=== PATIENT | female | born 1995 | race Caucasian/White ===

== ENCOUNTER 2020-09-25 21:52 | Emergency (ER) | payer MEDICAID, SELFPAY ==
[2020-09-25 21:57] VITALS: BP 119/70; PULSE 92; RESP 16; TEMP 36.7; O2SAT 100; BMI 38.3
--- NOTE | 2020-09-25 22:40 | CT_ITS ---
EXAMINATION: HEAD CT WITHOUT CONTRAST CERVICAL SPINE CT WITHOUT CONTRAST CLINICAL INFORMATION: fall, head trauma COMPARISON: None. TECHNIQUE: Contiguous axial imaging of the head was performed without the administration of IV contrast. Axial multidetector volumetric images were also performed through the cervical spine without intravenous contrast. Multiplanar reconstructed images in coronal and sagittal orientations were submitted. This CT examination was performed using dose optimization techniques as appropriate, variously including the following: *Automated exposure control *Adjustment of mA and/or kV according to patient size (this includes techniques or standardized protocols for targeted exams where dose is matched to indication/reason for exam; i.e. extremities or head) *Use of iterative reconstruction technique DOSE: 1243 mGy-cm FINDINGS: HEAD: There is no evidence of acute intracranial hemorrhage or territorial infarction. No abnormal mass-effect or midline shift. No extra-axial fluid collections. Rebollar to white matter differentiation is well preserved. The ventricles are normal in size and configuration. There is no abnormal attenuation within the brain parenchyma. The soft tissues and osseous structures are normal. The sinuses and mastoid air cells are clear. CERVICAL SPINE: Vertebral body heights are normal. No fractures of the vertebral bodies or posterior elements. Vertebral alignment is normal. No subluxation. The craniocervical and atlantoaxial articulations are normal. Intervertebral disc heights are normal. No significant degenerative disc disease. Facet joints are normal. Central canal and neural foramina appear patent without appreciable stenoses. No significant paravertebral soft tissue swelling. Cervical soft tissues are unremarkable. Imaged portions of the lung apices are clear. CT/CT cervical spine wo con IMPRESSION: 1. No acute intracranial pathology. 2. No acute fracture or malalignment in the cervical spine.
--- NOTE | 2020-09-25 22:54 | ED_ITS ---
HPI - Fall General Chief Complaint: Fall Stated Complaint: fall hit head Time Seen by Provider: 09/25/20 22:23 Source: patient Mode of arrival: ambulatory Limitations: no limitations History of Present Illness HPI Narrative: 25-year-old female with no significant past medical history presents with headache and blurred vision after a slip and fall out of her shower. She was shaving, her foot slipped, she fell out of the shower and hit the back of her head on the bathroom floor. She did not lose consciousness, but is complaining of neck pain, headache, and blurry vision. She does have full range of motion to all extremities, ambulated into the emergency department, denies chest pain or pressure, palpitations, shortness of breath, abdominal pain, abdominal distention, dysuria, hematuria, fevers and chills. MD complaint: fall Onset (ago): hour(s) (Within the hour of arrival) Fall from: standing Fall witnessed: no Place fall occurred: home Loss of consciousness: none Prolonged down time: no Symptoms prior to fall: none Context: tripped/slipped Location of injury: head and neck Severity: moderate Severity scale (1-10): 9 Quality: aching and throbbing Associated symptoms (after fall): headache and neck pain Related Data Previous Rx's Medication Instructions Recorded ondansetron HCl [Zofran] 4 mg PO Q8H PRN #20 tab 09/26/20 Allergies Allergy/AdvReac Type Severity Reaction Status Date / Time copper [COPPER] Allergy Unknown RASH/HIVES Verified 09/25/20 22:49 nickel [NICKEL] Allergy Unknown RASH/HIVES Verified 09/25/20 22:49 acetaminophen [From Tylenol] AdvReac Gastrointestinal Verified 09/25/20 22:50 Upset Review of Systems Review of Systems: Constitutional: No Fever, No Chills ENT/Mouth: No Ear Pain, No Hoarseness, No sore throat Eyes: No Eye Pain, No Swelling, No Redness, No Foreign Body Cardiovascular: No Chest Pain, No SOB Respiratory: No Cough, No Dyspnea Gastrointestinal: No Nausea, No Vomiting, No Diarrhea, No abdominal Pain Genitourinary: No Dysuria, No Hematuria Musculoskeletal: positive neck pain, No Myalgias, No Joint Swelling Skin: No Skin lacerations, No rash Neuro: Positive headache, No Weakness, No Numbness, No Paresthesias, No Loss of Consciousness, No Dizziness Psych: No Anxiety/Panic, No Depression Heme/Lymph: no easy bruising, no Lymphadenopathy Endocrine: No Polyuria, No Polydipsia Yes all other systems are reviewed and are negative [facility] Past Medical History Attestation statement: The following information was validated with the patient. Medical History Asthma Surgical History Hx of tonsillectomy Social History Social History Advance Directives: No Advance Directives Information Provided: Yes Physical Exam Vital Signs: Vital Signs: Last Vital Signs Temp 98.1 F 09/26/20 00:00 Pulse 82 09/26/20 00:00 Resp 16 09/26/20 00:00 BP 109/58 L 09/26/20 00:00 Pulse Ox 100 09/26/20 00:00 Body Mass Index 38.3 Appearance: Alert. Oriented X3. Moderate distress. Eyes: Pupils equal, round and reactive to light. ENT: Pharynx normal. Neck: Normal inspection. Neck supple. CVS: Normal heart rate and rhythm. Pulses normal. Respiratory: No respiratory distress. Breath sounds normal. Abdomen: Soft and nontender. Skin: Skin warm and dry. Normal skin color. Normal skin turgor. Extremities: No lower extremity edema. Neuro: No motor deficit. No sensory deficit. Cranial nerves 2-12 intact, PERRLA, EOMI, no focal neural deficits. Moves all extremities against resistance, gait well balanced well coordinated. Course Course Course Narrative: 25-year-old female presents with a head injury after slipping and falling out of her bathtub and landing on her head. She does have full range of motion, but tenderness to the musculature around the cervical spine. Cranial nerves are intact, no focal neural deficit. She does have a throbbing headache to the occipital area of her head, plan of care is for CT scan of head and cervical spine. Patient was offered Tylenol for pain management, states that she does not take Tylenol because it causes a GI upset. CT scan is negative for acute findings requiring emergent intervention. Patient is highly suspicious for concussion and concussive syndrome. Detailed discussion with patient regarding concussion care and need for close follow-up with primary care physician. We will discharge with prescription for Zofran. Patient verbalized understanding of and agrees to plan of care to discharge home. MDM - Fall Differential Diagnosis Differential diagnosis: Likely fracture, compression fracture and concussion without loss of consciousness Medical Records Attestation: I reviewed the patient's medical records. Lab Data Attestation: I reviewed the patient's lab results. Labs: Lab Results 09/25/20 Range/Units 22:59 Urine Test NEGATIVE (NEGATIVE) Imaging Data CT scan of head and neck: Attestation: I personally reviewed and interpreted this imaging study as follows: Radiologist's impression: EXAMINATION: HEAD CT WITHOUT CONTRAST CERVICAL SPINE CT WITHOUT CONTRAST CLINICAL INFORMATION: fall, head trauma COMPARISON: None. TECHNIQUE: Contiguous axial imaging of the head was performed without the administration of IV contrast. Axial multidetector volumetric images were also performed through the cervical spine without intravenous contrast. Multiplanar reconstructed images in coronal and sagittal orientations were submitted. This CT examination was performed using dose optimization techniques as appropriate, variously including the following: *Automated exposure control *Adjustment of mA and/or kV according to patient size (this includes techniques or standardized protocols for targeted exams where dose is matched to indication/reason for exam; i.e. extremities or head) *Use of iterative reconstruction technique DOSE: 1243 mGy-cm FINDINGS: HEAD: There is no evidence of acute intracranial hemorrhage or territorial infarction. No abnormal mass-effect or midline shift. No extra-axial fluid collections. Rebollar to white matter differentiation is well preserved. The ventricles are normal in size and configuration. There is no abnormal attenuation within the brain parenchyma. The soft tissues and osseous structures are normal. The sinuses and mastoid air cells are clear. CERVICAL SPINE: Vertebral body heights are normal. No fractures of the vertebral bodies or posterior elements. Vertebral alignment is normal. No subluxation. The craniocervical and atlantoaxial articulations are normal. Intervertebral disc heights are normal. No significant degenerative disc disease. Facet joints are normal. Central canal and neural foramina appear patent without appreciable stenoses. No significant paravertebral soft tissue swelling. Cervical soft tissues are unremarkable. Imaged portions of the lung apices are clear. CT/CT head/brain wo con IMPRESSION: 1. No acute intracranial pathology. 2. No acute fracture or malalignment in the cervical spine. Discharge Plan Discharge Clinical Impression: Concussion without loss of consciousness Qualifiers: Encounter type: initial encounter Qualified Code(s): S06.0X0A - Concussion without loss of consciousness, initial encounter Cervical strain Qualifiers: Encounter type: initial encounter Qualified Code(s): S16.1XXA - Strain of muscle, fascia and tendon at neck level, initial encounter Patient Disposition: Home, Self-Care Instructions: Cervical Strain (ED), Concussion (ED), Post Concussion Syndrome (ED), Acute Neck Pain (ED) Additional Instructions: You were evaluated for head and neck pain after a fall with head trauma. CT scan of head neck are negative for acute findings requiring emergent intervention. Your injuries are highly suspicious for concussive syndrome. You must follow-up with your primary care physician within the next week for further follow-up. Please follow concussion protocol. Thank you for choosing this emergency department for evaluation. Please follow-up with primary care physician as needed. Return to the emergency department for any new, concerning, or worsening symptoms. Prescriptions: New ondansetron HCl [Zofran] 4 mg tablet 4 mg PO Q8H PRN (Reason: nausea and vomiting) Qty: 20 RF: 0 Stand Alone Forms: Work/School Release Interventions: ED Discharge Assessment Last Done: 09/26/20 00:49 Discharge Date/Time: 09/26/20 00:50
[2020-09-25 23:11] LABS: UPreg QC Valid YES; Urine Pregnancy NEGATIVE (NEGATIVE)
[2020-09-26] VITALS: BP 109/58; PULSE 82; RESP 16; TEMP 36.7; O2SAT 100
[2020-09-26] MEDS: Ibuprofen 600 MG TABLET PO (00:43)
== END 2020-09-26 00:50 | disposition home or self-care (01) ==
PROVIDERS: Nurse Practitioner Family; Emergency Provider Internal Medicine; PCP Nurse Practitioner Family
DX: S06.0X0A Concussion without loss of consciousness, initial encounter (principal); S16.1XXA Strain of muscle, fascia and tendon at neck level, initial encounter; G44.309 Post-traumatic headache, unspecified, not intractable; M54.2 Cervicalgia; W18.2XXA Fall in (into) shower or empty bathtub, initial encounter; Y93.E1 Activity, personal bathing and showering; Y92.002 Bathroom of unspecified non-institutional (private) residence as the place of occurrence of the external cause; Y99.9 Unspecified external cause status; Z79.899 Other long term (current) drug therapy
CPT/HCPCS: 70450; 72125; 81025; 99284

== ENCOUNTER 2023-08-11 17:00 | Emergency (ER) | payer OTHER, SELFPAY ==
[2023-08-11 17:07] VITALS: BP 129/82; PULSE 81; RESP 18; TEMP 36.7; O2SAT 100; BMI 43.8
--- NOTE | 2023-08-11 17:10 | ECG_ITS ---
Test Reason : DIZZINESS Blood Pressure : / mmHG Vent. Rate : 069 BPM Atrial Rate : 069 BPM P-R Int : 126 ms QRS Dur : 078 ms QT Int : 388 ms P-R-T Axes : 041 030 038 degrees QTc Int : 415 ms Normal sinus rhythm with sinus arrhythmia Normal ECG No previous ECGs available Referred By: Demetrice Amin Electronically Signed By:BALA SCHAEFER MD
--- NOTE | 2023-08-11 17:10 | ED.GENADULT ---
HPI - General Adult General Chief complaint: General Medical Stated complaint: Flu like symptoms, dizziness Time Seen by Provider: 08/11/23 19:32 Source: patient Mode of arrival: ambulatory Limitations: no limitations History of Present Illness HPI narrative: Patient is a 28-year-old female who presents to the emergency department for evaluation of GI symptoms. She reports nausea vomiting and diffuse abdominal pain that only began after multiple episodes of vomiting with onset this morning. She states that she did go out to eat last night had chicken and pizza from a bowling alley, her boyfriend is also experiencing nausea and vomiting today. She also endorses urinary frequency and a odorous urine for the past few days. She denies fevers, chills, dizziness, lightheadedness, chest pain, shortness of breath, recent known sick contacts aside from her significant other today. Related Data Previous Rx's Medication Instructions Recorded ondansetron HCl 4 mg tablet 4 mg PO Q8H PRN nausea and 09/26/20 (Zofran) vomiting #20 tabs cefuroxime axetil 500 mg tablet 500 mg PO BID #13 tabs 08/11/23 fluconazole 150 mg tablet 150 mg PO Q3D 2 doses #2 tabs 08/11/23 ondansetron 4 mg disintegrating 4 mg PO Q8H PRN nausea and 08/11/23 tablet vomiting #10 tabs Allergies Allergy/AdvReac Type Severity Reaction Status Date / Time copper [COPPER] Allergy Unknown RASH/HIVES Verified 09/25/20 22:49 nickel [NICKEL] Allergy Unknown RASH/HIVES Verified 09/25/20 22:49 acetaminophen [From Tylenol] AdvReac Gastrointestinal Verified 09/25/20 22:50 Upset Review of Systems Review of Systems: Yes all other systems are reviewed and are negative PMFSH Past Medical History Attestation statement: The following information was validated with the patient. Source: old records reviewed Medical History Asthma Surgical History Hx of tonsillectomy Social History Social History Smoked in Last 30 Days: Yes Use of substances other than those prescribed or required for medical reasons: Yes Substance Use Type: Marijuana Advance Directives: No Advance Directives Information Provided: No Patient : No Physical Exam ED Vital Signs: Vital Signs - 24 hr 08/11/23 17:07 08/11/23 19:58 Temperature 98.1 F 98.3 F Pulse Rate 81 70 Respiratory Rate 18 14 Blood Pressure 129/82 115/74 Pulse Oximetry 100 100 Oxygen Delivery Method Room Air Room Air BMI result Body Mass Index 43.8 Appearance: Alert.?Oriented to person, place and time. No acute distress.?Normal affect. Eyes: Pupils equal, round and reactive to light.? ENT: Pharynx normal.?? Neck: Normal inspection.? Neck supple.?? CVS: Heart sounds normal. Normal heart rate and rhythm.? Pulses normal.?? Respiratory: No respiratory distress.? Lung sounds clear to auscultation bilaterally?? Abdomen: Soft and non-tender. Normoactive bowel sounds.? Skin: Skin warm and dry.? Normal skin color.? Extremities: No lower extremity edema.? Neuro: Moves all extremities spontaneously. Sensation intact bilaterally. Ambulates with normal steady gait. Course Course Course Narrative: This is an RME: Additional HPI, ROS, PE not included below will be deferred to primary provider. 28 year old female presnts w/ n/v, abd pain, dizziness X 1 day. Smokes marijuanna almost daily but states last smoked two days ago. Plan- labs, ekg Medications Administered Discontinued Medications Generic Name Dose Route Start Last Admin Trade Name Freq PRN Reason Stop Dose Admin Cefuroxime Axetil 500 mg 08/11/23 21:38 08/11/23 21:44 Cefuroxime Axetil 500 Mg Tablet PO 08/11/23 21:39 500 mg ONCE ONE Administration Ibuprofen 600 mg 08/11/23 21:38 08/11/23 21:44 Ibuprofen 600 Mg Tablet PO 08/11/23 21:39 600 mg ONCE ONE Administration Ondansetron HCl 4 mg 08/11/23 17:12 08/11/23 19:57 Ondansetron Odt 4 Mg Tab.Rapdis TRANSLINGU 08/11/23 17:13 4 mg ONCE ONE Administration Medical Decision Making Medical Decision Making MDM Narrative: Patient is a 28-year-old female who presents emergency department for evaluation of nausea vomiting abdominal pain and urinary frequency. She is overall well-appearing, nontoxic, afebrile. Abdominal examination is benign, no rigidity or guarding not consistent with acute abdomen. Based on history physical examination lower suspicion for colitis, obstruction, diverticulitis, appendicitis. Most likely consistent with possible gastritis less likely due to, however did discuss that nausea and vomiting may also be attributed to urinary tract infection. Urinalysis concerning for possible urogenital contamination given she is symptomatic will treat as is symptomatic at this time all cultures are pending. No CVA tenderness, clinically low suspicion for pyelonephritis. HCG is negative. She is tolerating oral intake while in the emergency department. COVID-19 influenza testing was also negative. I advised outpatient follow-up with primary care provider within 1-3 days. Discussed worrisome signs and symptoms that would warrant re-evaluation emergency department. All questions were answered. Stable for discharge. Differential Diagnosis Differential Diagnoses: The differential diagnosis associated with the presentation includes (As noted above) Lab Data MDM Lab Attestation statement: I reviewed the patient's lab results. (As noted above) 08/11/23 17:20 08/11/23 17:21 Labs: Lab Results 08/11/23 08/11/23 08/11/23 Range/Units 17:20 17:21 17:22 WBC 10.8 (4.8-10.8) X10*3/uL RBC 5.58 H (4.20-5.50) X10*6/uL Hgb 12.6 (12.0-16.0) g/dl Hct 38.7 (37.0-47.0) % MCV 69.4 L (80.0-98.0) fL MCH 22.6 L (27.0-33.0) pg MCHC 32.6 (31.0-35.0) g/dl RDW 17.2 H (11.0-16.0) % Plt Count 403 H (160-400) X10*3/uL MPV 10.4 (9.4-12.3) fL Immature Gran % (Auto) 0.8 H (0.0-0.4) % Neut % (Auto) 56.9 (45-73) % Lymph % (Auto) 34.5 (20-40) % Amelia % (Auto) 5.2 (2-11) % Eos % (Auto) 2.0 (0-4) % Baso % (Auto) 0.6 (0-2) % Lymph # (Auto) 3.7 (1.2-4.9) X10*3/uL Amelia # (Auto) 0.6 (0.1-1.2) X10*3/uL Eos # (Auto) 0.2 (0.0-0.4) X10*3/uL Baso # (Auto) 0.1 (0.0-0.2) X10*3/uL Abs Immat Gran (auto) 0.09 H (0.00-0.03) X10*3/uL Absolute Neuts (auto) 6.1 (2.0-8.3) x10*3/uL Absolute Nucleated RBC 0.000 (0.0-0.012) X10*3/uL Nucleated RBC % (auto) 0.0 (0.0-0.2) /100WBC Sodium 141 (135-145) mmol/L Potassium 3.8 (3.3-5.1) mmol/L Chloride 109 H (96-108) mmol/L Carbon Dioxide 23 (22-29) mmol/L Anion Gap 13 (12-20) BUN 9 (9-16) mg/dL Creatinine 0.81 (0.5-1.4) mg/dL Estim Creat Clear Calc 107.4 Estimated GFR > 60 Random Glucose 85 (60-115) mg/dL Calcium 9.1 (8.4-10.2) mg/dL Magnesium 2.1 (1.6-2.6) mg/dL Total Bilirubin 0.3 (0.0-1.0) mg/dL AST 15 (5-31) U/L ALT 13 (0-31) U/L Alkaline Phosphatase 88 (39-117) U/L Total Protein 7.6 (6.5-8.0) g/dL Albumin 4.3 (3.5-5.0) g/dL Lipase 16 (8-78) U/L Urine Color Yellow Urine Appearance Clear Urine pH 6.5 (5.0-9.0) Ur Specific [place] >= 1.030 H (1.005-1.025) Urine Protein Trace (Neg-Trace) mg/dL Urine Glucose (UA) Negative (Negative) mg/dL Urine Ketones Negative (Negative) mg/dL Urine Blood Negative (Negative) Urine Nitrite Negative (Negative) Ur Leukocyte Esterase Trace H (Negative) Urine RBC 0-2 (0-2) /HPF Urine WBC 6-10 H (0-5) /HPF Ur Squamous Epith Cells 11-20 (0-2) /HPF Urine Bacteria 3+ (None Seen) Hyaline Casts 0-2 (0-2) /LPF Urine Test NEGATIVE (NEGATIVE) Urine Opiates Screen Not Detected (Not Detect) Urine Fentanyl Screen Not Detected (Not Detect) Ur Barbiturates Screen Not Detected (Not Detect) Ur Phencyclidine Scrn Not Detected (Not Detect) Ur Amphetamines Screen Not Detected (Not Detect) U Benzodiazepines Scrn Not Detected (Not Detect) Urine Cocaine Screen Not Detected (Not Detect) U Marijuana (THC) Screen POSITIVE H (Not Detect) COVID-19 (OSCAR) Negative (Negative) COVID-19 Clin Com See Note Influenza Type A (FARHANA) Negative (Negative) Influenza Type B (FARHANA) Negative (Negative) Influenza A & B Note See Note Independent Historian Clinical information obtained from an independent historian. History obtained from or confirmed by: Friend (Present confirms history) Prescription Management I considered prescription management with: Antibiotic Discharge Plan Discharge Clinical Impression: Urinary tract infection Patient Disposition: Home, Self-Care Instructions: Urinary Tract Infection in Women (ED) Prescriptions: New cefuroxime axetil 500 mg tablet 500 mg PO BID Qty: 13 0RF ondansetron 4 mg tablet,disintegrating 4 mg PO Q8H PRN (Reason: nausea and vomiting) Qty: 10 0RF fluconazole 150 mg tablet 150 mg PO Q3D Qty: 2 0RF No Action ondansetron HCl [Zofran] 4 mg tablet 4 mg PO Q8H PRN (Reason: nausea and vomiting) Qty: 20 0RF Rx Instructions: ODT sublingual Stand Alone Forms: Work/School Release Interventions: ED Discharge Assessment Last Done: 08/11/23 21:51 Discharge Date/Time: 08/11/23 21:52
[2023-08-11 17:30] LABS: MANUAL DIFF FLAG NO
[2023-08-11 17:43] LABS: Appearance Urine Clear; Color Urine Yellow; Glucose Urine UA Negative (Negative); Leukocyte Esterase Urine Trace (Negative); Nitrite Urine Negative (Negative); PH 6.5 (5.0-9.0); Specific Gravity - Urine >= 1.030 (1.005-1.025); UMIC TRIGGER UACC YES; Urine Blood Negative (Negative); Urine Ketones Negative (Negative); Urine Protein Trace mg/dL (Neg-Trace)
[2023-08-11 17:45] LABS: UPreg QC Valid YES; Urine Pregnancy NEGATIVE (NEGATIVE)
[2023-08-11 17:48] LABS: Bacteria Urine 3+ (None Seen); Basophils Absolute Auto 0.1 X10*3/uL (0.0-0.2); Basophils Percent Auto 0.6 % (0-2); Eosinophils Absolute Auto 0.2 X10*3/uL (0.0-0.4); Hematocrit 38.7 % (37.0-47.0); Hemoglobin 12.6 g/dl (12.0-16.0); Hyaline Casts Urine 0-2 /LPF (0-2); Imm Gran Abs Auto 0.09 X10*3/uL (0.00-0.03); Imm Gran Pct Auto 0.8 % (0.0-0.4); Lymphocytes Absolute Auto 3.7 X10*3/uL (1.2-4.9); Lymphocytes Percent Auto 34.5 % (20-40); Mean Corpuscular HGB Conc 32.6 g/dl (31.0-35.0); Mean Corpuscular Hemoglobin 22.6 pg (27.0-33.0); Mean Corpuscular Volume 69.4 fL (80.0-98.0); Mean Platelet Volume 10.4 fL (9.4-12.3); Monocytes Absolute Auto 0.6 X10*3/uL (0.1-1.2); Monocytes Percent Auto 5.2 % (2-11); Neutrophils Absolute Auto 6.1 x10*3/uL (2.0-8.3); Neutrophils Percent Auto 56.9 % (45-73); Platelet Count 403 X10*3/uL (160-400); RBC Urine 0-2 /HPF (0-2); Red Blood Count 5.58 X10*6/uL (4.20-5.50); Red Cell Distribution Width 17.2 % (11.0-16.0); UACC Culture Trigger YES; White Blood Count 10.8 X10*3/uL (4.8-10.8)
[2023-08-11 17:49] LABS: Alanine Aminotransferase 13 U/L (0-31); Albumin Level 4.3 g/dL (3.5-5.0); Alkaline Phosphatase 88 U/L (39-117); Anion Gap 13 (12-20); Aspartate Amino Transferase 15 U/L (5-31); Bilirubin Total 0.3 mg/dL (0.0-1.0); Blood Urea Nitrogen 9 mg/dL (9-16); Calcium 9.1 mg/dL (8.4-10.2); Carbon Dioxide 23 mmol/L (22-29); Chloride 109 mmol/L (96-108); Creatinine Clr Calc Pharmacy 107.4; Estimated Glomerular Filt Rate > 60; Glucose Random 85 mg/dL (60-115); Lipase 16 U/L (8-78); Magnesium 2.1 mg/dL (1.6-2.6); Potassium 3.8 mmol/L (3.3-5.1); Sodium 141 mmol/L (135-145); Total Protein 7.6 g/dL (6.5-8.0)
[2023-08-11 17:50] LABS: Amphetamine Screen Urine Not Detected (Not Detect); Barbiturates, Urine Not Detected (Not Detect); Benzodiazepines Screen Urine Not Detected (Not Detect); Cannabinoid Screen Urine POSITIVE (Not Detect); Cocaine Screen Urine Not Detected (Not Detect); Fentanyl, urine Not Detected (Not Detect); Opiate Screen Urine Not Detected (Not Detect); Phencyclidine Screen Urine Not Detected (Not Detect)
[2023-08-11 18:00] LABS: IDNOW Serial# BCCEAD1C; Influenza A Negative (Negative); Influenza B2 Negative (Negative)
[2023-08-11 18:00] LABS: COVID-19 Test Negative (Negative); IDNOW Serial# 08D9AD1C
[2023-08-11] MEDS: Ondansetron ODT 4 MG TAB.RAPDIS TRANSLINGU (19:57)
[2023-08-11 19:58] VITALS: BP 115/74; PULSE 70; RESP 14; TEMP 36.8; O2SAT 100
--- NOTE | 2023-08-11 20:16 | PC.NURSE ---
Pt aox4 resting at the bedside reporting I have a migraine headache , 05/23. Pt reports hx of migraines but has been out of medical care for a while. Also reports feeling nauseas. Reports having an appt with primary care in Sep. Pt medicated as ordered and tolerated well.
[2023-08-11] MEDS: cefuroxime axetiL 500 MG TABLET PO (21:44)
[2023-08-11] MEDS: Ibuprofen 600 MG TABLET PO (21:44)
== END 2023-08-11 21:52 | disposition home or self-care (01) ==
PROVIDERS: Physician Assistant; Emergency Provider Emergency Medicine
DX: N39.0 Urinary tract infection, site not specified (principal); R11.2 Nausea with vomiting, unspecified; R10.2 Pelvic and perineal pain; R42 Dizziness and giddiness; Z11.52 Encounter for screening for COVID-19; Z20.822 Contact with and (suspected) exposure to COVID-19; Z79.899 Other long term (current) drug therapy
CPT/HCPCS: 36415; 80053; 80307; 81001; 81025; 83690; 83735; 85025; 87086; 87502; 87635; 93005; 99284

== ENCOUNTER 2023-09-13 15:41 | Outpatient (REF) | payer OTHER, SELFPAY | END 2023-09-13 15:42 | disposition home or self-care (01) | LOC: HO.CHCLNP 15:41 | PROVIDERS: Visit Provider Family Medicine | DX: R30.0 Dysuria (principal) | CPT/HCPCS: 36415; 81513; 87086 ==

== ENCOUNTER 2023-09-16 08:43 | Outpatient (REF) | payer SELFPAY ==
[2023-09-16 14:41] LABS: MANUAL DIFF FLAG NO
[2023-09-16 14:52] LABS: Basophils Absolute Auto 0.1 X10*3/uL (0.0-0.2); Basophils Percent Auto 0.7 % (0-2); Eosinophils Absolute Auto 0.2 X10*3/uL (0.0-0.4); Eosinophils Percent Auto 2.5 % (0-4); Hematocrit 39.4 % (37.0-47.0); Hemoglobin 12.1 g/dl (12.0-16.0); Imm Gran Abs Auto 0.04 X10*3/uL (0.00-0.03); Imm Gran Pct Auto 0.5 % (0.0-0.4); Lymphocytes Absolute Auto 2.8 X10*3/uL (1.2-4.9); Lymphocytes Percent Auto 33.4 % (20-40); Mean Corpuscular HGB Conc 30.7 g/dl (31.0-35.0); Mean Corpuscular Hemoglobin 22.3 pg (27.0-33.0); Mean Corpuscular Volume 72.7 fL (80.0-98.0); Mean Platelet Volume 10.7 fL (9.4-12.3); Monocytes Absolute Auto 0.4 X10*3/uL (0.1-1.2); Neutrophils Absolute Auto 4.8 x10*3/uL (2.0-8.3); Neutrophils Percent Auto 57.9 % (45-73); Platelet Count 365 X10*3/uL (160-400); Red Blood Count 5.42 X10*6/uL (4.20-5.50); Red Cell Distribution Width 17.1 % (11.0-16.0); White Blood Count 8.3 X10*3/uL (4.8-10.8)
[2023-09-16 15:13] LABS: Alanine Aminotransferase 13 U/L (0-31); Alkaline Phosphatase 87 U/L (39-117); Anion Gap 13 (12-20); Aspartate Amino Transferase 15 U/L (5-31); Bilirubin Total 0.3 mg/dL (0.0-1.0); Blood Urea Nitrogen 11 mg/dL (9-16); Calcium 9.1 mg/dL (8.4-10.2); Carbon Dioxide 22 mmol/L (22-29); Chloride 110 mmol/L (96-108); Cholesterol 171 mg/dL (<200); Estimated Glomerular Filt Rate > 60; Glucose Random 62 mg/dL (60-115); HDL Cholesterol 32 mg/dL (>40); LDL Cholesterol Calculated 118 mg/dL (<100); Potassium 3.8 mmol/L (3.3-5.1); Sodium 141 mmol/L (135-145); Total Protein 7.1 g/dL (6.5-8.0); Triglycerides 108 mg/dL (<150)
[2023-09-16 15:17] LABS: TSH reflex Free T4 1.97 uIU/mL (0.32-4.0)
[2023-09-17 07:33] LABS: Estimated Average Glucose 103 mg/dL; Hemoglobin A1c % 5.2 % (<6.0)
[2023-09-17 08:34] LABS: HIV AB/AG Nonreactive (Nonreactive); HIV Num 1 0.04 S/CO (0.00-0.99); ~HepC Num1 0.19 S/CO (0.00-0.79); ~Hepatitis C Antibody Nonreactive (Nonreactive)
== END 2023-09-16 08:44 | disposition home or self-care (01) ==
LOC: HO.CHCLDS 08:43
PROVIDERS: Visit Provider Family Medicine
DX: Z11.4 Encounter for screening for human immunodeficiency virus [HIV] (principal); E66.01 Morbid (severe) obesity due to excess calories; Z68.41 Body mass index [BMI] 40.0-44.9, adult
CPT/HCPCS: 36415; 80053; 80061; 83036; 84443; 85025; 86803; 87389

== ENCOUNTER 2023-10-02 21:22 | Emergency (ER) | payer OTHER, SELFPAY ==
--- NOTE | ~2023-10-02 | XR_ITS ---
EXAMINATION: XR CHEST CLINICAL INFORMATION: Dyspnea COMPARISON: Previous chest x-ray March 2014 TECHNIQUE: Frontal view of the chest was obtained. FINDINGS: No significant abnormality is noted involving the heart, lungs, mediastinum, bony thorax or soft tissues. XR/XR chest 1V IMPRESSION: Unremarkable examination.
[2023-10-02 21:39] VITALS: BP 122/74; PULSE 87; RESP 18; TEMP 36.8; O2SAT 100; BMI 43.5
--- NOTE | 2023-10-02 21:44 | ECG_ITS ---
Test Reason : CHEST PAIN Blood Pressure : / mmHG Vent. Rate : 093 BPM Atrial Rate : 093 BPM P-R Int : 138 ms QRS Dur : 074 ms QT Int : 336 ms P-R-T Axes : 054 031 045 degrees QTc Int : 417 ms Normal sinus rhythm Cannot rule out Anterior infarct , age undetermined Abnormal ECG When compared with ECG of 11-AUG-2023 17:17, No significant change was found Referred By: Generic ED Physician Electronically Signed By:MAYURI TEJEDA MD
[2023-10-02 21:59] LABS: MANUAL DIFF FLAG NO
[2023-10-02 22:01] LABS: Basophils Absolute Auto 0.1 X10*3/uL (0.0-0.2); Basophils Percent Auto 0.6 % (0-2); Eosinophils Absolute Auto 0.2 X10*3/uL (0.0-0.4); Eosinophils Percent Auto 1.8 % (0-4); Hematocrit 38.1 % (37.0-47.0); Hemoglobin 12.1 g/dl (12.0-16.0); Imm Gran Abs Auto 0.03 X10*3/uL (0.00-0.03); Imm Gran Pct Auto 0.2 % (0.0-0.4); Lymphocytes Absolute Auto 4.3 X10*3/uL (1.2-4.9); Lymphocytes Percent Auto 31.3 % (20-40); Mean Corpuscular HGB Conc 31.8 g/dl (31.0-35.0); Mean Corpuscular Hemoglobin 22.7 pg (27.0-33.0); Mean Corpuscular Volume 71.6 fL (80.0-98.0); Mean Platelet Volume 10.1 fL (9.4-12.3); Monocytes Absolute Auto 0.6 X10*3/uL (0.1-1.2); Monocytes Percent Auto 4.5 % (2-11); Neutrophils Absolute Auto 8.4 x10*3/uL (2.0-8.3); Neutrophils Percent Auto 61.6 % (45-73); Platelet Count 362 X10*3/uL (160-400); Red Blood Count 5.32 X10*6/uL (4.20-5.50); Red Cell Distribution Width 16.8 % (11.0-16.0); White Blood Count 13.6 X10*3/uL (4.8-10.8)
--- NOTE | 2023-10-02 22:07 | ED_ITS ---
HPI - General Adult General Chief complaint: Dyspnea Stated complaint: covid 2 wks ago, sob Time Seen by Provider: 10/02/23 22:05 Source: patient, RN notes reviewed and old records reviewed Mode of arrival: ambulatory Limitations: no limitations History of Present Illness HPI narrative: 28-year-old female presents for evaluation of shortness of breath Patient reports that she tested positive for COVID-19 10 days ago She reports the time she had body aches, congestion, facial pressure, mild cough and shortness of breath. She states that she started to get better She states that her flu-like symptoms improved but then she developed worsening shortness of breath even while speaking She states that she has a history of asthma and anxiety. She has an inhaler that is but she has not yet seen her PCP for a refill Denies any fevers, chills or other sick contacts Denies any recent travel or history of DVT/PE Related Data Previous Rx's Medication Instructions Recorded ondansetron HCl 4 mg tablet 4 mg PO Q8H PRN nausea and 09/26/20 (Zofran) vomiting #20 tabs cefuroxime axetil 500 mg tablet 500 mg PO BID #13 tabs 08/11/23 fluconazole 150 mg tablet 150 mg PO Q3D 2 doses #2 tabs 08/11/23 ondansetron 4 mg disintegrating 4 mg PO Q8H PRN nausea and 08/11/23 tablet vomiting #10 tabs albuterol sulfate 90 mcg/actuation 2 puff inhalation Q4-6H PRN 10/02/23 aerosol inhaler shortness of breath or wheezing #8.5 grams azithromycin 250 mg tablet See Rx Instructions PO .COMPLEX #6 10/02/23 tabs prednisone 20 mg tablet 40 mg (2 x 20 mg) PO DAILY #10 tabs 10/02/23 Allergies Allergy/AdvReac Type Severity Reaction Status Date / Time copper [COPPER] Allergy Unknown RASH/HIVES Verified 09/25/20 22:49 nickel [NICKEL] Allergy Unknown RASH/HIVES Verified 09/25/20 22:49 acetaminophen [From Tylenol] AdvReac Gastrointestinal Verified 09/25/20 22:50 Upset Review of Systems 2 Constitutional: Constitutional: Denies body ache(s), Denies chills, Denies fever(s) and Denies headache(s) ENT: Denies headache(s) and Denies sore throat Cardiovascular: Cardiovascular: Denies chest pain and Reports dyspnea Respiratory: Respiratory: Reports cough and Reports dyspnea Gastrointestinal: Gastrointestinal: Denies abdominal pain, Denies nausea and Denies vomiting Musculoskeletal: Musculoskeletal: Denies back pain Integumentary/Breasts: Skin/Breast: Denies rash Neurologic: Denies headache(s) [facility] Past Medical History Medical History Asthma Surgical History Hx of tonsillectomy Social History Social History Substance Use Type: Marijuana Advance Directives: No Advance Directives Information Provided: No Physical Exam ED Vital Signs: Vital Signs - 24 hr 10/02/23 21:39 10/02/23 22:14 Temperature 98.3 F 98.2 F Pulse Rate 87 87 Respiratory Rate 18 20 Blood Pressure 122/74 123/53 L Pulse Oximetry 100 99 Oxygen Delivery Method Room Air Room Air BMI result Body Mass Index 43.5 Const General: healthy appearing, comfortable, no acute distress, alert and awake Nutritional Appearance: well nourished Orientation/consciousness: patient oriented x3 HENMT Head: Yes normocephalic and Yes atraumatic Eyes Eyelids: Yes eyelids normal Conjunctivae: conjunctivae normal Sclerae: sclerae normal Corneas: corneas normal Pupils: Equal, round and reactive pupils present EOM: EOMs intact bilaterally Neck Neck: Yes full ROM Resp Effort & Inspection: normal respiratory effort, able to speak in complete sentences, no audible wheezes and not labored Auscultation: clear to auscultation bilaterally GI Inspection: No distended Palpation (GI): Soft to palpation, not firm, nontender, no guarding and not rigid Skin General skin exam: no rashes or lesions noted and elasticity normal Neuro General: patient oriented x3 Cranial nerves: Yes Equal, round and reactive pupils present and Yes Bilaterally intact EOM present Cognition (Neuro): normal cognition Extrem Other: Moving all extremities well without any obvious deformities Course Reevaluation(s) Reevaluation #1: Patient's viral swab is negative, we will treat her for upper respiratory infection with azithromycin and prednisone. Time: 23:24 Medical Decision Making Medical Decision Making [facility] Narrative: 28-year-old healthy female presents for evaluation of shortness of breath, cough. She states this feels different to the symptoms shows experiencing when she was 1st diagnosed with COVID 10 days ago. Will repeat viral testing to see if she tested positive for any additional viruses. Will get chest x-ray to rule out focal infiltrate post viral pneumonia. Patient is noted mild leukocytosis to 13.6 K. no significant anemia. Chemistries reviewed without any significant abnormality Differential Diagnosis Differential Diagnoses: The differential diagnosis associated with the presentation includes Upper respiratory infection Viral syndrome Postviral pneumonia RSV Influenza Lab Data [facility] Lab Attestation statement: I reviewed the patient's lab results. As above 10/02/23 21:52 10/02/23 21:52 Labs: Lab Results 10/02/23 10/02/23 Range/Units 21:52 22:18 WBC 13.6 H (4.8-10.8) X10*3/uL RBC 5.32 (4.20-5.50) X10*6/uL Hgb 12.1 (12.0-16.0) g/dl Hct 38.1 (37.0-47.0) % MCV 71.6 L (80.0-98.0) fL MCH 22.7 L (27.0-33.0) pg MCHC 31.8 (31.0-35.0) g/dl RDW 16.8 H (11.0-16.0) % Plt Count 362 (160-400) X10*3/uL MPV 10.1 (9.4-12.3) fL Immature Gran % (Auto) 0.2 (0.0-0.4) % Neut % (Auto) 61.6 (45-73) % Lymph % (Auto) 31.3 (20-40) % Piatt % (Auto) 4.5 (2-11) % Eos % (Auto) 1.8 (0-4) % Baso % (Auto) 0.6 (0-2) % Lymph # (Auto) 4.3 (1.2-4.9) X10*3/uL Piatt # (Auto) 0.6 (0.1-1.2) X10*3/uL Eos # (Auto) 0.2 (0.0-0.4) X10*3/uL Baso # (Auto) 0.1 (0.0-0.2) X10*3/uL Abs Immat Gran (auto) 0.03 (0.00-0.03) X10*3/uL Absolute Neuts (auto) 8.4 H (2.0-8.3) x10*3/uL Absolute Nucleated RBC 0.000 (0.0-0.012) X10*3/uL Nucleated RBC % (auto) 0.0 (0.0-0.2) /100WBC Sodium 141 (135-145) mmol/L Potassium 3.9 (3.3-5.1) mmol/L Chloride 110 H (96-108) mmol/L Carbon Dioxide 24 (22-29) mmol/L Anion Gap 11 L (12-20) BUN 10 (9-16) mg/dL Creatinine 0.80 (0.5-1.4) mg/dL Estim Creat Clear Calc 108.3 Estimated GFR > 60 Random Glucose 118 H (60-115) mg/dL Calcium 9.2 (8.4-10.2) mg/dL Troponin I High Sens < 2.7 (<3.5-17.0) ng/L Influenza Type A (PCR) NEGATIVE (Negative) Influenza Type B (PCR) NEGATIVE (Negative) RSV RNA Qual (PCR) NEGATIVE (Negative) SARS-CoV-2 RNA (RT-PCR) NEGATIVE (Negative) Independent Interpretation I performed an independent interpretation of an: Plain X-Ray (No focal infiltrate) Discharge Plan Discharge Clinical Impression: Acute upper respiratory infection Patient Disposition: Home, Self-Care Instructions: Upper Respiratory Infection (ED) Additional Instructions: Your workup in the emergency room today was reassuring. Her vital signs are within normal limits. Her chest x-ray was clear. Take azithromycin and prednisone as directed for upper respiratory infection Follow-up with your primary doctor or return to the ER for worsening symptoms Prescriptions: New albuterol sulfate 90 mcg/actuation HFA aerosol inhaler 2 puff inhalation Q4-6H PRN (Reason: shortness of breath or wheezing) Qty: 8.5 0RF azithromycin 250 mg tablet See Rx Instructions .ROUTE .COMPLEX Qty: 6 0RF Rx Instructions: For 250 mg dose pack: take 500 mg today (day 1), then 250 mg for 4 days (days 2-5) prednisone 20 mg tablet 40 mg PO DAILY Qty: 10 0RF No Action ondansetron HCl [Zofran] 4 mg tablet 4 mg PO Q8H PRN (Reason: nausea and vomiting) Qty: 20 0RF Rx Instructions: ODT sublingual cefuroxime axetil 500 mg tablet 500 mg PO BID Qty: 13 0RF ondansetron 4 mg tablet,disintegrating 4 mg PO Q8H PRN (Reason: nausea and vomiting) Qty: 10 0RF fluconazole 150 mg tablet 150 mg PO Q3D Qty: 2 0RF
[2023-10-02 22:14] VITALS: BP 123/53; PULSE 87; RESP 20; TEMP 36.8; O2SAT 99
[2023-10-02 22:22] LABS: Anion Gap 11 (12-20); Blood Urea Nitrogen 10 mg/dL (9-16); Calcium 9.2 mg/dL (8.4-10.2); Carbon Dioxide 24 mmol/L (22-29); Chloride 110 mmol/L (96-108); Creatinine Clr Calc Pharmacy 108.3; Estimated Glomerular Filt Rate > 60; Glucose Random 118 mg/dL (60-115); Potassium 3.9 mmol/L (3.3-5.1); Sodium 141 mmol/L (135-145)
[2023-10-02 22:30] LABS: Troponin-I High Sensitivity < 2.7 ng/L (<3.5-17.0)
[2023-10-02 23:17] LABS: Influenza A PCR NEGATIVE (Negative); Influenza B PCR NEGATIVE (Negative); Resp Syncy Virus RNA Qual PCR NEGATIVE (Negative); SARS COV2 PCR INHOUSE NEGATIVE (Negative)
== END 2023-10-03 00:01 | disposition home or self-care (01) ==
PROVIDERS: Physician Assistant; Absent Provider Family Medicine; Emergency Provider Student in an Organized Health Care Education/Training Program
DX: J06.9 Acute upper respiratory infection, unspecified (principal); R06.02 Shortness of breath; R07.89 Other chest pain; Z79.899 Other long term (current) drug therapy; Z20.822 Contact with and (suspected) exposure to COVID-19; Z20.828 Contact with and (suspected) exposure to other viral communicable diseases
CPT/HCPCS: 0241U; 36415; 71045; 80048; 84484; 85025; 93005; 99283; 99284

== ENCOUNTER → 2023-10-02 21:44 | Outpatient (BNV) | payer MEDICAID, SELFPAY | PROVIDERS: Absent Provider Family Medicine; Emergency Provider Student in an Organized Health Care Education/Training Program; Visit Provider Internal Medicine Cardiovascular Disease | DX: R94.31 Abnormal electrocardiogram [ECG] [EKG] (principal) | CPT/HCPCS: 93010 ==

== ENCOUNTER 2023-11-03 08:34 | Emergency (ER) | payer SELFPAY ==
[2023-11-03 08:51] VITALS: BP 137/80; PULSE 119; RESP 16; TEMP 36.8; O2SAT 98; BMI 42.4
--- NOTE | 2023-11-03 09:03 | ED.URI ---
HPI - URI/Sore Throat General Chief Complaint: Upper Respiratory Symptoms Stated Complaint: Laryngitis - sore throat, sweating Time Seen by Provider: 11/03/23 09:01 Source: patient Mode of arrival: ambulatory Limitations: no limitations History of Present Illness HPI Narrative: 28 year old female with pmhx significant for asthma and recurrent streptococcal pharyngitis s/p tonsillectomy presents to the ED today for evaluation of hoarse voice, sore throat, body aches, non productive cough, congestion x4 days. She was seen at [facility] 3 days ago and diagnosed with laryngitis. Discharged home with Giulia Warren. States that since this time her symptoms have been worsening. Now she has a nonproductive cough and overall feels ?unwell?. Denies fever, chills, ear pain, chest pain, shortness of breath, wheezing nausea vomiting, abdominal pain. States her daughter was ill with the flu 2 weeks ago. Denies other known sick contacts. Related Data Previous Rx's Medication Instructions Recorded ondansetron HCl 4 mg tablet 4 mg PO Q8H PRN nausea and 09/26/20 (Zofran) vomiting #20 tabs cefuroxime axetil 500 mg tablet 500 mg PO BID #13 tabs 08/11/23 fluconazole 150 mg tablet 150 mg PO Q3D 2 doses #2 tabs 08/11/23 ondansetron 4 mg disintegrating 4 mg PO Q8H PRN nausea and 08/11/23 tablet vomiting #10 tabs albuterol sulfate 90 mcg/actuation 2 puff inhalation Q4-6H PRN 10/02/23 aerosol inhaler shortness of breath or wheezing #8.5 grams azithromycin 250 mg tablet See Rx Instructions PO .COMPLEX #6 10/02/23 tabs prednisone 20 mg tablet 40 mg (2 x 20 mg) PO DAILY #10 tabs 10/02/23 benzocaine 15 mg-menthol 2.6 mg 1 christiano mucous membrane Q2-4H PRN 11/03/23 lozenges (Cepacol Sore Throat sore throat #16 ea (benzocaine-menthol)) Allergies Allergy/AdvReac Type Severity Reaction Status Date / Time copper [COPPER] Allergy Unknown RASH/HIVES Verified 09/25/20 22:49 nickel [NICKEL] Allergy Unknown RASH/HIVES Verified 09/25/20 22:49 acetaminophen [From Tylenol] AdvReac Gastrointestinal Verified 09/25/20 22:50 Upset Review of Systems Review of Systems: Constitutional: No fever, chills, fatigue, night sweats, weight changes ENT/Mouth: No ear pain, hearing loss, +nasal congestion, No sinus pain, rhinorrhea, +sore throat, No odynophagia, No dysphagia Eyes: No eye pain, swelling, redness, vision changes, discharge Cardio: No chest pain, palpitations, CRANE, orthopnea, peripheral edema Pulm: No SOB, +cough, No sputum, wheezing, dyspnea, hemoptysis GI: No nausea, vomiting, hematemesis, abdominal pain, diarrhea, constipation, hematochezia, melena : No irregular bleeding, dysuria, frequency, urgency, hesitancy, hematuria, flank pain MSK: No back pain, neck pain, joint pain, myalgias Skin: No lesions, rashes Neuro: No weakness, numbness, paresthesias, LOC, dizziness, headache All other systems reviewed and are negative. [facility] Past Medical History Attestation statement: The following information was validated with the patient. Source: old records reviewed and nursing notes reviewed Onset Date is defined in the Problem List Problems that require an onset date and time if occurred within 24 hrs of arrival to the ED Aortic Dissection and Rupture; Neurologic impairment; Cardiopulmonary Arrest; Endotracheal Intubation; Insertion or Replacement of Mechanical Circulatory Assist Device Medical History Asthma Surgical History Hx of tonsillectomy Social History Social History Substance Use Type: Marijuana Advance Directives: No Advance Directives Information Provided: Yes Physical Exam Vital Signs: Vital Signs: Last Vital Signs Temp 98.3 F 11/03/23 08:51 Pulse 119 H 11/03/23 08:51 Resp 16 11/03/23 08:51 BP 137/80 11/03/23 08:51 Pulse Ox 98 11/03/23 08:51 O2 Del Method Room Air 11/03/23 08:51 BMI result Body Mass Index 42.4 Patient tachycardic to 119 likely d/t albuterol use [employer]. Const: General: cooperative, healthy appearing, comfortable, no acute distress, alert and awake Orientation/consciousness: patient oriented x3 Limitations: no limitations HEENT: Other: Posterior oropharynx without erythema or edema, tonsils removed, uvula midline, controlling secretions and speaking in complete sentences. Horse voice. Acitvely coughing. Head: Yes normal to inspection, Yes normocephalic and Yes atraumatic Ears: hearing grossly normal bilaterally, external ears normal, TM's normal bilaterally, EAC's normal, mastoids normal and no periauricular adenopathy General nose exam: Normal external nose present and No nasal discharge present Face and sinus: Yes normal facial exam and Yes sinuses nontender Eyes: General: appearance normal, both eyes and all related structures Conjunctivae: conjunctivae normal Sclerae: sclerae normal Pupils: Equal, round and reactive pupils present Neck: Neck: Yes normal visual inspection, Yes full ROM and Yes no lymphadenopathy Resp: Effort & Inspection: normal respiratory effort, able to speak in complete sentences and Actively coughing Auscultation: clear to auscultation bilaterally and no wheezes Cardio: Rate: regular rate Rhythm: regular rhythm GI: Inspection: Yes normal to inspection Palpation (GI): Soft to palpation and nontender Skin: General skin exam: no rashes or lesions noted Neuro: General: patient oriented x3, gait normal and moves all extremities Cranial nerves: Yes Equal, round and reactive pupils present Extrem: General: Yes normal to inspection Course Course Course Narrative: 0950-- patient tested positive for influenza A. Discussed workup findings with patient. As this is day 4 of symptoms, she is just outside of the window for Tamiflu. Discussed symptomatic treatment. Will send Cepacol throat lozenges to pharmacy. Patient has remained stable throughout ED visit today. Discussed strict return precautions. All questions answered at this time. Patient is agreeable with disposition and stable for discharge. Medical Decision Making Medical Decision Making [facility] Narrative: 28 year old female with pmhx significant for asthma and recurrent streptococcal pharyngitis s/p tonsillectomy presents to the ED today for evaluation of hoarse voice, sore throat, body aches, non productive cough, congestion x4 days. Patient is tachycardic to 119 likely secondary to albuterol use prior to arrival. Vital signs otherwise WNL. Afebrile. Patient is nontoxic appearing in no acute distress. Voice is hoarse. Actively coughing on exam. Lungs are CTA bilaterally. Posterior oropharynx without erythema or edema, no tonsillar exudates, uvula midline, controlling secretions and speaking in complete sentences. B/l EACs and TMs wnl. Clinical concern for viral syndrome, laryngitis, strep pharyngitis. Lower suspicion for mono, [employer], retropharyngeal abscess, epiglottitis, pneumonia, respiratory distress. Plan for serology and re-evaluation. Differential Diagnosis Differential Diagnoses: The differential diagnosis associated with the presentation includes as above. Admission/Observation Not indicated Lab Data [facility] Lab Attestation statement: I reviewed the patient's lab results. as above Labs: Lab Results 11/03/23 Range/Units 08:59 COVID-19 (OSCAR) Negative (Negative) COVID-19 Clin Com See Note Influenza Type A (FARHANA) Negative (Negative) Influenza Type B (FARHANA) Positive A (Negative) Influenza A & B Note See Note S. pyogenes GrpA FARHANA Negative (Negative) External Record Review External record reviewed: Inpatient record Prescription Management I considered prescription management with: Pain Medication and Antibiotic Chronic Conditions Patient?s care impacted by: Other (asthma) Social Determinants Patient?s care significantly limited by Social Determinants of Health including: Other Social Determinant of Health Critical Care Time Critical Care Time Critical Care Time: No Discharge Plan Discharge Clinical Impression: Influenza A Patient Disposition: Home, Self-Care Instructions: Influenza (ED), Flu Shot (Vaccine) for Adults (ED) Additional Instructions: You tested positive for influenza A. Your outside the window for Tamiflu administration. Treatment for this is symptomatic. Cepacol is a medicated throat lozenge that has been sent to your pharmacy. Take these as needed for sore throat. Alter ibuprofen and Tylenol for fevers and body aches. You may continue using Tessalon Perles for cough. Limit contact with others as the flu is contagious. Follow-up with your PCP. If symptoms persist or worsen please return to the emergency department. The case of an emergency call 911. Prescriptions: New Cepacol Sore Throat (carmela-men) 15-2.6 mg lozenge 1 christiano mucous membrane Q2-4H PRN (Reason: sore throat) Qty: 16 0RF No Action ondansetron HCl [Zofran] 4 mg tablet 4 mg PO Q8H PRN (Reason: nausea and vomiting) Qty: 20 0RF Rx Instructions: ODT sublingual cefuroxime axetil 500 mg tablet 500 mg PO BID Qty: 13 0RF ondansetron 4 mg tablet,disintegrating 4 mg PO Q8H PRN (Reason: nausea and vomiting) Qty: 10 0RF fluconazole 150 mg tablet 150 mg PO Q3D Qty: 2 0RF albuterol sulfate 90 mcg/actuation HFA aerosol inhaler 2 puff inhalation Q4-6H PRN (Reason: shortness of breath or wheezing) Qty: 8.5 0RF azithromycin 250 mg tablet See Rx Instructions .ROUTE .COMPLEX Qty: 6 0RF Rx Instructions: For 250 mg dose pack: take 500 mg today (day 1), then 250 mg for 4 days (days 2-5) prednisone 20 mg tablet 40 mg PO DAILY Qty: 10 0RF Referrals: Janet Pierson MD [Primary Care Provider] - Stand Alone Forms: Work/School Release
[2023-11-03 09:27] LABS: IDNOW Serial# 6674DD1D; Strep A Nucleic Acid Negative (Negative)
[2023-11-03 09:31] LABS: COVID-19 Test Negative (Negative); IDNOW Serial# 16C4AD1C
[2023-11-03 09:35] LABS: IDNOW Serial# 55D5AD1C; Influenza A Negative (Negative); Influenza B2 Positive (Negative)
== END 2023-11-03 10:00 | disposition home or self-care (01) ==
PROVIDERS: Emergency Provider Emergency Medicine; PCP Family Medicine
DX: J10.1 Influenza due to other identified influenza virus with other respiratory manifestations (principal); J04.0 Acute laryngitis; M70.10 Bursitis, unspecified hand; Z79.899 Other long term (current) drug therapy; Z11.52 Encounter for screening for COVID-19
CPT/HCPCS: 87502; 87635; 87651; 99283; 99284

== ENCOUNTER 2023-12-03 11:18 | Outpatient (REF) | payer OTHER, SELFPAY ==
--- NOTE | ~2023-12-03 | US_ITS ---
EXAMINATION: US DIAGNOSTIC ULTRASOUND BREAST, LEFT CLINICAL INFORMATION: Tender left breast lump at the 11:00 location.. COMPARISON: None available. TECHNIQUE: Ultrasound of the breast is performed with real-time warner scale imaging and color Doppler. FINDINGS: Sonography of the upper inner quadrant of the left breast reveals no focal suspicious finding. There is no solid mass, architectural abnormality, duct ectasia, or edema in the soft tissue planes. Results are discussed with the patient at time of visit. US/US breast LT limited mamm only IMPRESSION: Normal study of the upper inner quadrant of the left breast with no sonographic correlate to the palpable mass. Clinical follow-up advised. ASSESSMENT: BI-RADS 1 - Negative RECOMMENDATION: 1. Patient should be managed based on the clinical impression. 2. Otherwise, routine annual screening mammography. This patient's information was entered into a reminder system with a target due date for their next mammogram.
== END 2023-12-03 11:19 | disposition home or self-care (01) ==
LOC: HO.MAMMO 11:18
PROVIDERS: PCP Family Medicine; Visit Provider Family Medicine
DX: N63.22 Unspecified lump in the left breast, upper inner quadrant (principal)
CPT/HCPCS: 76642

== ENCOUNTER → 2023-12-03 11:30 | Outpatient (BNV) | payer OTHER, SELFPAY | PROVIDERS: PCP Family Medicine; Visit Provider Radiology Diagnostic Radiology | DX: N63.22 Unspecified lump in the left breast, upper inner quadrant (principal) | CPT/HCPCS: 76642 ==

== ENCOUNTER 2023-12-26 11:19 | Outpatient (AMB) | payer OTHER, SELFPAY ==
[2023-12-26 11:23] VITALS: BP 120/82; PULSE 98; TEMP 36.3; O2SAT 99; BMI 43.2
--- NOTE | 2023-12-26 11:23 | AM.OFFWIN_ITS ---
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 Reports that the rash is very itchy, painful and burning. Denies any changes to cosmetic products, detergent, soap or diet. Denies fevers, chills, nausea or vomiting. PFSH Medical History Asthma Surgical History Hx of tonsillectomy Social History Patient Tobacco Use Status: Never used Tobacco Substance Use Type: Marijuana Review of Systems Const All systems reviewed & are unremarkable except as noted in HPI and below Physical Exam Vital Signs: Last Vital Signs Temp 97.4 F 12/26/23 11:23 Pulse 98 12/26/23 11:23 BP 120/82 12/26/23 11:23 Pulse Ox 99 12/26/23 11:23 Oxygen Delivery Method Room Air 12/26/23 11:23 BMI result Body Mass Index 43.2 Const General: comfortable and no acute distress Nutritional Appearance: obese Orientation/consciousness: patient oriented x3 Chest Chest palpation & inspection: rash (right upper chest/breast, red and tender) Chest/axillae images: 2 1. Macule red rash, flat dry and tender to touch Skin General skin exam: dry skin and erythema Rashes: rashes noted (left upper chest/breast ) Neuro General: patient oriented x3 and gait normal Psych Speech and movement: Clear speech present Attitude: cooperative Assessment & Plan Assessment & Plan (1) Rash: Code(s): R21 - Rash and other nonspecific skin eruption Plan: - Take medicine as directed - Keep the area clean and dry - RTC if rash not better. Medications: New 2 prednisone 20 mg PO DAILY 5 days 5 tabs 0RF R21 - Rash and other nonspecific skin eruption clotrimazole-betamethasone 1-0.05 % 1 appl topical BID 1 week 45 grams 0RF R21 - Rash and other nonspecific skin eruption Coding Level of Care Code New Pt Level 3 (89495) Diagnoses Rash R21 Time Spent (min) 15
== END 2023-12-26 11:57 | disposition home or self-care (01) ==
PROVIDERS: PCP Family Medicine; Visit Provider Nurse Practitioner Family
DX: R21 Rash and other nonspecific skin eruption (principal)
CPT/HCPCS: 99203

== ENCOUNTER 2024-03-16 08:22 | Outpatient (AMB) | payer OTHER, SELFPAY ==
[2024-03-16 09:22] VITALS: BP 106/74; PULSE 97; TEMP 37; O2SAT 99; BMI 44.2
--- NOTE | 2024-03-16 09:22 | MHC.OFFWIV ---
Intake Vital Signs 03/16/24 09:22 Height 4 ft 11 in Weight 219 lb BMI 44.2 BP 106/74 Blood Pressure Location Rt brachial Position Sitting Pulse 97 Pulse Source Pulse Oximeter Temp 98.6 F Temp Source Oral Pulse Oximetry (%) 99 Intake Visit Reasons: EP ? Intake Note: pt here today c/o possible Patient Tobacco Use Status: Former Tobacco user Accompanied by: Self / Same As Patient Is last menstrual period known: No Post menopausal: No Allergies copper [COPPER] Allergy (Unknown, Verified 03/16/24 09:34) RASH/HIVES nickel [NICKEL] Allergy (Unknown, Verified 03/16/24 09:34) RASH/HIVES acetaminophen [From Tylenol] Adverse Reaction (Verified 03/16/24 09:34) Gastrointestinal Upset Do you need a note to return to daycare/school/sports/work: No HPI HPI Comments History of Present Illness Details Patient presents to the walk-in [facility] for sick visit Requesting test She is Depo Provera for last couple of years. Reports she does not menstruate Reports she has been feeling an uneasy sensation in her abdomen for the last week concern for Denies abdominal pain, vomiting, nausea, diarrhea, constipation, hematuria, dysuria, vaginal discharge Denies concern for STI PFSH Medical History Asthma Surgical History Hx of tonsillectomy Social History Patient Tobacco Use Status: Former Tobacco user Substance Use Type: Marijuana Review of Systems Const All systems reviewed & are unremarkable except as noted in HPI and below Physical Exam Vital Signs: Last Vital Signs Temp 98.6 F 03/16/24 09:22 Pulse 97 03/16/24 09:22 BP 106/74 03/16/24 09:22 Pulse Ox 99 03/16/24 09:22 BMI result Body Mass Index 44.2 General: awake, alert, oriented. Answers questions appropriately. Fully engaged in examination. Skin: warm, dry, intact HEENT: Normocephalic. Hearing intact. Cardiac: External chest normal in appearance. Respiratory: No cough, audible wheezing or stridor. Abdomen: without gross distension. Soft, nontender. No guarding MS: No obvious swelling or deformities. Neurological: Oriented to person, place, time and situation. Thought process intact. No gait abnormalities appreciated. Psychiatric: Appropriate mood and affect. Good judgment and insight. Results AMB Urinalysis, Automated UA Leukoctes 0 [place]/uL Last Edit by Fadi Crum CMA on 03/16/24 09:51 UA Nitrite Negative Last Edit by Fadi Crum CMA on 03/16/24 09:51 UA Urobilinogen 0.2 mg/dL Last Edit by Fadi Crum CMA on 03/16/24 09:51 UA Protein 0 mg/dL Last Edit by Fadi Crum CMA on 03/16/24 09:51 UA pH 6.0 Last Edit by Fadi Crum CMA on 03/16/24 09:51 UA Blood 0 Darryl/uL Last Edit by Fadi Crum CMA on 03/16/24 09:51 UA Specific [place] 1.030 Last Edit by Fadi Crum CMA on 03/16/24 09:51 UA Ketone Negative Last Edit by Fadi Crum CMA on 03/16/24 09:51 UA Bilirubin 0 mg/dL Last Edit by Fadi Crum CMA on 03/16/24 09:51 UA Glucose 0 mg/dL Last Edit by Fadi Crum CMA on 03/16/24 09:51 AMB Test Urine AMB Test Urine Negative Last Edit by Fadi Crum CMA on 03/16/24 09:52 Assessment & Plan Assessment & Plan (1) Concern about unplanned without diagnosis: Code(s): Z71.1 - Person with feared health complaint in whom no diagnosis is made Plan UA negative, hCG negative Requesting blood test, hCG quantitative ordered for reassurance. Will call patient results Patient advised highly unlikely that she is given lack of menstruation and greater than 2 years consistent use of Depo-Provera. She declines testing for STI's All questions and concerns were answered, patient agrees with the plan Follow up with PCP or return to the walk-in for any new or worsening symptoms Orders: Orders AMB Urinalysis Automated Today Z13.9 - Encounter for screening, unspecified AMB HCG Urine Test Today Z13.9 - Encounter for screening, unspecified HCG Quantitative Today R10.9 - Unspecified abdominal pain Coding Level of Care Code Est Pt Level 3 (97213) Diagnoses Concern about unplanned without diagnosis Z71.1
== END 2024-03-16 09:53 | disposition home or self-care (01) ==
PROVIDERS: PCP Family Medicine; Visit Provider Registered Nurse Emergency
DX: R10.9 Unspecified abdominal pain (principal); Z32.02 Encounter for pregnancy test, result negative
CPT/HCPCS: 81003; 81025; 99213

== ENCOUNTER 2024-03-16 09:51 | Outpatient (REF) | payer OTHER, SELFPAY ==
[2024-03-16 14:10] LABS: HCG Quantitative < 2 mIU/mL
== END 2024-03-16 09:52 | disposition home or self-care (01) ==
LOC: HO.HMGCLDS 09:51
PROVIDERS: PCP Family Medicine; Visit Provider Registered Nurse Emergency
DX: R10.9 Unspecified abdominal pain (principal)
CPT/HCPCS: 36415; 84702

== ENCOUNTER 2024-04-12 14:47 | Emergency (ER) | payer OTHER, SELFPAY ==
--- NOTE | ~2024-04-12 | US_ITS ---
EXAMINATION: US PELVIS COMPLETE CLINICAL INFORMATION: onset heavy abnormal bleeding COMPARISON: CT abdomen/pelvis 02/14/2018 TECHNIQUE: Transabdominal and transvaginal images of the pelvis were obtained. Color and spectral Doppler evaluation of the ovaries was performed. FINDINGS: UTERUS: Anteverted. Normal size and contour, measuring 10.7 x 3.5 x 3.6 cm (cervix to fundus x AP x transverse). Uniform, homogeneous endometrium measures 0.7 cm in width. The endometrium is mildly thickened with subtle cystic areas. RIGHT OVARY: Normal size and echogenicity measuring 2.9 x 2.4 x 1.9 cm, volume 6.9 mL. LEFT OVARY: Normal size and echogenicity measuring 2 x 1.5 x 1.7 cm, volume 2.7 mL. Arterial and venous waveforms are identified in both ovaries on spectral Doppler assessment. FREE FLUID: No pelvic free fluid. US/US pelvic and transvaginal IMPRESSION: 1. The endometrium is mildly thickened with subtle cystic areas. This is nonspecific and could be seen in the setting of endometrial hyperplasia, endometrial polyp, or endometrial carcinoma. Recommend gynecologic consultation. 2. Normal appearance of the ovaries.
[2024-04-12 15:18] VITALS: BP 135/96; PULSE 115; RESP 18; TEMP 36.7; O2SAT 100; BMI 42.3
--- NOTE | 2024-04-12 15:18 | ED_ITS ---
HPI - Female Genitourinary General Chief complaint: Vaginal Bleeding Stated complaint: Vaginal bleeding/pain Time Seen by Provider: 04/12/24 16:27 Source: patient Mode of arrival: ambulatory History of Present Illness ED Provider: Gertrudis Garcia PA-C HPI Narrative: 29-year-old morbidly obese female presents with vaginal bleeding. Patient states she had an episode of heavy abnormal vaginal bleeding about an hour ago. She has not had any residual symptoms. Associated lower abdominal cramping, and dysuria. Patient also notes that she feels ?irritated down there?. Patient denies vaginal discharge, risk for STD; patient has not been sexually active for months. Patient states she uses Depo-Provera, she just had an injection last week. Patient denies medication changes, or increase in her weight. Related Data Home Medications ?Medication ?Instructions ?Recorded ?Confirmed trazodone 100 mg tablet 100 mg PO BEDTIME 12/26/23 Previous Rx's ?Medication ?Instructions ?Recorded albuterol sulfate 90 mcg/actuation 2 puff inhalation Q4-6H PRN 10/02/23 aerosol inhaler shortness of breath or wheezing #8.5 grams Allergies Allergy/AdvReac Type Severity Reaction Status Date / Time copper [COPPER] Allergy Unknown RASH/HIVES Verified 04/12/24 15:20 nickel [NICKEL] Allergy Unknown RASH/HIVES Verified 04/12/24 15:20 acetaminophen [From Tylenol] AdvReac Gastrointestinal Verified 04/12/24 15:20 Upset Review of Systems 2 Review of Systems: Yes all other systems are reviewed and are negative Constitutional: Constitutional: Denies fatigue and Denies fever(s) Cardiovascular: Cardiovascular: Denies chest pain and Denies dyspnea Respiratory: Respiratory: Denies dyspnea Gastrointestinal: Gastrointestinal: Reports abdominal pain Genitourinary: Genitourinary: Reports abnormal vaginal bleeding, Reports dysuria, Reports urinary urgency and Denies vaginal discharge Endocrine: Endocrine: Denies fatigue PMFSH Past Medical History Attestation statement: The following information was validated with the patient. Medical History Asthma Surgical History Hx of tonsillectomy Social History Social History Patient Tobacco Use Status: Former Tobacco user Substance Use Type: Marijuana Advance Directives: No Advance Directives Information Provided: Yes Do you have a plan to hurt others: No Plan Physical Exam 2 Vital Signs: Vital Signs: Last Vital Signs Temp 98.3 F 04/12/24 20:26 Pulse 91 04/12/24 20:26 Resp 17 04/12/24 20:26 BP 118/67 04/12/24 20:26 Pulse Ox 99 04/12/24 20:26 O2 Del Method Room Air 04/12/24 20:26 BMI result Body Mass Index 42.3 Const: Other: Alert well in appearance Orientation/consciousness: oriented to person, oriented to place and oriented to time Resp: Other: Nonlabored respirations Cardio: Other: Normal peripheral perfusion GI: Other: Abdomen soft, nondistended, obese, nontender no guarding : Other: Normal external genitalia, there is no copious foul smelling discharge within the vaginal canal, I do see dark brown red discharge within the os, no CMT, no adnexal tenderness, the cervix is not friable Skin: Other: No rash Neuro: General: oriented to person, oriented to place and oriented to time Extrem: Other: Ambulates with normal steady gait Psych: Other: Calm cooperative Course Course Course Narrative: This is a rapid medical exam. deferred additional HPI, ROS, PE to primary provider. 29 yo female here with complaints of vaginal bleeding, lower abdominal pain x 1 hr. Hasn't had a menses x 2 yrs, on depo. Low suspicion for either or STI Will obtain labs, UA, ur preg VSS -ACharlie Oseguera APRN Medical Decision Making Medical Decision Making [facility] Narrative: 29-year-old morbidly obese female presents with vaginal bleeding. Patient states she had an episode of heavy abnormal vaginal bleeding about an hour ago. She has not had any residual symptoms. Associated lower abdominal cramping, and dysuria. Patient also notes that she feels ?irritated down there?. Patient denies vaginal discharge, risk for STD; patient has not been sexually active for months. Patient states she uses Depo-Provera, she just had an injection last week. Patient denies medication changes, or increase in her weight. Problem: Obesity History: Per patient I have considered the following differential diagnoses: Vaginitis, UTI, fibroids, dysfunctional uterine bleeding, STD exposure Plan: Screening labs including urinalysis and hCG obtained from triage, overall unremarkable, her H and H are stable, she has not . GC chlamydia urine sample and process. Although the patient denies risk for STD. I do not believe she has an STD based on her exam, it sounds as if she is having breakthrough bleeding despite being on the Depo Provera. Given associated discomfort, we will obtain a transvaginal ultrasound, perhaps she has fibroids. With my vaginal exam, I obtained a wet prep with trich. Some of the vaginal swab will return this evening, some will be pending including the urine GC chlamydia. Patient is aware of this. I have independently reviewed the following tests: Labs: No leukocytosis, stable H and H, no electrolyte abnormality, hCG negative, urine not infected, no Trichomonas and no yeast noted on wet prep, the remainder of her swabs are pending I have relayed this to the patient Transvaginal ultrasound:c: Debra Garcia; Janet Pierson MD~ EXAMINATION: US PELVIS COMPLETE CLINICAL INFORMATION: onset heavy abnormal bleeding COMPARISON: CT abdomen/pelvis 02/14/2018 TECHNIQUE: Transabdominal and transvaginal images of the pelvis were obtained. Color and spectral Doppler evaluation of the ovaries was performed. FINDINGS: UTERUS: Anteverted. Normal size and contour, measuring 10.7 x 3.5 x 3.6 cm (cervix to fundus x AP x transverse). Uniform, homogeneous endometrium measures 0.7 cm in width. The endometrium is mildly thickened with subtle cystic areas. RIGHT OVARY: Normal size and echogenicity measuring 2.9 x 2.4 x 1.9 cm, volume 6.9 mL. LEFT OVARY: Normal size and echogenicity measuring 2 x 1.5 x 1.7 cm, volume 2.7 mL. Arterial and venous waveforms are identified in both ovaries on spectral Doppler assessment. FREE FLUID: No pelvic free fluid. US/US pelvic and transvaginal IMPRESSION: 1. The endometrium is mildly thickened with subtle cystic areas. This is nonspecific and could be seen in the setting of endometrial hyperplasia, endometrial polyp, or endometrial carcinoma. Recommend gynecologic consultation. 2. Normal appearance of the ovaries. Discussed findings with the patient, she has been seen by Gynecology in the past they had voiced concerns about potential endometriosis. She has an appointment pending April 22 with her parts assembler which is ideal. Differential Diagnosis Differential Diagnoses: The differential diagnosis associated with the presentation includes Vaginitis, UTI, fibroids, dysfunctional uterine bleeding, STD exposure Lab Data 04/12/24 15:40 04/12/24 15:40 Labs: Lab Results 04/12/24 04/12/24 Range/Units 15:40 15:41 WBC 6.7 (4.8-10.8) X10*3/uL RBC 5.76 H (4.20-5.50) X10*6/uL Hgb 13.6 (12.0-16.0) g/dl Hct 41.9 (37.0-47.0) % MCV 72.7 L (80.0-98.0) fL MCH 23.6 L (27.0-33.0) pg MCHC 32.5 (31.0-35.0) g/dl RDW 15.4 (11.0-16.0) % Plt Count 347 (160-400) X10*3/uL MPV 10.2 (9.4-12.3) fL Immature Gran % (Auto) 0.3 (0.0-0.4) % Neut % (Auto) 54.4 (45-73) % Lymph % (Auto) 38.4 (20-40) % [place] % (Auto) 5.4 (2-11) % Eos % (Auto) 0.9 (0-4) % Baso % (Auto) 0.6 (0-2) % Lymph # (Auto) 2.6 (1.2-4.9) X10*3/uL [place] # (Auto) 0.4 (0.1-1.2) X10*3/uL Eos # (Auto) 0.1 (0.0-0.4) X10*3/uL Baso # (Auto) 0.0 (0.0-0.2) X10*3/uL Abs Immat Gran (auto) 0.02 (0.00-0.03) X10*3/uL Absolute Neuts (auto) 3.7 (2.0-8.3) x10*3/uL Absolute Nucleated RBC 0.000 (0.0-0.012) X10*3/uL Nucleated RBC % (auto) 0.0 (0.0-0.2) /100WBC Sodium 140 (135-145) mmol/L Potassium 4.0 (3.3-5.1) mmol/L Chloride 113 H (96-108) mmol/L Carbon Dioxide 18 L (22-29) mmol/L Anion Gap 13 (12-20) BUN 13 (9-16) mg/dL Creatinine 0.85 (0.5-1.4) mg/dL Estim Creat Clear Calc 99.5 Estimated GFR > 60 Random Glucose 79 (60-115) mg/dL Calcium 9.2 (8.4-10.2) mg/dL Total Bilirubin 0.3 (0.0-1.0) mg/dL Direct Bilirubin 0.1 (0.0-0.5) mg/dL AST 17 (5-31) U/L ALT 19 (0-31) U/L Alkaline Phosphatase 86 (39-117) U/L Total Protein 7.7 (6.5-8.0) g/dL Albumin 4.5 (3.5-5.0) g/dL Urine Color Yellow Urine Appearance Clear Urine pH 5.5 (5.0-9.0) Ur Specific [place] >= 1.030 H (1.005-1.025) Urine Protein Trace (Neg-Trace) mg/dL Urine Glucose (UA) Negative (Negative) mg/dL Urine Ketones 40 (Negative) mg/dL Urine Blood Large (3+) H (Negative) Urine Nitrite Negative (Negative) Ur Leukocyte Esterase Negative (Negative) Urine RBC 11-20 H (0-2) /HPF Urine WBC 0-5 (0-5) /HPF Ur Squamous Epith Cells 3-5 (0-2) /HPF Urine Bacteria 2+ (None Seen) Hyaline Casts 0-2 (0-2) /LPF Urine Test NEGATIVE (NEGATIVE) Discharge Plan Discharge Clinical Impression: Dysfunctional uterine bleeding Patient Disposition: Home, Self-Care Instructions: Dysfunctional Uterine Bleeding (ED) Additional Instructions: All of your labs including a urinalysis were normal, you do not have UTI. Two of the vaginal swabs resulted, you do not have a yeast infection in you do not have Trichomonas. The other vaginal swabs are pending you will be contacted by the facility future screen positive for any of these organisms, they can help expedite treatment at that time. The ultrasound revealed that you have an abnormally thickened uterine lining. This can be due to many different conditions. UA essentially need to follow up with your parts assembler, the next step would be for uterine biopsy. Keep your follow-up appointment scheduled for April 22. Prescriptions: No Action albuterol sulfate 90 mcg/actuation HFA aerosol inhaler 2 puff inhalation Q4-6H PRN (Reason: shortness of breath or wheezing) Qty: 8.5 0RF trazodone 100 mg tablet 100 mg PO BEDTIME Stand Alone Forms: Work/School Release Print Language: Brazilian
[2024-04-12 15:59] LABS: MANUAL DIFF FLAG NO
[2024-04-12 16:00] LABS: Basophils Percent Auto 0.6 % (0-2); Eosinophils Absolute Auto 0.1 X10*3/uL (0.0-0.4); Eosinophils Percent Auto 0.9 % (0-4); Hematocrit 41.9 % (37.0-47.0); Hemoglobin 13.6 g/dl (12.0-16.0); Imm Gran Abs Auto 0.02 X10*3/uL (0.00-0.03); Imm Gran Pct Auto 0.3 % (0.0-0.4); Lymphocytes Absolute Auto 2.6 X10*3/uL (1.2-4.9); Lymphocytes Percent Auto 38.4 % (20-40); Mean Corpuscular HGB Conc 32.5 g/dl (31.0-35.0); Mean Corpuscular Hemoglobin 23.6 pg (27.0-33.0); Mean Corpuscular Volume 72.7 fL (80.0-98.0); Mean Platelet Volume 10.2 fL (9.4-12.3); Monocytes Absolute Auto 0.4 X10*3/uL (0.1-1.2); Monocytes Percent Auto 5.4 % (2-11); Neutrophils Absolute Auto 3.7 x10*3/uL (2.0-8.3); Neutrophils Percent Auto 54.4 % (45-73); Platelet Count 347 X10*3/uL (160-400); Red Blood Count 5.76 X10*6/uL (4.20-5.50); Red Cell Distribution Width 15.4 % (11.0-16.0); White Blood Count 6.7 X10*3/uL (4.8-10.8)
[2024-04-12 16:15] LABS: Alanine Aminotransferase 19 U/L (0-31); Albumin Level 4.5 g/dL (3.5-5.0); Alkaline Phosphatase 86 U/L (39-117); Anion Gap 13 (12-20); Aspartate Amino Transferase 17 U/L (5-31); Bilirubin Direct 0.1 mg/dL (0.0-0.5); Bilirubin Total 0.3 mg/dL (0.0-1.0); Blood Urea Nitrogen 13 mg/dL (9-16); Calcium 9.2 mg/dL (8.4-10.2); Carbon Dioxide 18 mmol/L (22-29); Chloride 113 mmol/L (96-108); Creatinine Clr Calc Pharmacy 99.5; Estimated Glomerular Filt Rate > 60; Glucose Random 79 mg/dL (60-115); Sodium 140 mmol/L (135-145); Total Protein 7.7 g/dL (6.5-8.0)
[2024-04-12 16:21] LABS: UPreg QC Valid YES; Urine Pregnancy NEGATIVE (NEGATIVE)
[2024-04-12 16:37] LABS: Appearance Urine Clear; Color Urine Yellow; Glucose Urine UA Negative (Negative); Leukocyte Esterase Urine Negative (Negative); Nitrite Urine Negative (Negative); PH 5.5 (5.0-9.0); Specific Gravity - Urine >= 1.030 (1.005-1.025); UMIC TRIGGER UACC YES; Urine Blood Large (3+) (Negative); Urine Ketones 40 mg/dL (Negative); Urine Protein Trace mg/dL (Neg-Trace)
[2024-04-12 16:39] LABS: Bacteria Urine 2+ (None Seen); Hyaline Casts Urine 0-2 /LPF (0-2); WBC Urine 0-5 /HPF (0-5)
[2024-04-12 20:26] VITALS: BP 118/67; PULSE 91; RESP 17; TEMP 36.8; O2SAT 99
[2024-04-12 23:01] VITALS: BP 124/69; PULSE 91; RESP 18; TEMP 36.7; O2SAT 99
[2024-04-13 04:56] LABS: CT PCR NOT DETECTED (Not Detect.); NG PCR NOT DETECTED (Not Detect.)
[2024-04-13 12:58] LABS: Bacterial Vaginosis PCR NEGATIVE (Negative); Candida Group PCR NOT DETECTED (Not Detect); Candida glab krusei PCR NOT DETECTED (Not Detect); Trichomonas vaginalis PCR NOT DETECTED (Not Detect)
== END 2024-04-12 23:02 | disposition home or self-care (01) ==
PROVIDERS: Nurse Practitioner Family; Emergency Provider Emergency Medicine; PCP Family Medicine
DX: N93.9 Abnormal uterine and vaginal bleeding, unspecified (principal); R10.2 Pelvic and perineal pain; Z79.899 Other long term (current) drug therapy
CPT/HCPCS: 0352U; 36415; 76830; 76856; 80048; 80076; 81001; 81025; 85025; 87491; 87591; 99284

== ENCOUNTER 2024-04-22 10:10 | Outpatient (REF) | payer OTHER, SELFPAY | END 2024-04-22 10:11 | disposition home or self-care (01) | LOC: HO.LNP 10:10 | PROVIDERS: PCP Family Medicine; Visit Provider Obstetrics & Gynecology | DX: N93.9 Abnormal uterine and vaginal bleeding, unspecified (principal); R93.5 Abnormal findings on diagnostic imaging of other abdominal regions, including retroperitoneum | CPT/HCPCS: 99202 ==

== ENCOUNTER 2024-04-22 10:10 | Outpatient (AMB) | payer OTHER, SELFPAY ==
[2024-04-22 10:43] VITALS: BP 110/70; BMI 42.3
--- NOTE | 2024-04-22 10:43 | MHC.OFFVIS ---
Vital Signs 04/22/24 10:43 Height 4 ft 11 in Weight 209 lb 7.026 oz BMI 42.3 BP 110/70 Intake Visit Reasons: New patient Tubal ligation Intake Note: Patient here for tubal consult. Have one child use depo shot for control Client Renewal Specialist Required: No Information Interpreted: non-clinical & clinical Urinalysis Technician: Urinalysis Technician Present Accompanied by: Mother Allergies copper [COPPER] Allergy (Unknown, Verified 04/22/24 10:46) RASH/HIVES nickel [NICKEL] Allergy (Unknown, Verified 04/22/24 10:46) RASH/HIVES acetaminophen [From Tylenol] Adverse Reaction (Verified 04/22/24 10:46) Gastrointestinal Upset Is last menstrual period known: No (depo) Post menopausal: No Patient : No Do you need a note to return to daycare/school/sports/work: Yes (for surgery on saturday) HPI Comments Details: Presenting for follow-up from emergency room on 04/12/2024. The patient went to the ER because of an episode of heavy vaginal bleeding. The patient has been on Depo-Provera over the last 2 years , has been amenorrheic since then except when she started having heavy vaginal bleeding starting on 04/12/2024 associated with blood clots and pelvic cramping. The following workup was done emergency room: Urine test was negative H&H was within normal Pelvic ultrasound showed the following: IMPRESSION: 1. The endometrium is mildly thickened with subtle cystic areas. This is nonspecific and could be seen in the setting of endometrial hyperplasia, endometrial polyp, or endometrial carcinoma. Recommend gynecologic consultation. 2. Normal appearance of the ovaries. Last co testing? 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 Sexual orientation: Straight/Heterosexual Gender identity: Female Female Reproductive History Menstrual Date of last menstrual period: 08/11/20 control method: progesterone injection Total pregnancies: 2 Full term: 1 Number of Living Children: 1 Ab spontaneous: 1 Review of Systems Const All systems reviewed & are unremarkable except as noted in HPI and below Card Reports as per HPI and Reports no additional complaints Resp Reports as per HPI and Reports no additional complaints GI Reports as per HPI and Reports no additional complaints Reports as per HPI Physical Exam Vital Signs: Last Vital Signs BP 110/70 04/22/24 10:43 BMI result Body Mass Index 42.3 Const General: cooperative, healthy appearing and comfortable Resp Effort & Inspection: normal respiratory effort Auscultation: clear to auscultation bilaterally Percussion: percussion normal Cardio Palpation: normal PMI Rate: regular rate Rhythm: regular rhythm Heart sounds: no murmurs and no rubs Peripheral pulses: Peripheral pulses 2+ throughout GI Inspection: Yes normal to inspection Palpation (GI): Soft to palpation, nontender, no guarding, not rigid and No hepatosplenomegaly present Percussion: Yes normal to percussion Auscultation: normal bowel sounds Rectal Exam - Female: deferred General: Yes no CVA tenderness External Female Exam: normal external appearance and normal appearance of the urethra Speculum Exam - Vagina: normal appearance of the vagina, normal palpation, no lesions and no masses Speculum Exam - Cervix: normal appearance of the cervix, normal palpation, no lesions, no masses and nontender Bimanual exam- vagina & uterus: normal bimanual exam, normal palpation, uterine size normal, normal palpation, uterine shape normal, No Cervical tenderness present and non-tender Bimanual Exam- Adnexa, other: normal adnexae Back/Spine/Pelvis Back: no CVA tenderness Assessment & Plan Assessment & Plan (1) Abnormal uterine bleeding: Code(s): N93.9 - Abnormal uterine and vaginal bleeding, unspecified Category: Medical Plan: Co testing done, GC and chlamydia taken CBC, TSH, prolactin, HCG, ordered. Discussed with the patient the different causes of abnormal bleeding including thyroid disorders, uterine and ovarian pathology, endometrial hyperplasia, carcinoma and other potential causes. Discussed with the patient the work up including CBC (to r/o anemia), TSH, prolactin, pelvic Ultrasound, endometrial sampling to r/o endometrial pathology. All questions answered and the patient verbalized understanding. (2) Abnormal ultrasound of endometrium: Code(s): R93.5 - Abnormal findings on diagnostic imaging of other abdominal regions, including retroperitoneum Category: Medical Plan: Discussed with the patient the finding on ultrasound showing abnormal thickened endometrium with cystic areas, differential diagnosis include blood clots in the endometrial cavity, endometrial hyperplasia, polyps or malignancy. Recommended to the patient that the next step is an endometrial sampling via hysteroscopy D&C possible polypectomy versus endometrial biopsy to r/o endometrial pathology including hyperplasia or cancer. All the pros and cons risks and benefits of each approach were discussed with the patient, endometrial biopsy being less invasive, office procedure with less sensitivity and inability diagnose a polyp and removal versus hysteroscopy done under anesthesia more invasive more sensitive to endometrial cancer and possibility of diagnosing and endometrial polyp with the possibility of polypectomy. All questions were answered pt verbalized understanding and decided to proceed with hysteroscopy D&C possible polypectomy/myomectomy. Discussed with the patient the procedure , all benefits and risks including but not limited to inability to complete the procedure , insufficient endometrial tissue for a complete evaluation of the endometrial cavity , bleeding, infection, possible need for blood transfusion with all its risk ( HIV,syphilis, Hepatitis, anaphylaxis shock, others..), injury to bladder, rectum, possible need for laparoscopy/laparotomy or hysterectomy. The patient verbalized understanding and signed the consent. Instructions given the patient to stay NPO after midnight the day prior to the procedure and to take only the specific medication (s) discussed the morning of the surgical procedure and to schedule a 2 week postoperative appointment (3) Family planning: Code(s): Z30.09 - Encounter for other general counseling and advice on contraception Category: Social Hx Plan: Discussed with the patient the different options of control including control pills/Nuvaring, DMPA, IUD (Mirena, Paraguard), sterilization. All the pros, cons, risks and benefits of each were discussed with the patient. The patient decided to stay with DMPA so a more detailed discussion re: Depo-Provera including mechanism of action, benefits (amenorrhea after initial dub, ...), risks ( mood lability, weight gain, initial dub, bone loss reversible, ? increase Breast Cancer risk, others). Orders: Orders HCG Quantitative Today N93.9 - Abnormal uterine and vaginal bleeding, unspecified Complete Blood Count no Diff Today N93.9 - Abnormal uterine and vaginal bleeding, unspecified CT NG by PCR Today N93.9 - Abnormal uterine and vaginal bleeding, unspecified Prolactin Today N93.9 - Abnormal uterine and vaginal bleeding, unspecified TSH reflex Free T4 Today N93.9 - Abnormal uterine and vaginal bleeding, unspecified PAP Smear Today N93.9 - Abnormal uterine and vaginal bleeding, unspecified Coding Level of Care Code New Pt Level 3 (41805) Diagnoses Abnormal uterine bleeding N93.9 Abnormal ultrasound of endometrium R93.5 Family planning Z30.09
== END 2024-04-22 11:38 | disposition home or self-care (01) ==
PROVIDERS: PCP Family Medicine; Visit Provider Obstetrics & Gynecology
DX: N93.9 Abnormal uterine and vaginal bleeding, unspecified (principal); R93.5 Abnormal findings on diagnostic imaging of other abdominal regions, including retroperitoneum; Z30.09 Encounter for other general counseling and advice on contraception
CPT/HCPCS: 99203

== ENCOUNTER 2024-04-22 15:41 | Outpatient (REF) | payer OTHER, SELFPAY ==
[2024-04-22 17:38] LABS: Hematocrit 40.7 % (37.0-47.0); Hemoglobin 13.2 g/dl (12.0-16.0); Mean Corpuscular HGB Conc 32.4 g/dl (31.0-35.0); Mean Corpuscular Volume 73.9 fL (80.0-98.0); Mean Platelet Volume 11.4 fL (9.4-12.3); Platelet Count 360 X10*3/uL (160-400); Red Blood Count 5.51 X10*6/uL (4.20-5.50); Red Cell Distribution Width 16.1 % (11.0-16.0); White Blood Count 9.4 X10*3/uL (4.8-10.8)
[2024-04-22 18:10] LABS: HCG Quantitative < 2 mIU/mL; TSH reflex Free T4 1.07 uIU/mL (0.32-4.0)
[2024-04-23 04:23] LABS: CT PCR NOT DETECTED (Not Detect.); NG PCR NOT DETECTED (Not Detect.)
[2024-04-23 19:18] LABS: Prolactin 18.2 ng/mL
== END 2024-04-22 15:42 | disposition home or self-care (01) ==
LOC: HO.LAB 15:41
PROVIDERS: Visit Provider Obstetrics & Gynecology
DX: N93.9 Abnormal uterine and vaginal bleeding, unspecified (principal)
CPT/HCPCS: 36415; 84146; 84443; 84702; 85027; 87491; 87591; 88175

== ENCOUNTER 2024-04-30 12:31 | Day surgery (SDC) | payer OTHER, SELFPAY ==
--- NOTE | 2024-04-29 09:51 | P.CONAN_ITS ---
Documented by User: Emmy Good NP 04/29/24 09:52 HPI - Anesthesia Eval Consult details Narrative: 29yo F for ?D&C Hysteroscopy,possible myomectomy,possible polypectomy, PMFSH Active Problems Active Problems: All Active Problems Family planning (Acute) Abnormal ultrasound of endometrium (Acute) Abnormal uterine bleeding (Acute) Concern about unplanned without diagnosis (Acute) Abdominal pain (Acute) Past Medical History Medical History Asthma Surgical History Surgical History (Updated 04/30/24 @ 13:22 by Virginia Carranza RN) Hx of colonoscopy History of esophagogastroduodenoscopy (EGD) Hx of tonsillectomy Social History Social History Household Members: Significant Other Housing: Apartment Alcohol intake: current Alcohol intake frequency: holidays/special occasions only Alcohol type: beer, wine and hard liquor Patient Tobacco Use Status: Never used Tobacco Use of substances other than those prescribed or required for medical reasons: Yes Substance Use Type: Marijuana Substance Use Type Other:: 2X/WEEKLY Are you DNR?: No Advance Directives: No Advance Directives Information Provided: Yes Current occupational status: employed 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 Sexual orientation: Straight/Heterosexual Gender identity: Female Meds Allergies Allergy/AdvReac Type Severity Reaction Status Date / Time copper [COPPER] Allergy Unknown RASH/HIVES Verified 04/30/24 13:28 nickel [NICKEL] Allergy Unknown RASH/HIVES Verified 04/30/24 13:28 acetaminophen [From Tylenol] AdvReac Gastrointestinal Verified 04/30/24 13:28 Upset Home Medications ?Medication ?Instructions ?Recorded ?Confirmed ?Last Taken ?Type trazodone 100 mg tablet 100 mg PO BEDTIME 12/26/23 04/30/24 Unknown History medroxyprogesterone 150 mg/mL 150 mg IM [id number] 04/22/24 04/30/24 Unknown History intramuscular suspension (Depo-Provera) phentermine 8 mg tablet (Lomaira) 8 mg PO DAILY 04/22/24 04/30/24 Unknown History topiramate 50 mg tablet 50 mg PO DAILY 04/22/24 04/30/24 Unknown History Exam Pertinent Lab Results Pertinent Lab Results: Laboratory Tests 04/12/24 04/22/24 15:40 15:59 WBC 9.4 Hgb 13.2 Hct 40.7 Plt Count 360 Sodium 140 Potassium 4.0 Chloride 113 H Carbon Dioxide 18 L BUN 13 Creatinine 0.85 Narrative Narrative: EKG 2022 Vent. Rate : 093 BPM Atrial Rate : 093 BPM P-R Int : 138 ms QRS Dur : 074 ms QT Int : 336 ms P-R-T Axes : 054 031 045 degrees QTc Int : 417 ms Normal sinus rhythm Cannot rule out Anterior infarct , age undetermined Abnormal ECG When compared with ECG of 11-AUG-2023 17:17, No significant change was found Assessment and Plan Assessment Anesthesia Assessment: Chart Reviewed Documented by User: Noelle Moore MD 04/30/24 14:48 PMFSH Past Medical History Medical History Asthma Family History Family history of problems with anesthesia: No Surgical History Surgical History (Updated 04/30/24 @ 13:22 by Virginia Carranza RN) Hx of colonoscopy History of esophagogastroduodenoscopy (EGD) Hx of tonsillectomy History of Problems with Anesthesia: No Social History Social History Household Members: Significant Other Housing: Apartment Alcohol intake: current Alcohol intake frequency: holidays/special occasions only Alcohol type: beer, wine and hard liquor Patient Tobacco Use Status: Never used Tobacco Use of substances other than those prescribed or required for medical reasons: Yes Substance Use Type: Marijuana Substance Use Type Other:: 2X/WEEKLY Are you DNR?: No Advance Directives: No Advance Directives Information Provided: Yes Current occupational status: employed 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 Sexual orientation: Straight/Heterosexual Gender identity: Female Meds Allergies Allergy/AdvReac Type Severity Reaction Status Date / Time copper [COPPER] Allergy Unknown RASH/HIVES Verified 04/30/24 13:28 nickel [NICKEL] Allergy Unknown RASH/HIVES Verified 04/30/24 13:28 acetaminophen [From Tylenol] AdvReac Gastrointestinal Verified 04/30/24 13:28 Upset Home Medications ?Medication ?Instructions ?Recorded ?Confirmed ?Last Taken ?Type trazodone 100 mg tablet 100 mg PO BEDTIME 12/26/23 04/30/24 Unknown History medroxyprogesterone 150 mg/mL 150 mg IM [id number] 04/22/24 04/30/24 Unknown History intramuscular suspension (Depo-Provera) phentermine 8 mg tablet (Lomaira) 8 mg PO DAILY 04/22/24 04/30/24 Unknown History topiramate 50 mg tablet 50 mg PO DAILY 04/22/24 04/30/24 Unknown History Exam Airway Mallampati Class: II TM Dist: >3cm Neck ROM: Full Heart: rrr Lungs: cta Assessment and Plan Assessment Anesthesia Assessment: Anesthesia Plan Discussed Final Anesthetic Review Family History of Problems with Anesthesia: No History of Problems with Anesthesia: No NPO: Yes ASA Class: II Final Preanesthetic Review: No Changes in Pt Med Stat, Meds/Allgs Chart Reviewed, Consent Obtained/Reviewed and Anes Risks/Benef Reviewed Patient Risk: Intermediate Procedure Risk: Low Anesthetic Plan Anesthetic Plan: GA Disposition: Standard PACU
[2024-04-30] VITALS (8 sets, daily range): BP systolic 110–133; BP diastolic 63–74; PULSE 58–84; RESP 12–18; TEMP 36.1–36.7; O2SAT 94–99; BMI 40.8
[2024-04-30 13:13] LABS: UPreg QC Valid YES; Urine Pregnancy NEGATIVE (NEGATIVE)
[2024-04-30] MEDS: Lactated Ringers 1,000 ML 100 ML IVCONT (13:48)
--- NOTE | 2024-04-30 14:28 | MHC.SHP ---
Pre-Procedural Eval Section A - 24 Hr Update-Section A only Date of Service: 04/30/24 The patient is an INPATIENT: No Changes since office visit: No Cold of Flu in the past 2 weeks, No New Medical Problems, No Changes in Medication and No Patient answered all questions The patient has been examined within 24 hours of the surgical procedure. The History & Physical has been completed within 30 days and I have reviewed it.: Yes Section B - Complete if H&P > 30 days Chief Complaint: Abnormal uterine and vaginal bleeding, unspecified Allergies: Allergies Allergy/AdvReac Type Severity Reaction Status Date / Time copper [COPPER] Allergy Unknown RASH/HIVES Verified 04/30/24 13:28 nickel [NICKEL] Allergy Unknown RASH/HIVES Verified 04/30/24 13:28 acetaminophen [From Tylenol] AdvReac Gastrointestinal Verified 04/30/24 13:28 Upset Plan Diagnosis/Plan: Unchanged I have reviewed the history and physical and performed a pertinent physical examination on my patient. No changes have occurred unless specified. Time Spent With Patient Time: Total time managing care of this patient today ____ minutes.
--- NOTE | 2024-04-30 16:25 | P.BOP_ITS ---
Brief Operative Note Date of Service: 04/30/24 Pre-op diagnosis: AUB with abnormal endometrium by ultrasound Post-op diagnosis: same (Small endometrial polyp) Procedure: Hysteroscopy D&C, Polypectomy Surgeon: Bhavesh Dillard MD Anesthesia: GLMA Was an Director [employer] used for this Procedure?: No Estimated blood loss (mL): 0 Pathology: other (Endometrial Scrapping. Polyp) Condition: stable Disposition: PACU
--- NOTE | 2024-04-30 16:26 | W.PM.OPN ---
Operative Note Operative Note Date of Service: 04/30/24 Narrative: Preop Diagnosis: AUB with abnormal endometrium by US Operation: Diagnostic Hysteroscopy, Dilataion & Curettage and polypectomy Post Op Diagnosis: Small Endometrial Polyp QBL: Minimal Anesthesia: GLMA Surgeon: Bhavesh Dillard MD Franchise Sales Director: None Complication: None Pathology: Endometrial Scrapings, Endometrial polyp Procedure: The patient was put in the dorsal lithotomy position, scrubbed, and draped in the usual manner. A sterile speculum was inserted in the patient's vagina. The anterior lip of the cervix was grasped with a single tooth tenaculum. The cervix was dilated up to 5 mm, then the scope was inserted in the patient's uterus. Inspection revealed a small endometrial polyp. The Myosure Reach device was used; it was introduced through the operative channel and polypectomy done with no complications. The scope was then taken out from the uterine cavity, sharp curettings was carried on with minimal to moderate amount of tissues retrieved. At the end of the procedure, all instruments were taken out of the patient uterine and vaginal cavity. The single tooth tenaculum was removed and homeostasis was assured using pressure,. The patient tolerated the procedure well and was transferred to the PACU in a stable condition.
[2024-04-30] MEDS: fentaNYL citrate/PF 100 MCG/2 ML VIAL 25 MCG IVPUSH (16:50)
[2024-04-30] MEDS: Ketorolac Tromethamine 15 MG/ML VIAL IVPUSH (17:32)
== END 2024-04-30 17:50 | disposition home or self-care (01) ==
PROVIDERS: Nurse Practitioner; PCP Family Medicine; Visit Provider Obstetrics & Gynecology
PROC: 0UDB8ZZ Extraction of Endometrium, Via Natural or Artificial Opening Endoscopic (ICD-10-PCS; CPT 58558; principal; 2024-04-30 14:00)
DX: N93.9 Abnormal uterine and vaginal bleeding, unspecified (principal); N84.0 Polyp of corpus uteri; J45.909 Unspecified asthma, uncomplicated; Z98.51 Tubal ligation status; Z88.8 Allergy status to other drugs, medicaments and biological substances; Z79.899 Other long term (current) drug therapy
CPT/HCPCS: 58558; 81025; 88305; J1100; J1885; J2250; J2405; J2704; J3010

== ENCOUNTER → 2024-04-30 12:31 | Outpatient (BNV) | payer OTHER, SELFPAY | PROVIDERS: PCP Family Medicine; Visit Provider Obstetrics & Gynecology | DX: N84.0 Polyp of corpus uteri (principal); N93.9 Abnormal uterine and vaginal bleeding, unspecified | CPT/HCPCS: 58558 ==

== ENCOUNTER → 2024-05-14 14:04 | Outpatient (BNVA) | payer OTHER, SELFPAY | PROVIDERS: PCP Family Medicine; Visit Provider Obstetrics & Gynecology | DX: N93.9 Abnormal uterine and vaginal bleeding, unspecified (principal) | CPT/HCPCS: 99212 ==

== ENCOUNTER 2024-05-14 14:15 | Outpatient (AMB) | payer OTHER, SELFPAY ==
[2024-05-14 14:09] VITALS: BMI 42.2
--- NOTE | 2024-05-14 14:09 | A.OFFVIS_ITS ---
Vital Signs 05/14/24 14:09 Height 4 ft 11 in Weight 209 lb BMI 42.2 Intake Visit Reasons: post op Park Services Specialist Required: No Information Interpreted: non-clinical & clinical Accompanied by: Self / Same As Patient Allergies copper [COPPER] Allergy (Unknown, Verified 05/14/24 14:09) RASH/HIVES nickel [NICKEL] Allergy (Unknown, Verified 05/14/24 14:09) RASH/HIVES acetaminophen [From Tylenol] Adverse Reaction (Verified 05/14/24 14:09) Gastrointestinal Upset HPI Comments Details: The patient is presenting post hysteroscopy D&C no complaints minimal vaginal bleeding no feverishness chills or abdominal pain. The pathology showed the following: A. Cervix, polypectomy: Endocervical polyp; no atypia identified. B. Endometrium, curettage: - Inactive endometrium; negative for atypia or hyperplasia. - Few fragments of endocervical and squamous epithelium within normal limits. The following workup was done.: H&H= 13.2/40.7 TSH, prolactin, hCG, GC and chlamydia were negative. Pap smear was done at [facility] in 12/07 was negative. Pelvic ultrasound showed the following: UTERUS: Anteverted. Normal size and contour, measuring 10.7 x 3.5 x 3.6 cm (cervix to fundus x AP x transverse). Uniform, homogeneous endometrium measures 0.7 cm in width. The endometrium is mildly thickened with subtle cystic areas. RIGHT OVARY: Normal size and echogenicity measuring 2.9 x 2.4 x 1.9 cm, volume 6.9 mL. LEFT OVARY: Normal size and echogenicity measuring 2 x 1.5 x 1.7 cm, volume 2.7 mL. Arterial and venous waveforms are identified in both ovaries on spectral Doppler assessment. FREE FLUID: No pelvic free fluid. 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 Sexual orientation: Straight/Heterosexual Gender identity: Female Review of Systems Const All systems reviewed & are unremarkable except as noted in HPI and below Reports as per HPI and Reports no additional complaints GI Reports no additional complaints Reports no additional complaints Physical Exam Vital Signs: BMI result Body Mass Index 42.2 Assessment & Plan Assessment & Plan (1) Abnormal uterine bleeding: Comment: on depo provera Code(s): N93.9 - Abnormal uterine and vaginal bleeding, unspecified Category: Medical Plan: Discussed with the patient the results of the work up done and options of treatment including staying on Depo-Provera, switching to BCP's or Mirena IUD. All pros, cons, risks and benefits if each option was discussed with the patient and the patient decided to stay on Depo-Provera for now will call back in case symptoms recur. All questions answered the patient verbalized understanding. Coding Level of Care Code Est Pt Level 3 (10127) Diagnoses Abnormal uterine bleeding N93.9
== END 2024-05-14 14:53 | disposition home or self-care (01) ==
PROVIDERS: PCP Family Medicine; Visit Provider Obstetrics & Gynecology
DX: N93.9 Abnormal uterine and vaginal bleeding, unspecified (principal)
CPT/HCPCS: 99213

== ENCOUNTER 2024-06-05 12:58 | Outpatient (REF) | payer OTHER, SELFPAY ==
--- NOTE | ~2024-06-05 | US_ITS ---
EXAMINATION: US PELVIC COMPLETE WITH TV CLINICAL INFORMATION: Abnormal vagina bleeding COMPARISON: Ultrasound of pelvis on 04/12/2024 TECHNIQUE: Real-time transabdominal and transvaginal ultrasound scanning. FINDINGS: Transabdominal and transvaginal ultrasound examination of the pelvis were performed. Uterus: Anteverted; measuring 7.8 cm in length, 3.6 cm in AP diameter and 3.9 cm in width. Uterine cervix measures 3.5 cm in length. Echotexture: normal sonographic appearance Endometrial Thickness: 1.2 cm. Right ovary: 3.2 x 2.1 x 1.8 cm (SAG x AP x TRV), calculated volume of 6.3 mL, with normal echotexture. Previously 2.9 x 2.4 x 1.9 cm (SAG x AP x TRV), calculated volume of 6.9 mL Left ovary: 2.3 x 2.4 x 1.8 cm (SAG x AP x TRV), calculated volume of 5.2 mL, with normal echotexture. Previously 2.0 x 1.5 x 1.7 cm (SAG x AP x TRV), calculated volume of 2.7 mL No free fluid is present. Limited view of the urinary bladder shows no abnormality. US/US pelvic and transvaginal IMPRESSION: 1. Endometrial stripe is at upper limit of normal for the patient's age. 2. Normal sonographic appearance of uterus. 3. Unchanged Normal sonographic appearance of bilateral ovaries. 4. No abnormal pelvic fluid collection is seen. Electronically signed by: Brad Lucero MD 06/05/2024 04:12 PM EDT
== END 2024-06-05 12:59 | disposition home or self-care (01) ==
LOC: HO.US 12:58
PROVIDERS: PCP Family Medicine; Visit Provider Advanced Practice Midwife
DX: N93.9 Abnormal uterine and vaginal bleeding, unspecified (principal)
CPT/HCPCS: 76830; 76856

== ENCOUNTER 2024-06-11 15:30 | Outpatient (AMB) | payer OTHER, SELFPAY ==
[2024-06-11 15:37] VITALS: BP 116/70; BMI 38.8
--- NOTE | 2024-06-11 15:37 | A.OFFVIS_ITS ---
Vital Signs 06/11/24 15:37 Height 4 ft 11 in Weight 192 lb BMI 38.8 BP 116/70 Intake Visit Reasons: Vaginal bleeding Information Interpreted: clinical only Correspondence Transcriber: Correspondence Transcriber Present Allergies copper [COPPER] Allergy (Unknown, Verified 06/11/24 15:38) RASH/HIVES nickel [NICKEL] Allergy (Unknown, Verified 06/11/24 15:38) RASH/HIVES acetaminophen [From Tylenol] Adverse Reaction (Verified 06/11/24 15:38) Gastrointestinal Upset Is last menstrual period known: Yes (04/30/24) HPI Comments Details: Presenting complaining of persistent vaginal bleeding over the last few weeks that resolved last few days. 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 Sexual orientation: Straight/Heterosexual Gender identity: Female Female Reproductive History Menstrual Duration of menses: other control method: progesterone injection Total pregnancies: 2 Full term: 1 Review of Systems Const All systems reviewed & are unremarkable except as noted in HPI and below Reports as per HPI and Reports no additional complaints GI Reports no additional complaints Reports no additional complaints Physical Exam Vital Signs: Last Vital Signs BP 116/70 06/11/24 15:37 BMI result Body Mass Index 38.8 Results AMB Test Urine AMB Test Urine Negative Last Edit by Camilo Sarmiento CMA on 06/11/24 15:43 Results Reviewed Results Reviewed: Laboratory Last Values [facility]st Clinic Negative 06/11/24 15:42 Assessment & Plan Assessment & Plan (1) Abnormal uterine bleeding: Comment: on depo provera Code(s): N93.9 - Abnormal uterine and vaginal bleeding, unspecified Category: Medical Plan: Urine test was negative. Discussed with the patient the hepatitis metabolism of Depo-Provera, topiramate and phentermine and there interaction together with the potential increase in the risk of failure Depo-Provera and causing AUB, recommended backup method for control if sexually active and to consider different options of control including Mirena IUD versus ParaGard. All pros and cons, risks and benefits of each were discussed with the patient, the patient would like to think about it and get back to us. All questions answered, the patient verbalized understanding Orders: Orders AMB HCG Urine Test Today Z32.02 - Encounter for test, result negative Coding Level of Care Code Est Pt Level 3 (72695) Diagnoses Abnormal uterine bleeding N93.9
== END 2024-06-11 16:29 | disposition home or self-care (01) ==
PROVIDERS: PCP Family Medicine; Visit Provider Obstetrics & Gynecology
DX: Z32.02 Encounter for pregnancy test, result negative (principal); N93.9 Abnormal uterine and vaginal bleeding, unspecified
CPT/HCPCS: 99213

== ENCOUNTER → 2024-06-11 15:30 | Outpatient (BNVA) | payer OTHER, SELFPAY | PROVIDERS: PCP Family Medicine; Visit Provider Obstetrics & Gynecology | DX: N93.9 Abnormal uterine and vaginal bleeding, unspecified (principal) | CPT/HCPCS: 81025; 99212 ==

== ENCOUNTER 2024-07-20 08:24 | Outpatient (AMB) | payer OTHER, SELFPAY ==
--- NOTE | 2024-07-20 09:06 | AM.OFFWIN_ITS ---
Intake Vital Signs 07/20/24 09:08 Height 4 ft 11 in Weight 190 lb BMI 38.4 BP 130/76 Blood Pressure Location Lt brachial Position Sitting Pulse 73 Pulse Source Pulse Oximeter Pulse Oximetry (%) 98 Oxygen Delivery Method Room Air Intake Visit Reasons: EP-lt ear pain, sore throat, std screening Intake Note: Patient here for left ear pain that has been present for a couple of days. Patient Tobacco Use Status: Never used Tobacco Allergies copper [COPPER] Allergy (Unknown, Verified 07/20/24 09:06) RASH/HIVES nickel [NICKEL] Allergy (Unknown, Verified 07/20/24 09:06) RASH/HIVES acetaminophen [From Tylenol] Adverse Reaction (Verified 07/20/24 09:06) Gastrointestinal Upset Do you need a note to return to daycare/school/sports/work: No HPI HPI Comments History of Present Illness Details Patient is a 29-year-old female complaining of 3 days of left sided jaw and ear pain as well as a slight sore throat. She tells me she has TMJ and when she gets really stressed out, she grinds her teeth which leads to the pain but she is not sure if his her ear or her TMJ. She denies any fevers, cough, or change of hearing. She does endorse some pain that radiates to her neck on the left side. She tells me she can not wear a mouth guard because she has not visualize that she needs to wear at night. She also tells me that work has been very stressful and she took this week off because she has been working 13 hour days and trying to care for her baby and she is stressed out. She also tells me she wants screening for an STI because she is started seeing somebody new and she just wants a clean bill of health. She denies any abnormal vaginal discharge, any vaginal odor, pain with urination or any bumps in the labial ar ea. 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 Sexual orientation: Straight/Heterosexual Gender identity: Female Review of Systems Const All systems reviewed & are unremarkable except as noted in HPI and below Physical Exam Vital Signs: Last Vital Signs Pulse 73 07/20/24 09:08 BP 130/76 07/20/24 09:08 Pulse Ox 98 07/20/24 09:08 Oxygen Delivery Method Room Air 07/20/24 09:08 BMI result Body Mass Index 38.4 Const General: cooperative, healthy appearing, comfortable and no acute distress Orientation/consciousness: patient oriented x3 Limitations: no limitations HEENT Head: Yes normal to inspection Ears: hearing grossly normal bilaterally, external ears normal, TM's normal bila terally, mastoids normal and no periauricular adenopathy General nose exam: Normal external nose present, Normal nares present and No nasal discharge present Face and sinus: Yes normal facial exam and Yes sinuses nontender Mouth: Normal oral and palatal mucosa present, moist mucous membranes and abnormal TMJ (TTP on left side) Throat: Yes tonsils normal, Yes uvula midline and Yes posterior oropharynx abnormal (Erythema) Eyes General: appearance normal, both eyes and all related structures Neck Neck: Yes normal visual inspection Resp Effort & Inspection: normal respiratory effort, able to speak in complete sentences, no respiratory distress, not tachypneic, no tripod positioning and no use of accessory muscles Skin General skin exam: no rashes or lesions noted Neuro General: patient oriented x3 Extrem General: Yes normal to inspection and Yes no clubbing, cyanosis or edema Assessment & Plan Assessment & Plan (1) Screening examination for STI: Code(s): Z11.3 - Encounter for screening for infections with a predominantly sexual mode of transmission Plan: Rapid strep in office was negative. Sent gonorrhea and chlamydia testing, recommended she abstain from any sexual relations until we have the results. Also educated patient on if she is positive, she will need antibiotics and then need a test if clearance before she resumes sexual relations. She will also need to notify her partners. (2) TMJ arthralgia: Code(s): M26.629 - Arthralgia of temporomandibular joint, unspecified side Qualifiers: Laterality: left Qualified Code(s): M26.622 - Arthralgia of left temporomandibular joint Plan: Recommended she try to use the mouth guard during the day and once in awhile at night instead of the Invisalign. She can also take ibuprofen for the pain. Plan See above Orders: Orders CT NG by PCR Today Z11.3 - Encounter for screening for infections with a predominantly sexual mode of transmission Coding Level of Care Code New Pt Level 4 (90374) Diagnoses Screening examination for STI Z11.3 Arthralgia of left temporomandibular joint M26.622 Laterality: left
[2024-07-20 09:08] VITALS: BP 130/76; PULSE 73; O2SAT 98; BMI 38.4
== END 2024-07-20 10:14 | disposition home or self-care (01) ==
PROVIDERS: PCP Family Medicine; Visit Provider Physician Assistant
DX: Z11.3 Encounter for screening for infections with a predominantly sexual mode of transmission (principal); M26.622 Arthralgia of left temporomandibular joint; Z13.9 Encounter for screening, unspecified

== ENCOUNTER 2024-07-20 08:24 | Outpatient (REF) | payer OTHER, SELFPAY ==
[2024-07-20 12:22] LABS: CT PCR NOT DETECTED (Not Detect.); NG PCR NOT DETECTED (Not Detect.)
== END 2024-07-20 08:25 | disposition home or self-care (01) ==
LOC: HO.LAB 08:24
PROVIDERS: PCP Family Medicine; Visit Provider Physician Assistant
DX: M26.622 Arthralgia of left temporomandibular joint (principal); Z11.3 Encounter for screening for infections with a predominantly sexual mode of transmission
CPT/HCPCS: 87491; 87591; 87880; 99202

== ENCOUNTER 2024-08-03 16:00 | Outpatient (REF) | payer OTHER, SELFPAY ==
[2024-08-04 04:28] LABS: HIV AB/AG Nonreactive (Nonreactive); HIV Num 1 0.05 S/CO (0.00-0.99)
== END 2024-08-03 16:01 | disposition home or self-care (01) ==
LOC: HO.CHCLDS 16:00
PROVIDERS: Visit Provider Family Medicine
DX: Z11.4 Encounter for screening for human immunodeficiency virus [HIV] (principal)
CPT/HCPCS: 36415; 87389

== ENCOUNTER 2024-08-03 17:32 | Outpatient (REF) | payer OTHER, SELFPAY ==
[2024-08-08 00:53] LABS: C. Trachomatis RNA TMA, Throat NOT DETECTED; N. gonorrhoeae RNA TMA, Throat NOT DETECTED
== END 2024-08-03 17:33 | disposition home or self-care (01) ==
LOC: HO.CHCLNP 17:32
PROVIDERS: Visit Provider Family Medicine
DX: Z11.3 Encounter for screening for infections with a predominantly sexual mode of transmission (principal)
CPT/HCPCS: 87491; 87591

== ENCOUNTER → 2024-08-16 19:39 | Outpatient (BNV) | payer OTHER, SELFPAY | PROVIDERS: PCP Family Medicine; Visit Provider Radiology Diagnostic Radiology | DX: G43.909 Migraine, unspecified, not intractable, without status migrainosus (principal) | CPT/HCPCS: 70551 ==

== ENCOUNTER 2024-08-16 19:40 | Outpatient (REF) | payer OTHER, SELFPAY ==
--- NOTE | ~2024-08-16 | MR_ITS ---
EXAMINATION: MR BRAIN WITHOUT CONTRAST CLINICAL INFORMATION: Migraines. COMPARISON: None available. Correlated to CT dated September 25, 2020. TECHNIQUE: MRI of the brain was obtained using routine sequences without contrast. FINDINGS: No restricted diffusion. No acute intracranial hemorrhage, mass effect, midline shift, hydrocephalus or herniation. Rebollar-white matter differentiation is normal. Posterior cranial fossa contents demonstrated no signal abnormality or gross masses. Sellar/suprasellar region is normal. Craniocervical junction is intact and normal. Flow-void signal within the main cerebral vessels is normal. Midline structures are normal. Bilateral prominent cervical lymph nodes and prominent palatine tonsils. MR/MR head/brain wo con IMPRESSION: No acute or structural brain abnormality. Prominent cervical lymph nodes and palatine tonsils, bilaterally. Electronically signed by: Luis Enrique Law MD 08/17/2024 11:32 AM CON
== END 2024-08-16 19:41 | disposition home or self-care (01) ==
LOC: HO.MRI 19:40
PROVIDERS: PCP Family Medicine; Visit Provider Family Medicine
DX: G43.909 Migraine, unspecified, not intractable, without status migrainosus (principal)
CPT/HCPCS: 70551

== ENCOUNTER 2024-09-04 22:41 | Emergency (ER) | payer OTHER, SELFPAY ==
[2024-09-04 22:43] VITALS: BP 128/82; PULSE 93; RESP 20; TEMP 36.4; O2SAT 100; BMI 37.6
--- NOTE | 2024-09-04 23:43 | ED_ITS ---
HPI - Headache General Chief Complaint: Headache Stated Complaint: Migraine Time Seen by Provider: 09/04/24 23:14 Source: patient and old records reviewed Mode of arrival: ambulatory Limitations: no limitations History of Present Illness ED Provider: SHELLY CARDONA Narrative: 29 yo female with longstanding headaches currently on topiramate, triptan that she cannot tolerate, now amitryptiline, MRI this month negative for stroke or mass. She notes frequent migraines that do not respond to medications failed gabapentin she is not on thinners. Woke up with another migraine - L temporal throbbing, no fevers, trauma. Has worsened throughout the day and started at rest. She had n/v prior to arrival. MD elicited complaint: migraine Pertinent past history: migraines Onset (ago): hour(s) (several) Onset description: gradually and while at rest Location: left and temporal Severity: severe Quality & Timing: throbbing and progressively worsening Exacerbating factors: movement of head/neck, light and noise Relieving factors: nothing Context: occurred at rest Associated symptoms: nausea and vomiting Treatments prior to arrival: acetaminophen, ibuprofen and migraine medication Related Data Home Medications ?Medication ?Instructions ?Recorded ?Confirmed trazodone 100 mg tablet 100 mg PO BEDTIME 12/26/23 04/30/24 medroxyprogesterone 150 mg/mL 150 mg IM [id number] 04/22/24 04/30/24 intramuscular suspension (Depo-Provera) phentermine 8 mg tablet (Lomaira) 8 mg PO DAILY 04/22/24 04/30/24 topiramate 50 mg tablet 50 mg PO DAILY 04/22/24 04/30/24 Previous Rx's ?Medication ?Instructions ?Recorded albuterol sulfate 90 mcg/actuation 2 puff inhalation Q4-6H PRN 10/02/23 aerosol inhaler shortness of breath or wheezing #8.5 grams amoxicillin 875 mg-potassium 1 tab PO BID #14 tabs 09/05/24 clavulanate 125 mg tablet ondansetron 4 mg disintegrating 4 mg PO Q8H PRN nausea and 09/05/24 tablet vomiting #20 tabs Allergies Allergy/AdvReac Type Severity Reaction Status Date / Time copper [COPPER] Allergy Unknown RASH/HIVES Verified 09/04/24 22:45 nickel [NICKEL] Allergy Unknown RASH/HIVES Verified 09/04/24 22:45 acetaminophen [From Tylenol] AdvReac Gastrointestinal Verified 09/04/24 22:45 Upset Review of Systems Review of Systems: Constitutional : No Fever, No Chills, No Fatigue ENT/Mouth : No sore throat, No Rhinorrhea Eyes: No Eye Pain, No Swelling, No Redness Cardiovascular : No Chest Pain, No SOB, No Dyspnea on Exertion Respiratory : No Cough, No Sputum Gastrointestinal : pos Nausea, pos Vomiting, No Diarrhea, No abdominal Pain Genitourinary : No Dysuria, No Urinary Frequency, No Hematuria, Musculoskeletal : No joint pain, No Myalgias, No Joint Swelling Skin : No Skin Lesions, No rash Neuro : No Weakness, No Numbness, No Dizziness, positive Headache Psych : No Anxiety/Panic, No Depression All other systems reviewed and are negative [facility] Past Medical History Attestation statement: The following information was validated with the patient. 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 Oriented X3. No acute distress. Eyes: Pupils equal, round and reactive to light. photophobia ENT: Pharynx normal. Neck: Normal inspection. Neck supple. no meningeal signs CVS: Normal heart rate and rhythm. Pulses normal. Respiratory: No respiratory distress. Breath sounds normal. Abdomen: Soft and nontender. Skin: Skin warm and dry. Normal skin color. Extremities: No lower extremity edema. Neuro: Oriented X 3. No motor deficit. No sensory deficit. Medications Administered Discontinued Medications Generic Name Dose Route Start Last Admin Trade Name Jennifer PRN Reason Stop Dose Admin Diphenhydramine HCl 25 mg 09/04/24 23:15 09/04/24 23:47 Diphenhydramine Hcl 50 Mg/Ml Vial IVPUSH 09/04/24 23:16 25 mg ONCE ONE Administration Ketorolac Tromethamine 15 mg 09/04/24 23:15 09/04/24 23:48 Ketorolac Tromethamine 15 Mg/Ml Vial IVPUSH 09/04/24 23:16 15 mg ONCE ONE Administration Metoclopramide HCl 10 mg 09/04/24 23:15 09/04/24 23:47 Metoclopramide Hcl 10 Mg/2 Ml Vial IVPUSH 09/04/24 23:16 10 mg ONCE ONE Administration Medical Decision Making Medical Decision Making MDM Narrative: 29 yo female with PMH of migraines not on thinners here with migraine all day n/v photophobia gradual onset worsening throughout the day - no fevers, neuro deficits, no meningeal signs. Just had MRI no mass or stroke. Typical migraine doubt [employer] Infeciton or SAH. At this time will start with migraine cocktail. Differential Diagnosis Differential Diagnoses: The differential diagnosis associated with the presentation includes migraine, tension headache Admission/Observation Consideration of admission/observation: Escalation of care including admission/observation considered feels better stable for DC on exam has mild sinusitis and L ear TM is red no effusion External Record Review External record reviewed: Prior outpatient radiology Prescription Management I considered prescription management with: Other Discharge Plan Discharge Clinical Impression: Migraine Qualifiers: Migraine type: unspecified Status migrainosus presence: without status migrainosus Intractability: not intractable Qualified Code(s): G43.909 - Migraine, unspecified, not intractable, without status migrainosus Sinusitis Qualifiers: Sinusitis location: maxillary Chronicity: acute Recurrence: non-recurrent Qualified Code(s): J01.00 - Acute maxillary sinusitis, unspecified Patient Disposition: Home, Self-Care Instructions: Sinusitis (ED), Migraine Headache (ED) Additional Instructions: please follow up with your doctor return for any worsening symptoms or concerns such as worsening pain, unable to eat or drink, fevers the other medication for migraine if you cannot tolerate triptans is ubrelvy please ask your doctor On amoxicillin-clavulanate, softer bowel movements are to be expected. Call your provider if you move your bowels more than 4 times a day, your bowel movements are almost all liquid, or you get a rash.? Prescriptions: New ondansetron 4 mg tablet,disintegrating 4 mg PO Q8H PRN (Reason: nausea and vomiting) Qty: 20 0RF amoxicillin-pot clavulanate 875-125 mg tablet 1 tab PO BID Qty: 14 0RF No Action albuterol sulfate 90 mcg/actuation HFA aerosol inhaler 2 puff inhalation Q4-6H PRN (Reason: shortness of breath or wheezing) Qty: 8.5 0RF trazodone 100 mg tablet 100 mg PO BEDTIME medroxyprogesterone [Depo-Provera] 150 mg/mL suspension 150 mg IM [id number] topiramate 50 mg tablet 50 mg PO DAILY Lomaira 8 mg tablet 8 mg PO DAILY Stand Alone Forms: Work/School Release Print Language: Faroese
[2024-09-04] MEDS: Metoclopramide HCl 10 MG/2 ML VIAL IVPUSH (23:47)
[2024-09-04] MEDS: diphenhydrAMINE HCL 50 MG/ML VIAL 25 MG IVPUSH (23:47)
[2024-09-04] MEDS: Ketorolac Tromethamine 15 MG/ML VIAL IVPUSH (23:48)
[2024-09-05] VITALS: BP 108/70; PULSE 91; RESP 16; TEMP 36.7; O2SAT 99
[2024-09-05 01:26] VITALS: BP 108/63; PULSE 90; RESP 16; TEMP 36.5; O2SAT 98
[2024-09-05 01:30] VITALS: BP 108/63; PULSE 90; RESP 16; TEMP 36.5; O2SAT 98
== END 2024-09-05 01:34 | disposition home or self-care (01) ==
PROVIDERS: Emergency Provider Emergency Medicine; PCP Family Medicine
DX: G43.909 Migraine, unspecified, not intractable, without status migrainosus (principal); J01.00 Acute maxillary sinusitis, unspecified; R11.2 Nausea with vomiting, unspecified
CPT/HCPCS: 96374; 96375; 99284; J1200; J1885; J2765

== ENCOUNTER 2024-09-21 15:48 | Outpatient (REF) | payer OTHER, SELFPAY | END 2024-09-21 15:49 | disposition home or self-care (01) | LOC: HO.CHCLDS 15:48 | PROVIDERS: Visit Provider Family Medicine | DX: R23.1 Pallor (principal) | CPT/HCPCS: 83516; 86146; 86147 ==

== ENCOUNTER 2024-10-06 08:41 | Outpatient (AMB) | payer OTHER, SELFPAY ==
[2024-10-06 09:24] VITALS: BP 122/78; PULSE 95; O2SAT 98
--- NOTE | 2024-10-06 09:24 | MHC.OFFWIV ---
Intake Vital Signs 10/06/24 09:24 Weight 190 lb BP 122/78 Blood Pressure Location Lt brachial Position Sitting Pulse 95 Pulse Source Pulse Oximeter Pulse Oximetry (%) 98 Oxygen Delivery Method Room Air Intake Visit Reasons: EP-lt eye irritated Intake Note: Patient here for left eye irritation that has been bothersome since saturday. Patient Tobacco Use Status: Never used Tobacco Allergies copper [COPPER] Allergy (Unknown, Verified 10/06/24 09:27) RASH/HIVES nickel [NICKEL] Allergy (Unknown, Verified 10/06/24 09:27) RASH/HIVES acetaminophen [From Tylenol] Adverse Reaction (Verified 10/06/24 09:27) Gastrointestinal Upset Do you need a note to return to daycare/school/sports/work: No HPI EP-lt eye irritated HPI Details 29 yr old female presents to the office for a sick visit. Irritation in the left eye. Does note use contacts. 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 Cornea: Clear. Anterior chamber: Clear. no digital tenderness. Right eye: Conjunctiva clear. Assessment & Plan Assessment & Plan (1) Allergic conjunctivitis: Code(s): H10.10 - Acute atopic conjunctivitis, unspecified eye Plan: Patanol drops prescribed. If symptoms do not improve to follow-up here. Coding Level of Care Code Est Pt Level 3 (35372) Diagnoses Allergic conjunctivitis H10.10
== END 2024-10-06 10:08 | disposition home or self-care (01) ==
PROVIDERS: PCP Family Medicine; Visit Provider Internal Medicine
DX: H10.10 Acute atopic conjunctivitis, unspecified eye (principal)

== ENCOUNTER → 2024-10-06 08:41 | Outpatient (BNVA) | payer OTHER, SELFPAY | PROVIDERS: PCP Family Medicine; Visit Provider Internal Medicine | DX: H10.12 Acute atopic conjunctivitis, left eye (principal) | CPT/HCPCS: 99212 ==

== ENCOUNTER 2024-11-20 08:00 | Outpatient (REF) | payer OTHER, SELFPAY ==
--- OUTSIDE RECORDS SUMMARY | 2024-11-20 08:47 | XMS_ITS | Clinical Summary ---
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 FU PAP results. Consider [...] recommended reduction of 20-30% of maintenance calories; braider operator referral offered. Recommended to decrease soda and [...] recommended reduction of 20-30% of maintenance calories; braider operator referral offered. Recommended to decrease soda and sugary beverage consumption. Recommended at least 20 g per meal of protein to assist with satiety. Recommended at least 150 min/week of moderate intensity exercise. Assessment & Plan (09/13/2023 2:05 PM EST): Discussed calorie deficit, recommended reduction of 20-30% of maintenance calories; braider operator referral offered. Recommended to decrease soda and [...] treatment engagement. PLAN: 1. Follow up with [facility]: Recommended for follow-up: as needed 2. Patient goal is to engage in MH services 3. Behavioral Recommendations a. Ind. Therapy referral will be submitted b. Use of coping skills provided c. Take medication as prescribed. d. [facility] contact number for support Assessment & Plan [...] her gynecology consultation. A referral to a art manager is made for further evaluation and discussion of permanent options. Assessment & Plan (07/31/2023 10:53 AM EDT): Pt in need of family planning. One week late depo. Still within therapeutic window. Urine HCG negative. -depo shot today -placed on list for new PCP Encounters Date Type Department Care Team Description 10/19/[address] [facility] [address] [place] [address] Jodie Abernathy RN Appointment Request 09/21/2024 3:00 PM EST Office Visit [facility] [address] [place] [address] Janet Pierson MD Family planning (Primary Dx); Idiopathic or primary livedo reticularis 09/21/[address] [facility] [address] [place] [address] Janet Pierson MD 09/21/2024 Travel 09/17/2024 Travel [...] Upcoming Encounters Date Type Department Care Team ([facility] st Contact Info) Description 01/12/2025 9:15 AM EDT Office Visit [facility] [address] [place] [address] Rosa Joy MD [address] [place] [phone] Health Maintenance Due Date Last Done Comments [...] PM EST 09/21/2024 5:38 PM EST Narrative [facility] - 09/28/2024 9:40 AM EST [id number] us Janet Pierson MD LAB BLOOD ORDERABLES Final Re sult [facility] [address] [place] [address] [phone] * HIV-1/2 Antigen and Antibodies, Fourth Generation, with Reflexes (08/03/2024 4:02 PM EDT) HIV AB/AG Nonreactive Nonreactive [facility] Comment:HIV-1 p24 Ag and/or HIV-1/HIV-2 Ab not detected.A test result that is nonreactive does not exclude thepossibility of exposure to or infection with HIV-1 and/orHIV-2. Nonreactive results in this assay for individualswith prior exposure to HIV-1 and/or HIV-2 may be due toantigen and antibody levels that are below the limit ofdetection of this assay.The [employer] HIV Ag/Ab Combo assay result andsupplemental assay results should be interpreted inconjunction with the patient's clinical presentation,history and other laboratory results. If the results areinconsistent with clinical evidence, additional testing issuggested to confirm the result. Blood Venous blood specimen / Unknown 08/03/2024 4:02 PM EDT 08/03/2024 5:21 PM EDT us Janet Pierson MD LAB BLOOD ORDERABLES Final Re sult [facility] [address] [place] [address] [phone] * Image-Guided Pap with Age-Based Screening??with CT/NG,??Trichomonas (11/14/2023 10:42 AM EST) Pathologist Nick Trichomonas (NAAT) NOT DETECTED NOT DETECTED [facility] Comment:The analytical perfo rmance characteristics of thisassay have been determined by [employer]. Themodifications have not been cleared or approved bythe FDA. This assay has been validated pursuant to theCLIA regulations and is used for clinical purposes.For additional information, please refer [email or web address](This link is being provided for information/educational purposes only.)THIS TEST WAS PERFORMED AT:[employer] [place] [phone] CRAMER MD CTNG Ref Lab NOT DETECTED NOT DETECTED [facility] NG Ref Lab NOT DETECTED NOT DETECTED [facility] Cervix 11/14/2023 10:4 2 AM EST 11/15/2023 9:40 AM EST us Janet Pierson MD LAB CYTOLOGY ORDERABLES Final Result Performing Organization Address [facility] Co de Phone Number [facility] [address] [place] [phone] * Hepatitis C Ab (09/16/2023 8:46 AM EST) Hepatitis C Antibody Nonreactive Nonreactive [facility] Comment:Antibodies to HCV no t detected; does not exclude early acuteHCV infection. Blood Venous blood specimen / Unknown 09/16/2023 8:46 AM EST 09/16/2023 2:37 PM EST us Janet Pierson MD LAB BLOOD ORDERABLES Final Re sult Performing Organization Address [facility] Co de Phone Number [facility] [address] [place] [phone] * (ABNORMAL) Lipid Panel, Standard (09/16/2023 8:46 AM EST) Triglycerides 108 <150 mg/dL [facility] Comment:Desirable Triglyceri de: less than 150 mg/dLBorderline High Triglyceride 150-199 mg/dLHigh Triglyceride: 200-499 mg/dLVery High Triglyceride: greater than or equal to 5OO mg/dL Cholesterol 171 <200 mg/dL [facility] Comment:Desirable Cholestero l: less than 200 mg/dLBorderline High Cholesterol: 200-239 mg/dLHigh Cholesterol: greater than 239 mg/dL LDL Cholesterol Calculated 118(H) <100 mg/dL [facility] Comment:Desirable LDL: less than 100 mg/dLNear Optimal/Above Optimal LDL: 110- 129 mg/dLBorderline High LDL: 130-159 mg/dLHigh LDL: 160-189 mg/dLVery High LDL: greater than or equal to 190 mg/dL HDL Cholesterol 32(L) >40 mg/dL [facility] Comment:Desirable HDL: great er than 40 mg/dL Note: This HDL assay may give artificially low results in patients with liver disease. Blood Venous blood specimen / Unknown 09/16/2023 8:46 AM EST 09/16/2023 2:37 PM EST us Janet Pierson MD LAB BLOOD ORDERABLES Final Re sult [facility] [address] [place] [address] [phone] from Last 3 Months or Most Recently Relevant to Health Maintenance Insurance * Guarantor: Milka Guthrie Account Type Relation to Patient Date of Phone Billing Address Personal/Family Self 1995 [address] [place] [address] [facility] [address] Care Teams Scalp Treatment Specialist Relationship Specialty Start Date End Date Janet Pierson MD [address] [place] [phone] PCP - General Family Medicine 09/13/23
--- OUTSIDE RECORDS SUMMARY | 2024-11-20 08:47 | XMS_ITS | Encounter Summary ---
Author Organization [employer] Address [address] [place] [address] Care Team Providers Care Armoured Corps Officer Name Role Phone Janet Pierson MD Primary Care Provider [phone] Reason for Visit * Reason Onset Date Comments Med Refill 06/30/2024 Encounter Details Date Type Department Care Team ([facility] st Contact Info) Description 06/30/2024 Telephone [facility] [address] [place] [address] Janet Pierson MD [address] [place], [place] [phone] Med Refill Social History Tobacco Use Types [...] and advised will send this request to [facility] nursing team. Pt agrees with this [...] Description 01/12/2025 9:15 AM EDT Office Visit [facility] [address] [place] [address] Rosa Joy MD [address] [place] [address] documented as of this encounter Visit Diagnoses Not on filedocumented in this encounter Additional Health Concerns Assessment Noted Time PHQ-9 Depression Total Score: 7 05/08/20 24 9:13 AM EDT documented as of this encounter Care Teams Armoured Corps Officer Relationship Specialty Start Date End Date Janet Pierson MD [address] [place] [phone] PCP - General Family Medicine 09/13/23 documented as of this encounter
--- OUTSIDE RECORDS SUMMARY | 2024-11-20 08:47 | XMS_ITS | Clinical Summary ---
Author Organization [facility] Address [address] [place] [phone] Phone Care Team Providers Care Roof Tiler Name Role Phone Unavailable Primary Care Provider [...] complete this topic Procedures * Due to [facility] law, this organization might not be sharing sensitive test results. Procedure Name Priority Date/Time Associated Diagnosis Comments CHLAMYDIA DNA PROBE, DIRECT Routine 05/13/2015 12:00 AM EDT from Last 3 Months or Most Recently Relevant to Health Maintenance Results * Due to [place] [employer] law, this organization might not be sharing sensitive test results. * Chlamydia DNA probe, direct (05/13/2015 12:00 AM EDT) Chlamydia trachomatis amplified RNA(Conversion) Negative [facility]VERT[facility] LAB[facility] Comment: Edilma Sepulveda 05/13/2015 05:10:08 PM > Negative Reason: Received -[facility] Lab Order Manager Reporting CHLAMYDIA SOURCE URINE CON VERTED LABS Comment: Edilma Sepulveda 05/13/2015 05:10:08 PM > Negative Reason: Received -[facility] Lab Order Manager Reporting CHLAMYDIA TRACHOMATIS AMPLIFIED RNA Negative CONVERTED LABS Comment: Edilam Sepulveda 05/13/2015 05:10:08 PM > Negative Reason: Received -[facility] Lab Order Manager Reporting 05/13/2015 Narrative [facility] - 05/13/2015 12:00 AM EDT Chlamydia DNA Probe us Edilma Sepulveda GENETICIST LAB MICROBIOLOGY - GENERAL ORD ERABLES Final Result [facility] from Last 3 Months or Most Recently Relevant to Health Maintenance
--- OUTSIDE RECORDS SUMMARY | 2024-11-20 08:47 | XMS_ITS | Clinical Summary ---
Author Organization [facility] Address [address] [place] [address] Care Team Providers Care Measurement Supervisor Name Role Phone Unavailable Primary Care Provider [...]
--- OUTSIDE RECORDS SUMMARY | 2024-11-20 08:47 | XMS_ITS | Encounter Summary ---
Author Organization [facility] Address [address] [place] [address] Phone Care Team Providers Care Supervisor Packing Name Role Phone Montse Olivier NP Primary Care Provider [phone] Encounter Details Date Type Department Care Team (Late st Contact Info) Description 05/22/2017 Conversion Encounter [facility] - [address], [address] [place] [address] Montse Olivier NP [address] [place] [address] Social History Tobacco Use Types Packs/Day Years [...] on filedocumented in this encounter Care Teams Supervisor Packing Relationship Specialty Start Date End Date Montse Olivier NP [address] [place] [phone] PCP - General 12/04/16 01/21/24 documented as of this encounter
[2024-11-20 12:20] LABS: Influenza A PCR NEGATIVE (Negative); Influenza B PCR NEGATIVE (Negative); Resp Syncy Virus RNA Qual PCR NEGATIVE (Negative); SARS COV2 PCR INHOUSE NEGATIVE (Negative)
== END 2024-11-20 08:01 | disposition home or self-care (01) ==
LOC: HO.LAB 08:00
PROVIDERS: PCP Family Medicine; Visit Provider Physician Assistant
DX: J06.9 Acute upper respiratory infection, unspecified (principal)
CPT/HCPCS: 0241U; 99212

== ENCOUNTER → 2024-11-20 08:00 | Outpatient (AMB) ==
--- OUTSIDE RECORDS SUMMARY | 2024-11-20 08:05 | XMS_ITS | Encounter Summary ---
Author Organization [employer] Address [address] [place] [address] Care Team Providers Care Machine Setup Operator Name Role Phone Janet Pierson MD Primary Care Provider [phone] Reason for Visit * Reason Onset Date Comments Med Refill 06/30/2024 Encounter Details Date Type Department Care Team ([facility] st Contact Info) Description 06/30/2024 Telephone [facility] [address] [place] [address] Janet Pierson MD [address] [place], [place] [id number] Med Refill Social History Tobacco Use Types Packs/Day Years Used Date Smoking Tobacco: Never Smokeless Tobacco: Never Depression Answer Date Recorded Patient Health Questionnaire-9 Score 7 05/08/2024 Patient Health Questionnaire-9 Score 7 05/08/2024 Last PHQ-9: Questionnaire Data Not on file 0 05/08/2024 Housing Stability Answer Date Recorded What is your housing situation today? I have mario alberto mccollum 09/03/[address] you li ve. Do you have problems with any of the following? None of the above 09/03/2023 Food Insecurity Answer Date Recorded Within the past 12 months, y ou worried that your food would run out before you got money to buy more: Never True 09/03/2023 Within the past 12 months,th e food you bought just didn't last and you didn't have enough money to get more: Never True Transportation Answer Date Recorded In the past 12 months, has l ack of transportation kept you from medical appts, meetings, work or from getting things needed for daily living? No 09/03/2023 Utilities Answer Date Recorded In the past 12 months, has t he electric, gas, oil or water company threatened to shut off services in your home? No 09/03/2023 Depression Answer Date Recorded Patient Health Questionnaire-2 Score 2 05/08/2024 Internet Access Answer Date Recorded Internet Access Q1 No 06/12/2024 Internet Access Q2 Not on file 06/12/2024 Comments Unknown Sex and Gender Information Value Date Recorded Sex Assigned at Female 07/31/2023 9:03 AM EDT Legal Sex Female 9:00 AM EDT Gender Identity Female 07/31/2023 9:03 AM EDT Sexual Orientation Straight 07/31/2023 9: 03 AM EDT documented as of this encounter Miscellaneous Notes * Telephone Encounter - Quin David RN - 07/14/2024 10:52 AM EDT Triage call regarding Pt portal message below. Pt requests apt with PCP to discuss sleeping problemand constipation. No available apts this week with request for being Pt only day off. Pt is advised to call beginning of next week to see if any availability and advised will send this request to [facility] nursing team. Pt agrees with this plan. Home care advised for constipation. Pt reports last BM this am, small, hard stool. Pt reports drinking adequate liquids. Pt is advised to increase fiber in diet, fresh fruits/vegetable, whole grain foods. Pt is advised to try prune juice in Am and ifneeded MOM 30cc at bed time . Home care advised for sleep. Pt is prescribed Trazadone for sleep andis taking as prescribed. Pt is trying to increase exercise going to gym after work. Pt reports is able to fall asleep but, not able to stay asleep. Pt is advised to try herbal tea before bed, shut down visual for phone, computer hour or so before bed, hot shower. Pt agrees with home care advised. Pt agrees with disposition and will try to call beginning of next week for any cancellations or openings for apt with PCP. Depo injection is scheduled for 09/21/24. Protocol Used: Constipation (Adult) Protocol-Based Disposition: Home Care Positive Triage Question: * Mild constipation * All higher-acuity triage questions were negative Care Advice Discussed: * Reassurance and Education - Constipation * General Constipation Instructions * High Fiber Diet * Drink Adequate Liquids * Reasons To Call Back - Constipation lasts more than 1 week after using Care Advice - Abdomen swelling, vomiting or fever occur - Constant or increasing abdomen pain - You think you need to be seen - You become worse * Step 2 - Use an Osmotic Laxative if Needed * Telephone Encounter - Kita Hess - 06/30/2024 12:57 PM EDT Tc from pt requesting a refill for medroxyPROGESTERone (Depo-Provera) 150 MG/ML injection , pt is scheduled for today at 2:30pm documented in this encounter Plan of Treatment Upcoming Encounters Date Type Department Care Team (Late st Contact Info) Description 01/12/2025 9:15 AM EDT Office Visit [facility] [address] [place] [address] Rosa Joy MD [address] [place] [address] documented as of this encounter Visit Diagnoses Not on filedocumented in this encounter Additional Health Concerns Assessment Noted Time PHQ-9 Depression Total Score: 7 05/08/20 24 9:13 AM EDT documented as of this encounter Care Teams Machine Setup Operator Relationship Specialty Start Date End Date Janet Pierson MD [address] [place] [id number] PCP - General Family Medicine 09/13/23 documented as of this encounter
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
--- OUTSIDE RECORDS SUMMARY | 2024-11-20 08:05 | XMS_ITS | Clinical Summary ---
Author Organization [facility] Address [address] [place] [phone] Phone Care Team Providers Care Hardboard Coating Machine Operator Name Role Phone Unavailable Primary Care Provider Unavailabl e Immunizations Immunization Administration Dates Next Due DTaP 03/13/2001, 8,1996, 996,1996 HPV, Quadrivalent 07/06/2008,02/16/2008,12/10/19 08 Hep B, ped/adol 01/15/1997,1996,1996 Hib (PRP-T) 12/01/1997, 6,1996, 996 IPV 03/13/2001 MMR 03/13/2001,12/01/1997 Meningococcal Conj (Menactra) MCV4P 04/05/2014,0 12/10/2007 OPV 1996,1996,1996 Tdap 12/10/2007 Varicella 06/23/2015,05/23/2015,02/01/1999 Social History Tobacco Use Types Packs/Day Years Used Date Smoking Tobacco: Never Assessed Comments Unknown Sex and Gender Information Value Date Recorded Sex Assigned at Not on file Legal Sex Female 11:14 PM EST Gender Identity Not on file Sexual Orientation Not on file Last Filed Vital Signs Vital Sign Reading Time Taken Comments Blood Pressure 116/65 05/11/2015 12:00 AM EDT Pulse 76 05/11/2015 12:00 AM EDT Temperature 36.7 ??C (98.1 ??F) 09/20/2015 12:[address] Respiratory Rate - - Oxygen Saturation - - Inhaled Oxygen Concentration - - Weight 82.6 kg (182 lb 3.2 oz) 07/13/2015 12:00 AM EDT Height 151.1 cm (4' 11.5 ) 06/24/2015 12:00 AM E DT Body Mass Index 36.18 06/24/2015 12:00 AM EDT Plan of Treatment Health Maintenance Due Date Last Done Comments DTaP,Tdap,and Td Vaccines (7 - Td or Tdap) 12/10/2017 12/10/2007, 03/13/2001, 12/01/1997, Additional history exists Influenza Vaccines (#1) 2024 COVID-19 Vaccine ( season) 2024 Hepatitis B Vaccines Completed 01/15/1997, 1996, 1996 HIB Vaccines Completed 12/01/1997, 09/15, 1996, Additional history exists IPV Vaccines Completed 03/13/2001, 09/15, 1996, Additional history exists MMR Vaccines Completed 03/13/2001, 12/01/1997 HPV Vaccines Completed 07/06/2008, 02/2008, 12/10/2007 Meningococcal Vaccine Completed 04/05/2014, 008 Varicella Vaccines Completed 06/23/2015, 0 05/23/2015, 02/01/1999 Hepatitis A Vaccines Aged Out No long er eligible based on patient's age to complete this topic Men B Vaccine Aged Out No longer elig ible based on patient's age to complete this topic Pneumococcal Vaccine Aged Out No long er eligible based on patient's age to complete this topic Procedures * Due to [facility] law, this organization might not be sharing sensitive test results. Procedure Name Priority Date/Time Associated Diagnosis Comments CHLAMYDIA DNA PROBE, DIRECT Routine 05/13/2015 12:00 AM EDT from Last 3 Months or Most Recently Relevant to Health Maintenance Results * Due to [place] [employer] law, this organization might not be sharing sensitive test results. * Chlamydia DNA probe, direct (05/13/2015 12:00 AM EDT) Chlamydia trachomatis amplified RNA(Conversion) Negative [facility] Comment: Edilma Sepulveda 05/13/2015 05:10:08 PM > Negative Reason: Received -[facility] Lab Order Technician Preventative Medicine CHLAMYDIA SOURCE URINE CON VERTED LABS Comment: Edilma Sepulveda 05/13/2015 05:10:08 PM > Negative Reason: Received -[facility] Lab Order Technician Preventative Medicine CHLAMYDIA TRACHOMATIS AMPLIFIED RNA Negative [facility]VERT[facility] LABS Comment: Edilma Sepulveda 05/13/2015 05:10:08 PM > Negative Reason: Received -[facility] Lab Order Technician Preventative Medicine 05/13/2015 Narrative [facility] - 05/13/2015 12:00 AM EDT Chlamydia DNA Probe us Edilma Sepulveda MOBILE BATTERY TECHNICIAN LAB MICROBIOLOGY - GENERAL ORD ERABLES Final Result [facility] from Last 3 Months or Most Recently Relevant to Health Maintenance
--- OUTSIDE RECORDS SUMMARY | 2024-11-20 08:05 | XMS_ITS | Clinical Summary ---
Author Organization [facility] Address [address] [place] [address] Care Team Providers Care Fur Blower Operator Name Role Phone Unavailable Primary Care Provider Unavailabl e Social History Tobacco Use Types Packs/Day Years Used Date Smoking Tobacco: Never Assessed Sex and Gender Information Value Date Recorded Sex Assigned at Not on file Gender Identity Not on file Sexual Orientation Not on file Plan of Treatment Health Maintenance Due Date Last Done Comments DTaP,Tdap,and Td Vaccines (1 - Tdap) 2015 Hepatitis B Vaccines (1 of 3 - 19+ 3-dose series) 2015 Cervical Cancer Screening: P ap Smear 2017 COVID-19 Vaccine (2023-2 5 season) 2024 Influenza Vaccine (#1) 2024 HIB Vaccines Aged Out No longer eligi ble based on patient's age to complete this topic HPV Vaccines Aged Out No longer eligi ble based on patient's age to complete this topic Hepatitis A Vaccines Aged Out No long er eligible based on patient's age to complete this topic IPV Vaccines Aged Out No longer eligi ble based on patient's age to complete this topic MMR Vaccines Aged Out No longer eligi ble based on patient's age to complete this topic Meningococcal ACWY Vaccine Aged Out N o longer eligible based on patient's age to complete this topic Pneumococcal Vaccine: Pediat rics (0 to 5 Years) and At-Risk Patients (6 to 64 Years) Aged Out No longer eligible b ased on patient's age to complete this topic RSV Immunization Patients Un agustin 20 months Aged Out No longer eligible b ased on patient's age to complete this topic Varicella Vaccines Aged Out No longer eligible based on patient's age to complete this topic
--- OUTSIDE RECORDS SUMMARY | 2024-11-20 08:05 | XMS_ITS | Encounter Summary ---
Author Organization [facility] Address [address] [place] [address] Phone Care Team Providers Care Fire Sprinkler Fitter Name Role Phone Montse Olivier NP Primary Care Provider [phone] Encounter Details Date Type Department Care Team (Late st Contact Info) Description 05/22/2017 Conversion Encounter [facility] - [address], [address] [place] [address] Montse Olivier NP [address] [place] [address] Social History Tobacco Use Types Packs/Day Years Used Date Smoking Tobacco: Never Assessed Comments Unknown Sex and Gender Information Value Date Recorded Sex Assigned at Not on file Legal Sex Female 11:14 PM EST Gender Identity Not on file Sexual Orientation Not on file documented as of this encounter Plan of Treatment Not on file documented as of this encounter Visit Diagnoses Not on filedocumented in this encounter Care Teams Fire Sprinkler Fitter Relationship Specialty Start Date End Date Montse Olivier NP [address] [place] [phone] PCP - General 12/04/16 01/21/24 documented as of this encounter
--- NOTE | 2024-11-20 08:14 | AM.OFFWIN_ITS ---
Intake Vital Signs 11/20/24 08:14 Height 4 ft 11 in Weight 189 lb BMI 38.2 BP 120/72 Blood Pressure Location Rt brachial Position Sitting Respiration 16 Pulse 109 H Pulse Source Pulse Oximeter Temp 99.0 F Temp Source Oral Pulse Oximetry (%) 100 Oxygen Delivery Method Room Air Intake Visit Reasons: EP pain in lt ear, dry/scratchy feeling in chest Intake Note: Pt is here today c/o Lt ear pain and chest congestion started this morning Patient Tobacco Use Status: Never used Tobacco Allergies copper [COPPER] Allergy (Unknown, Verified 10/06/24 09:27) RASH/HIVES nickel [NICKEL] Allergy (Unknown, Verified 10/06/24 09:27) RASH/HIVES acetaminophen [From Tylenol] Adverse Reaction (Verified 10/06/24:) Gastrointestinal Upset HPI HPI Comments History of Present Illness Details History - The patient is a 29-year-old female pr esenting with acute left ear pain and respiratory symptoms related to recent illness at home. - Ear pain noted this morning, with conc urrent respiratory dryness and hoarseness. - Asthma requires heightened albuterol u se recently due to adverse cold weather exposure. - COVID-19 and influenza A and B negativ e, though household symptoms persist surrounding a viral-like syndrome. - Reports of feverish sensation and chil ls, recording 99 ?F during the visit. - Favoring Tylenol for headache manageme nt to avoid ibuprofen-related stomach discomfort and adjusts verapamil use for migraine, aggravated during this recent period. Physical Exam General: Cooperative, healthy appearing, comfortable and no acute distress Orientation/consciousness: Patient oriented x3 Limitations: No limitations Head: Normal to inspection Ears: External ears normal, left TM with some fluid, no infection noted, Right TM normal Nose: Normal external nose present, Normal nares present and No nasal discharge present Face and sinus: Tender facial exam and Yes sinuses tender Mouth: Normal oral and palatal mucosa present and moist mucous membranes Throat: Yes tonsils normal, Yes uvula midline. Posterior oropharynx erythema Eyes: Appearance normal, both eyes and all related structures Neck: Normal visual inspection Respiratory: Clear to auscultation bilaterally. Normal respiratory effort, able to speak in complete sentences, no respiratory distress, not tachypneic, no tripod positioning and no use of accessory muscles Cardiovascular: tachycardic rate and regular rhythm. 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 Sexual orientation: Straight/Heterosexual Gender identity: Female Review of Systems Const All systems reviewed & are unremarkable except as noted in HPI and below Physical Exam Vital Signs: Last Vital Signs Temp 99.0 F 11/20/24 08:14 Pulse 109 H 11/20/24 08:14 Resp 16 11/20/24 08:14 BP 120/72 11/20/24 08:14 Pulse Ox 100 11/20/24 08:14 Oxygen Delivery Method Room Air 11/20/24 08:14 BMI result Body Mass Index 38.2 Assessment & Plan Assessment & Plan (1) Viral URI: Code(s): J06.9 - Acute upper respiratory infection, unspecified Plan: Elevated heart rate attributed to possible dehydration and mild fever; advised to increase fluid intake.The patient will start using Fluticasone nasal spray, focusing on effective administration techniques to ameliorate sinus pressure and otalgia. The prescription of albuterol inhaler will be renewed due to increased usage prompted by recent asthmatic symptoms. To support pulmonary and sinus clearance, a steroid taper is advised, to be consumed in the morning to coincide with natural corticosteroid levels and minimize potential side effects related to sleep. Given prior testing, an RSV test is conducted to dismiss other potential viral infections. The patient is encouraged to maintain adequate hydration, monitoring heart rate using accessible technology, effectively managing febrile symptoms. Comprehensive management includes uqjf-nqf-ybufuiy s olutions with the provided refills and medications accommodating current symptomatology. Patient was informed and verbally consented to the use of an ambient scribe for clinic note documentation during this visit Orders: Orders SARS-CoV2/FLU/RSV Today J06.9 - Acute upper respiratory infection, unspecified Medications: New methylprednisolone PO PER PKG DIR for 6 days 21 ea 0RF albuterol sulfate 90 mcg/actuation 2 puffs inhalation Q6H PRN 8.5 grams 0RF shortness of breath or wheezing or cough Coding Level of Care Code Est Pt Level 3 (63586) Diagnoses Viral URI J06.9
== END | disposition home or self-care (01) ==

== ENCOUNTER 2024-12-02 10:54 | Emergency (ER) | payer OTHER, SELFPAY ==
--- NOTE | ~2024-12-02 | CT_ITS ---
CLINICAL HISTORY: tachy, pleuritic cp, r o PE CT angiography chest with contrast. With MIP MPR Postprocessing. Comparison: Chest x-ray from 10/02/2023 Findings: No central pulmonary embolism. No aortic dissection, accounting for artifacts. Heart size is at the upper limits of normal. Mild mediastinal fluid in the mediastinal lipomatosis. No enlarged mediastinal lymphadenopathy. Mild bibasilar atelectasis. No pneumothorax or pleural effusion. No acute osseous abnormality. The imaged upper abdomen is unremarkable. IMPRESSION: 1. No pulmonary emboli. 2. Mild bibasilar atelectasis. This document has been electronically signed by: Jimmie Lopez MD on 12/02/2024 21:04:07
[2024-12-02 11:48] VITALS: BP 144/85; PULSE 122; RESP 16; TEMP 36.7; O2SAT 100; BMI 38.2
--- NOTE | 2024-12-02 11:48 | ED.GENADULT ---
HPI - General Adult General Chief complaint: Arrhythmia/Palpitations Stated complaint: High Heart Rate Time Seen by Provider: 12/02/24 16:12 Source: patient Mode of arrival: ambulatory Limitations: no limitations History of Present Illness ED Provider: SERAFIN LEHMAN PA-C HPI narrative: 29 year old female with pmhx significant for anxiety, depression, and migraines presents to the ED today for evaluation of chest tightness and palpitations x2 weeks. Reports symptoms have been constant. Admits to feeling dizzy. She has been on Depo Provera for approximately 3 years now. 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 No recent travel/ long car rides. Endorses hx of asthma. Reports feeling like she cannot take a full breath, causing her to use her inhaler more often (approx 1-2 times daily). She typically only uses her inhaler 1-2 times a week. Admits to history of anxiety. Denies any new life stressors/ triggers. She is not currently on any anxiety medication. Becomes tearful when speaking about her current situation. Reports recent health issues, primarily migraines. Admits it is difficult finding time to care for herself between work and caring for her daughter. She has a strong support system at home however occasionally becomes overwhelmed. Denies SI/HI. Also endorses migraine at present which began while in ED waiting room. Reports feeling like her typical migraine. She left her abortive medications at home. She follows with Dr. Sams who recently started her on meloxicam and valproate on 11/26/24 (4 days ago). Normal brain MRI on 08/16/24. Denies any vision changes, N/V. Related Data Home Medications ?Medication ?Instructions ?Recorded ?Confirmed trazodone 100 mg tablet 100 mg PO BEDTIME 12/26/23 04/30/24 medroxyprogesterone 150 mg/mL 150 mg IM [id number] 04/22/24 04/30/24 intramuscular suspension (Depo-Provera) doxepin 10 mg capsule mg PO 11/20/24 phentermine 37.5 mg tablet mg PO 11/20/24 verapamil 40 mg tablet mg PO 11/20/24 Previous Rx's ?Medication ?Instructions ?Recorded albuterol sulfate 90 mcg/actuation 2 puff inhalation Q4-6H PRN 10/02/23 aerosol inhaler shortness of breath or wheezing #8.5 grams ondansetron 4 mg disintegrating 4 mg PO Q8H PRN nausea and 09/05/24 tablet vomiting #20 tabs albuterol sulfate 90 mcg/actuation 2 puff inhalation Q6H PRN 11/20/24 aerosol inhaler shortness of breath or wheezing or cough #8.5 grams methylprednisolone 4 mg tablets in See Rx Instructions PO PER PKG DIR 11/20/24 a dose pack #21 ea Allergies Allergy/AdvReac Type Severity Reaction Status Date / Time copper [COPPER] Allergy Unknown RASH/HIVES Verified 12/02/24 11:51 nickel [NICKEL] Allergy Unknown RASH/HIVES Verified 12/02/24 11:51 acetaminophen [From Tylenol] AdvReac Gastrointestinal Verified 12/02/24 11:51 Upset sumatriptan AdvReac Nausea and Verified 12/02/24 11:51 Vomiting Review of Systems Review of Systems: Constitutional: No fever, chills, fatigue, night sweats, weight changes ENT/Mouth: No ear pain, hearing loss, nasal congestion, sinus pain, rhinorrhea, sore throat Eyes: No eye pain, swelling, redness, vision changes, discharge Cardio: No cDOE, orthopnea, peripheral edema, +chest tightness, +palpitations Pulm: No SOB, cough, sputum, wheezing, dyspnea, hemoptysis GI: No nausea, vomiting, hematemesis, abdominal pain, diarrhea, constipation, hematochezia, melena : No irregular bleeding, dysuria, frequency, urgency, hesitancy, hematuria, flank pain, urinary flow changes, urinary incontinence or retention MSK: No back pain, neck pain, joint pain, myalgias Skin: No lesions, rashes Neuro: No weakness, numbness, paresthesias, LOC, dizziness, headache Psych: No anxiety/panic, depression, SI/HI, AH/VH All other systems reviewed and are negative. [facility] Past Medical History Attestation statement: The following information was validated with the patient. 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 Sexual orientation: Straight/Heterosexual Gender identity: Female Physical Exam ED Vital Signs: Vital Signs - 24 hr 12/02/24 11:48 12/02/24 16:17 12/02/24 18:20 Temperature 98.1 F 98.8 F 98.3 F Pulse Rate 122 H 102 H 88 Respiratory Rate 16 25 H 27 H Blood Pressure 144/85 H 128/78 115/72 Pulse Oximetry 100 100 100 Oxygen Delivery Method Room Air Room Air Room Air 12/02/24 20:37 12/02/24 22:14 Temperature 98.1 F 98.1 F Pulse Rate 90 90 Respiratory Rate 20 20 Blood Pressure 118/64 118/64 Pulse Oximetry 100 100 Oxygen Delivery Method Room Air Room Air BMI result Body Mass Index 38.2 tachycardic, tachypneic, hypertensive, not hypoxic or febrile General: anxious appearing, in NAD Skin: Warm, dry, intact. No rashes or lesions. Head: Normocephalic, atraumatic. EENT: Hearing is intact b/l. Conjunctiva clear. PERRLA. EOM intact. Moist mucous membranes.? Neck: Supple without LAD? Cardiac: Chest wall symmetric. RRR. Lungs: Normal respiratory effort without accessory muscle use. CTA bilaterally. No rales, rhonchi, or wheezes.? Back: No midline spinous or paraspinal tenderness. No step off deformity. Ext: Upper and lower extremities atraumatic, without tenderness, deformity, swelling or erythema. Full ROM throughout. no calf tenderness b/l. Neuro: NIH 0. AOx3. Normal speech. Ambulating with steady gait. Psych: intermittently tearful Course Course Course Narrative: RME, this is a rapid medical exam performed by Terrence Rouse please refer to primary provider for complete H&P- 29-year-old female presents for evaluation of chest tightness with a fast heart rate. Patient reports that she has had constant symptoms for the last 2 weeks. She is on a Depo-Provera shot. Plan for labs, EKG Reevaluation(s) Reevaluation #1: [id number] -- CBC without leukocytosis or left shift. no anemia, h&h stable. chemistry without acute electrolyte abnormality requiring intervention. no fior. liver function wnl. troponin below detectable limits. given timing of symptoms to ED presentation - delta not warranted as ACS is unlikely. TSH wnl. UA without infection or blood. negative for . Initial EKG showing NSR w/ rate of 98 bpm, no acute ischemic changes or st elevations repeat EKG ordered by triage provider showing NSR w/ rate of 78 bpm, no acute ischemic changes or st elevations. > migraine cocktail ordered > CTA chest pending 1899 -- Sign out given to Terrence BLACKWOOD pending CTA chest results and disposition. Medications Administered Discontinued Medications Generic Name Dose Route Start Last Admin Trade Name Freq PRN Reason Stop Dose Admin Diphenhydramine HCl 25 mg 12/02/24 16:36 12/02/24 18:05 Diphenhydramine Hcl 50 Mg/Ml Vial IVPUSH 12/02/24 16:37 25 mg ONCE ONE Administration Iohexol 75 ml 12/02/24 20:14 12/02/24 20:14 Iohexol 350 Mg/Ml 100 Ml Infus..Btl IV 12/02/24 20:15 75 ml ONCE ONE Administration Ketorolac Tromethamine 15 mg 12/02/24 16:36 12/02/24 18:06 Ketorolac Tromethamine 15 Mg/Ml Vial IVPUSH 12/02/24 16:37 15 mg ONCE ONE Administration Metoclopramide HCl 10 mg 12/02/24 16:36 12/02/24 17:46 Metoclopramide Hcl 10 Mg/2 Ml Vial IVPUSH 12/02/24 16:37 10 mg ONCE ONE Administration Medical Decision Making Medical Decision Making MDM Narrative: 29 year old female with pmhx significant for anxiety, depression, and migraines presents to the ED today for evaluation of chest tightness and palpitations x2 weeks. vital signs notable for tachycardia and tachypnea. not hypoxic. afebrile. History without high risk features (not substernal, no exertional component, not relieved with rest).? Minimal CAD risk factors (including age). Exam without evidence of volume overload. EKG without signs of active ischemia. HEART score: 0. Differential diagnosis includes anemia, electrolyte abnormality, anxiety, hyperthyroidism, tension [place] v migraine Given the timing of pain to ED presentation, plan to send single troponin to evaluate for NSTEMI. PERC 2 - will obtain CTA chest to r/o PE. Presentation not consistent with pneumothorax, thoracic aortic dissection, cardiac effusion or tamponade Plan: labs, troponin, EKG, CTA chest, reassessment Differential Diagnosis Differential Diagnoses: The differential diagnosis associated with the presentation includes as above Admission/Observation Consideration of admission/observation: Escalation of care including admission/observation considered Lab Data MDM Lab Attestation statement: I reviewed the patient's lab results. as above. 12/02/24 12:26 12/02/24 12:26 Labs: Lab Results 12/02/24 12/02/24 Range/Units 12:26 12:28 WBC 8.3 (4.8-10.8) X10*3/uL RBC 5.17 (4.20-5.50) X10*6/uL Hgb 13.2 (12.0-16.0) g/dl Hct 40.5 (37.0-47.0) % MCV 78.3 L (80.0-98.0) fL MCH 25.5 L (27.0-33.0) pg MCHC 32.6 (31.0-35.0) g/dl RDW 14.3 (11.0-16.0) % Plt Count 327 (160-400) X10*3/uL MPV 9.5 (9.4-12.3) fL Immature Gran % (Auto) 0.5 H (0.0-0.4) % Neut % (Auto) 56.9 (45-73) % Lymph % (Auto) 35.4 (20-40) % Hyde % (Auto) 5.3 (2-11) % Eos % (Auto) 1.3 (0-4) % Baso % (Auto) 0.6 (0-2) % Lymph # (Auto) 2.9 (1.2-4.9) X10*3/uL [place] # (Auto) 0.4 (0.1-1.2) X10*3/uL Eos # (Auto) 0.1 (0.0-0.4) X10*3/uL Baso # (Auto) 0.1 (0.0-0.2) X10*3/uL Abs Immat Gran (auto) 0.04 H (0.00-0.03) X10*3/uL Absolute Neuts (auto) 4.7 (2.0-8.3) x10*3/uL Absolute Nucleated RBC 0.000 (0.0-0.012) X10*3/uL Nucleated RBC % (auto) 0.0 (0.0-0.2) /100WBC PT 10.5 L (10.9-12.4) SEC INR 0.9 (0.9-1.1) Sodium 139 (135-145) mmol/L Potassium 3.9 (3.3-5.1) mmol/L Chloride 112 H (96-108) mmol/L Carbon Dioxide 21 L (22-29) mmol/L Anion Gap 10 L (12-20) BUN 11 (9-16) mg/dL Creatinine 0.65 (0.5-1.4) mg/dL Estim Creat Clear Calc 122.5 Estimated GFR > 60 Random Glucose 95 (60-115) mg/dL Calcium 8.7 (8.4-10.2) mg/dL Magnesium 2.2 (1.6-2.6) mg/dL Total Bilirubin 0.2 (0.0-1.0) mg/dL AST 15 (5-31) U/L ALT 20 (0-31) U/L Alkaline Phosphatase 70 (39-117) U/L Troponin I High Sens < 2.7 (<3.5-17.0) ng/L Total Protein 7.0 (6.5-8.0) g/dL Albumin 3.9 (3.5-5.0) g/dL Lipase 38 (8-78) U/L TSH 1.54 (0.32-4.0) uIU/mL Beta HCG, Quant < 2 mIU/mL Urine Color Yellow Urine Appearance Cloudy Urine pH 7.0 (5.0-9.0) Ur Specific [place] >= 1.030 H (1.005-1.025) Urine Protein Negative (Neg-Trace) mg/dL Urine Glucose (UA) Negative (Negative) mg/dL Urine Ketones Negative (Negative) mg/dL Urine Blood Negative (Negative) Urine Nitrite Negative (Negative) Ur Leukocyte Esterase Negative (Negative) Urine Test NEGATIVE (NEGATIVE) Independent Interpretation I performed an independent interpretation of an: EKG and CT Scan Interpretation: Initial EKG showing NSR w/ rate of 98 bpm, no acute ischemic changes or st elevations repeat EKG showing NSR w/ rate o 78 bpm, no acute ischemic changes or st elevations CTA chest Radiology Impression Discussion of test interpretation with radiology: I have reviewed the radiologist's reading. Radiologist Impression: Findings: No central pulmonary embolism. No aortic dissection, accounting for artifacts. Heart size is at the upper limits of normal. Mild mediastinal fluid in the mediastinal lipomatosis. No enlarged mediastinal lymphadenopathy. Mild bibasilar atelectasis. No pneumothorax or pleural effusion. No acute osseous abnormality. The imaged upper abdomen is unremarkable. IMPRESSION: 1. No pulmonary emboli. 2. Mild bibasilar atelectasis. This document has been electronically signed by: Jimmie Lopez MD on 12/02/2024 21:04:07 External Record Review External record reviewed: Inpatient record Chronic Conditions Patient?s care impacted by: Other (anxiety) Social Determinants Patient?s care significantly limited by Social Determinants of Health including: Other Social Determinant of Health Critical Care Time Critical Care Time Critical Care Time: No Discharge Plan Discharge Clinical Impression: Sinus tachycardia, Chest pain Patient Disposition: Home, Self-Care Instructions: Chest Pain (ED), Tachycardia (ED) Additional Instructions: Your workup in the ER today was reassuring. This includes your lab work, EKGs and CT scan. You may follow up with Cardiology for the fast heart rate Return for new or worsening symptoms Prescriptions: No Action albuterol sulfate 90 mcg/actuation HFA aerosol inhaler 2 puff inhalation Q4-6H PRN (Reason: shortness of breath or wheezing) Qty: 8.5 0RF ondansetron 4 mg tablet,disintegrating 4 mg PO Q8H PRN (Reason: nausea and vomiting) Qty: 20 0RF trazodone 100 mg tablet 100 mg PO BEDTIME medroxyprogesterone [Depo-Provera] 150 mg/mL suspension 150 mg IM [id number] doxepin 10 mg capsule PO phentermine 37.5 mg tablet PO verapamil 40 mg tablet PO methylprednisolone 4 mg tablets,dose pack See Rx Instructions PO PER PKG DIR Qty: 21 0RF Rx Instructions: PO PER PKG DIR for 6 days albuterol sulfate 90 mcg/actuation HFA aerosol inhaler 2 puff inhalation Q6H PRN (Reason: shortness of breath or wheezing or cough) Qty: 8.5 0RF Referrals: Efren Torres MD [Physician] - (Sinus tachycardia) Stand Alone Forms: Work/School Release Interventions: ED Discharge Assessment Last Done: 12/02/24 22:14 Discharge Date/Time: 12/02/24 22:14 Print Language: Slovak
--- NOTE | 2024-12-02 11:50 | ECG_ITS ---
Test Reason : chest pain Blood Pressure : */* mmHG Vent. Rate : 98 BPM Atrial Rate : 98 BPM P-R Int : 132 ms QRS Dur : 70 ms QT Int : 322 ms P-R-T Axes : 55 36 41 degrees QTcB Int : 411 ms Normal sinus rhythm Normal ECG When compared with ECG of 02-Oct-2023 21:49, No significant change was found Referred By: Brenden Rouse Electronically Signed By: ANGELITA BLANCO
[2024-12-02 12:27] LABS: MANUAL DIFF FLAG NO
[2024-12-02 12:29] LABS: Basophils Absolute Auto 0.1 X10*3/uL (0.0-0.2); Basophils Percent Auto 0.6 % (0-2); Eosinophils Absolute Auto 0.1 X10*3/uL (0.0-0.4); Eosinophils Percent Auto 1.3 % (0-4); Hematocrit 40.5 % (37.0-47.0); Hemoglobin 13.2 g/dl (12.0-16.0); Imm Gran Abs Auto 0.04 X10*3/uL (0.00-0.03); Imm Gran Pct Auto 0.5 % (0.0-0.4); Lymphocytes Absolute Auto 2.9 X10*3/uL (1.2-4.9); Lymphocytes Percent Auto 35.4 % (20-40); Mean Corpuscular HGB Conc 32.6 g/dl (31.0-35.0); Mean Corpuscular Hemoglobin 25.5 pg (27.0-33.0); Mean Corpuscular Volume 78.3 fL (80.0-98.0); Mean Platelet Volume 9.5 fL (9.4-12.3); Monocytes Absolute Auto 0.4 X10*3/uL (0.1-1.2); Monocytes Percent Auto 5.3 % (2-11); Neutrophils Absolute Auto 4.7 x10*3/uL (2.0-8.3); Neutrophils Percent Auto 56.9 % (45-73); Platelet Count 327 X10*3/uL (160-400); Red Blood Count 5.17 X10*6/uL (4.20-5.50); Red Cell Distribution Width 14.3 % (11.0-16.0); White Blood Count 8.3 X10*3/uL (4.8-10.8)
--- OUTSIDE RECORDS SUMMARY | 2024-12-02 12:34 | XMS_ITS | Clinical Summary ---
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 Procedure Name Priority Date/Time Associated Diagnosis Comments CHLAMYDIA DNA PROBE, DIRECT Routine 05/13/2015 12:00 AM EDT from Last 3 Months or Most Recently Relevant to Health Maintenance Results * Due to [place] [employer] law, this organization might not be sharing sensitive test results. * Chlamydia DNA probe, direct (05/13/2015 12:00 AM EDT) Chlamydia trachomatis amplified RNA(Conversion) Negative CONVERTED LABS Comment: Edilma Sepulveda 05/13/2015 05:10:08 PM > Negative Reason: Received -[facility] Lab Order [employer] CHLAMYDIA SOURCE URINE CON VERTED LABS Comment: Edilma Sepulveda 05/13/2015 05:10:08 PM > Negative Reason: Received -[facility] Lab Order [employer] CHLAMYDIA TRACHOMATIS AMPLIFIED RNA Negative CONVERTED LABS Comment: Edilma Sepulveda 05/13/2015 05:10:08 PM > Negative Reason: Received -[facility] Lab Order [employer] 05/13/2015 Narrative CONVERTED LABS - 05/13/2015 12:00 AM EDT Chlamydia DNA Probe us Edilma Sepulveda FACILITY WORKER LAB MICROBIOLOGY - GENERAL ORD ERABLES Final Result CONVERTED LABS from Last 3 Months or Most Recently Relevant to Health Maintenance
--- OUTSIDE RECORDS SUMMARY | 2024-12-02 12:34 | XMS_ITS | Clinical Summary ---
Author Organization [employer] Address [address] [place] [address] Care Team Providers Care Residential Caregiver Name Role Phone Janet Pierson MD Primary Care Provider [phone] Allergies Active Allergy Reactions Criticality Noted Date [...] (11/14/2023 10:43 AM EST): Adult female for [employer] WORK[employer] physical: Normal Exam. FU PAP results. Consider [...] recommended reduction of 20-30% of maintenance calories; building code inspector referral offered. Recommended to decrease soda and [...] recommended reduction of 20-30% of maintenance calories; building code inspector referral offered. Recommended to decrease soda and sugary beverage consumption. Recommended at least 20 g per meal of protein to assist with satiety. Recommended at least 150 min/week of moderate intensity exercise. Assessment & Plan (09/13/2023 2:05 PM EST): Discussed calorie deficit, recommended reduction of 20-30% of maintenance calories; building code inspector referral offered. Recommended to decrease soda and [...] treatment engagement. PLAN: 1. Follow up with [facility]: Recommended for follow-up: as needed 2. Patient goal is to engage in MH services 3. Behavioral Recommendations a. Ind. Therapy referral will be submitted b. Use of coping skills provided c. Take medication as prescribed. d. [facility] contact number for support Assessment & [...] her gynecology consultation. A referral to a gym instructor is made for further evaluation and discussion of permanent options. Assessment & Plan (07/31/2023 10:53 AM EDT): Pt in need of family planning. One week late depo. Still within therapeutic window. Urine HCG negative. -depo shot today -placed on list for new PCP Encounters Date Type Department Care Team Description 12/02/2024 Orders Only GENERIC EXTERNAL DATA DEPARTMENT Provider, Generic External Data 12/02/[address] [facility] [address] [place] [address] Janet Pierson MD Nurse Triage 11/20/2024 Orders Only GENERIC EXTERNAL DATA DEPARTMENT Provider, Generic External Data 10/19/[address] [facility] [address] [place], [place] [phone] Jodie Abernathy, MARA Appointment Request 09/21/2024 3:00 PM EST Office Visit [facility] [address] [place] [address] Janet Pierson MD Family planning (Primary Dx); Idiopathic or primary livedo reticularis 09/21/2024 Orders Only [facility] [address] [place] [address] Janet Pierson MD 09/21/2024 Travel 09/17/2024 Travel [...] Upcoming Encounters Date Type Department Care Team ([facility] st Contact Info) Description 01/12/2025 9:15 AM EDT Office Visit [facility] PEDS [address] [facility] [place] [address] Rosa Joy MD [address] [place] [address] Health Maintenance Due Date Last Done Comments [...] Procedure Name Priority Date/Time Associated Diagnosis Comments CBC WITH AUTO DIFFERENTIAL Routine 12/02/2024 12:26 PM EST SARS COV2/INFLUENZA A/B AND RSV RNA QL NAAT Routine 11/20/2024 8:00 AM EST OTHER REF TEST - MISC Routine 09/21/2024 [...] Recently Relevant to Health Maintenance Results * (ABNORMAL) CBC auto differential (12/02/2024 12:26 PM EST) White Blood Count 8.3 4.8 - 10.8 X10*3/uL [facility] Red Blood Count 5.17 4.20 - 5.50 X10*6/uL [facility] Hemoglobin 13.2 12.0 - 16.0 g/dl [facility] Hematocrit 40.5 37.0 - 47.0 % [facility] Mean Corpuscular Volume 78.3(L) 80.0 - 98.0 fL [facility] Mean Corpuscular Hemoglobin 25.5(L) 27.0 - 33.0 pg [facility] Mean Corpuscular HGB Conc 32.6 31.0 - 35.0 g/dl [facility] Red Cell Distribution Width 14.3 11.0 - 16.0 % [facility] Platelet Count 327 160 - 400 X10*3/uL [facility] Mean Platelet Volume 9.5 9.4 - 12.3 fL [facility] Neutrophils Percent Auto 56.9 45 - 73 % [facility] Imm Gran Pct Auto 0.5(H) 0.0 - 0.4 % [facility] Lymphocytes Percent Auto 35.4 20 - 40 % [facility] Monocytes Percent Auto 5.3 2 - 11 % [facility] Eosinophils Percent Auto 1.3 0 - 4 % [facility] Basophils Percent Auto 0.6 0 - 2 % [facility] NRBC Pct Auto 0.0 0.0 - 0.2 /100WBC [facility] Neutrophils Absolute Auto 4.7 2.0 - 8.3 x10*3/uL [facility] Imm Gran Abs Auto 0.04(H) 0.00 - 0.03 X10*3/uL [facility] Lymphocytes Absolute Auto 2.9 1.2 - 4.9 X10*3/uL [facility] Monocytes Absolute Auto 0.4 0.1 - 1.2 X10*3/uL [facility] Eosinophils Absolute Auto 0.1 0.0 - 0.4 X10*3/uL [facility] Basophils Absolute Auto 0.1 0.0 - 0.2 X10*3/uL [facility] NRBC Abs Auto 0.000 0.0 - 0.012 X10*3/uL [facility] 12/02/2024 12:2 6 PM EST 12/02/2024 12:26 PM EST Generic External Data Provider LAB BLOOD ORDERAB LES Final Result Performing Organization Address [facility] Co de Phone Number [facility] [address] [place] [phone] * SARS-CoV-2 RNA, Influenza A/B, and RSV RNA, Ql NAAT (11/20/2024 8:00 AM EST) Influenza A PCR NEGATIVE Negative [facility] Influenza B PCR NEGATIVE Negative [facility] Resp Syncy Virus RNA Qual PCR NEGATIVE Negative [facility] SARS COV2 PCR NEGATIVE Negative [facility] Comment:All test results mus t be correlated with clinical findings.Negative results do not preclude SARS-CoV2, influenza Avirus, influenza B virus and/or RSV infectionand should not be used as the sole basis for treatment orother patient management decisions. Negative results must becombined with clinical observations, patient history, andepidemiological information.This test has not been evaluated for monitoring treatment ofinfection.This test has been authorized by the FDA under an EmergencyUse Authorization (EUA) for use by authorized laboratories.Testing performed on the [employer] GeneXpert utilizingreal-time RT-PCR.All SARS CoV2 and positive influenza A/B results arereported to [facility]. 11/20/2024 8:00 AM EST 11/20/2024 11:14 AM EST us Generic External Data Provider LAB MICROBIOLOGY - GENERAL ORDERABLES Final Result Performing Organization Address [facility] Co de Phone Number [facility] [address] [place] [phone] * Other Reference Test - Misc (09/21/2024 3:59 PM EST) 09/21/2024 3:59 PM EST 09/21/2024 5:38 PM EST Narrative [facility] - 09/28/2024 9:40 AM EST [id number] Janet Pierson MD LAB BLOOD ORDERABLES Final Re sult Performing Organization Address [facility] Co de Phone Number [facility] [address] [place] [address] [phone] * HIV-1/2 Antigen and Antibodies, Fourth Generation, with Reflexes (08/03/2024 4:02 PM EDT) HIV AB/AG Nonreactive Nonreactive [facility] Comment:HIV-1 p24 Ag and/or HIV-1/HIV-2 Ab not detected.A test result that is nonreactive does not exclude thepossibility of exposure to or infection with HIV-1 and/orHIV-2. Nonreactive results in this assay for individualswith prior exposure to HIV-1 and/or HIV-2 may be due toantigen and antibody levels that are below the limit ofdetection of this assay.The [employer] HIV Ag/Ab Combo assay result andsupplemental assay results should be interpreted inconjunction with the patient's clinical presentation,history and other laboratory results. If the results areinconsistent with clinical evidence, additional testing issuggested to confirm the result. Blood Venous blood specimen / Unknown 08/03/2024 4:02 PM EDT 08/03/2024 5:21 PM EDT Janet Pierson MD LAB BLOOD ORDERABLES Final Re sult Performing Organization Address [facility] Co de Phone Number [facility] [address] [place] [address] [phone] * Image-Guided Pap with Age-Based Screening??with CT/NG,??Trichomonas (11/14/2023 10:42 AM EST) Trichomonas (NAAT) NOT DETECTED NOT DETECTED [facility] Comment:The analytical perfo rmance characteristics of thisassay have been determined by [employer]. Themodifications have not been cleared or approved bythe FDA. This assay has been validated pursuant to theIA regulations and is used for clinical purposes.For additional information, please refer tohttp://education.SeeFuture/faq/Trichomonastma(This link is being provided for information/educational purposes only.)THIS TEST WAS PERFORMED AT:[employer] [place] [phone] CRAMER MD CTNG Ref Lab NOT DETECTED NOT DETECTED [facility] NG Ref Lab NOT DETECTED NOT DETECTED [facility] Cervix 11/14/2023 10:4 2 AM EST 11/15/2023 9:40 AM EST Janet Pierson MD LAB CYTOLOGY ORDERABLES Final Result Performing Organization Address [facility] Co or Phone Number [facility] [address] [place] [phone] * Hepatitis C Ab (09/16/2023 8:46 AM EST) Hepatitis C Antibody Nonreactive Nonreactive [facility] Comment:Antibodies to HCV no t detected; does not exclude early acuteHCV infection. Blood Venous blood specimen / Unknown 09/16/2023 8:46 AM EST 09/16/2023 2:37 PM EST Janet Pierson MD LAB BLOOD ORDERABLES Final Re sult Performing Organization Address [facility] Co de Phone Number [facility] [address] [place] [phone] * (ABNORMAL) Lipid Panel, Standard (09/16/2023 8:46 AM EST) Triglycerides 108 <150 mg/dL [facility] Comment:Desirable Triglyceri de: less than 150 mg/dLBorderline High Triglyceride 150-199 mg/dLHigh Triglyceride: 200-499 mg/dLVery High Triglyceride: greater than or equal to 5OO mg/dL Cholesterol 171 <200 mg/dL [facility] Comment:Desirable Cholestero l: less than 200 mg/dLBorderline High Cholesterol: 200-239 mg/dLHigh Cholesterol: greater than 239 mg/dL LDL Cholesterol Calculated 118(H) <100 mg/dL [facility] Comment:Desirable LDL: less than 100 mg/dLNear Optimal/Above Optimal LDL: 110- 129 mg/dLBorderline High LDL: 130-159 mg/dLHigh LDL: 160-189 mg/dLVery High LDL: greater than or equal to 190 mg/dL HDL Cholesterol 32(L) >40 mg/dL [facility] Comment:Desirable HDL: great er than 40 mg/dL Note: This HDL assay may give artificially low results in patients with liver disease. Blood Venous blood specimen / Unknown 09/16/2023 8:46 AM EST 09/16/2023 2:37 PM EST us Janet Pierson MD LAB BLOOD ORDERABLES Final Re sult [facility] [address] [place] [phone] from Last 3 Months or Most Recently Relevant to Health Maintenance Insurance * Guarantor: Milka Guthrie Account Type Relation to Patient Date of Phone Billing Address Personal/Family Self [address] [place] [address] [facility] Care Teams Residential Caregiver Relationship Specialty Start Date End Date Janet Pierson MD [address] [place] [address] PCP - General Family Medicine 09/13/23
--- OUTSIDE RECORDS SUMMARY | 2024-12-02 12:34 | XMS_ITS | Encounter Summary ---
Author Organization [facility] Address [address] [place] [address] Phone Care Team Providers Care Flooring Machine Feeder Name Role Phone Montse Olivier NP Primary Care Provider [phone] Encounter Details Date Type Department Care Team (Late st Contact Info) Description 05/22/2017 Conversion Encounter [facility] - [address], [address] [place] [address] Montse Olivier NP [address] [place] [address] Social History Tobacco Use Types Packs/Day Years [...] on filedocumented in this encounter Care Teams Flooring Machine Feeder Relationship Specialty Start Date End Date Montse Olivier NP [address] [place] [phone] PCP - General 12/04/16 01/21/24 documented as of this encounter
--- OUTSIDE RECORDS SUMMARY | 2024-12-02 12:34 | XMS_ITS | Encounter Summary ---
Author Organization [employer] Address [address] [place] [address] Care Team Providers Care Digital Communications Manager Name Role Phone Janet Pierson MD Primary Care Provider [phone] Encounter Details Date Type Department Care Team (Late st Contact Info) Description 11/20/2024 Orders Only GENERIC EXTERNAL DATA DEPARTMENT Provider, Generic External Data Social History Tobacco Use Types Packs/Day Years [...] AM EDT documented as of this encounter Plan of Treatment Upcoming Encounters Date Type Department Care Team (Late st Contact Info) Description 01/12/2025 9:15 AM EDT Office Visit [facility] PED[facility] [address] [place] [address] Rosa Joy MD [address] [place], [place] [phone] documented as of this encounter Procedures Procedure Name Priority Date/Time Associated Diagnosis Comments SARS COV2/INFLUENZA A/B AND RSV RNA QL NAAT Routine 11/20/2024 8:00 AM EST documented in this encounter Results * SARS-CoV-2 RNA, Influenza A/B, and RSV RNA, Ql NAAT (11/20/2024 8:00 AM EST) Influenza A PCR NEGATIVE Negative [facility] Influenza B PCR NEGATIVE Negative [facility] Resp Syncy Virus RNA Qual PCR NEGATIVE Negative [facility] SARS COV2 PCR NEGATIVE Negative [facility] Comment:All test results mus t [...] use by authorized laboratories.Testing performed on the [employer] GeneXpert utilizingreal-time RT-PCR.All SARS CoV2 and positive influenza A/B results arereported to [facility]. 11/20/2024 8:00 AM EST 11/20/2024 11:14 AM EST us Generic External Data Provider LAB MICROBIOLOGY - GENERAL ORDERABLES Final Result [facility] [address] [place] [address] [phone] documented in this encounter Visit Diagnoses Not on filedocumented in this encounter Additional Health Concerns Assessment Noted Time PHQ-9 Depression Total Score: 7 05/08/20 24 9:13 AM EDT documented as of this encounter Care Teams Digital Communications Manager Relationship Specialty Start Date End Date Janet Pierson MD [address] [place] [address] PCP - General Family Medicine 09/13/23 documented as of this encounter
--- OUTSIDE RECORDS SUMMARY | 2024-12-02 12:34 | XMS_ITS | Encounter Summary ---
Author Organization [employer] Address [address] [place] [address] Care Team Providers Care Plastic Bubble Packer Name Role Phone Janet Pierson MD Primary Care Provider [phone] Reason for Visit * Reason Onset Date Comments Nurse Triage 12/02/2024 Encounter Details Date Type Department Care Team ([facility] st Contact Info) Description 12/02/2024 Telephone [facility] MED & P[facility]S [address] [place], [place] [phone] Janet Pierson MD [address] [place], [place] [phone] Nurse Triage Social History Tobacco Use Types Packs/Day Years [...] encounter Miscellaneous Notes * Telephone Encounter - Bernadette Sheth RN - 12/02/2024 10:33 AM EST called pt to triage, spoke to pt pt states seen in an UC twice recently for palpitations. pt statesher HR is consistently >120 and getting worse. pt reports episodes are more frequent and strong and requesting appt. pt denies severe chest pain, significant sob, numbness, dizziness or other associated symptoms. advised to seek ER care as the episodes are described as almost constant and getting worse. advised to call back for any follow up needed. pt understands and will not drive herself tothe ER. insurance verified. Protocol Used: Heart Rate and Heartbeat Questions (Adult) Protocol-Based Disposition: Go to ED Now Positive Triage Question: * Heart beating very rapidly (e.g., > 140 / minute) and present now (Exception: During exercise.) * All higher-acuity triage questions were negative Care Advice Discussed: * Reassurance and Education - Palpitations and Extra Heartbeats * Healthy Living Tips for People With Palpitations * Avoid Caffeine * Limit Alcohol * Reasons To Call Back - Chest pain, lightheadedness or difficulty breathing occurs - Heart beating over 140 beats / minute - More than 3 extra or skipped beats / minute - You become worse * Telephone Encounter - Monique Donald - 12/02/2024 9:51 AM EST Symptom: Heartbeat Symptoms (Fast, Slow, or Irregular) Outcome: Schedule a same-day appointment or talk to a nurse or provider today Reason: Caller denied all higher acuity questions The caller accepted this outcome. documented in this encounter Plan of Treatment Upcoming Encounters Date Type Department Care Team (Late st Contact Info) Description 01/12/2025 9:15 AM EDT Office Visit [facility] [address] [place] [address] Rosa Joy MD [address] [place] [address] documented as of this encounter Visit Diagnoses Not on filedocumented in this encounter Additional Health Concerns Assessment Noted Time PHQ-9 Depression Total Score: 7 05/08/20 24 9:13 AM EDT documented as of this encounter Care Teams Plastic Bubble Packer Relationship Specialty Start Date End Date Janet Pierson MD [address] [place] [phone] PCP - General Family Medicine 09/13/23 documented as of this encounter
--- OUTSIDE RECORDS SUMMARY | 2024-12-02 12:34 | XMS_ITS | Clinical Summary ---
Author Organization [facility] Address [address] [place] [address] Care Team Providers Care Reverser Name Role Phone Unavailable Primary Care Provider Unavailabl e Social History Tobacco Use Types Packs/Day Years Used Date Smoking Tobacco: Never Assessed Comments Unknown Sex and Gender Information Value Date Recorded Sex Assigned at Not on file Legal Sex Female 12:18 AM EST Gender Identity Not on file Sexual Orientation Not on file Plan of Treatment Health Maintenance Due Date Last Done Comments DTaP,Tdap,and Td Vaccines (1 - Tdap) 2015 Hepatitis B Vaccines (1 of 3 - 19+ 3-dose series) 2015 Cervical Cancer Screening: P ap Smear 2017 COVID-19 Vaccine ( - 2023-2 5 season) 2024 Influenza Vaccine (#1) 2024 [...] patient's age to complete this topic Meningococcal B Vacine Aged Out No lo nger eligible based on patient's age to complete [...]
[2024-12-02 12:37] LABS: INTERNATIONAL NORM RATIO 0.9 (0.9-1.1); Prothrombin Time 10.5 SEC (10.9-12.4)
[2024-12-02 12:42] LABS: Appearance Urine Cloudy; Color Urine Yellow; Glucose Urine UA Negative (Negative); Specific Gravity - Urine >= 1.030 (1.005-1.025); Urine Blood Negative (Negative); Urine Protein Negative (Neg-Trace)
[2024-12-02 12:43] LABS: Leukocyte Esterase Urine Negative (Negative); Nitrite Urine Negative (Negative); UPreg QC Valid YES; Urine Ketones Negative (Negative); Urine Pregnancy NEGATIVE (NEGATIVE)
[2024-12-02 12:47] LABS: Alanine Aminotransferase 20 U/L (0-31); Albumin Level 3.9 g/dL (3.5-5.0); Alkaline Phosphatase 70 U/L (39-117); Anion Gap 10 (12-20); Aspartate Amino Transferase 15 U/L (5-31); Bilirubin Total 0.2 mg/dL (0.0-1.0); Blood Urea Nitrogen 11 mg/dL (9-16); Calcium 8.7 mg/dL (8.4-10.2); Carbon Dioxide 21 mmol/L (22-29); Chloride 112 mmol/L (96-108); Creatinine Clr Calc Pharmacy 122.5; Estimated Glomerular Filt Rate > 60; Glucose Random 95 mg/dL (60-115); Lipase 38 U/L (8-78); Magnesium 2.2 mg/dL (1.6-2.6); Potassium 3.9 mmol/L (3.3-5.1); Sodium 139 mmol/L (135-145)
[2024-12-02 12:53] LABS: HCG Quantitative < 2 mIU/mL
[2024-12-02 12:55] LABS: Troponin-I High Sensitivity < 2.7 ng/L (<3.5-17.0)
[2024-12-02 13:07] LABS: TSH reflex Free T4 1.54 uIU/mL (0.32-4.0)
--- NOTE | 2024-12-02 15:41 | ECG_ITS ---
Test Reason : repeat Blood Pressure : */* mmHG Vent. Rate : 78 BPM Atrial Rate : 78 BPM P-R Int : 134 ms QRS Dur : 74 ms QT Int : 358 ms P-R-T Axes : 47 41 32 degrees QTcB Int : 408 ms Normal sinus rhythm Normal ECG When compared with ECG of 02-Dec-2024 12:13, No significant change was found Referred By: Brenden Rouse Electronically Signed By: ANGELITA BLANCO
[2024-12-02 16:17] VITALS: BP 128/78; PULSE 102; RESP 25; TEMP 37.1; O2SAT 100
[2024-12-02] MEDS: Metoclopramide HCl 10 MG/2 ML VIAL IVPUSH (17:46)
[2024-12-02] MEDS: diphenhydrAMINE HCL 50 MG/ML VIAL 25 MG IVPUSH (18:05)
[2024-12-02] MEDS: Ketorolac Tromethamine 15 MG/ML VIAL IVPUSH (18:06)
[2024-12-02 18:20] VITALS: BP 115/72; PULSE 88; RESP 27; TEMP 36.8; O2SAT 100
[2024-12-02] MEDS: iohexoL 350 MG/ML 100 ML INFUS..BTL 75 ML IV (20:14)
[2024-12-02 20:37] VITALS: BP 118/64; PULSE 90; RESP 20; TEMP 36.7; O2SAT 100
[2024-12-02 22:14] VITALS: BP 118/64; PULSE 90; RESP 20; TEMP 36.7; O2SAT 100
== END 2024-12-02 22:14 | disposition home or self-care (01) ==
PROVIDERS: Physician Assistant; Emergency Provider Emergency Medicine; PCP Family Medicine
DX: R00.0 Tachycardia, unspecified (principal); R07.9 Chest pain, unspecified; F41.9 Anxiety disorder, unspecified; R42 Dizziness and giddiness; J45.909 Unspecified asthma, uncomplicated; Z79.899 Other long term (current) drug therapy
CPT/HCPCS: 36415; 71275; 80053; 81003; 81025; 83690; 83735; 84443; 84484; 84702; 85025; 85610; 93005; 96374; 96375; 99284; J1200; J1885; J2765; Q9967

== ENCOUNTER → 2024-12-02 11:50 | Outpatient (BNV) | payer OTHER, SELFPAY | PROVIDERS: Emergency Provider Emergency Medicine; PCP Family Medicine; Visit Provider Internal Medicine | DX: R07.9 Chest pain, unspecified (principal) | CPT/HCPCS: 93010 ==

== ENCOUNTER → 2024-12-02 16:33 | Outpatient (BNV) | payer OTHER, SELFPAY | PROVIDERS: Emergency Provider Emergency Medicine; PCP Family Medicine; Visit Provider Radiology Neuroradiology | DX: Z87.09 Personal history of other diseases of the respiratory system (principal); J98.11 Atelectasis | CPT/HCPCS: 71275 ==

== ENCOUNTER 2024-12-03 21:44 | Emergency (ER) | payer OTHER, SELFPAY ==
[2024-12-03 21:49] VITALS: BP 126/81; PULSE 102; O2SAT 100
[2024-12-03 21:59] VITALS: BP 131/79; PULSE 90; RESP 20; TEMP 36.3; O2SAT 100; BMI 38.4
--- NOTE | 2024-12-03 22:02 | ECG_ITS ---
Test Reason : SYNCOPE Blood Pressure : */* mmHG Vent. Rate : 87 BPM Atrial Rate : 87 BPM P-R Int : 128 ms QRS Dur : 70 ms QT Int : 340 ms P-R-T Axes : 45 39 36 degrees QTcB Int : 409 ms Normal sinus rhythm Cannot rule out Anterior infarct , age undetermined Abnormal ECG When compared with ECG of 02-Dec-2024 16:32, No significant change was found Referred By: Generic ED Physician Electronically Signed By: ANGELITA BLANCO
--- OUTSIDE RECORDS SUMMARY | 2024-12-04 05:17 | XMS_ITS | Clinical Summary ---
Author Organization [facility] Address [address] [place] [phone] Phone Care Team Providers Care Nutrition Coordinator Name Role Phone Unavailable Primary Care Provider [...] complete this topic Procedures * Due to [employer] law, this organization might not be sharing sensitive test results. Procedure Name Priority Date/Time Associated Diagnosis Comments CHLAMYDIA DNA PROBE, DIRECT Routine 05/13/2015 12:00 AM EDT from Last 3 Months or Most Recently Relevant to Health Maintenance Results * Due to [place] [employer] law, this organization might not be sharing sensitive test results. * Chlamydia DNA probe, direct (05/13/2015 12:00 AM EDT) Chlamydia trachomatis amplified RNA(Conversion) Negative [facility] Comment: Edilma Sepulveda 05/13/2015 05:10:08 PM > Negative Reason: Received -[facility] Lab Order Admissions Dean CHLAMYDIA SOURCE URINE CON VERTED LABS Comment: Edilma Sepulveda 05/13/2015 05:10:08 PM > Negative Reason: Received -[facility] Lab Order Admissions Dean CHLAMYDIA TRACHOMATIS AMPLIFIED RNA Negative [facility] Comment: Edilma Sepulveda 05/13/2015 05:10:08 PM > Negative Reason: Received -[facility] Lab Order Admissions Dean 05/13/2015 Narrative [facility] - 05/13/2015 12:00 AM EDT Chlamydia DNA Probe us Edilma Sepulveda PATTERN CLEANER LAB MICROBIOLOGY - GENERAL ORD ERABLES Final Result [facility] from Last 3 Months or Most Recently Relevant to Health Maintenance
--- OUTSIDE RECORDS SUMMARY | 2024-12-04 05:18 | XMS_ITS | Clinical Summary ---
Author Organization [facility] Address [address] [place] [address] Care Team Providers Care Medical Record Clerk Name Role Phone Unavailable Primary Care Provider [...]
--- OUTSIDE RECORDS SUMMARY | 2024-12-04 05:18 | XMS_ITS | Encounter Summary ---
Author Organization [employer] Address [address] [facility] [address] [place] [address] Care Team Providers Care Jalousies Installer Name Role Phone Janet Pierson MD Primary Care Provider [phone] Reason for Referral * Consultation (Urgent) - Authorized Specialty Diagnoses / Procedures Referred By Contlefty t Referred To Contact Cardiology Diagnoses Tachycardia Sophia Norris MD [address] [place] [address] Phone: tel: fax: [address] Phone: tel: fax: Referral ID Status Reason Start Date Expiration Date Visits Requested Visits Authorized [id number] Authorized Specialty Services Required 12/03/2024 12/03/2025 1 1 Encounter Details Date Type Department Care Team (Late st Contact Info) Description 12/03/2024 2:00 PM EST Office Visit [facility] [address] [place], [place] [phone] Sophia Norris MD [address] [place], [place] [phone] Tachycardia (Primary Dx) Social History Tobacco Use Types Packs/Day Years [...] AM EDT documented as of this encounter Last Filed Vital Signs Vital Sign Reading Time Taken Comments Blood Pressure 130/82 12/03/2024 3:19 PM EST Pulse 108 12/03/2024 3:19 PM EST Temperature 37.2 ??C (98.9 ??F) 12/03/2024 2:14 PM ES T Respiratory Rate 20 12/03/2024 2:14 PM EST Oxygen Saturation 98% 12/03/2024 2:14 PM EST Inhaled Oxygen Concentration - - Weight 86.6 kg (191 lb) 12/03/2024 2:14 PM EST Height 152 cm (4' 11.84 ) 12/03/2024 2:14 PM EST Body Mass Index 37.5 12/03/2024 2:14 PM EST documented in this encounter Patient Instructions * Patient Instructions* Sophia Norris MD - 12/03/2024 2:00 PM EST Stop taking phentermine immediately. Drink plenty of water, at least 64 oz/day (8 glasses of 8 oz of water). Keep a diary of your pulse every hour. If your pulse stays over 130 beats per minute for more than 2 minutes while you are at rest, call 911. documented in this encounter Progress Notes * Sophia Norris MD - 12/03/2024 2:00 PM EST Subjective Patient ID: Milka Ambrose is a 29 y.o. female who presents for palpitations. BRENDAN Jarquin is a 29 yo woman with mild intermittent asthma and migraine headaches who is here because of persistent palpitations and a rapid pulse. For months, she has noticed her heart jumping or skippinga beat occasionally but for the past 2 weeks, she has felt her heart beating fast, like it is at the edge of the skin with multiple episodes of her heart skipping a beat. Has had not chest pain but she has had shortness of breath particularly with exertion. Says it is hard to take a full breath. Has not been wheezing and has only been using her albuterol inhaler 2 puffs twice a day for the pastweek. Previously was using it less than once a day. She was seen in urgent care twice in the past 2weeks, first for a viral URI and later for a skin rash diagnosed as folliculitis, and at both visits her pulse was over 100 bpm. Yesterday when her pulse was in the 120s at rest and got to 178 once according to her Apple watch, she went to ED. In the [facility] ED, she was tachycardic to 122 bpm on arrival and later without treatment, pulse was 90. Had normal CBC, TSH, BMP. Had EKGs without ischemic changes (one noted to have pulse 78 bpm) and negative troponin. Had CTA chest that showed mild bibasilar atelectasis and mediastinal lipomatosis, but there was no PE and no pneumonia or edema. She was discharged with recommendations for Cardiology follow-up. Review of Systems Constitutional: Positive for fatigue. Negative for chills, fever and unexpected weight change. Respiratory: Positive for shortness of breath. Negative for cough, choking, chest tightness and wheezing. Cardiovascular: Positive for palpitations. Negative for chest pain and leg swelling. Gastrointestinal: Negative for diarrhea. Neurological: Positive for light-headedness (on standing) and headaches. Social History: Tobacco: None Alcohol: Max 1 kate/week Drugs: No illegal drugs. One joint of marijuana nightly max. Caffeine: One small cup of coffee daily. No energy drinks, dilip. Objective BP (!) 140/82 (BP Location: Right arm, Patient Position: Sitting, BP Cuff Size: Large adult) Pulse (!) 112 Temp 98.9 ??F (37.2 ??C) (Oral) Resp 20 Ht 4' 11.84 (1.52 m) Wt 191 lb (86.6 kg) SpO2 98% BMI 37.50 kg/m?? Orthostatics: Lyin/80, 120 bpm Sittin/82, 108 bpm Physical Exam Constitutional: Appearance: She is not toxic-appearing. HENT: Head: Normocephalic and atraumatic. Mouth/Throat: Mouth: Mucous membranes are moist. Cardiovascular: Rate and Rhythm: Regular rhythm. Tachycardia present. Pulses: Normal pulses. Heart sounds: Normal heart sounds. No murmur heard. No friction rub. No gallop. Pulmonary: Effort: Pulmonary effort is normal. No respiratory distress. Breath sounds: Normal breath sounds. No wheezing, rhonchi or rales. Abdominal: General: Abdomen is flat. Bowel sounds are normal. Tenderness: There is no abdominal tenderness. Musculoskeletal: Right lower leg: No edema. Left lower leg: No edema. Skin: Capillary Refill: Capillary refill takes less than 2 seconds. Neurological: General: No focal deficit present. Mental Status: She is alert. Psychiatric: Mood and Affect: Mood normal. Behavior: Behavior normal. Assessment/Plan Diagnoses and all orders for this visit: Tachycardia: Had a very thorough and negative work-up in ED. Reviewed her medications today: had been taking phentermine & topiramate since this past spring and her neurologist stopped topiramateand started divalproex for migraine prophylaxis. Since the indication for phentermine + topiramate was treatment of obesity and since phentermine alone is only indicated for a short term for weight loss, I recommended she stop phentermine and she agreed. She is also taking doxepin at night for insomnia, and it can cause tachycardia. That would be my next target for discontinuation if stopping phentermine does not work. Recommended she also keep a diary of her pulse at rest, to call 911 if her pulse is over 130 bpm for more than 2 minutes, and keep herself well hydrated. Refer her to Cardiology in case stopping phentermine and possibly doxepin do not help. - Referral to Cardiology; Future documented in this encounter Plan of Treatment Upcoming Encounters Date Type Department Care Team (Late st Contact Info) Description 01/12/2025 9:15 AM EDT Office Visit [facility] [address] [place] [address] Rosa Joy MD [address] [place] [address] Scheduled Referrals Name Type Priority Associated Diagnoses Order Schedule Referral to Cardiology Outpatient Referral Urgent Tachycardia Expected: 12/03/2024 (Approximate), Expires: 12/03/2025 documented as of this encounter Visit Diagnoses Diagnosis Tachycardia- Primary Unspecified tachycardia documented in this encounter Additional Health Concerns Assessment Noted Time PHQ-9 Depression Total Score: 7 05/08/20 24 9:13 AM EDT documented as of this encounter Care Teams Jalousies Installer Relationship Specialty Start Date End Date Janet Pierson MD [address] [place] [address] PCP - General Family Medicine 09/13/23 documented as of this encounter
--- OUTSIDE RECORDS SUMMARY | 2024-12-04 05:18 | XMS_ITS | Encounter Summary ---
Author Organization [employer] Address [address] [place] [address] Care Team Providers Care Tool And Die Machinist Name Role Phone Janet Pierson MD Primary Care Provider [phone] Encounter Details Date Type Department Care Team [...] Description 01/12/2025 9:15 AM EDT Office Visit [facility] [address] [place] [address] Rosa Joy MD [address] [place], [place] [phone] documented as of this encounter Procedures Procedure Name Priority Date/Time Associated Diagnosis Comments SARS COV2/INFLUENZA A/B AND RSV RNA QL NAAT Routine 11/20/2024 8:00 AM EST documented in this encounter Results * SARS-CoV-2 RNA, Influenza A/B, and RSV RNA, Ql NAAT (11/20/2024 8:00 AM EST) Influenza A PCR NEGATIVE Negative [facility] Influenza B PCR NEGATIVE Negative [facility] Resp Syncy Virus RNA Qual PCR NEGATIVE Negative [facility] SARS COV2 PCR NEGATIVE Negative [facility] Comment:All test results mus t [...] use by authorized laboratories.Testing performed on the [employer] GeneXpert utilizingreal-time RT-PCR.All SARS CoV2 and positive influenza A/B results arereported to [facility]. 11/20/2024 8:00 AM EST 11/20/2024 11:14 AM EST us Generic External Data Provider LAB MICROBIOLOGY - GENERAL ORDERABLES Final Result [facility] [address] [place] [address] [phone] documented in this encounter Visit Diagnoses Not on filedocumented in this encounter Additional Health Concerns Assessment Noted Time PHQ-9 Depression Total Score: 7 05/08/20 24 9:13 AM EDT documented as of this encounter Care Teams Tool And Die Machinist Relationship Specialty Start Date End Date Janet Pierson MD [address] [place] [address] PCP - General Family Medicine 09/13/23 documented as of this encounter
--- OUTSIDE RECORDS SUMMARY | 2024-12-04 05:18 | XMS_ITS | Encounter Summary ---
Author Organization [employer] Address [address] [place] [address] Care Team Providers Care Safety Belt Installer Name Role Phone Janet Pierson MD Primary Care Provider [phone] Encounter Details Date Type Department Care Team (Latest Contact Info) Description 12/03/2024 Travel Social History Tobacco Use Types Packs/Day Years [...] Description 01/12/2025 9:15 AM EDT Office Visit [facility] PEDS [address] [place] [address] Rosa Joy MD [address] [place] [address] documented as of this encounter Visit Diagnoses Not on filedocumented in this encounter Additional Health Concerns Assessment Noted Time PHQ-9 Depression Total Score: 7 05/08/20 24 9:13 AM EDT documented as of this encounter Care Teams Safety Belt Installer Relationship Specialty Start Date End Date Janet Pierson MD [address] [place] [address] PCP - General Family Medicine 09/13/23 documented as of this encounter
--- OUTSIDE RECORDS SUMMARY | 2024-12-04 05:18 | XMS_ITS | Encounter Summary ---
Author Organization [facility] Address [address] [place] [address] Phone Care Team Providers Care Souvenir And Novelty Maker Name Role Phone Montse Olivier NP Primary Care Provider [phone] Encounter Details Date Type Department Care Team (Late st Contact Info) Description 05/22/2017 Conversion Encounter [facility] - [address], [address] [place] [address] Montse Olivier NP [address] [place] [address] Social History Tobacco Use Types Packs/Day Years [...] on filedocumented in this encounter Care Teams Souvenir And Novelty Maker Relationship Specialty Start Date End Date Montse Olivier NP [address] [place] [id number] PCP - General 12/04/16 01/21/24 documented as of this encounter
--- OUTSIDE RECORDS SUMMARY | 2024-12-04 05:18 | XMS_ITS | Encounter Summary ---
Author Organization [employer] Address [address] [place] [address] Care Team Providers Care Medicare Biller Name Role Phone Janet Pierson MD Primary Care Provider [phone] Reason for Visit * Reason Onset Date Comments Nurse Triage 12/02/2024 Encounter Details Date Type Department Care Team ([facility] st Contact Info) Description 12/02/[address] [facility] MED & PEDS [address] [place], [place] [phone] Janet Pierson MD [address] [place], [place] [phone] Nurse Triage Social History Tobacco Use Types [...] Description 01/12/2025 9:15 AM EDT Office Visit [facility] PEDS [address] [place] [address] Rosa Joy MD [address] [place] [address] documented as of this encounter Visit Diagnoses Not on filedocumented in this encounter Additional Health Concerns Assessment Noted Time PHQ-9 Depression Total Score: 7 05/08/20 24 9:13 AM EDT documented as of this encounter Care Teams Medicare Biller Relationship Specialty Start Date End Date Janet Pierson MD [address] [place] [id number] PCP - General Family Medicine 09/13/23 documented as of this encounter
--- OUTSIDE RECORDS SUMMARY | 2024-12-04 05:18 | XMS_ITS | Encounter Summary ---
Author Organization [email or web address] Address [address] [place] [address] Care Team Providers Care On Site Services Specialist Name Role Phone Janet Pierson MD Primary Care Provider [phone] Reason for Visit * Reason Onset Date Comments Nurse Triage 12/03/2024 Encounter Details Date Type Department Care Team ([facility] st Contact Info) Description 12/03/2024 Telephone [facility] MED [facility] PEDS [address] [place], [place] [phone] Janet Pierosn MD [address] [place], [place] [phone] Nurse Triage Social History Tobacco Use Types [...] encounter Miscellaneous Notes * Telephone Encounter - Maryjane Gomes RN - 12/03/2024 1:28 PM EST ED notes scanned into chart as requested. * Telephone Encounter - Columba Meyers RN - 12/03/2024 11:16 AM EST Please assist with obtaining discharge summary for [facility] ED visit on 12/02/2024 for provider review prior to upcoming appointment. Future Appointments Date Time Provider Department Center 12/03/2024 2:00 PM [facility] 01/12/2025 9:15 AM Rosa Joy MD [facility] * Telephone Encounter - Columba Meyers RN - 12/03/2024 11:10 AM EST Call returned to Milka Ambrose to triage below. No [facility] ED notes available in chart. Per pt was instructed to follow up with [facility] Cardiology, Dr Francisco. Pt did call today and was directedto have PCP follow up with PCP first. Pt also tx for migraine headache. Pt denies any CP or palpitations today. Pt needing PCP referral for Cardiology follow up. Pt has [facility] notes given at discharge. Denies any Rx at discharge. Pt agrees to sick on site today with [facility] provider. Protocol Used: Recent Medical Visit for Illness Follow-up Call (Adult) Protocol-Based Disposition: See in Office or Video Visit Today or Tomorrow Future Appointments Date Time Provider Department Center 12/03/2024 2:00 PM [facility] 01/12/2025 9:15 AM Rosa Joy MD [facility] Insurance verified as active per Real Time Eligibility in Epic. Video visit offer not recorded Positive Triage Question: * Patient wants to be seen * All higher-acuity triage questions were negative Care Advice Discussed: * Reasons To Call Back - You become worse * Telephone Encounter - Monique Donald - 12/03/2024 10:58 AM EST Patient calling to report ED visit on : Date: 12/02/24 Hospital: [facility] Seen for: chest pain and fast heart rate Symptomatic Yes *if yes message should go to Triage Patient advised will forward to team nurse for follow up documented in this encounter Plan of Treatment Upcoming Encounters Date Type Department Care Team (Late st Contact Info) Description 01/12/2025 9:15 AM EDT Office Visit [facility] MED [facility] PEDS [address] [place] [address] Rosa Joy MD [address] [place] [address] documented as of this encounter Visit Diagnoses Not on filedocumented in this encounter Additional Health Concerns Assessment Noted Time PHQ-9 Depression Total Score: 7 05/08/20 24 9:13 AM EDT documented as of this encounter Care Teams On Site Services Specialist Relationship Specialty Start Date End Date Janet Pierson MD [address] [place] [address] PCP - General Family Medicine 09/13/23 documented as of this encounter
--- OUTSIDE RECORDS SUMMARY | 2024-12-04 05:18 | XMS_ITS | Encounter Summary ---
Author Organization [employer] Address [address] [facility] [address] [place] [address] Care Team Providers Care Vice President Consulting Services Name Role Phone Janet Pierson MD Primary Care Provider [phone] Encounter Details Date Type Department Care Team (Late st Contact Info) Description 12/02/2024 Orders Only GENERIC EXTERNAL DATA [...] Description 01/12/2025 9:15 AM EDT Office Visit [facility] [address] [place] [address] Rosa Joy MD [address] [place], [place] [phone] documented as of this encounter Procedures Procedure Name Priority Date/Time Associated Diagnosis Comments CTA CHEST PE PROTOCAL Routine 12/02/2024 9:04 PM EST HCG, QL, URINE Routine 12/02/2024 12:28 PM EST URINALYSIS WITH REFLEX MICROSCOPIC Routine 12/02/2024 12:28 PM EST HIGH SENSITIVITY TROPONIN I Routine 12/02/2024 12:26 PM EST TSH W/REFLEX TO FT4 Routine 12/02/2024 1 2:26 PM EST CBC WITH AUTO DIFFERENTIAL Routine 12/02/2024 12:26 PM EST PROTHROMBIN TIME-INR Routine 12/02/2024 12:26 PM EST HCG, TOTAL, QN Routine 12/02/2024 12:26 PM EST MAGNESIUM Routine 12/02/2024 12:26 PM EST LIPASE Routine 12/02/2024 12:26 PM EST COMPREHENSIVE METABOLIC PANEL Routine 12/02/2024 12:26 PM EST documented in this encounter Results * CTA Chest PE Protocal (12/02/2024 9:04 PM EST) Anatomical Region Laterality Modality Body, Chest Computed Tomogra phy 12/02/2024 9:04 PM EST Narrative 12/02/2024 9:05 PM EST ? [facility] ?[address] ?[place] [address] ? CT Scan Report ? Signed ? Patient: Milka Guthrie ?MR#: M ?? [id number] ? : 1995 ?Acct:[id number] ? Age/Sex: 29 / F ?ADM Date: 12/02/24 ? Loc: HO.ED ? Attending Dr: ? Ordering Physician: Diann Edgar ?? Date of Service: 12/02/24 ?? Procedure(s): CT angio chest PE protocol ?? Accession Number(s): [id number] ? cc: Diann Edgar; Janet Pierson MD ? Report Number: ?? [id number]: Total DLP = ??391.00 mGy-cm ? CLINICAL HISTORY: tachy, pleuritic cp, r o PE ? CT angiography chest with contrast. With MIP MPR Postprocessing. ? Comparison: Chest x-ray from 10/02/2023 ? Findings: ?? No central pulmonary embolism. No aortic dissection, accounting for ?? artifacts. Heart size is at the upper limits of normal. Mild mediastinal ?? fluid in the mediastinal lipomatosis. No enlarged mediastinal ?? lymphadenopathy. ?? Mild bibasilar atelectasis. No pneumothorax or pleural effusion. ?? No acute osseous abnormality. ?? The imaged upper abdomen is unremarkable. ? IMPRESSION: ?? 1. No pulmonary emboli. ? 2. Mild bibasilar atelectasis. ? This document has been electronically signed by: Jimmie Lopez MD on ?? 12/02/2024 21:04:07 ? Dictated By: ?Jimmie Lopez MD ? Signed By: ?<Electronically signed by Jimmie Lopez MD in OV> ? 12/02/242103 ? DD/ ? TD/TT: 12/02/242103 ? Kicking Machine Operator: ? Procedure Note Donotuseinterpreter, Image - 12/02/[address] [address] [address] Scan Report Signed Patient: Nadeem Guthrie#: M [id number] : 1995Acct:[id number] Age/Sex: 29 / FADM Date: 12/02/24 Loc: HO.ED Attending Dr: Ordering Physician: Diann Edgar Date of Service: 12/02/24 Procedure(s): CT angio chest PE protocol Accession Number(s): [id number] cc: Diann Edgar; Janet Pierson MD Report Number: [id number]: Total DLP = 391.00 mGy-cm CLINICAL HISTORY: tachy, pleuritic cp, r o PE CT angiography chest with contrast. With MIP MPR Postprocessing. Comparison: Chest x-ray from 10/02/2023 Findings: No central pulmonary embolism. No aortic dissection, accounting for artifacts. Heart size is at the upper limits of normal. Mild mediastinal fluid in the mediastinal lipomatosis. No enlarged mediastinal lymphadenopathy. Mild bibasilar atelectasis. No pneumothorax or pleural effusion. No acute osseous abnormality. The imaged upper abdomen is unremarkable. IMPRESSION: 1. No pulmonary emboli. 2. Mild bibasilar atelectasis. This document has been electronically signed by: Jimmie Lopez MD on 12/02/2024 21:04:07 Dictated By: Jimmie Lopez MD Signed By: <Electronically signed by Jimmie Lopez MD in OV> 12/02/242103 DD/ 03 TD/TT: 12/02/242103 Kicking Machine Operator: [facility] External Provider IMG CT PROCEDURES Final Result * HCG, Qualitative, Urine (12/02/2024 12:28 PM EST) Urine NEGATIVE NEGATIVE [facility] Comment:This test was develo ped to detect early . Falsenegative results may occur after the 5th - 7th week ofpregnancy when using this test method. If clinicallyindicated, consider a serum hCG. 12/02/2024 12:2 8 PM EST 12/02/2024 12:35 PM EST Generic External Data Provider LAB URINE ORDERAB LES Final Result Performing Organization Address [facility] de Phone Number [facility] [address] [place] [phone] * (ABNORMAL) Urinalysis w/reflex microscopic (12/02/2024 12:28 PM EST) Color Urine Yellow [facility] Appearance Urine Cloudy [facility] PH 7.0 5.0 - 9.0 [facility] Glucose Urine UA Negative Negative mg/dL [facility] Urine Blood Negative Negative [facility] Specific [place] - Urine >=1.030(H) 1.005 - 1.025 [facility] Urine Protein Negative Neg-Trace mg/dL [facility] Urine Ketones Negative Negative mg/dL [facility] Nitrite Urine Negative Negative [facility] Leukocyte Esterase Urine Negative Negative [facility] 12/02/2024 12:2 8 PM EST 12/02/2024 12:35 PM EST Narrative [facility] - 12/02/2024 12:43 PM EST [id number], Clean Catch Generic External Data Provider LAB URINE ORDERAB LES Final Result Performing Organization Address [facility] Co de Phone Number [facility] [address] [place] [phone] * TSH with Reflex to Free T4 (12/02/2024 12:26 PM EST) TSH reflex Free T4 1.54 0.32 - 4.0 uIU/mL [facility] 12/02/2024 12:2 6 PM EST 12/02/2024 12:26 PM EST Generic External Data Provider LAB BLOOD ORDERAB LES Final Result Performing Organization Address [facility] Co de Phone Number [facility] [address] [place] [phone] * High Sensitivity Troponin I (12/02/2024 12:26 PM EST) TROPONIN I HIGH SENSITIVITY <2.7 <3.5 - 17.0 ng/L [facility] Comment:The Grimaldo high sens itivity Troponin-I results should beused in conjunction with other diagnostic information suchas ECG, clinical observations and information, and patientsymptoms to aid in the diagnosis of IA. 12/02/2024 12:2 6 PM EST 12/02/2024 12:26 PM EST Generic External Data Provider LAB BLOOD ORDERAB LES Final Result Performing Organization Address [facility] de Phone Number [facility] [address] [place] [phone] * hCG, Total, Quantitative (12/02/2024 12:26 PM EST) HCG Quantitative <2 mIU/mL [facility] Comment:Weeks post LMP Appro ximate hCG(Last Menstrual Period) Range (mIU/ml)3 - 4 weeks 9 - 1304 - 5 weeks 75 - 2,6005 - 6 weeks 850 - 20,8006 - 7 weeks 4000 - 100,2007 - 12 weeks 11,500 - 289,92632 - 16 weeks 18,300 - 137,71773 - 29 weeks (2nd trimester) 1,400 - 53,43966 - 41 weeks (3rd trimester) 940 - 60,000The Grimaldo B- hCG assay is used for the early detection ofpregnancy; it cannot be used to diagnose any conditionunrelated to . If a B-hCG level is not supportedby the clinical evidence, results should be confirmed by analternative method (qualitative urine hCG, for example). 12/02/2024 12:2 6 PM EST 12/02/2024 12:26 PM EST us Generic External Data Provider LAB BLOOD ORDERAB LES Final Result Performing Organization Address [facility]/ZIP Co de Phone Number [facility] [address] [place] [phone] * Lipase (12/02/2024 12:26 PM EST) Pathologist [facility] Lipase 38 8 - 78 U/L [facility] 12/02/2024 12:2 6 PM EST 12/02/2024 12:26 PM EST us Generic External Data Provider LAB BLOOD ORDERAB LES Final Result Performing Organization Address [facility] Co de Phone Number [facility] [address] [place] [phone] * Magnesium (12/02/2024 12:26 PM EST) Pathologist [facility] Magnesium 2.2 1.6 - 2.6 mg/dL [facility] 12/02/2024 12:2 6 PM EST 12/02/2024 12:26 PM EST us Generic External Data Provider LAB BLOOD ORDERAB LES Final Result Performing Organization Address City/[facility] Co de Phone Number [facility] [address] [place] [phone] * (ABNORMAL) Comprehensive Metabolic Panel (12/02/2024 12:26 PM EST) Pathologist [facility] Sodium 139 135 - 145 mmol/L [facility] Potassium 3.9 3.3 - 5.1 mmol/L [facility] Chloride 112(H) 96 - 108 mmol/L [facility] Carbon Dioxide 21(L) 22 - 29 mmol/L [facility] Anion Gap 10(L) 12 - 20 [facility] Urea Nitrogen (BUN) 11 9 - 16 mg/dL [facility] Creatinine, Serum 0.65 0.5 - 1.4 mg/dL [facility] Creatinine Clr Calc Pharmacy 122.5 [facility] Comment:Provided height and weight: 149.86 cm,85.8 kg.eGFR (calculated from the MDRD study equation) and eCrCl(calculated from the Cockcroft-Gault equation) are based ondifferent parameters and may not yield comparable results.If eCrCl result is absurd, please check patient'sheight/weight. Estimated Glomerular Filt Rate >60 [facility] Comment:Chronic Kidney Disea se: Estimated GFR < 60 mL/min/1.33y9Qedlve Kidney Disease: Estimated GFR < 15 mL/min/1.73m2 Glucose 95 60 - 115 mg/dL [facility] Calcium 8.7 8.4 - 10.2 mg/dL [facility] Bilirubin, Total 0.2 0.0 - 1.0 mg/dL [facility] Aspartate Amino Transferase 15 5 - 31 U/L [facility] Alanine Aminotransferase 20 0 - 31 U/L [facility] Total Protein 7.0 6.5 - 8.0 g/dL [facility] Albumin Level 3.9 3.5 - 5.0 g/dL [facility] Alkaline Phosphatase 70 39 - 117 U/L [facility] 12/02/2024 12:2 6 PM EST 12/02/2024 12:26 PM EST us Generic External Data Provider LAB BLOOD ORDERAB LES Final Result [facility] [address] [place] [phone] * (ABNORMAL) Prothrombin Time-INR (12/02/2024 12:26 PM EST) Prothrombin Time 10.5(L) 10.9 - 12.4 SEC [facility] INTERNATIONAL NORM RATIO 0.9 0.9 - 1.1 [facility] Comment:INTERNATIONAL NORMAL IZED RATIO (INR) REFERENCE RANGES Reference RangeFor patients not on anticoagulant therapy: 0.9 - 1.1INR ranges for oral anticoagulanttherapy:For prevention and treatment of venous thrombosis and pulmonary embolism: 2.0 - 3.0For acute myocardial infarction with aspirin therapy: 2.0 - 3.0For acute myocardial infarction without aspirin therapy: 3.0 - 4.0For patients with mechanical prosthetic heart valves: 2.5 - 3.5 12/02/2024 12:2 6 PM EST 12/02/2024 12:26 PM EST us Generic External Data Provider LAB BLOOD ORDERAB LES Final Result [facility] [address] [place] [phone] * (ABNORMAL) CBC auto differential (12/02/2024 12:26 PM EST) White Blood Count 8.3 4.8 - 10.8 X10*3/uL [facility] Red Blood Count 5.17 4.20 - 5.50 X10*6/uL [facility] Hemoglobin 13.2 12.0 - 16.0 g/dl [facility] Hematocrit 40.5 37.0 - 47.0 % [facility] Mean Corpuscular Volume 78.3(L) 80.0 - 98.0 fL [facility] Mean Corpuscular Hemoglobin 25.5(L) 27.0 - 33.0 pg [facility] Mean Corpuscular HGB Conc 32.6 31.0 - 35.0 g/dl [facility] Red Cell Distribution Width 14.3 11.0 - 16.0 % [facility] Platelet Count 327 160 - 400 X10*3/uL [facility] Mean Platelet Volume 9.5 9.4 - 12.3 fL [facility] Neutrophils Percent Auto 56.9 45 - 73 % [facility] Imm Gran Pct Auto 0.5(H) 0.0 - 0.4 % [facility] Lymphocytes Percent Auto 35.4 20 - 40 % [facility] Monocytes Percent Auto 5.3 2 - 11 % [facility] Eosinophils Percent Auto 1.3 0 - 4 % [facility] Basophils Percent Auto 0.6 0 - 2 % [facility] NRBC Pct Auto 0.0 0.0 - 0.2 /100WBC [facility] Neutrophils Absolute Auto 4.7 2.0 - 8.3 x10*3/uL [facility] Imm Gran Abs Auto 0.04(H) 0.00 - 0.03 X10*3/uL [facility] Lymphocytes Absolute Auto 2.9 1.2 - 4.9 X10*3/uL [facility] Monocytes Absolute Auto 0.4 0.1 - 1.2 X10*3/uL [facility] Eosinophils Absolute Auto 0.1 0.0 - 0.4 X10*3/uL [facility] Basophils Absolute Auto 0.1 0.0 - 0.2 X10*3/uL [facility] NRBC Abs Auto 0.000 0.0 - 0.012 X10*3/uL [facility] 12/02/2024 12:2 6 PM EST 12/02/2024 12:26 PM EST us Generic External Data Provider LAB BLOOD ORDERAB LES Final Result Performing Organization Address City/State/[facility] Co de Phone Number [facility] [address] [place] [phone] documented in this encounter Visit Diagnoses Not on filedocumented in this encounter Additional Health Concerns Assessment Noted Time PHQ-9 Depression Total Score: 7 05/08/20 24 9:13 AM EDT documented as of this encounter Care Teams Vice President Consulting Services Relationship Specialty Start Date End Date Janet Pierson MD [address] [place] [address] PCP - General Family Medicine 09/13/23 documented as of this encounter
== END 2024-12-04 05:17 | disposition left against medical advice (07) ==
PROVIDERS: Emergency Provider Emergency Medicine Emergency Medical Services
DX: R55 Syncope and collapse (principal); R94.31 Abnormal electrocardiogram [ECG] [EKG]
CPT/HCPCS: 93005; 99281; 99283

== ENCOUNTER → 2024-12-03 22:02 | Outpatient (BNV) | payer OTHER, SELFPAY | PROVIDERS: Emergency Provider Emergency Medicine Emergency Medical Services; Visit Provider Internal Medicine | DX: R94.31 Abnormal electrocardiogram [ECG] [EKG] (principal); R55 Syncope and collapse | CPT/HCPCS: 93010 ==

== ENCOUNTER 2024-12-22 12:21 | Outpatient (AMB) | payer OTHER, SELFPAY ==
[2024-12-22 12:44] VITALS: BP 122/68; PULSE 71; BMI 38.4
--- NOTE | 2024-12-22 12:44 | MHC.OFFVIS ---
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 Allergies copper [COPPER] Allergy (Unknown, Verified 12/03/24 22:01) RASH/HIVES nickel [NICKEL] Allergy (Unknown, Verified 12/03/24 22:01) RASH/HIVES acetaminophen [From Tylenol] Adverse Reaction (Verified 12/03/24 22:01) Gastrointestinal Upset sumatriptan Adverse Reaction (Verified 12/03/24 22:01) Nausea and Vomiting Medication List - Last Reconciled 12/22/24 by Efren Torres MD albuterol sulfate 90 mcg/actuation 2 puffs inhalation Q6H PRN divalproex ER mg PO DAILY doxepin mg PO hydroxyzine pamoate 25 mg PO ONCE PRN medroxyprogesterone (Depo-Provera) 150 mg IM O2AWPRIF meloxicam 7.5 mg PO DAILY PRN ondansetron 4 mg PO Q8H PRN trazodone 100 mg PO BEDTIME HPI Comments Details: Milka is here for consultation regarding palpitations and shortness of breath. There is no prior history of any cardiac issues including coronary disease or myocardial infarction or cardiomyopathy or arrhythmias or in fact anything cardiac related. She states that she used to get sporadic palpitations in the past but not bothersome. Over the last 3 months or so, she has had recurrent episodes of heart racing and in that context, she also feels short of breath. Has been to the ER for evaluation but no arrhythmias identified. She states that she still feels the same symptoms off and on. No specific provoking or relieving factors. Otherwise, unlimited physical activities and normal lifestyle. No documented obstructive sleep apnea and she states she actually has insomnia and takes medications for the same. [facility] Medical History Asthma Surgical History Hx of colonoscopy History of esophagogastroduodenoscopy (EGD) Hx of tonsillectomy Family History (Updated 12/22/24 @ 12:50 by Opal Abbott) Mother No problems noted. 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 Sexual orientation: Straight/Heterosexual Gender identity: Female Review of Systems Const Denies weakness ENT Denies dizziness Card Denies chest pain, Denies chest pain with activity, Denies syncope, Denies rapid heart rate, Denies pedal edema, Denies edema, Denies leg edema, Denies lightheadedness, Reports palpitations, Denies dyspnea, Denies dyspnea on exertion and Denies orthopnea Resp Denies cough, Denies dyspnea and Denies dyspnea on exertion GI Denies hematochezia and Denies change in stool character Musc Denies abnormal gait, Denies muscle cramps, Denies muscle weakness, Denies numbness, Denies radiating pain into limb and Denies tingling Neuro Denies abnormal gait, Denies dizziness, Denies syncope, Denies numbness, Denies tingling and Denies weakness Endo Reports palpitations Physical Exam Vital Signs: Last Vital Signs Pulse 71 12/22/24 12:44 BP 122/68 12/22/24 12:44 BMI result Body Mass Index 38.4 Const General: comfortable and no acute distress Orientation/consciousness: patient oriented x3 HEENT Other: Unremarkable Head: Yes normal to inspection Neck Neck: Yes normal visual inspection Chest Chest palpation & inspection: normal inspection of the chest Resp Auscultation: clear to auscultation bilaterally Cardio Palpation: normal PMI Heart sounds: S1 normal heart sound present, S2 normal heart sound present, no gallops, no murmurs and no rubs GI Palpation (GI): Soft to palpation Back/Spine/Pelvis Other: unremarkable Skin General skin exam: no rashes or lesions noted Neuro General: patient oriented x3 Extrem General: Yes normal to inspection Psych Mental Status: mental status grossly normal Office Procedures EKG Details: EKG with underlying sinus rhythm at 71/Min; rightward axis; no significant ST-T changes and otherwise unremarkable. [place]. [id number], Complete Assessment & Plan Assessment & Plan (1) Heart palpitations: Code(s): R00.2 - Palpitations Category: Medical (2) SOB (shortness of breath): Code(s): R06.02 - Shortness of breath Category: Medical Plan Regarding palpitations are associated with some shortness of breath of unknown etiology. Differential diagnosis includes sinus tachycardia, supraventricular/ventricular ectopy, SVT, atrial flutter/fibrillation. We will obtain an echocardiogram and Holter monitor for further evaluation. Based on the findings, we will plan further care. Orders: Orders ECG 7 day holter monitor Today R00.2 - Palpitations CA echo transthoracic complete Today R00.2 - Palpitations, R06.02 - Shortness of breath Coding Level of Care Code New Pt Level 4 (98092) Diagnoses Heart palpitations R00.2 SOB (shortness of breath) R06.02 CPT Codes EKG - CPT: 71233-Edelcloubwzekqovh, Complete ([id number])
--- OUTSIDE RECORDS SUMMARY | 2024-12-22 14:59 | XMS_ITS | Encounter Summary ---
Author Organization [facility] Address [address] [place] [address] Phone Care Team Providers Care Machine Buffer Name Role Phone Montse Olivier NP Primary Care Provider [phone] Encounter Details Date Type Department Care Team (Late st Contact Info) Description 05/22/2017 Conversion Encounter [facility] - [address], [address] [place] [address] Montse Olivier NP [address] [place] [address] Social History Tobacco Use Types Packs/Day Years [...] on filedocumented in this encounter Care Teams Machine Buffer Relationship Specialty Start Date End Date Montse Olivier NP [address] [place] [phone] PCP - General 12/04/16 01/21/24 documented as of this encounter
--- OUTSIDE RECORDS SUMMARY | 2024-12-22 14:59 | XMS_ITS | Encounter Summary ---
Author Organization [employer] Address [address] [place] [address] Care Team Providers Care Dwarf Tree Grower Name Role Phone Janet Pierson MD Primary Care Provider [phone] Encounter Details Date Type Department Care Team [...] Care Team (Late st Contact Info) Description 12/24/2024 11:15 AM EDT Office Visit [facility] [address] [place] [address] Rosa Joy MD [address] [place] [address] 01/12/2025 9:15 AM EDT Office Visit [facility] [address] [place] [address] Rosa Joy MD [address] [place] [address] documented as of this encounter Visit Diagnoses Not on filedocumented in this encounter Additional Health Concerns Assessment Noted Time PHQ-9 Depression Total Score: 7 05/08/20 24 9:13 AM EDT documented as of this encounter Care Teams Dwarf Tree Grower Relationship Specialty Start Date End Date Janet Pierson MD [address] [place] [phone] PCP - General Family Medicine 09/13/23 documented as of this encounter
--- OUTSIDE RECORDS SUMMARY | 2024-12-22 14:59 | XMS_ITS | Encounter Summary ---
Author Organization [employer] Address [address] [place] [address] Care Team Providers Care Java Sql Developer Name Role Phone Janet Pierson MD Primary Care Provider [phone] Reason for Visit * Reason Onset Date Comments Appointment Request 12/16/2024 Encounter Details Date Type Department Care Team ([facility] st Contact Info) Description 12/16/2024 Telephone [facility] [address] [place] [address] Janet Pierson MD [address] [place], [place] [phone] Appointment Request Social History Tobacco Use Types Packs/Day Years [...] encounter Miscellaneous Notes * Telephone Encounter - Braulio Randy - 12/16/2024 12:51 PM EST Tc from pt requesting to r/s Sick on site appt on 12/16/2024. documented in this encounter Plan of Treatment Upcoming Encounters Date Type Department Care Team (Late st Contact Info) Description 12/24/2024 11:15 AM EDT Office Visit [facility] [address] [place] [address] Rosa Joy MD [address] [place] [address] 01/12/2025 9:15 AM EDT Office Visit [facility] [address] [place] [address] Rosa Joy MD [address] [place] [address] documented as of this encounter Visit Diagnoses Not on filedocumented in this encounter Additional Health Concerns Assessment Noted Time PHQ-9 Depression Total Score: 7 05/08/20 24 9:13 AM EDT documented as of this encounter Care Teams Java Sql Developer Relationship Specialty Start Date End Date Janet Pierson MD [address] [place] [phone] PCP - General Family Medicine 09/13/23 documented as of this encounter
--- OUTSIDE RECORDS SUMMARY | 2024-12-22 14:59 | XMS_ITS | Encounter Summary ---
Author Organization [employer] Address [address] [facility] [address] [address] [place] [address] Care Team Providers Care Guard Dance Hall Name Role Phone Janet Pierson MD Primary Care Provider [phone] Encounter Details Date Type Department Care Team (Latest Contact Info) Description 12/18/2024 Travel Social History Tobacco Use Types Packs/Day [...] Description 12/24/2024 11:15 AM EDT Office Visit [facility] MED & PEDS [address] [place] [address] Rosa Joy MD [address] [place] [address] 01/12/2025 9:15 AM EDT Office Visit [facility] MED & PEDS [address] [place] [address] Rosa Joy MD [address] [place] [address] documented as of this encounter Visit Diagnoses Not on filedocumented in this encounter Additional Health Concerns Assessment Noted Time PHQ-9 Depression Total Score: 7 05/08/20 24 9:13 AM EDT documented as of this encounter Care Teams Guard Dance Hall Relationship Specialty Start Date End Date Janet Pierson MD [address] [place] [phone] PCP - General Family Medicine 09/13/23 documented as of this encounter
--- OUTSIDE RECORDS SUMMARY | 2024-12-22 14:59 | XMS_ITS | Encounter Summary ---
Author Organization [employer] Address [address] [facility] 7t [place] [address] Care Team Providers Care Install Technician Name Role Phone Janet Pierson MD Primary Care Provider [phone] Reason for Referral * Consultation (Urgent) - Authorized Specialty Diagnoses / Procedures Referred By Contlefty t Referred To Contact Cardiology Diagnoses Tachycardia Sophia Norris MD [address] [place] [address] Phone: tel: fax: [address] Phone: tel: fax: Referral ID Status Reason Start Date Expiration Date Visits Requested Visits Authorized [id number] Authorized Specialty Services Required 12/03/2024 12/03/2025 1 1 Encounter Details Date Type Department Care Team (Late st Contact Info) Description 12/03/2024 2:00 PM EST Office Visit [facility] MED & PEDS [address] [place], [place] [phone] Sophia Norris MD [address] [place], [place] [phone] Tachycardia (Primary Dx) Social History Tobacco Use [...] watch, she went to ED. In the [facility] ED, she was tachycardic to 122 bpm [...] Description 12/24/2024 11:15 AM EDT Office Visit [facility] MED & PEDS [address] [place] [address] Rosa Joy MD [address] [place] [address] 01/12/2025 9:15 AM EDT Office Visit [facility] MED & PEDS [address] [place] [address] Rosa Joy MD [address] [place] [address] Scheduled Referrals Name Type Priority Associated Diagnoses Order Schedule Referral to Cardiology Outpatient Referral Urgent Tachycardia Expected: 12/03/2024 (Approximate), Expires: 12/03/2025 documented as of this encounter Visit Diagnoses Diagnosis Tachycardia- Primary Unspecified tachycardia documented in this encounter Additional Health Concerns Assessment Noted Time PHQ-9 Depression Total Score: 7 05/08/20 24 9:13 AM EDT documented as of this encounter Care Teams Install Technician Relationship Specialty Start Date End Date Janet Pierson MD [address] [place] [address] PCP - General Family Medicine 09/13/23 documented as of this encounter
--- OUTSIDE RECORDS SUMMARY | 2024-12-22 14:59 | XMS_ITS | Encounter Summary ---
Author Organization [employer] Address [address] [facility] [address] [place] [address] Care Team Providers Care Quality Director Name Role Phone Janet Pierson MD Primary Care Provider [phone] Reason for Visit * Reason Onset Date Comments Nurse Triage 12/02/2024 Encounter Details Date Type Department Care Team ([facility] st Contact Info) Description 12/02/2024 Telephone [facility] MED [facility]EDS [address] [place], [place] [phone] Janet Pierson MD [address] [place], [place] [phone] Nurse Triage Social History Tobacco Use Types [...] Description 12/24/2024 11:15 AM EDT Office Visit [facility] MED & PEDS [address] [place] [address] Rosa Joy MD [address] [place] [address] 01/12/2025 9:15 AM EDT Office Visit [facility] MED & PEDS [address] [place] [address] Rosa Joy MD [address] [place] [address] documented as of this encounter Visit Diagnoses Not on filedocumented in this encounter Additional Health Concerns Assessment Noted Time PHQ-9 Depression Total Score: 7 05/08/20 24 9:13 AM EDT documented as of this encounter Care Teams Quality Director Relationship Specialty Start Date End Date Janet Pierson MD [address] [place] [phone] PCP - General Family Medicine 09/13/23 documented as of this encounter
--- OUTSIDE RECORDS SUMMARY | 2024-12-22 14:59 | XMS_ITS | Encounter Summary ---
Author Organization [email or web address] Address [address] [facility] [address] [place] [address] Care Team Providers Care Reinforcement Maker Name Role Phone Janet Pierson MD Primary Care Provider [phone] Reason for Visit * Reason Onset Date Comments Nurse Triage 12/03/2024 Encounter Details Date Type Department Care Team ([facility] st Contact Info) Description 12/03/2024 Telephone [facility] MED & PEDS [address] [place], [place] [phone] Janet Pierson MD [address] [place], [place] [phone] Nurse Triage Social History Tobacco Use Types [...] Please assist with obtaining discharge summary for [facility] ED visit on 12/02/2024 for provider review prior to upcoming appointment. Future Appointments Date Time Provider Department Center 12/03/2024 2:00 PM [facility] 01/12/2025 9:15 AM Rosa Joy MD [facility] * Telephone Encounter - Columba Meyers RN - 12/03/2024 11:10 AM EST Call returned to Milka Ambrose to triage below. No [facility] ED notes available in chart. Per pt was instructed to follow up with [facility] Cardiology, Dr Francisco. Pt did call today and was directedto have PCP follow up with PCP first. Pt also tx for migraine headache. Pt denies any CP or palpitations today. Pt needing PCP referral for Cardiology follow up. Pt has [facility] notes given at discharge. Denies any Rx at discharge. Pt agrees to sick on site today with [facility] provider. Protocol Used: Recent Medical Visit for Illness Follow-up Call (Adult) Protocol-Based Disposition: See in Office or Video Visit Today or Tomorrow Future Appointments Date Time Provider Department Center 12/03/2024 2:00 PM [facility] DAY CARE [facility] 01/12/2025 9:15 AM Rosa Joy MD [facility] Insurance verified as active per Real Time Eligibility in [facility]. Video visit offer not recorded Positive Triage Question: * Patient wants to be seen * All higher-acuity triage questions were negative Care Advice Discussed: * Reasons To Call Back - You become worse * Telephone Encounter - Monique Donald - 12/03/2024 10:58 AM EST Patient calling to report ED visit on : Date: 12/02/24 Hospital: [facility] Seen for: chest pain and fast heart rate Symptomatic Yes *if yes message should go to Triage Patient advised will forward to team nurse for follow up documented in this encounter Plan of Treatment Upcoming Encounters Date Type Department Care Team (Late st Contact Info) Description 12/24/2024 11:15 AM EDT Office Visit [facility] MED & PEDS [address] [place] [address] Rosa Joy MD [address] [place] [address] 01/12/2025 9:15 AM EDT Office Visit [facility] MED & PEDS [address] [place] [address] Rosa Joy MD [address] [place] [address] documented as of this encounter Visit Diagnoses Not on filedocumented in this encounter Additional Health Concerns Assessment Noted Time PHQ-9 Depression Total Score: 7 05/08/20 9:13 AM EDT documented as of this encounter Care Teams Reinforcement Maker Relationship Specialty Start Date End Date Janet Pierson MD [address] [place] [address] PCP - General Family Medicine 09/13/23 documented as of this encounter
--- OUTSIDE RECORDS SUMMARY | 2024-12-22 14:59 | XMS_ITS | Clinical Summary ---
Author Organization [facility] Address [address] [place] [phone] Phone Care Team Providers Care Continuous Mining Machine Company Miner Name Role Phone Unavailable Primary Care Provider [...] complete this topic Procedures * Due to [facility] law, this organization might not be sharing sensitive test results. Procedure Name Priority Date/Time Associated Diagnosis Comments CHLAMYDIA DNA PROBE, DIRECT Routine 05/13/2015 12:00 AM EDT from Last 3 Months or Most Recently Relevant to Health Maintenance Results * Due to [employer] law, this organization might not be sharing sensitive test results. * Chlamydia DNA probe, direct (05/13/2015 12:00 AM EDT) Chlamydia trachomatis amplified RNA(Conversion) Negative CONVERTED LABS Comment: Edilma Sepulveda 05/13/2015 05:10:08 PM > Negative Reason: Received -[facility] Lab Order Production [facility] CHLAMYDIA SOURCE URINE CON VERTED LABS Comment: Edilma Sepulveda 05/13/2015 05:10:08 PM > Negative Reason: Received -[facility] Lab Order Production [place] CHLAMYDIA TRACHOMATIS AMPLIFIED RNA Negative CONVERTED LABS Comment: Edilma Sepulveda 05/13/2015 05:10:08 PM > Negative Reason: Received -[facility] Lab Order Production [facility] 05/13/2015 Narrative CONVERTED LABS - 05/13/2015 12:00 AM EDT Chlamydia DNA Probe us Edilma Sepulveda [facility] MICROBIOLOGY - GENERAL ORD ERABLES Final Result CONVERTED LABS from Last 3 Months or Most Recently Relevant to Health Maintenance
--- OUTSIDE RECORDS SUMMARY | 2024-12-22 14:59 | XMS_ITS | Encounter Summary ---
Author Organization [employer] Address [address] [facility] [address] [place] [address] Care Team Providers Care Interface Analyst Name Role Phone Janet Pierson MD Primary Care Provider [phone] Encounter Details Date Type Department Care Team [...] 12/24/2024 11:15 AM EDT Office Visit [facility] MED & PEDS [address] [place] [address] Rosa Joy MD [address] [place] [address] 01/12/2025 9:15 AM EDT Office Visit [facility] MED & PEDS [address] [place] [address] Rosa Joy MD [address] [place] [address] documented as of this encounter Procedures Procedure [...] EST Narrative 12/02/2024 9:05 PM EST ? [facility] ?[address] ?[place] [address] ? CT Scan Report ? Signed ? Patient: Milka Guthrie ?MR#: [id number] ?? [id number] ? : 1995 ?Acct:[id number] ? Age/Sex: 29 / F ?ADM Date: 12/02/24 ? Loc: HO.ED ? Attending Dr: ? Ordering Physician: Diann Edgar ?? Date of Service: 12/02/24 ?? Procedure(s): CT angio chest PE protocol ?? Accession Number(s): [id number] ? cc: Diann Edgar; Janet Pierson MD ? Report Number: ?? [id number]: Total DLP = ??391.00 mGy-cm ? CLINICAL [...] MD in OV> ? 12/02/242103 ? DD/ 03 ? TD/TT: 12/02/242103 ? Oxidation Operator: ? Procedure Note Donotuseinterpreter, Image - 12/02/[address] [address] [address] Scan Report Signed Patient: Nadeem Guthrie#: M [id number] : 1995Acct:[id number] Age/Sex: Date: 12/02/24 Loc: .ED Attending Dr: Ordering Physician: Diann Edgar Date of Service: 12/02/24 Procedure(s): CT angio chest PE protocol Accession Number(s): [id number] cc: Diann Edgar; Janet Pierson MD Report Number: [id number]: Total DLP = 391.00 mGy-cm CLINICAL HISTORY: [...] in OV> 12/02/242103 DD/ 03 TD/TT: 12/02/242103 Oxidation Operator: [facility] External Provider IMG CT PROCEDURES Final Result * HCG, Qualitative, Urine (12/02/2024 12:28 PM EST) Urine NEGATIVE NEGATIVE [facility] Comment:This test was develo ped to detect early . Falsenegative results may occur after the 5th - 7th week ofpregnancy when using this test method. If clinicallyindicated, consider a serum hCG. 12/02/2024 12:2 8 PM EST 12/02/2024 12:35 PM EST us Generic External Data Provider LAB URINE ORDERAB LES Final Result Performing Organization Address [facility]/ZIP Co de Phone Number [facility] [address] [place] [phone] * (ABNORMAL) Urinalysis w/reflex microscopic (12/02/2024 12:28 PM EST) Color Urine Yellow [facility] Appearance Urine Cloudy [facility] PH 7.0 5.0 - 9.0 [facility] Glucose Urine UA Negative Negative mg/dL [facility] Urine Blood Negative Negative [facility] Specific [place] - Urine >=1.030(H) 1.005 - 1.025 [facility] Urine Protein Negative Neg-Trace mg/dL [facility] Urine Ketones Negative Negative mg/dL [facility] Nitrite Urine Negative Negative [facility] Leukocyte Esterase Urine Negative Negative [facility] 12/02/2024 12:2 8 PM EST 12/02/2024 12:35 PM EST Narrative [facility] - 12/02/2024 12:43 PM EST [id number], Clean Catch us Generic External Data Provider LAB URINE ORDERAB LES Final Result Performing Organization Address City/[facility]/ZIP Co de Phone Number [facility] [address] [place] [phone] * TSH with Reflex to Free T4 (12/02/2024 12:26 PM EST) [facility] TSH reflex Free T4 1.54 0.32 - 4.0 uIU/mL [facility] 12/02/2024 12:2 6 PM EST 12/02/2024 12:26 PM EST Generic External Data Provider LAB BLOOD ORDERAB LES Final Result Performing Organization Address [facility] Phone Number [facility] [address] [place] [phone] * High Sensitivity Troponin I (12/02/2024 12:26 PM EST) [facility] TROPONIN I HIGH SENSITIVITY <2.7 <3.5 - 17.0 ng/L [facility] Comment:The Grimaldo high sens itivity Troponin-I results should beused in conjunction with other diagnostic information suchas ECG, clinical observations and information, and patientsymptoms to aid in the diagnosis of AL. 12/02/2024 12:2 6 PM EST 12/02/2024 12:26 PM EST Generic External Data Provider LAB BLOOD ORDERAB LES Final Result Performing Organization Address [facility] Number [facility] [address] [place] [phone] * hCG, Total, Quantitative (12/02/2024 12:26 PM EST) Pathologist [facility] HCG Quantitative <2 mIU/mL [facility] Comment:Weeks post LMP Appro ximate hCG(Last Menstrual Period) Range (mIU/ml)3 - 4 weeks 9 - 1304 - 5 weeks 75 - 2,6005 - 6 weeks 850 - 20,8006 - 7 weeks 4000 - 100,2007 - 12 weeks 11,500 - 289,17514 - 16 weeks 18,300 - 137,53052 - 29 weeks (2nd trimester) 1,400 - 53,61043 - 41 weeks (3rd trimester) 940 - [...] ORDERAB LES Final Result Performing Organization Address [facility] Co de Phone Number [facility] [address] [place] [phone] * Lipase (12/02/2024 12:26 PM EST) [facility] Lipase 38 8 - 78 U/L [facility] 12/02/2024 12:2 6 PM EST 12/02/2024 12:26 PM EST Generic External Data Provider LAB BLOOD ORDERAB LES Final Result Performing Organization Address [facility] Co de Phone Number [facility] [address] [place] [phone] * Magnesium (12/02/2024 12:26 PM EST) [facility] Magnesium 2.2 1.6 - 2.6 mg/dL [facility] 12/02/2024 12:2 6 PM EST 12/02/2024 12:26 PM EST Generic External Data Provider LAB BLOOD ORDERAB LES Final Result Performing Organization Address [facility] Co de Phone Number [facility] [address] [place] [phone] * (ABNORMAL) Comprehensive Metabolic Panel (12/02/2024 12:26 PM EST) [facility] Sodium 139 135 - 145 mmol/L [facility] Potassium 3.9 3.3 - 5.1 mmol/L [facility] Chloride 112(H) 96 - 108 mmol/L [facility] Carbon Dioxide 21(L) 22 - 29 mmol/L [facility] Anion Gap 10(L) 12 - 20 [facility] Urea Nitrogen (BUN) 11 9 - 16 mg/dL [facility] Creatinine, Serum 0.65 0.5 - 1.4 mg/dL [facility] Creatinine Clr Calc Pharmacy 122.5 [facility] Comment:Provided height and weight: 149.86 cm,85.8 kg.eGFR (calculated from the MDRD study equation) and eCrCl(calculated from the Cockcroft-Gault equation) are based ondifferent parameters and may not yield comparable results.If eCrCl result is absurd, please check patient'sheight/weight. Estimated Glomerular Filt Rate >60 [facility] Comment:Chronic Kidney Disea se: Estimated GFR < 60 mL/min/1.64n0Zqthir Kidney Disease: Estimated GFR < 15 mL/min/1.73m2 Glucose 95 60 - 115 mg/dL [facility] Calcium 8.7 8.4 - 10.2 mg/dL [facility] Bilirubin, Total 0.2 0.0 - 1.0 mg/dL [facility] Aspartate Amino Transferase 15 5 - 31 U/L [facility] Alanine Aminotransferase 20 0 - 31 U/L [facility] Total Protein 7.0 6.5 - 8.0 g/dL [facility] Albumin Level 3.9 3.5 - 5.0 g/dL [facility] Alkaline Phosphatase 70 39 - 117 U/L [facility] 12/02/2024 12:2 6 PM EST 12/02/2024 12:26 PM EST us Generic External Data Provider LAB BLOOD ORDERAB LES Final Result [facility] [address] [place] [phone] * (ABNORMAL) Prothrombin Time-INR (12/02/2024 12:26 PM EST) Prothrombin Time 10.5(L) 10.9 - 12.4 SEC [facility] INTERNATIONAL NORM RATIO 0.9 0.9 - 1.1 [facility] Comment:INTERNATIONAL NORMAL IZED RATIO (INR) REFERENCE [...] ORDERAB LES Final Result Performing Organization Address City/State/[facility] Co de Phone Number [facility] [address] [place] [phone] * (ABNORMAL) CBC auto differential (12/02/2024 12:26 PM EST) [facility] White Blood Count 8.3 4.8 - 10.8 X10*3/uL [facility] Red Blood Count 5.17 4.20 - 5.50 X10*6/uL [facility] Hemoglobin 13.2 12.0 - 16.0 g/dl [facility] Hematocrit 40.5 37.0 - 47.0 % [facility] Mean Corpuscular Volume 78.3(L) 80.0 - 98.0 fL [facility] Mean Corpuscular Hemoglobin 25.5(L) 27.0 - 33.0 pg [facility] Mean Corpuscular HGB Conc 32.6 31.0 - 35.0 g/dl [facility] Red Cell Distribution Width 14.3 11.0 - 16.0 % [facility] Platelet Count 327 160 - 400 X10*3/uL [facility] Mean Platelet Volume 9.5 9.4 - 12.3 fL [facility] Neutrophils Percent Auto 56.9 45 - 73 % [facility] Imm Gran Pct Auto 0.5(H) 0.0 - 0.4 % [facility] Lymphocytes Percent Auto 35.4 20 - 40 % [facility] Monocytes Percent Auto 5.3 2 - 11 % [facility] Eosinophils Percent Auto 1.3 0 - 4 % [facility] Basophils Percent Auto 0.6 0 - 2 % [facility] NRBC Pct Auto 0.0 0.0 - 0.2 /100WBC [facility] Neutrophils Absolute Auto 4.7 2.0 - 8.3 x10*3/uL [facility] Imm Gran Abs Auto 0.04(H) 0.00 - 0.03 X10*3/uL [facility] Lymphocytes Absolute Auto 2.9 1.2 - 4.9 X10*3/uL [facility] Monocytes Absolute Auto 0.4 0.1 - 1.2 X10*3/uL [facility] Eosinophils Absolute Auto 0.1 0.0 - 0.4 X10*3/uL [facility] Basophils Absolute Auto 0.1 0.0 - 0.2 X10*3/uL [facility] NRBC Abs Auto 0.000 0.0 - 0.012 X10*3/uL [facility] 12/02/2024 12:2 6 PM EST 12/02/2024 12:26 PM EST us Generic External Data Provider LAB BLOOD ORDERAB LES Final Result Performing Organization Address City/State/[facility] Co de Phone Number [facility] [address] [place] [phone] documented in this encounter Visit Diagnoses Not on filedocumented in this encounter Additional Health Concerns Assessment Noted Time PHQ-9 Depression Total Score: 7 05/08/20 24 9:13 AM EDT documented as of this encounter Care Teams Interface Analyst Relationship Specialty Start Date End Date Janet Pierson MD [address] [place] [phone] PCP - General Family Medicine 09/13/23 documented as of this encounter
--- OUTSIDE RECORDS SUMMARY | 2024-12-22 14:59 | XMS_ITS | Clinical Summary ---
Author Organization [facility] Address [address] [place] [phone] Care Team Providers Care Magnetic Prospecting Supervisor Name Role Phone Unavailable Primary Care [...]
--- OUTSIDE RECORDS SUMMARY | 2024-12-22 14:59 | XMS_ITS | Clinical Summary ---
Author Organization [employer] Address [address] [place] [address] Care Team Providers Care Laundry Housekeeper Name Role Phone Janet Pierson MD Primary Care Provider [phone] Allergies Active Allergy Reactions Criticality Noted Date Comments Acetaminophen 09/13/2023 Other reaction(s): Stomach upset Copper 07/31/2023 Nickel 07/31/2023 Other reaction(s): Copper Sumatriptan 01/16/2024 Medications * This document contains information received from the source organization and may not represent a complete record from that organization. albuterol 108 (90 Base) MCG/ACT inhaler Inhale 2 puffs every 6 (six) hours if needed for wheezing. 18 g 1 06/12/20 24 Active medroxyPROGESTERo ne (Depo-Provera) 150 MG/ML injection Inject 1 mL (150 mg) into the muscle every 3 (three) months. 1 mL 3 07/01/20 24 2024 Active doxepin (SINEquan) 10 MG capsule Take 1 capsule (10 mg) by mouth at bedtime. 30 capsule 11 08/03/20 24 2024 Active ondansetron ODT (Zofran-ODT) 4 MG disintegrating tablet TAKE 1 TABLET ORALLY EVERY 8 HOURS NEEDED FOR NAUSEA AND VOMITING (*INS LIMITS 9 TABS/30 DAYS) 09/05/20 24 Active divalproex (Depakote ER) 250 MG 24 hr tabletIndications :Migraine Take 250 mg by mouth Once per day. Do not crush, chew, or split. Active senna-docusate sodium (Senokot-S) 8.6-50 MG tablet Take 2 tablets by mouth Once per day. 60 tablet 05/08/20 24 2024 Discontinued(T herapy completed) docusate sodium (Colace) 100 MG capsule Take 1 capsule (100 mg) by mouth 2 times daily. 60 capsule 05/08/20 24 2024 Discontinued(T herapy completed) clotrimazole (Lotrimin) 1 % cream Apply topically 2 times daily. 30 g 06/12/20 24 2024 Discontinued(T herapy completed) topiramate (Topamax) 50 MG tablet Take 50 mg by mouth at bedtime. 90 tablet 08/03/20 24 2024 Discontinued amitriptyline (Elavil) 25 MG tablet Take 1 tablet (25 mg) by mouth at bedtime. 90 tablet 1 08/03/20 24 2024 Discontinued(T herapy completed) fluconazole (Diflucan) 150 MG tablet TAKE 1 TABLET BY MOUTH EVERY 3 DAYS MAY REPEAT IN 72 HOURS IF SYMPTOMS PERSIST 09/05/202024 Discontinued(T herapy completed) phentermine (Adipex-P) 37.5 MG tablet Take 0.5 tablets (18.75 mg) by mouth before breakfast. 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 FU PAP results. Consider [...] recommended reduction of 20-30% of maintenance calories; dissolver operator referral offered. Recommended to decrease soda [...] recommended reduction of 20-30% of maintenance calories; dissolver operator referral offered. Recommended to decrease soda and sugary beverage consumption. Recommended at least 20 g per meal of protein to assist with satiety. Recommended at least 150 min/week of moderate intensity exercise. Assessment & Plan (09/13/2023 2:05 PM EST): Discussed calorie deficit, recommended reduction of 20-30% of maintenance calories; dissolver operator referral offered. Recommended to decrease soda [...] unable to control her symptoms, lack of MH support. Provided psychoeducation around coping skills to [...] engagement. PLAN: 1. Follow up with [facility]: Recommended for follow-up: as needed 2. Patient goal is to engage in MH services 3. Behavioral Recommendations a. Ind. Therapy referral will be submitted b. Use of coping skills provided c. Take medication as prescribed. d. [facility] contact number for support Assessment [...] her gynecology consultation. A referral to a business practices supervisor is made for further evaluation and discussion of permanent options. Assessment & Plan (07/31/2023 10:53 AM EDT): Pt in need of family planning. One week late depo. Still within therapeutic window. Urine HCG negative. -depo shot today -placed on list for new PCP Encounters Date Type Department Care Team Description 12/18/2024 Travel 12/16/2024 Telephone [facility] [address] [place] [address] Janet Pierson MD Appointment Request 12/03/2024 2:00 PM EST Office Visit [facility] [address] [place] [address] Sophia Norris MD Tachycardia (Primary Dx) 12/03/2024 Travel 12/03/2024 Telephone [facility] [address] [place] [address] Janet Pierson MD Nurse Triage 12/02/2024 Orders Only GENERIC EXTERNAL DATA DEPARTMENT Provider, Generic External Data 12/02/2024 Telephone [facility] [address] [place] [address] Janet Pierson MD Nurse Triage 11/20/2024 Orders Only GENERIC EXTERNAL DATA DEPARTMENT Provider, Generic External Data 10/19/2024 Telephone [facility] [address] [place] [address] Jodie Abernathy, RN Appointment Request from Last 3 Months Immunizations Name Administration [...] Mass Index 37.5 12/03/2024 2:14 PM EST Plan of Treatment Upcoming Encounters Date Type Department Care Team (Late st Contact Info) Description 12/24/2024 11:15 AM EDT Office Visit [facility] [address] [place] [address] Rosa Joy MD [address] [place] [address] 01/12/2025 9:15 AM EDT Office Visit [facility] [address] [place] [address] Rosa Joy MD [address] [place] [address] Health Maintenance Due Date Last Done Comments [...] REFLEX MICROSCOPIC Routine 12/02/2024 12:28 PM EST TSH W/REFLEX TO FT4 Routine 12/02/2024 1 2:26 PM EST HIGH SENSITIVITY TROPONIN I Routine 12/02/2024 12:26 PM EST HCG, TOTAL, QN Routine 12/02/2024 12:26 PM EST LIPASE Routine 12/02/2024 12:26 PM EST MAGNESIUM Routine 12/02/2024 12:26 PM EST COMPREHENSIVE METABOLIC PANEL Routine 12/02/2024 12:26 PM EST PROTHROMBIN TIME-INR Routine 12/02/2024 12:26 PM EST CBC WITH AUTO DIFFERENTIAL Routine 12/02/2024 12:26 PM EST SARS COV2/INFLUENZA A/B AND RSV RNA QL NAAT Routine 11/20/2024 8:00 AM EST HIV 1/2 ANTIGEN/ANTIBODY, FOURTH GENERATION W/RFL [...] Recently Relevant to Health Maintenance Results * CTA Chest PE Protocal (12/02/2024 9:04 PM EST) Anatomical Region Laterality Modality Body, Chest Computed Tomogra phy 12/02/2024 9:04 PM EST Narrative 12/02/2024 9:05 PM EST ? [facility] ?[address] ?[place] [address] ? CT Scan Report ? Signed ? Patient: García Ambrose,Milka ?MR#: M ?? [id number] ? : 1995 ?Acct:[id number] ? Age/Sex: 29 / F ?ADM Date: 12/02/24 ? Loc: HO.ED ? Attending Dr: ? Ordering Physician: Diann Edgar ?? Date of Service: 12/02/24 ?? Procedure(s): CT angio chest PE protocol ?? Accession Number(s): [id number] ? cc: Diann Edgar; Janet Pierson MD ? Report Number: ?? [id number]: Total DLP = ??391.00 mGy-cm ? CLINICAL [...] ? DD/ 03 ? TD/TT: 12/02/242103 ? Floor Framer: ? Procedure Note Francisco, Image - 12/02/[address] [address] [address] Scan Report Signed Patient: Nadeem Guthrie#: M [id number] : 1995Acct:[id number] Age/Sex: 29 / FADM Date: 12/02/24 Loc: HO.ED Attending Dr: Ordering Physician: Diann Edgar Date of Service: 12/02/24 Procedure(s): CT angio chest PE protocol Accession Number(s): [id number] cc: Diann Edgar; Janet Pierson MD Report Number: [id number]: Total DLP = 391.00 mGy-cm CLINICAL HISTORY: [...] in OV> 12/02/242103 DD/ 03 TD/TT: 12/02/242103 Floor Framer: [facility] External Provider IMG CT PROCEDURES Final Result * HCG, Qualitative, Urine (12/02/2024 12:28 PM EST) Urine NEGATIVE NEGATIVE [facility] Comment:This test was develo ped to detect early . Falsenegative results may occur after the 5th - 7th week ofpregnancy when using this test method. If clinicallyindicated, consider a serum hCG. 12/02/2024 12:2 8 PM EST 12/02/2024 12:35 PM EST Generic External Data Provider LAB URINE ORDERAB LES Final Result [facility] [address] [place] [phone] * (ABNORMAL) Urinalysis w/reflex microscopic (12/02/2024 12:28 PM EST) Color Urine Yellow [facility] Appearance Urine Cloudy [facility] PH 7.0 5.0 - 9.0 [facility] Glucose Urine UA Negative Negative mg/dL [facility] Urine Blood Negative Negative [facility] Specific [place] - Urine >=1.030(H) 1.005 - 1.025 [facility] Urine Protein Negative Neg-Trace mg/dL [facility] Urine Ketones Negative Negative mg/dL [facility] Nitrite Urine Negative Negative [facility] Leukocyte Esterase Urine Negative Negative [facility] 12/02/2024 12:2 8 PM EST 12/02/2024 12:35 PM EST Narrative [facility] - 12/02/2024 12:43 PM EST [id number], Clean C[employer] us Generic External Data Provider LAB URINE ORDERAB LES Final Result Performing Organization Address [facility] Co de Phone Number [facility] [address] [place] [phone] * High Sensitivity Troponin I (12/02/2024 12:26 PM EST) TROPONIN I HIGH SENSITIVITY <2.7 <3.5 - 17.0 ng/L [facility] Comment:The Grimaldo high sens itivity Troponin-I results should beused in conjunction with other diagnostic information suchas ECG, clinical observations and information, and patientsymptoms to aid in the diagnosis of GA. 12/02/2024 12:2 6 PM EST 12/02/2024 12:26 PM EST us Generic External Data Provider LAB BLOOD ORDERAB LES Final Result Performing Organization Address City/[facility] Co de Phone Number [facility] [address] [place] [address] [phone] * TSH with Reflex to Free T4 (12/02/2024 12:26 PM EST) TSH reflex Free T4 1.54 0.32 - 4.0 uIU/mL [facility] 12/02/2024 12:2 6 PM EST 12/02/2024 12:26 PM EST us Generic External Data Provider LAB BLOOD ORDERAB LES Final Result [facility] [address] [place] [phone] [phone] * (ABNORMAL) CBC auto differential (12/02/2024 12:26 PM EST) Pathologist [facility] White Blood Count 8.3 4.8 - 10.8 X10*3/uL [facility] Red Blood Count 5.17 4.20 - 5.50 X10*6/uL [facility] Hemoglobin 13.2 12.0 - 16.0 g/dl [facility] Hematocrit 40.5 37.0 - 47.0 % [facility] Mean Corpuscular Volume 78.3(L) 80.0 - 98.0 fL [facility] Mean Corpuscular Hemoglobin 25.5(L) 27.0 - 33.0 pg [facility] Mean Corpuscular HGB Conc 32.6 31.0 - 35.0 g/dl [facility] Red Cell Distribution Width 14.3 11.0 - 16.0 % [facility] Platelet Count 327 160 - 400 X10*3/uL [facility] Mean Platelet Volume 9.5 9.4 - 12.3 fL [facility] Neutrophils Percent Auto 56.9 45 - 73 % [facility] Imm Gran Pct Auto 0.5(H) 0.0 - 0.4 % [facility] Lymphocytes Percent Auto 35.4 20 - 40 % [facility] Monocytes Percent Auto 5.3 2 - 11 % [facility] Eosinophils Percent Auto 1.3 0 - 4 % [facility] Basophils Percent Auto 0.6 0 - 2 % [facility] NRBC Pct Auto 0.0 0.0 - 0.2 /100WBC [facility] Neutrophils Absolute Auto 4.7 2.0 - 8.3 x10*3/uL [facility] Imm Gran Abs Auto 0.04(H) 0.00 - 0.03 X10*3/uL [facility] Lymphocytes Absolute Auto 2.9 1.2 - 4.9 X10*3/uL [facility] Monocytes Absolute Auto 0.4 0.1 - 1.2 X10*3/uL [facility] Eosinophils Absolute Auto 0.1 0.0 - 0.4 X10*3/uL [facility] Basophils Absolute Auto 0.1 0.0 - 0.2 X10*3/uL [facility] NRBC Abs Auto 0.000 0.0 - 0.012 X10*3/uL [facility] 12/02/2024 12:2 6 PM EST 12/02/2024 12:26 PM EST us Generic External Data Provider LAB BLOOD ORDERAB LES Final Result [facility] [address] [place] [address] [phone] * (ABNORMAL) Prothrombin Time-INR (12/02/2024 12:26 PM EST) Prothrombin Time 10.5(L) 10.9 - 12.4 SEC [facility] INTERNATIONAL NORM RATIO 0.9 0.9 - 1.1 [facility] Comment:INTERNATIONAL NORMAL IZED RATIO (INR) REFERENCE [...] ORDERAB LES Final Result Performing Organization Address [facility] Co de Phone Number [facility] [address] [place] [phone] * hCG, Total, Quantitative (12/02/2024 12:26 PM EST) HCG Quantitative <2 mIU/mL [facility] Comment:Weeks post LMP Appro ximate hCG(Last Menstrual Period) Range (mIU/ml)3 - 4 weeks 9 - 1304 - 5 weeks 75 - 2,6005 - 6 weeks 850 - 20,8006 - 7 weeks 4000 - 100,2007 - 12 weeks 11,500 - 289,03406 - 16 weeks 18,300 - 137,22583 - 29 weeks (2nd trimester) 1,400 - 53,87213 - 41 weeks (3rd trimester) 940 - [...] ORDERAB LES Final Result Performing Organization Address [facility] Co de Phone Number [facility] [address] [place] [address] [phone] * Magnesium (12/02/2024 12:26 PM EST) Magnesium 2.2 1.6 - 2.6 mg/dL [facility] 12/02/2024 12:2 6 PM EST 12/02/2024 12:26 PM EST Generic External Data Provider LAB BLOOD ORDERAB LES Final Result Performing Organization Address City/[facility]/ZIP Co de Phone Number [facility] [address] [place] [phone] * Lipase (12/02/2024 12:26 PM EST) Lipase 38 8 - 78 U/L [facility] 12/02/2024 12:2 6 PM EST 12/02/2024 12:26 PM EST us Generic External Data Provider LAB BLOOD ORDERAB LES Final Result Performing Organization Address [facility] Co de Phone Number [facility] [address] [place] [phone] * (ABNORMAL) Comprehensive Metabolic Panel (12/02/2024 12:26 PM EST) Pathologist [facility] Sodium 139 135 - 145 mmol/L [facility] Potassium 3.9 3.3 - 5.1 mmol/L [facility] Chloride 112(H) 96 - 108 mmol/L [facility] Carbon Dioxide 21(L) 22 - 29 mmol/L [facility] Anion Gap 10(L) 12 - 20 [facility] Urea Nitrogen (BUN) 11 9 - 16 mg/dL [facility] Creatinine, Serum 0.65 0.5 - 1.4 mg/dL [facility] Creatinine Clr Calc Pharmacy 122.5 [facility] Comment:Provided height and weight: 149.86 cm,85.8 kg.eGFR (calculated from the MDRD study equation) and eCrCl(calculated from the Cockcroft-Gault equation) are based ondifferent parameters and may not yield comparable results.If eCrCl result is absurd, please check patient'sheight/weight. Estimated Glomerular Filt Rate >60 [facility] Comment:Chronic Kidney Disea se: Estimated GFR < 60 mL/min/1.92c0Ybzlae Kidney Disease: Estimated GFR < 15 mL/min/1.73m2 Glucose 95 60 - 115 mg/dL [facility] Calcium 8.7 8.4 - 10.2 mg/dL [facility] Bilirubin, Total 0.2 0.0 - 1.0 mg/dL [facility] Aspartate Amino Transferase 15 5 - 31 U/L [facility] Alanine Aminotransferase 20 0 - 31 U/L [facility] Total Protein 7.0 6.5 - 8.0 g/dL [facility] Albumin Level 3.9 3.5 - 5.0 g/dL [facility] Alkaline Phosphatase 70 39 - 117 U/L [facility] 12/02/2024 12:2 6 PM EST 12/02/2024 12:26 PM EST Generic External Data Provider LAB BLOOD ORDERAB LES Final Result [facility] [address] [place] [phone] * SARS-CoV-2 RNA, Influenza A/B, and RSV RNA, Ql NAAT (11/20/2024 8:00 AM EST) Influenza A PCR NEGATIVE Negative [facility] Influenza B PCR NEGATIVE Negative [facility] Resp Syncy Virus RNA Qual PCR NEGATIVE Negative [facility] SARS COV2 PCR NEGATIVE Negative [facility] Comment:All test results mus t [...] use by authorized laboratories.Testing performed on the [employer] GeneXpert utilizingreal-time RT-PCR.All SARS CoV2 and positive influenza A/B results arereported to [facility]. 11/20/2024 8:00 AM EST 11/20/2024 11:14 AM EST us Generic External Data Provider LAB MICROBIOLOGY - GENERAL ORDERABLES Final Result Performing Organization Address [facility]/ZIP Co de Phone Number [facility] [address] [place] [phone] * HIV-1/2 Antigen and Antibodies, Fourth Generation, with Reflexes (08/03/2024 4:02 PM EDT) HIV AB/AG Nonreactive Nonreactive [facility] Comment:HIV-1 p24 Ag and/or HIV-1/HIV-2 Ab not detected.A test result that is nonreactive does not exclude thepossibility of exposure to or infection with HIV-1 and/orHIV-2. Nonreactive results in this assay for individualswith prior exposure to HIV-1 and/or HIV-2 may be due toantigen and antibody levels that are below the limit ofdetection of this assay.The [employer] HIV Ag/Ab Combo assay result andsupplemental assay results should be interpreted inconjunction with the patient's clinical presentation,history and other laboratory results. If the results areinconsistent with clinical evidence, additional testing issuggested to confirm the result. Blood Venous blood specimen / Unknown 08/03/2024 4:02 PM EDT 08/03/2024 5:21 PM EDT us Janet Pierson MD LAB BLOOD ORDERABLES Final Re sult Performing Organization Address [facility]/ZIP Co de Phone Number [facility] [address] [place] [address] [phone] * Image-Guided Pap with Age-Based Screening??with CT/NG,??Trichomonas (11/14/2023 10:42 AM EST) Trichomonas (NAAT) NOT DETECTED NOT DETECTED [facility] Comment:The analytical perfo rmance characteristics of thisassay have been determined by [employer]. Themodifications have not been cleared or approved bythe FDA. This assay has been validated pursuant to theCLIA regulations and is used for clinical purposes.For additional information, please refer tohttp://education.Zoove/faq/Trichomonastma(This link is being provided for information/educational purposes only.)THIS TEST WAS PERFORMED AT:[employer] [place] [phone] CRAMER MD CTNG Ref Lab NOT DETECTED NOT DETECTED [facility] NG Ref Lab NOT DETECTED NOT DETECTED [facility] [employer] 11/14/2023 10:4 2 AM EST 11/15/2023 9:40 AM EST Janet Pierson MD LAB CYTOLOGY ORDERABLES Final Result Performing Organization Address [facility] Co pa Phone Number [facility] [address] [place] [address] [phone] * Hepatitis C Ab (09/16/2023 8:46 AM EST) Hepatitis C Antibody Nonreactive Nonreactive [facility] Comment:Antibodies to HCV no t detected; does not exclude early acuteHCV infection. Blood Venous blood specimen / Unknown 09/16/2023 8:46 AM EST 09/16/2023 2:37 PM EST Janet Pierson MD LAB BLOOD ORDERABLES Final Re sult Performing Organization Address [facility] Co de Phone Number [facility] [address] [place] [address] [phone] * (ABNORMAL) Lipid Panel, Standard (09/16/2023 8:46 AM EST) Triglycerides 108 <150 mg/dL [facility] Comment:Desirable Triglyceri de: less than 150 mg/dLBorderline High Triglyceride 150-199 mg/dLHigh Triglyceride: 200-499 mg/dLVery High Triglyceride: greater than or equal to 5OO mg/dL Cholesterol 171 <200 mg/dL [facility] Comment:Desirable Cholestero l: less than 200 mg/dLBorderline High Cholesterol: 200-239 mg/dLHigh Cholesterol: greater than 239 mg/dL LDL Cholesterol Calculated 118(H) <100 mg/dL [facility] Comment:Desirable LDL: less than 100 mg/dLNear Optimal/Above Optimal LDL: 110- 129 mg/dLBorderline High LDL: 130-159 mg/dLHigh LDL: 160-189 mg/dLVery High LDL: greater than or equal to 190 mg/dL HDL Cholesterol 32(L) >40 mg/dL [facility] Comment:Desirable HDL: great er than 40 mg/dL Note: This HDL assay may give artificially low results in patients with liver disease. Blood Venous blood specimen / Unknown 09/16/2023 8:46 AM EST 09/16/2023 2:37 PM EST us Janet Pierson MD LAB BLOOD ORDERABLES Final Re sult [facility] [address] [place] [phone] [phone] from Last 3 Months or Most Recently Relevant to Health Maintenance Insurance * Guarantor: Milka Guthrie Account Type Relation to Patient Date of Phone Billing Address Personal/Family Self [address] [place] [address] [facility] Care Teams Laundry Housekeeper Relationship Specialty Start Date End Date Janet Pierson MD [address] [place] [address] PCP - General Family Medicine 09/13/23
== END 2024-12-22 13:14 | disposition home or self-care (01) ==
PROVIDERS: PCP Internal Medicine; Visit Provider Internal Medicine
DX: R00.2 Palpitations (principal); R06.02 Shortness of breath; R94.31 Abnormal electrocardiogram [ECG] [EKG]
CPT/HCPCS: 93010; 99214

== ENCOUNTER → 2024-12-22 12:21 | Outpatient (BNVA) | payer OTHER, SELFPAY | PROVIDERS: PCP Internal Medicine; Visit Provider Internal Medicine | DX: R00.2 Palpitations (principal); R06.02 Shortness of breath | CPT/HCPCS: 93005; 99212 ==

== ENCOUNTER → 2025-01-14 10:02 | Outpatient (REF) | payer OTHER, SELFPAY ==
--- NOTE | 2025-01-14 10:06 | CA_ITS ---
Transthoracic Echocardiogram Patient (Last, First, Middle): Milka Guthrie, Gender: Female Date of : 1995 Age: 29 Procedure Date: 01/14/2025 Procedure Type: Transthoracic Echocardiogram Location: OP Height: 149.86 cm Weight: 86.18 kg BSA: 1.80 m2 Heart Rate: bpm BP: 122 / 68 mmHg Water Purifier Operator: [id number] Referring MD: Efren Torres MD Symptoms: R00.2 - Palpitations Study Quality: Adequate ECG Rhythm: Sinus Conclusions: - The left ventricular systolic function is normal. The calculated ejection fraction is 68% by biplane method. - No obvious valvular pathology seen on this study. Findings Left Ventricle Normal left ventricular cavity size. There is normal left ventricular wall thickness. The left ventricular systolic function is normal. The calculated ejection fraction is 68% by biplane method. There is no evidence of regional wall motion abnormalities. Diastolic function is normal for age. Right Ventricle Normal right ventricular cavity size and systolic function. Atria Both atria are normal in size. Aortic Valve There is a normal trileaflet aortic valve. There is no aortic valve stenosis. There is no aortic valve regurgitation. Mitral Valve The mitral valve appears normal. There is no mitral valve regurgitation. There is no mitral valve stenosis. Pulmonic Valve The pulmonic valve is likely normal. Tricuspid Valve There is trace tricuspid valve regurgitation. There is no evidence of pulmonary hypertension. Great Vessels The asc aorta and aortic arch are normal in size. Venous The inferior vena cava is normal in size and collapses greater than 50% with inspiration. Pericardium/Pleural There is no evidence of pericardial effusion. Prior Study Comparison No prior study available for comparison. Recommendations, Care & Conclusions No obvious valvular pathology seen on this study. Measurements 2D Linear Measurements IVSd: 0.94 0.6-0.9/0.6-1.0 cm LVIDd: 4.67 3.9-5.3/4.2-5.9 cm LVIDd Index: 2.59 2.4-3.2/2.2-3.1 cm/m2 LVIDs: 3.25 2.0-3.6 cm LVPWd: 0.86 0.7-1.1 cm LA Diam: 3.50 2.7-3.8/3.0-4.0 cm LAIDs Index: 1.94 1.5-2.3 cm/m2 LV Mass: 174.97 67-162/88-224 g LV Mass Index: 97.21 43-95/49-115 g/m2 LVOT Diam: 2.00 3.0+(-)1.3 cm 2D Systolic Function EF 4C: 63.60 >55% EF 2C: 69.80 >55% EF BiP: 68.20 >55% Mitral Valve MV Pk E: 0.96 MV PK A: 0.51 MV Decel Time: 199.00 E/A: 1.90 E'Lateral: 11.00 E'Medial: 10.40 E/E' Med: 9.30 E/E' Lat: 8.80 PHT: 58.00 MVA PHT: 3.79 Decel Will: 4.85 Aortic Valve AoV Pk Praveen: 1.41 AoV Mn Praveen: 1.01 AoV VTI: 0.27 AoV Pk Grad: 8.00 Aov Mn Grad: 5.00 GAEL Cont.VTI: 2.66 LVOT LVOT Pk Praveen: 1.17 LVOT Mn Praveen: 0.70 LVOT VTI: 0.23 LVOT Pk Grad: 5.00 LVOT Mn Grad: 2.00 LVOT Diam: 2.00 LVOT Area: 3.14 Diastolic Function MV Pk E: 0.96 MV Pk A: 0.51 E/A: 1.90 E'Medial: 10.40 E/E' Med: 9.30 E' Laterial: 11.00 E/E' Lat: 8.80 Right Ventricle TAPSE (mm): 24.40 TVS' Praveen: 10.90 Tricuspid Valve TR Pk Praveen: 1.57 TR Pk Grad: 10.00 RA Press: 3.00 RVSP: 13.00 Great Vessels Aorta Sinus of Valsalva: 3.28 2.0-3.[address] Ridge: 2.30 1.7-3.4 cm Ao Asc: 2.70 2.1-3.4 cm Ao Arch: 2.20 Updated in Other Vendor System with Status of Final Efren Torres MD electronically signed on 01/16/2025 10:11:01 AM with status of Final
--- OUTSIDE RECORDS SUMMARY | 2025-01-14 10:50 | XMS_ITS | Clinical Summary ---
Author Organization [employer] Address [address] [facility] [address] [place] [address] Care Team Providers Care Sole Polisher Name Role Phone Janet Pierson MD Primary Care Provider [phone] Allergies Active Allergy Reactions Criticality Noted Date Comments Acetaminophen 09/13/2023 Other reaction(s): Stomach upset Copper 07/31/2023 Nickel 07/31/2023 Other reaction(s): Copper Sumatriptan 01/16/2024 Medications * This document contains information received from the source organization and may not represent a complete record from that organization. medroxyPROGESTERo ne (Depo-Provera) 150 MG/ML injection Inject 1 mL (150 mg) into the muscle every 3 (three) months. 1 mL 3 07/01/20 24 025 Active doxepin (SINEquan) 10 MG capsule Take 1 capsule (10 mg) by mouth at bedtime. 30 capsule 11 08/03/20 24 025 Active ondansetron ODT (Zofran-ODT) 4 MG disintegrating tablet TAKE 1 TABLET ORALLY EVERY 8 HOURS NEEDED FOR NAUSEA AND VOMITING (*INS LIMITS 9 TABS/30 DAYS) 09/05/20 24 Active divalproex (Depakote ER) 250 MG 24 hr tabletIndications :Migraine Take 250 mg by mouth Once per day. Do not crush, chew, or split. Active hydrOXYzine pamoate (Vistaril) 50 MG capsuleIndication s:Generalized anxiety disorder Take 1 capsule (50 mg) by mouth every 8 (eight) hours if needed for itching. 90 capsule 12/25/19 25 025 Active albuterol (Ventolin HFA) 108 (90 Base) MCG/ACT inhaler INHALE 2 PUFFS BY MOUTH EVERY 6 HOURS NEEDED FOR SHORTNESS OF BREATH OR WHEEZING OR COUGH 18 g 3 01/13/20 25 Active albuterol 108 (90 Base) MCG/ACT inhaler Inhale 2 puffs every 6 (six) hours if needed for wheezing. 18 g 1 06/12/20 24 025 Discontinued Hospital, Clinic, or Other Facility Administered Medication Ordered Dose Route Frequency Start Date End Date Status medroxyPROGESTERone (Depo-Provera) injection 150 mgIndications:Family planning 150 mg IM Once 12/28/2024 12/28/2024 Ended Active Problems Problem Noted Date Diagnosed Date [...] (11/14/2023 10:43 AM EST): Adult female for [employer] physical: Normal Exam. FU PAP results. Consider [...] recommended reduction of 20-30% of maintenance calories; data report analyst referral offered. Recommended to decrease soda and [...] recommended reduction of 20-30% of maintenance calories; data report analyst referral offered. Recommended to decrease soda and sugary beverage consumption. Recommended at least 20 g per meal of protein to assist with satiety. Recommended at least 150 min/week of moderate intensity exercise. Assessment & Plan (09/13/2023 2:05 PM EST): Discussed calorie deficit, recommended reduction of 20-30% of maintenance calories; data report analyst referral offered. Recommended to decrease soda and [...] 2. Patient goal is to engage in services 3. Behavioral Recommendations a. Ind. Therapy referral will be submitted b. Use of coping skills provided c. Take medication as prescribed. d. [facility] contact number for support Assessment [...] her gynecology consultation. A referral to a sap basis consultant is made for further evaluation and discussion of permanent options. Assessment & Plan (07/31/2023 10:53 AM EDT): Pt in need of family planning. One week late depo. Still within therapeutic window. Urine HCG negative. -depo shot today -placed on list for new PCP Encounters * This document contains information received from the source organization and may not represent a complete record from that organization. Date Type Department Care Team Description 01/10/2025 Refill [facility] [address] [facility] [address] Rosa Joy MD 01/07/2025 Refill [facility] [address] [place] [address] Rosa Joy MD Generalized anxiety disorder 01/05/2025 Travel 12/28/2024 9:45 AM EDT Clinical Support [facility] [address] [place] [address] Leslye Holder, mold making supervisor planning 12/28/2024 Travel 12/25/2024 Telephone [facility] [address] [place] [address] Janet Pierson MD Appointment Request 12/24/2024 11:15 AM EDT Office Visit [facility] [address] [place] [address] Rosa Joy MD Generalized anxiety disorder (Primary Dx) 12/24/2024 Travel 12/18/2024 Travel 12/16/2024 Telephone [facility] [address] [place] [address] Janet Pierson MD Appointment Request 12/03/2024 2:00 PM EST Office Visit [facility] [address] [place] [address] Sophia Norris MD Tachycardia (Primary Dx) 12/03/2024 Travel 12/03/2024 Telephone [facility] [address] [place] [address] Janet Pierson MD Nurse Triage 12/02/2024 Orders Only GENERIC EXTERNAL DATA DEPARTMENT Provider, Generic External Data 12/02/2024 Telephone [facility] [address] [place] [address] Janet Pierson MD Nurse Triage 11/20/2024 Orders Only GENERIC EXTERNAL DATA DEPARTMENT Provider, Generic External Data 10/19/2024 Telephone [facility] [address] [place] [address] Jodie Abernathy, MARA Appointment Request from Last 3 Months Immunizations Name Administration Dates Next Due DTaP 03/13/2001, 8,1996,1996, 1996 HPV, Quadrivalent 07/06/2008, 8,02/16/2008,02/16/2008, 12/10/2007,12/10/2007 Hep B, Adolescent or Pediatric 01/15/1997,1995,1996 Hep B, adult 01/15/1997,1996,1996 Hib (PRP-T) 12/01/1997,1996,1996 ,1996 IPV 03/13/2001, 1,1996,1996, 1996 Influenza, IIV3, injectable 08/25/2018, 6 MMR 03/13/2001,03/13/2001,12/01/1997 Meningococcal ACWY, unspecified 04/05/2014,12/10 Meningococcal MCV4P ACYW-135 04/05/2014,12/10/19 08 OPV, Trivalent 1996,1996,1996 Tdap 09/24/2016,12/10/2007,12/10/2007 Varicella 06/23/2015, 5,05/23/2015,05/23/2015, 02/01/1999 [...] Answer Date Recorded Patient Health Questionnaire-2 Score 4 12/24/2024 Internet Access Answer Date Recorded Internet Access [...] Sign Reading Time Taken Comments Blood Pressure 122/71 12/24/2024 11:12 AM EDT Pulse 65 12/24/2024 11:12 AM EDT Temperature 36.7 ??C (98 ??F) 12/24/2024 11:12 AM EDT Respiratory Rate 20 12/24/2024 11:12 AM EDT Oxygen Saturation 98% 12/24/2024 11:12 AM EDT Inhaled Oxygen Concentration - - Weight 91.2 kg (201 lb) 12/24/2024 11:12 AM EDT Height 152 cm (4' 11.84 ) 12/24/2024 11:12 AM ED T Body Mass Index 39.47 12/24/2024 11:12 AM EDT Plan of Treatment Upcoming Encounters Date Type Department Care Team (Late st Contact Info) Description 02/18/2025 10:30 AM EDT Office Visit [facility] [address] [place] [address] Rosa Joy MD [address] [place] [address] 03/25/2025 1:00 PM EDT Clinical Support [facility] [address] [place] [address] Health Maintenance Due Date Last Done Comments COVID-19 Vaccine ( season) 2024 05/27/2021, 04/29/2021 SDOH Screening 04/06/2025 04/06/2024 Influenza Vaccine (#1) 2025 08/25/2018, 2015 Postponed from 06/14/2024 (Patient Refused) Pneumococcal Vaccine: Pediatrics (0 to 5 Years) and At-Risk Patients (6 to 49) Years) (1 of 2 - PCV) 05/08/2025 Postponed from 2015 (Patient Refused) Family Planning (PISQ) 07/03/2025 07/03/2024 Alcohol/Substance Use Screening 08/03/2025 08/03/2024 Depression Screening 12/24/2025 12/24/2024, 05/08/20 Tobacco Screening 12/24/2025 12/24/2024 DTaP/Tdap/Td Vaccines (9 - Td or Tdap) [...] Procedure Name Priority Date/Time Associated Diagnosis Comments POCT , URINE Routine 12/28/2024 9:45 AM EDT Family planning CTA CHEST PE PROTOCAL Routine 12/02/2024 9:04 [...] Recently Relevant to Health Maintenance Results * POCT Urine (12/28/2024 9:45 AM EDT) Preg Test, Ur Negative Negative, Indeterminate, None Detected, Invalid, Specimen unsatisfactory for evaluation, Weakly Positive Urine 12/28/2024 9:45 AM EDT us Qing Wilder MD POINT OF CARE TEST ENTER/EDIT ORDERABLES Final Result * CTA Chest PE Protocal (12/02/2024 9:04 PM EST) Anatomical Region Laterality Modality Body, Chest Computed Tomogra phy 12/02/2024 9:04 PM EST Narrative 12/02/2024 9:05 PM EST ? [facility] ?[address] ?[place] [address] ? CT Scan Report ? Signed ? Patient: Mlika Guthrie ?MR#: M ?? [id number] ? : 1995 ?Acct:[id number] ? Age/Sex: 29 / F ?ADM Date: 12/02/24 ? Loc: HO.ED ? Attending Dr: ? Ordering Physician: Diann Edgar ?? Date of Service: 12/02/24 ?? Procedure(s): CT angio chest PE protocol ?? Accession Number(s): [id number] ? cc: Diann Edgar; Janet Pierson MD ? Report Number: ?? [id number]: Total DLP = ??391.00 mGy-cm ? CLINICAL [...] ? DD/ 03 ? TD/TT: 12/02/242103 ? Tuber Operator: ? Procedure Note Donotuseinterpreter, Image - 12/02/[address] [address] [place] Scan Report Signed Patient: Nadeem Guthrie#: M [id number] : 1995Acct:[id number] Age/Sex: Date: 12/02/24 Loc: HO.ED Attending Dr: Ordering Physician: Diann Edgar Date of Service: 12/02/24 Procedure(s): CT angio chest PE protocol Accession Number(s): [id number] cc: Diann Edgar; Janet Pierson MD Report Number: [id number]: Total DLP = 391.00 mGy-cm CLINICAL HISTORY: [...] in OV> 12/02/242103 DD/ 03 TD/TT: 12/02/242103 Tuber Operator: [facility] External Provider IMG CT PROCEDURES Final Result * HCG, Qualitative, Urine (12/02/2024 12:28 PM EST) Urine NEGATIVE NEGATIVE [facility] Comment:This test was develo ped to detect early . Falsenegative results may occur after the 5th - 7th week ofpregnancy when using this test method. If clinicallyindicated, consider a serum hCG. 12/02/2024 12:2 8 PM EST 12/02/2024 12:35 PM EST Generic External Data Provider LAB URINE ORDERAB LES Final Result Performing Organization Address City/[facility]/ZIP Co de Phone Number [facility] [address] [place] [phone] * (ABNORMAL) Urinalysis w/reflex microscopic (12/02/2024 12:28 PM EST) Color Urine Yellow [facility] Appearance Urine Cloudy [facility] PH 7.0 5.0 - 9.0 [facility] Glucose Urine UA Negative Negative mg/dL [facility] Urine Blood Negative Negative [facility] Specific Reliance - Urine >=1.030(H) 1.005 - 1.025 [facility] Urine Protein Negative Neg-Trace mg/dL [facility] Urine Ketones Negative Negative mg/dL [facility] Nitrite Urine Negative Negative [facility] Leukocyte Esterase Urine Negative Negative [facility] 12/02/2024 12:2 8 PM EST 12/02/2024 12:35 PM EST Narrative [facility] - 12/02/2024 12:43 PM EST [id number], Clean Catch Generic External Data Provider LAB URINE ORDERAB LES Final Result [facility] [address] [place] [phone] * High Sensitivity Troponin I (12/02/2024 12:26 PM EST) [facility] TROPONIN I HIGH SENSITIVITY <2.7 <3.5 - 17.0 ng/L [facility] Comment:The Grimaldo high sens itivity Troponin-I results should beused in conjunction with other diagnostic information suchas ECG, clinical observations and information, and patientsymptoms to aid in the diagnosis of CT. 12/02/2024 12:2 6 PM EST 12/02/2024 12:26 PM EST Generic External Data Provider LAB BLOOD ORDERAB LES Final Result Performing Organization Address [facility] Co de Phone Number [facility] [address] [place] [phone] * TSH with Reflex to Free T4 (12/02/2024 12:26 PM EST) [facility] TSH reflex Free T4 1.54 0.32 - 4.0 uIU/mL [facility] 12/02/2024 12:2 6 PM EST 12/02/2024 12:26 PM EST Generic External Data Provider LAB BLOOD ORDERAB LES Final Result Performing Organization Address [facility] Co de Phone Number [facility] [address] [place] [phone] * (ABNORMAL) CBC auto differential (12/02/2024 12:26 PM EST) [facility] White Blood Count 8.3 4.8 - 10.8 X10*3/uL [facility] Red Blood Count 5.17 4.20 - 5.50 X10*6/uL [facility] Hemoglobin 13.2 12.0 - 16.0 g/dl [facility] Hematocrit 40.5 37.0 - 47.0 % [facility] Mean Corpuscular Volume 78.3(L) 80.0 - 98.0 fL [facility] Mean Corpuscular Hemoglobin 25.5(L) 27.0 - 33.0 pg [facility] Mean Corpuscular HGB Conc 32.6 31.0 - 35.0 g/dl [facility] Red Cell Distribution Width 14.3 11.0 - 16.0 % [facility] Platelet Count 327 160 - 400 X10*3/uL [facility] Mean Platelet Volume 9.5 9.4 - 12.3 fL [facility] Neutrophils Percent Auto 56.9 45 - 73 % [facility] Imm Gran Pct Auto 0.5(H) 0.0 - 0.4 % [facility] Lymphocytes Percent Auto 35.4 20 - 40 % [facility] Monocytes Percent Auto 5.3 2 - 11 % [facility] Eosinophils Percent Auto 1.3 0 - 4 % [facility] Basophils Percent Auto 0.6 0 - 2 % [facility] NRBC Pct Auto 0.0 0.0 - 0.2 /100WBC [facility] Neutrophils Absolute Auto 4.7 2.0 - 8.3 x10*3/uL [facility] Imm Gran Abs Auto 0.04(H) 0.00 - 0.03 X10*3/uL [facility] Lymphocytes Absolute Auto 2.9 1.2 - 4.9 X10*3/uL [facility] Monocytes Absolute Auto 0.4 0.1 - 1.2 X10*3/uL [facility] Eosinophils Absolute Auto 0.1 0.0 - 0.4 X10*3/uL [facility] Basophils Absolute Auto 0.1 0.0 - 0.2 X10*3/uL [facility] NRBC Abs Auto 0.000 0.0 - 0.012 X10*3/uL [facility] 12/02/2024 12:2 6 PM EST 12/02/2024 12:26 PM EST us Generic External Data Provider LAB BLOOD ORDERAB LES Final Result Performing Organization Address City/[facility]/ZIP Co de Phone Number [facility] [address] [place] [phone] * (ABNORMAL) Prothrombin Time-INR (12/02/2024 12:26 PM EST) Prothrombin Time 10.5(L) 10.9 - 12.4 SEC [facility] INTERNATIONAL NORM RATIO 0.9 0.9 - 1.1 [facility] Comment:INTERNATIONAL NORMAL IZED RATIO (INR) [...] ORDERAB LES Final Result Performing Organization Address [facility] Co de Phone Number [facility] [address] [place] [phone] * hCG, Total, Quantitative (12/02/2024 12:26 PM EST) HCG Quantitative <2 mIU/mL [facility] Comment:Weeks post LMP Appro ximate hCG(Last Menstrual Period) Range (mIU/ml)3 - 4 weeks 9 - 1304 - 5 weeks 75 - 2,6005 - 6 weeks 850 - 20,8006 - 7 weeks 4000 - 100,2007 - 12 weeks 11,500 - 289,42172 - 16 weeks 18,300 - 137,20857 - 29 weeks (2nd trimester) 1,400 - 53,92084 - 41 weeks (3rd trimester) 940 - [...] ORDERAB LES Final Result Performing Organization Address [facility] Phone Number [facility] [address] [place] [phone] * Magnesium (12/02/2024 12:26 PM EST) Pathologist [facility] Magnesium 2.2 1.6 - 2.6 mg/dL [facility] 12/02/2024 12:2 6 PM EST 12/02/2024 12:26 PM EST Generic External Data Provider LAB BLOOD ORDERAB LES Final Result Performing Organization Address [facility] Phone Number [facility] [address] [place] [phone] * Lipase (12/02/2024 12:26 PM EST) Pathologist [facility] Lipase 38 8 - 78 U/L [facility] 12/02/2024 12:2 6 PM EST 12/02/2024 12:26 PM EST Generic External Data Provider LAB BLOOD ORDERAB LES Final Result Performing Organization Address [facility] Phone Number [facility] [address] [place] [phone] * (ABNORMAL) Comprehensive Metabolic Panel (12/02/2024 12:26 PM EST) Pathologist [facility] Sodium 139 135 - 145 mmol/L [facility] Potassium 3.9 3.3 - 5.1 mmol/L [facility] Chloride 112(H) 96 - 108 mmol/L [facility] Carbon Dioxide 21(L) 22 - 29 mmol/L [facility] Anion Gap 10(L) 12 - 20 [facility] Urea Nitrogen (BUN) 11 9 - 16 mg/dL [facility] Creatinine, Serum 0.65 0.5 - 1.4 mg/dL [facility] Creatinine Clr Calc Pharmacy 122.5 [facility] Comment:Provided height and weight: 149.86 cm,85.8 kg.eGFR (calculated from the MDRD study equation) and eCrCl(calculated from the Cockcroft-Gault equation) are based ondifferent parameters and may not yield comparable results.If eCrCl result is absurd, please check patient'sheight/weight. Estimated Glomerular Filt Rate >60 [facility] Comment:Chronic Kidney Disea se: Estimated GFR < 60 mL/min/1.88q0Ofaqoy Kidney Disease: Estimated GFR < 15 mL/min/1.73m2 Glucose 95 60 - 115 mg/dL [facility] Calcium 8.7 8.4 - 10.2 mg/dL [facility] Bilirubin, Total 0.2 0.0 - 1.0 mg/dL [facility] Aspartate Amino Transferase 15 5 - 31 U/L [facility] Alanine Aminotransferase 20 0 - 31 U/L [facility] Total Protein 7.0 6.5 - 8.0 g/dL [facility] Albumin Level 3.9 3.5 - 5.0 g/dL [facility] Alkaline Phosphatase 70 39 - 117 U/L [facility] 12/02/2024 12:2 6 PM EST 12/02/2024 12:26 PM EST us Generic External Data Provider LAB BLOOD ORDERAB LES Final Result [facility] [address] [place] [phone] * SARS-CoV-2 RNA, Influenza A/B, and RSV RNA, Ql NAAT (11/20/2024 8:00 AM EST) Influenza A PCR NEGATIVE Negative [facility] Influenza B PCR NEGATIVE Negative [facility] Resp Syncy Virus RNA Qual PCR NEGATIVE Negative [facility] SARS COV2 PCR NEGATIVE Negative [facility] Comment:All test results mus t [...] use by authorized laboratories.Testing performed on the [employer] GeneXpert utilizingreal-time RT-PCR.All SARS CoV2 and positive influenza A/B results arereported to [facility]. 11/20/2024 8:00 AM EST 11/20/2024 11:14 AM EST Generic External Data Provider LAB MICROBIOLOGY - GENERAL ORDERABLES Final Result [facility] [address] [place] [address] [phone] * HIV-1/2 Antigen and Antibodies, Fourth Generation, with Reflexes (08/03/2024 4:02 PM EDT) HIV AB/AG Nonreactive Nonreactive [facility] Comment:HIV-1 p24 Ag and/or HIV-1/HIV-2 Ab not detected.A test result that is nonreactive does not exclude thepossibility of exposure to or infection with HIV-1 and/orHIV-2. Nonreactive results in this assay for individualswith prior exposure to HIV-1 and/or HIV-2 may be due toantigen and antibody levels that are below the limit ofdetection of this assay.The Scaleform HIV Ag/Ab Combo assay result andsupplemental assay results should be interpreted inconjunction with the patient's clinical presentation,history and other laboratory results. If the results areinconsistent with clinical evidence, additional testing issuggested to confirm the result. Blood Venous blood specimen / Unknown 08/03/2024 4:02 PM EDT 08/03/2024 5:21 PM EDT Result [facility] Janet Pierson MD LAB BLOOD ORDERABLES Final Re sult Performing Organization Address [facility] Co de Phone Number [facility] [address] [place] [phone] [phone] * Image-Guided Pap with Age-Based Screening??with CT/NG,??Trichomonas (11/14/2023 10:42 AM EST) Trichomonas (NAAT) NOT DETECTED NOT DETECTED [facility] Comment:The analytical perfo rmance characteristics of thisassay have been determined by [employer]. Themodifications have not been cleared or approved bythe FDA. This assay has been validated pursuant to theCLIA regulations and is used for clinical purposes.For additional information, please refer tohttp://education.[employer]/faq/Trichomonastma(This link is being provided for information/educational purposes only.)THIS TEST WAS PERFORMED AT:[employer] [place] [phone] CRAMER MD CTNG Ref Lab NOT DETECTED NOT DETECTED [facility] NG Ref Lab NOT DETECTED NOT DETECTED [facility] [employer] 11/14/2023 10:4 2 AM EST 11/15/2023 9:40 AM EST Janet Pierson MD LAB CYTOLOGY ORDERABLES Final Result Performing Organization Address [facility]/ZIP Co de Phone Number [facility] [address] [place] [address] [phone] * Hepatitis C Ab (09/16/2023 8:46 AM EST) Hepatitis C Antibody Nonreactive Nonreactive [facility] Comment:Antibodies to HCV no t detected; does not exclude early acuteHCV infection. Blood Venous blood specimen / Unknown 09/16/2023 8:46 AM EST 09/16/2023 2:37 PM EST us Janet Pierson MD LAB BLOOD ORDERABLES Final Re sult Performing Organization Address [facility] Co de Phone Number [facility] [address] [place] [address] [phone] * (ABNORMAL) Lipid Panel, Standard (09/16/2023 8:46 AM EST) Triglycerides 108 <150 mg/dL [facility] Comment:Desirable Triglyceri de: less than 150 mg/dLBorderline High Triglyceride 150-199 mg/dLHigh Triglyceride: 200-499 mg/dLVery High Triglyceride: greater than or equal to 5OO mg/dL Cholesterol 171 <200 mg/dL [facility] Comment:Desirable Cholestero l: less than 200 mg/dLBorderline High Cholesterol: 200-239 mg/dLHigh Cholesterol: greater than 239 mg/dL LDL Cholesterol Calculated 118(H) <100 mg/dL [facility] Comment:Desirable LDL: less than 100 mg/dLNear Optimal/Above Optimal LDL: 110- 129 mg/dLBorderline High LDL: 130-159 mg/dLHigh LDL: 160-189 mg/dLVery High LDL: greater than or equal to 190 mg/dL HDL Cholesterol 32(L) >40 mg/dL [facility] Comment:Desirable HDL: great er than 40 mg/dL Note: This HDL assay may give artificially low results in patients with liver disease. Blood Venous blood specimen / Unknown 09/16/2023 8:46 AM EST 09/16/2023 2:37 PM EST us Janet Pierson MD LAB BLOOD ORDERABLES Final Re sult Performing Organization Address [facility]/ZIP Co de Phone Number [facility] [address] [place] [phone] from Last 3 Months or Most Recently Relevant to Health Maintenance Insurance * Guarantor: Milka Guthrie Account Type Relation to Patient Date of Phone Billing Address Personal/Family Self 1995 [address] [place] [address] [facility] Care Teams Sole Polisher Relationship Specialty Start Date End Date Janet Pierson MD [address] [place] [address] PCP - General Family Medicine 09/13/23
--- OUTSIDE RECORDS SUMMARY | 2025-01-14 10:50 | XMS_ITS | Encounter Summary ---
Author Organization [employer] Address [address] [place] [address] Care Team Providers Care Twister Tender Name Role Phone Janet Pierson MD Primary Care Provider [phone] Reason for Visit * Reason Onset Date Comments Appointment Request 12/16/2024 Encounter Details Date Type Department Care Team ([facility] st Contact Info) Description 12/16/2024 Telephone [facility] [address] [place] [address] Janet Pierson MD [address] [place], [place] [phone] Appointment Request Social History Tobacco Use Types [...] Miscellaneous Notes * Telephone Encounter - Braulio Sterlings - 12/16/2024 12:51 PM EST Tc from pt requesting to r/s Sick on site appt on 12/16/2024. documented in this encounter Plan of Treatment Upcoming Encounters Date Type Department Care Team (Late st Contact Info) Description 02/18/2025 10:30 AM EDT Office Visit [facility] MED & PEDS [address] [place] [address] Rosa Joy MD [address] [place] [address] 03/25/2025 1:00 PM EDT Clinical Support [facility] [address] [place] [address] documented as of this encounter Visit Diagnoses Not on filedocumented in this encounter Additional Health Concerns Assessment Noted Time PHQ-9 Depression Total Score: 7 05/08/20 24 9:13 AM EDT documented as of this encounter Care Teams Twister Tender Relationship Specialty Start Date End Date Janet Pierson MD [address] [place] [address] PCP - General Family Medicine 09/13/23 documented as of this encounter
--- OUTSIDE RECORDS SUMMARY | 2025-01-14 10:50 | XMS_ITS | Encounter Summary ---
Author Organization [employer] Address [address] [place] [address] Care Team Providers Care Printing Grey Cloth Tender Name Role Phone Janet Pierson MD Primary Care Provider [phone] Reason for Visit * Reason Onset Date Comments Nurse Triage 12/03/2024 Encounter Details Date Type Department Care Team ([facility] st Contact Info) Description 12/03/2024 Telephone [facility] CHC MED & PEDS [address] [place], [place] [phone] Janet Pierson MD [address] [place], [place] [phone] Nurse Triage Social History Tobacco Use Types [...] Please assist with obtaining discharge summary for [facility] ED visit on 12/02/2024 for provider review prior to upcoming appointment. Future Appointments Date Time Provider Department Center 12/03/2024 2:00 PM [facility] [place] [facility] 01/12/2025 9:15 AM Rosa Joy MD [facility] * Telephone Encounter - Columba Meyers RN - 12/03/2024 11:10 AM EST Call returned to Milka Ambrose to triage below. No [facility] ED notes available in chart. Per pt was instructed to follow up with [facility] Cardiology, Dr Francisco. Pt did call today and was directedto have PCP follow up with PCP first. Pt also tx for migraine headache. Pt denies any CP or palpitations today. Pt needing PCP referral for Cardiology follow up. Pt has [facility] notes given at discharge. Denies any Rx at discharge. Pt agrees to sick on site today with [facility] provider. Protocol Used: Recent Medical Visit for Illness Follow-up Call (Adult) Protocol-Based Disposition: See in Office or Video Visit Today or Tomorrow Future Appointments Date Time Provider Department Center 12/03/2024 2:00 PM [facility] SAME DAY CARE [facility] MED [facility] 01/12/2025 9:15 AM Rosa Joy MD [facility] Insurance verified as active per Real Time Eligibility in [facility]. Video visit offer not recorded Positive Triage Question: * Patient wants to be seen * All higher-acuity triage questions were negative Care Advice Discussed: * Reasons To Call Back - You become worse * Telephone Encounter - Monique Donald - 12/03/2024 10:58 AM EST Patient calling to report ED visit on : Date: 12/02/24 Hospital: [facility] Seen for: chest pain and fast heart rate Symptomatic Yes *if yes message should go to Triage Patient advised will forward to team nurse for follow up documented in this encounter Plan of Treatment Upcoming Encounters Date Type Department Care Team ([facility] st Contact Info) Description 02/18/2025 10:30 AM EDT Office Visit [facility] MED & PEDS [address] [place] [address] Rosa Joy MD [address] [place] [address] 03/25/2025 1:00 PM EDT Clinical Support [facility] MED & PEDS [address] [place] [address] documented as of this encounter Visit Diagnoses Not on filedocumented in this encounter Additional Health Concerns Assessment Noted Time PHQ-9 Depression Total Score: 7 05/08/20 24 9:13 AM EDT documented as of this encounter Care Teams Printing Grey Cloth Tender Relationship Specialty Start Date End Date Janet Pierson MD [address] [place] [address] PCP - General Family Medicine 09/13/23 documented as of this encounter
--- OUTSIDE RECORDS SUMMARY | 2025-01-14 10:50 | XMS_ITS | Clinical Summary ---
Author Organization [facility] Address [address] [place] [address] Care Team Providers Care Radiotelegrapher Name Role Phone Unavailable Primary Care Provider [...]
--- OUTSIDE RECORDS SUMMARY | 2025-01-14 10:50 | XMS_ITS | Encounter Summary ---
Author Organization [employer] Address [address] [facility] 7t [place] [address] Care Team Providers Care Equipment Engineering Technician Name Role Phone Janet Pierson MD Primary Care Provider [phone] Reason for Visit * Reason Comments Med Refill Encounter Details Date Type Department Care Team ([facility] st Contact Info) Description 01/10/2025 Refill [facility] CHC MED & PEDS [address] [place], [place] [phone] Rosa Joy MD [address] [place], [place] [phone] Social History Tobacco Use Types Packs/Day Years [...] Description 02/18/2025 10:30 AM EDT Office Visit [facility] MED & PEDS [address] [place] [address] Rosa Joy MD [address] [place] [address] 03/25/2025 1:00 PM EDT Clinical Support [facility] MED & PEDS [address] [place] [address] documented as of this encounter Visit Diagnoses Not on filedocumented in this encounter Additional Health Concerns Assessment Noted Time PHQ-9 Depression Total Score: 7 05/08/20 24 9:13 AM EDT documented as of this encounter Care Teams Equipment Engineering Technician Relationship Specialty Start Date End Date Janet Pierson MD [address] [place] [address] PCP - General Family Medicine 09/13/23 documented as of this encounter
--- OUTSIDE RECORDS SUMMARY | 2025-01-14 10:50 | XMS_ITS | Encounter Summary ---
Author Organization [employer] Address [address] [facility] 7 [place] [address] Care Team Providers Care Cost Consultant Name Role Phone Janet Pierson MD Primary Care Provider [phone] Reason for Visit * Reason Comments Med Change Request Encounter Details Date Type Department Care Team ([facility] st Contact Info) Description 01/07/2025 Refill [facility] CHC MED & PEDS [address] [place], [place] [phone] Rosa Joy MD [address] [place], [place] [phone] Generalized anxiety disorder Social History Tobacco Use Types Packs/Day Years Used Date Smoking Tobacco: Never Smokeless Tobacco: Never Depression Answer Date Recorded Patient Health Questionnaire-9 Score 7 05/08/2024 Patient Health Questionnaire-9 Score 7 05/08/2024 Last PHQ-9: Questionnaire Data Not on file 0 05/08/2024 Housing Stability Answer Date Recorded What is your housing situation today? I have mario albetro mccollum 09/03/[address] you [...] 02/18/2025 10:30 AM EDT Office Visit [facility] MED & PEDS [address] [place] [address] Rosa Joy MD [address] [place] [address] 03/25/2025 1:00 PM EDT Clinical Support [facility] MED & PEDS [address] [place] [address] documented as of this encounter Visit Diagnoses Diagnosis Generalized anxiety disorder documented in this encounter Additional Health Concerns Assessment Noted Time PHQ-9 Depression Total Score: 7 05/08/20 24 9:13 AM EDT documented as of this encounter Care Teams Cost Consultant Relationship Specialty Start Date End Date Janet Pierson MD [address] [place] [address] PCP - General Family Medicine 09/13/23 documented as of this encounter
--- OUTSIDE RECORDS SUMMARY | 2025-01-14 10:50 | XMS_ITS | Encounter Summary ---
Author Organization [facility] Address [address] [place] [address] Phone Care Team Providers Care Unit Supervisor Name Role Phone Montse Olivier NP Primary Care Provider [phone] Encounter Details Date Type Department Care Team (Late st Contact Info) Description 05/22/2017 Conversion Encounter [facility] - [address], [address] [place] [address] Montse Olivier NP [address] [place] [address] Social History Tobacco Use Types Packs/Day Years [...] on filedocumented in this encounter Care Teams Unit Supervisor Relationship Specialty Start Date End Date Montse Olivier NP [address] [place] [address] PCP - General 12/04/16 01/21/24 documented as of this encounter
--- OUTSIDE RECORDS SUMMARY | 2025-01-14 10:50 | XMS_ITS | Clinical Summary ---
Author Organization [facility] Address [address] [place] [address] Phone Care Team Providers Care Monogram And Letter Paster Name Role Phone Unavailable Primary Care Provider [...] complete this topic Procedures * Due to [facility] law, this organization might not be sharing sensitive test results. Procedure Name Priority Date/Time Associated Diagnosis Comments CHLAMYDIA DNA PROBE, DIRECT Routine 05/13/2015 12:00 AM EDT from Last 3 Months or Most Recently Relevant to Health Maintenance Results * Due to [place] [employer] law, this organization might not be sharing sensitive test results. * Chlamydia DNA probe, direct (05/13/2015 12:00 AM EDT) Chlamydia trachomatis amplified RNA(Conversion) Negative CONVERTED LABS Comment: Edilma Sepulveda 05/13/2015 05:10:08 PM > Negative Reason: Received -[facility] Lab Order Mountain Services Manager CHLAMYDIA SOURCE URINE CON VERTED LABS Comment: Edilma Sepulveda 05/13/2015 05:10:08 PM > Negative Reason: Received -[facility] Lab Order Mountain Services Manager CHLAMYDIA TRACHOMATIS AMPLIFIED RNA Negative CONVERTED LABS Comment: Edilma Sepulveda 05/13/2015 05:10:08 PM > Negative Reason: Received -[facility] Lab Order Mountain Services Manager 05/13/2015 Narrative CONVERTED LABS - 05/13/2015 12:00 AM EDT Chlamydia DNA Probe us Edilma Sepulveda [facility] MICROBIOLOGY - GENERAL ORD ERABLES Final Result CONVERTED LABS from Last 3 Months or Most Recently Relevant to Health Maintenance
== END ==
LOC: HO.CARD 10:02
PROVIDERS: PCP Family Medicine; Visit Provider Internal Medicine
DX: R00.2 Palpitations (principal); R06.02 Shortness of breath
CPT/HCPCS: 93242; 93306

== ENCOUNTER → 2025-01-14 10:06 | Outpatient (BNV) | payer OTHER, SELFPAY | PROVIDERS: PCP Family Medicine; Visit Provider Internal Medicine | DX: R00.2 Palpitations (principal) | CPT/HCPCS: 93306 ==

== ENCOUNTER 2025-03-03 13:34 | Outpatient (AMB) | payer OTHER, SELFPAY ==
[2025-03-03 13:36] VITALS: BP 124/80; PULSE 99; BMI 38.3
--- NOTE | 2025-03-03 13:36 | A.OFFVIS_ITS ---
Vital Signs 03/03/25 13:36 Height 4 ft 11 in Weight 189 lb 9.561 oz BMI 38.3 BP 124/80 Blood Pressure Location Lt brachial Position Sitting Pulse 99 Intake Visit Reasons: f/up holter/echo/ HS Intake Note: Follow-up after holter and echo still has some palpitations Grade And Center Marker Required: No Allergies copper [COPPER] Allergy (Unknown, Verified 12/03/24 22:01) RASH/HIVES nickel [NICKEL] Allergy (Unknown, Verified 12/03/24 22:01) RASH/HIVES acetaminophen [From Tylenol] Adverse Reaction (Verified 12/03/24 22:01) Gastrointestinal Upset sumatriptan Adverse Reaction (Verified 12/03/24 22:01) Nausea and Vomiting Medication List - Last Reconciled 03/03/25 by Dillon Montgomery NP aripiprazole 10 mg PO DAILY escitalopram oxalate 5 mg PO DAILY medroxyprogesterone (Depo-Provera) 150 mg IM [id number] meloxicam 7.5 mg PO DAILY PRN ondansetron 4 mg PO Q8H PRN propranolol 10 mg PO BID topiramate 50 mg PO DAILY HPI Comments Details: This is a 29-year-old female patient coming in for a follow-up visit. Patient was previously seen for palpitations and shortness of breath and has since undergone a Holter study and an echocardiogram. Today, patient continues to report symptoms of palpitations that can occur at rest as well as with exertion. This is accompanied by some shortness of breath and dizziness. Patient reports that the dizziness is also sometimes noticed with positional changes. Patient is however denying any other associated symptoms including exertional chest pain, orthopnea, PND, leg edema, presyncope, or syncope. Patient notes that she has been started on propranolol couple of weeks ago for her anxiety. [facility] Medical History Asthma Surgical History Hx of colonoscopy History of esophagogastroduodenoscopy (EGD) Hx of tonsillectomy Family History Mother No problems noted. 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 Sexual orientation: Straight/Heterosexual Gender identity: Female Review of Systems Const Denies chills, Denies fatigue, Denies fever(s), Denies frequent falls, Denies weakness, Denies weight gain and Denies weight loss ENT Denies dizziness Card Denies chest pain, Denies leg edema, Denies lightheadedness, Denies palpitations, Denies dyspnea, Denies dyspnea on exertion, Denies orthopnea and Denies other (loss of consciousness) Resp Denies cough, Denies dyspnea and Denies dyspnea on exertion GI Denies hematochezia and Denies change in stool character Musc Denies abnormal gait, Denies muscle weakness, Denies numbness, Denies radiating pain into limb and Denies tingling Neuro Denies abnormal gait, Denies dizziness, Denies frequent falls, Denies numbness, Denies tingling and Denies weakness Endo Denies fatigue and Denies palpitations Physical Exam Vital Signs: Last Vital Signs Pulse 99 03/03/25 13:36 BP 124/80 03/03/25 13:36 BMI result Body Mass Index 38.3 Const General: cooperative, healthy appearing, comfortable and no acute distress Orientation/consciousness: patient oriented x3 HEENT Head: Yes normal to inspection Neck Neck: Yes normal visual inspection, Yes trachea midline and Yes supple Chest Chest palpation & inspection: normal inspection of the chest Resp Effort & Inspection: normal respiratory effort Auscultation: clear to auscultation bilaterally, no crackles, no rales, no rhonchi and no wheezes Cardio Jugular venous distension: no JVD Palpation: normal PMI Rate: regular rate Rhythm: regular rhythm Heart sounds: S1 normal heart sound present, S2 normal heart sound present, no click, no gallops, no murmurs and no rubs Peripheral pulses: Peripheral pulses 2+ throughout GI Inspection: Yes normal to inspection Palpation (GI): Soft to palpation Auscultation: normal bowel sounds Skin General skin exam: no rashes or lesions noted Neuro General: patient oriented x3 Extrem General: Yes normal to inspection, No no pedal edema and No calf tenderness Psych Appearance: grossly normal Mental Status: mental status grossly normal Speech and movement: Normal speech and movement present Assessment & Plan Assessment & Plan (1) Heart palpitations: Code(s): R00.2 - Palpitations Category: Medical (2) Dizziness: Code(s): R42 - Dizziness and giddiness Category: Medical (3) SOB (shortness of breath): Code(s): R06.02 - Shortness of breath Category: Medical Plan 01/14/2025-echo study showed a normal LV systolic function with an ejection fraction at 68%, without any wall motion abnormalities or valvular pathology. 01/14/2025-patient also underwent a Holter study that showed baseline normal sinus rhythm with average heart rate of 92 beats per minute with a frequent sinus tachycardia 30% of the time. Patient's ongoing symptoms may be related to sinus tachycardia. Therefore we will start patient on a low-dose of diltiazem to help with the rate control. However, her symptoms could also be related to panic or anxiety. Advised stress medication strategies. Due to her reports of ongoing dizziness and palpitations sometimes with positional changes, we will get a tilt-table study. Advised heart healthy diet, regular exercise, adequate hydration, avoiding stimulants including alcohol and caffeinated beverages, slowly changing positions, and losing weight. We will follow-up with the completion of tilt-table test. In the interim, patient will call the office with any concerns or change in symptoms. This note was generated using voice recognition software. While every effort has been made to ensure accuracy and proper life educator, there may be occasional errors that could affect the content or meaning of the described symptoms. Orders: Orders ECG Tilt Table Test Today R00.2 - Palpitations, R42 - Dizziness and giddiness Medications: New diltiazem HCl ER 60 mg PO BID 120 caps 3RF Coding Level of Care Code Est Pt Level 4 (75838) Complex EM visit Add On G2211 Diagnoses Heart palpitations R00.2 Dizziness R42 SOB (shortness of breath) R06.02 Time Spent (min) 32 Comment Time spent in reviewing the chart, test results, assessment, counseling and documentation.
--- OUTSIDE RECORDS SUMMARY | 2025-03-03 14:06 | XMS_ITS | Encounter Summary ---
Author Organization [facility] Address [address] [place] [address] Phone Care Team Providers Care Drier Operator Head Name Role Phone Montse Olivier NP Primary Care Provider Encounter Details Date Type Department Care Team (Late st Contact Info) Description 05/22/2017 Conversion Encounter [facility] Pediatrics - [address], [address] [place] [address] Montse Olivier NP [address] [place] [address] Social History Tobacco Use Types Packs/Day Years [...] on filedocumented in this encounter Care Teams Drier Operator Head Relationship Specialty Start Date End Date Montse Olivier NP [address] [place] [address] PCP - General 12/04/16 01/21/24 documented as of this encounter
--- OUTSIDE RECORDS SUMMARY | 2025-03-03 14:06 | XMS_ITS | Encounter Summary ---
Author Organization [employer] Address [address] [facility] 7 [place] [address] Care Team Providers Care Risk And Insurance Consultant Name Role Phone Janet Pierson MD Primary Care Provider [phone] Reason for Visit * Reason Onset Date Comments Nurse Triage 12/03/2024 Encounter Details Date Type Department Care Team ([facility] st Contact Info) Description 12/03/2024 Telephone [facility] CHC MED & PEDS [address] [place], [place] [phone] Janet Pierson MD [address] [place], [place] [phone] Nurse Triage Social History Tobacco Use Types [...] Please assist with obtaining discharge summary for [facility] ED visit on 12/02/2024 for provider review prior to upcoming appointment. Future Appointments Date Time Provider Department Center 12/03/2024 2:00 PM [facility] 01/12/2025 9:15 AM Rosa Joy MD [facility] * Telephone Encounter - Columba Meyers RN - 12/03/2024 11:10 AM EST Call returned to Milka Ambrose to triage below. No [facility] ED notes available in chart. Per pt was instructed to follow up with [facility] Cardiology, Dr Francisco. Pt did call today and was directedto have PCP follow up with PCP first. Pt also tx for migraine headache. Pt denies any CP or palpitations today. Pt needing PCP referral for Cardiology follow up. Pt has [facility] notes given at discharge. Denies any Rx at discharge. Pt agrees to sick on site today with [facility] provider. Protocol Used: Recent Medical Visit for Illness Follow-up Call (Adult) Protocol-Based Disposition: See in Office or Video Visit Today or Tomorrow Future Appointments Date Time Provider Department Center 12/03/2024 2:00 PM [facility] 01/12/2025 9:15 AM Rosa Joy MD [facility] Insurance verified as active per Real Time Eligibility in [facility]. Video visit offer not recorded Positive Triage Question: * Patient wants to be seen * All higher-acuity triage questions were negative Care Advice Discussed: * Reasons To Call Back - You become worse * Telephone Encounter - Monique Donald - 12/03/2024 10:58 AM EST Patient calling to report ED visit on : Date: 12/02/24 Hospital: [facility] Seen for: chest pain and fast heart rate Symptomatic Yes *if yes message should go to Triage Patient advised will forward to team nurse for follow up documented in this encounter Plan of Treatment Upcoming Encounters Date Type Department Care Team (Late st Contact Info) Description 03/25/2025 1:00 PM EDT Clinical Support [facility] MED & PEDS [address] [place] [address] 04/08/2025 11:30 AM EDT Office Visit [facility] MED & PEDS [address] [place] [address] Janet Pierson MD [address] [place] [address] documented as of this encounter Visit Diagnoses Not on filedocumented in this encounter Additional Health Concerns Assessment Noted Time PHQ-9 Depression Total Score: 7 05/08/20 24 9:13 AM EDT documented as of this encounter Care Teams Risk And Insurance Consultant Relationship Specialty Start Date End Date Janet Pierson MD [address] [place] [address] PCP - General Family Medicine 09/13/23 documented as of this encounter
--- OUTSIDE RECORDS SUMMARY | 2025-03-03 14:06 | XMS_ITS | Clinical Summary ---
Author Organization [employer] Address [address] [place] [address] [address] [place] [address] Care Team Providers Care Analytics Specialist Name Role Phone Janet Pierson MD Primary Care Provider [phone] Allergies Active Allergy Reactions Criticality Noted Date [...] 1 mL 3 07/01/20 24 2024 Active ondansetron ODT (Zofran-ODT) 4 MG disintegrating tablet TAKE 1 TABLET ORALLY EVERY 8 HOURS NEEDED FOR NAUSEA AND VOMITING (*INS LIMITS 9 TABS/30 DAYS) 09/05/20 24 Active albuterol (Ventolin HFA) 108 (90 Base) MCG/ACT inhaler INHALE 2 PUFFS BY MOUTH EVERY 6 HOURS NEEDED FOR SHORTNESS OF BREATH OR WHEEZING OR COUGH 18 g 3 01/13/20 25 Active phentermine 37.5 MG capsule Take 1 capsule (37.5 mg) by mouth before breakfast. 30 capsule 02/05/20 25 2024 Active topiramate (Topamax) 50 MG tablet Take 1 tablet (50 mg) by mouth Once per day. 9 tablet 02/05/20 25 Active nystatin (Nystop) 438526 UNIT/GM powderIndications :Candidal intertrigo Apply topically 2 times daily. 60 g 3 02/19/20 25 2025 Active propranolol (Inderal) 10 MG tabletIndications :Generalized anxiety disorder Take 1 tablet (10 mg) by mouth if needed in the morning and at bedtime (Anxiety). 60 tablet 1 02/26/20 25 2024 Active ARIPiprazole (Abilify) 10 MG tabletIndications :Mood disorder (CMS/HCC) Take 1 tablet (10 mg) by mouth Once per day. 30 tablet 1 02/26/20 25 2024 Active escitalopram (Lexapro) 5 MG tabletIndications :Generalized anxiety disorder Take 1 tablet (5 mg) by mouth in the morning. 30 tablet 1 02/26/20 25 2024 Active doxepin (SINEquan) 10 MG capsule Take 1 capsule (10 mg) by mouth at bedtime. 30 capsule 11 08/03/20 24 2024 Discontinued(I neffective) divalproex (Depakote ER) 250 MG 24 hr tabletIndications :Migraine Take 250 mg by mouth Once per day. Do not crush, chew, or split. 2024 Discontinued(I neffective) hydrOXYzine pamoate (Vistaril) 50 MG capsuleIndication s:Generalized anxiety disorder Take 1 capsule (50 mg) by mouth every 8 (eight) hours if needed for itching. 90 capsule 12/25/19 25 2024 Discontinued(I neffective) ARIPiprazole (Abilify) 10 MG tabletIndications :Mood disorder (CMS/HCC) Take 1 tablet (10 mg) by mouth Once per day. 30 tablet 02/09/20 25 2024 Discontinued(R eorder (will not trigger notification to Pharmacy)) propranolol (Inderal) 10 MG tabletIndications :Generalized anxiety disorder Take 1 tablet (10 mg) by mouth if needed in the morning and at bedtime (Anxiety). 60 tablet 02/09/20 25 2024 Discontinued(R eorder (will not trigger notification to Pharmacy)) traZODone (Desyrel) 150 MG tabletIndications :Moderate episode of recurrent major depressive disorder (CMS/HCC),Primary insomnia Take 1 tablet (150 mg) by mouth if needed at bedtime for sleep or depression. 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 FU PAP results. [...] recommended reduction of 20-30% of maintenance calories; caustic loader referral offered. Recommended to decrease soda and [...] recommended reduction of 20-30% of maintenance calories; caustic loader referral offered. Recommended to decrease soda and sugary beverage consumption. Recommended at least 20 g per meal of protein to assist with satiety. Recommended at least 150 min/week of moderate intensity exercise. Assessment & Plan (09/13/2023 2:05 PM EST): Discussed calorie deficit, recommended reduction of 20-30% of maintenance calories; caustic loader referral offered. Recommended to decrease soda and [...] treatment engagement. PLAN: 1. Follow up with [facility]: Recommended for follow-up: as needed 2. Patient goal is to engage in MH services 3. Behavioral Recommendations a. Ind. Therapy referral will be submitted b. Use of coping skills provided c. Take medication as prescribed. d. [facility] contact number for support Assessment [...] her gynecology consultation. A referral to a extended day teacher is made for further evaluation and discussion [...] organization. Date Type Department Care Team Description 02/22/2025 Travel 02/18/2025 10:30 AM EDT Office Visit [facility] [address] [place] [address] Rosa Joy MD Candidal intertrigo (Primary Dx); Moderate episode of recurrent major depressive disorder ([facility]) 02/18/2025 Travel 02/11/2025 Travel 02/04/2025 11:30 AM EDT Office Visit [facility] [address] [place] [address] Jan Briseno MD Class 2 obesity due to excess calories without serious comorbidity with body mass index (BMI) of 39.0 to 39.9 in adult (Primary Dx) 02/04/2025 Travel 02/01/2025 Travel 01/10/2025 Refill [facility] [address] [place] [address] Rosa Joy MD 01/07/2025 Refill [facility] [address] [place] [address] Rosa Joy MD Generalized anxiety disorder 01/05/2025 Travel 12/28/2024 9:45 AM EDT Clinical Support [facility] [address] [place] [address] Leslye Holder, hog ringer planning 12/28/2024 Travel 12/25/2024 Telephone [facility] [address] [place] [address] Janet Pierson MD Appointment Request 12/24/2024 11:15 AM EDT Office Visit [facility] [address] [place] [address] Rosa Joy MD Generalized anxiety disorder (Primary Dx) 12/24/2024 Travel 12/18/2024 Travel 12/16/2024 Telephone [facility] [address] [place] [phone] Janet Pierson MD Appointment Request from Last 3 Months Immunizations Immunization Administration Dates Next Due DTaP 03/13/2001, 8,1996,1996, [...] Sign Reading Time Taken Comments Blood Pressure 137/78 02/18/2025 10:44 AM EDT Pulse 90 02/18/2025 10:44 AM EDT Temperature 36.7 ??C (98 ??F) 02/18/2025 10:44 AM EDT Respiratory Rate 20 02/18/2025 10:44 AM EDT Oxygen Saturation 99% 02/18/2025 10:44 AM EDT Inhaled Oxygen Concentration - - Weight 88.5 kg (195 lb) 02/18/2025 10:44 AM EDT Height 149.9 cm (4' 11 ) 02/18/2025 10:44 AM EDT Body Mass Index 39.39 02/18/2025 10:44 AM EDT Plan of Treatment Upcoming Encounters Date Type Department Care Team ([facility] st Contact Info) Description 03/25/2025 1:00 PM EDT Clinical Support [facility] [address] [place] [address] 04/08/2025 11:30 AM EDT Office Visit [facility] [address] [place] [address] Janet Pierson MD [address] [place] [address] Health Maintenance Due Date Last Done Comments [...] 07/03/2025 07/03/2024 Alcohol/Substance Use Screening 08/03/2025 08/03/2024 Disability Screening 12/03/2025 12/03/2024 Depression Screening 12/24/2025 12/24/2024, 05/08/20 Tobacco Screening 02/25/2026 02/25/2025 DTaP/Tdap/Td Vaccines (9 - Td or Tdap) [...] age to complete this topic Meningococcal B Vaccine Aged Out No l onger eligible based on patient's age to complete this topic RSV under 20 months Aged Out No longe r eligible based on patient's age to complete this topic Rotavirus Vaccines Aged Out No longer eligible based on patient's age to complete this topic Procedures Procedure Name Priority Date/Time Associated Diagnosis Comments POCT , URINE Routine 12/28/2024 9:45 AM EDT Family planning HIV 1/2 ANTIGEN/ANTIBODY, FOURTH GENERATION W/RFL Routine [...] obesity type, unspecified whether serious comorbidity present (CMS/[facility]) from Last 3 Months or Most Recently Relevant to Health Maintenance Results * POCT Urine (12/28/2024 9:45 AM EDT) Preg Test, Ur Negative Negative, Indeterminate, None Detected, Invalid, Specimen unsatisfactory for evaluation, Weakly Positive Urine 12/28/2024 9:45 AM EDT us Qing Wilder MD POINT OF CARE TEST ENTER/EDIT ORDERABLES Final Result * HIV-1/2 Antigen and Antibodies, Fourth Generation, with Reflexes (08/03/2024 4:02 PM EDT) Pathologist [facility] [place] HIV AB/AG Nonreactive Nonreactive [facility] Comment:HIV-1 p24 Ag and/or HIV-1/HIV-2 Ab not detected.A test result that is nonreactive does not exclude thepossibility of exposure to or infection with HIV-1 and/orHIV-2. Nonreactive results in this assay for individualswith prior exposure to HIV-1 and/or HIV-2 may be due toantigen and antibody levels that are below the limit ofdetection of this assay.The [employer] HIV Ag/Ab Combo assay result andsupplemental assay results should be interpreted inconjunction with the patient's clinical presentation,history and other laboratory results. If the results areinconsistent with clinical evidence, additional testing issuggested to confirm the result. Blood Venous blood specimen / Unknown 08/03/2024 4:02 PM EDT 08/03/2024 5:21 PM EDT us Janet Pierson MD LAB BLOOD ORDERABLES Final Re sult [facility] [address] [place] [phone] * Image-Guided Pap with Age-Based Screening??with CT/NG,??Trichomonas (11/14/2023 10:42 AM EST) Pathologist [facility] [place] Trichomonas (NAAT) NOT DETECTED NOT DETECTED [facility] Comment:The analytical perfo rmance characteristics of thisassay have been determined by [employer]. Themodifications have not been cleared or approved bythe FDA. This assay has been validated pursuant to theIA regulations and is used for clinical purposes.For additional information, please refer tohttp://education.RealityMine/faq/Trichomonastma(This link is being provided for information/educational purposes only.)THIS TEST WAS PERFORMED AT:[facility] [place] [phone] CRAMER MD CTNG Ref Lab NOT DETECTED NOT DETECTED [facility] NG Ref Lab NOT DETECTED NOT DETECTED [facility] [employer]ervix 11/14/2023 10:4 2 AM EST 11/15/2023 9:40 AM EST Janet Pierson MD LAB CYTOLOGY ORDERABLES Final Result Performing Organization Address [facility]/ZIP Co de Phone Number [facility] [address] [place] [phone] * Hepatitis C Ab (09/16/2023 8:46 AM EST) Pathologist [facility] [place] Hepatitis C Antibody Nonreactive Nonreactive [facility] Comment:Antibodies to HCV no t detected; does not exclude early acuteHCV infection. Blood Venous blood specimen / Unknown 09/16/2023 8:46 AM EST 09/16/2023 2:37 PM EST Janet Pierson MD LAB BLOOD ORDERABLES Final Re sult Performing Organization Address [facility]/ZIP Co de Phone Number [facility] [address] [place] [phone] * (ABNORMAL) Lipid Panel, Standard (09/16/2023 8:46 AM EST) Triglycerides 108 <150 mg/dL [facility] Comment:Desirable Triglyceri de: less than 150 mg/dLBorderline High Triglyceride 150-199 mg/dLHigh Triglyceride: 200-499 mg/dLVery High Triglyceride: greater than or equal to 5OO mg/dL Cholesterol 171 <200 mg/dL [facility] Comment:Desirable Cholestero l: less than 200 mg/dLBorderline High Cholesterol: 200-239 mg/dLHigh Cholesterol: greater than 239 mg/dL LDL Cholesterol Calculated 118(H) <100 mg/dL [facility] Comment:Desirable LDL: less than 100 mg/dLNear Optimal/Above Optimal LDL: 110- 129 mg/dLBorderline High LDL: 130-159 mg/dLHigh LDL: 160-189 mg/dLVery High LDL: greater than or equal to 190 mg/dL HDL Cholesterol 32(L) >40 mg/dL [facility] Comment:Desirable HDL: great er than 40 mg/dL Note: This HDL assay may give artificially low results in patients with liver disease. Blood Venous blood specimen / Unknown 09/16/2023 8:46 AM EST 09/16/2023 2:37 PM EST us Janet Pierson MD LAB BLOOD ORDERABLES Final Re sult [facility] [address] [place] [phone] from Last 3 Months or Most Recently Relevant to Health Maintenance Insurance [facility] Care Teams Analytics Specialist Relationship Specialty Start Date End Date Janet Pierson MD [address] [place] [address] PCP - General Family Medicine 09/13/23
--- OUTSIDE RECORDS SUMMARY | 2025-03-03 14:06 | XMS_ITS | Clinical Summary ---
Author Organization [facility] Address [address] [place] [address] Care Team Providers Care Computer Technology Instructor Name Role Phone Unavailable Primary Care Provider [...] - 2023-2 5 season) 2024 Influenza Vaccine (Season Ended) 2025 HIB Vaccines Aged Out No longer eligi [...]
--- OUTSIDE RECORDS SUMMARY | 2025-03-03 14:06 | XMS_ITS | Encounter Summary ---
Author Organization [employer] Address [address] [place] [address] Care Team Providers Care Field Court Researcher Name Role Phone Janet Pierson MD Primary Care Provider [phone] Reason for Visit * Reason Onset Date Comments Appointment Request 12/16/2024 Encounter Details Date Type Department Care Team ([facility] st Contact Info) Description 12/16/2024 Telephone [facility] [address] [place] [address] Janet Pierson MD [address] [place], [place] [phone] Appointment Request Social History Tobacco Use Types [...] Miscellaneous Notes * Telephone Encounter - Braulio Ceballosyes - 12/16/2024 12:51 PM EST Tc from pt requesting to r/s Sick on site appt on 12/16/2024. documented in this encounter Plan of Treatment Upcoming Encounters Date Type Department Care Team (Late st Contact Info) Description 03/25/2025 1:00 PM EDT Clinical Support [facility] [address] [place] [address] 04/08/2025 11:30 AM EDT Office Visit [facility] [address] [place] [address] Janet Pierson MD [address] [place] [address] documented as of this encounter Visit Diagnoses Not on filedocumented in this encounter Additional Health Concerns Assessment Noted Time PHQ-9 Depression Total Score: 7 05/08/20 24 9:13 AM EDT documented as of this encounter Care Teams Field Court Researcher Relationship Specialty Start Date End Date Janet Pierson MD [address] [place] [phone] PCP - General Family Medicine 09/13/23 documented as of this encounter
--- OUTSIDE RECORDS SUMMARY | 2025-03-03 14:06 | XMS_ITS | Clinical Summary ---
Author Organization [facility] Address [address] [place] [phone] Phone Care Team Providers Care Trimmer Press Clippings Name Role Phone Unavailable Primary Care Provider [...] complete this topic Procedures * Due to [facility] law, this organization might not be sharing sensitive test results. Procedure Name Priority Date/Time Associated Diagnosis Comments CHLAMYDIA DNA PROBE, DIRECT Routine 05/13/2015 12:00 AM EDT from Last 3 Months or Most Recently Relevant to Health Maintenance Results * Due to [place] [facility] law, this organization might not be sharing sensitive test results. * Chlamydia DNA probe, direct (05/13/2015 12:00 AM EDT) Chlamydia trachomatis amplified RNA(Conversion) Negative [facility] Comment: Edilma Sepulveda 05/13/2015 05:10:08 PM > Negative Reason: Received -[facility] Lab Order Nuclear Medical Tech CHLAMYDIA SOURCE URINE CON VERTED LABS Comment: Edilma Sepulveda 05/13/2015 05:10:08 PM > Negative Reason: Received -[facility] Lab Order Nuclear Medical Tech CHLAMYDIA TRACHOMATIS AMPLIFIED RNA Negative [facility] Comment: Edilma Sepulveda 05/13/2015 05:10:08 PM > Negative Reason: Received -[facility] Lab Order Nuclear Medical Tech 05/13/2015 Narrative [facility] - 05/13/2015 12:00 AM EDT Chlamydia DNA Probe us Edilma Sepulveda CUSTOMER BUSINESS MANAGER LAB MICROBIOLOGY - GENERAL ORD ERABLES Final Result [facility] from Last 3 Months or Most Recently Relevant to Health Maintenance
--- OUTSIDE RECORDS SUMMARY | 2025-03-03 14:06 | XMS_ITS | Encounter Summary ---
Author Organization [employer] Address [address] [facility] [address] [place] [address] Care Team Providers Care Welt Rougher Name Role Phone Janet Pierson MD Primary Care Provider [phone] Reason for Visit * Reason Comments Med Change Request Encounter Details Date Type Department Care Team ([facility] Contact Info) Description 01/07/2025 Refill [facility] [address] [place], [place] [phone] Rosa Joy MD [address] [place], [place] [phone] Generalized anxiety disorder Social History Tobacco Use [...] Description 03/25/2025 1:00 PM EDT Clinical Support [facility] [address] [place] [address] 04/08/2025 11:30 AM EDT Office Visit [facility] [address] [place] [address] Janet Pierson MD [address] [place] [address] documented as of this encounter Visit Diagnoses Diagnosis Generalized anxiety disorder documented in this encounter Additional Health Concerns Assessment Noted Time PHQ-9 Depression Total Score: 7 05/08/20 24 9:13 AM EDT documented as of this encounter Care Teams Welt Rougher Relationship Specialty Start Date End Date Janet Pierson MD [address] [place] [phone] PCP - General Family Medicine 09/13/23 documented as of this encounter
== END 2025-03-03 14:09 | disposition home or self-care (01) ==
LOC: HO.HCS 13:34
PROVIDERS: PCP Family Medicine
DX: R00.2 Palpitations (principal); R42 Dizziness and giddiness; R06.02 Shortness of breath
CPT/HCPCS: 99214; G2211

== ENCOUNTER → 2025-03-03 13:34 | Outpatient (BNVA) | payer OTHER, SELFPAY | PROVIDERS: PCP Family Medicine | DX: R00.2 Palpitations (principal); R06.02 Shortness of breath; R42 Dizziness and giddiness | CPT/HCPCS: 99212 ==

== ENCOUNTER 2025-05-24 02:56 | Emergency (ER) | payer OTHER, SELFPAY ==
[2025-05-24] VITALS (7 sets, daily range): BP systolic 103–127; BP diastolic 55–81; PULSE 72–96; RESP 16–20; TEMP 36.7–37.2; O2SAT 98–100; BMI 41.4
--- NOTE | ~2025-05-24 | XR_ITS ---
EXAMINATION: XR CHEST 2 VIEWS HISTORY: sob, chest tightness COMPARISON: Comparison is made with the prior examination dated 10/02/2023. FINDINGS: PA and lateral views of the chest are submitted. The lungs are expanded and clear. There is no pleural effusion, pneumothorax, or pulmonary vascular congestion. The heart is normal in size. The bones are intact. XR/XR chest 2V IMPRESSION: No acute cardiopulmonary abnormality. Electronically signed by: Linden Turner MD 05/24/2025 08:49 AM EDT
--- NOTE | 2025-05-24 03:05 | ECG_ITS ---
Test Reason : CHEST TIGHTNESS, SOB Blood Pressure : */* mmHG Vent. Rate : 86 BPM Atrial Rate : 86 BPM P-R Int : 144 ms QRS Dur : 70 ms QT Int : 350 ms P-R-T Axes : 53 41 44 degrees QTcB Int : 418 ms Normal sinus rhythm Normal ECG When compared with ECG of 03-Dec-2024 22:11, No significant change was found Referred By: Generic ED Physician Electronically Signed By: Heriberto Kinsey
[2025-05-24 03:23] LABS: Hematocrit 38.7 % (37.0-47.0); Hemoglobin 12.9 g/dl (12.0-16.0); Imm Gran Abs Auto 0.03 X10*3/uL (0.00-0.03); Imm Gran Pct Auto 0.3 % (0.0-0.4); Lymphocytes Absolute Auto 3.6 X10*3/uL (1.2-4.9); MANUAL DIFF FLAG NO; Mean Corpuscular HGB Conc 33.3 g/dl (31.0-35.0); Mean Corpuscular Hemoglobin 25.9 pg (27.0-33.0); Mean Corpuscular Volume 77.7 fL (80.0-98.0); NRBC Abs Auto 0.000 X10*3/uL (0.0-0.012); NRBC Pct Auto 0.0 /100WBC (0.0-0.2); Platelet Count 335 X10*3/uL (160-400); Red Blood Count 4.98 X10*6/uL (4.20-5.50); White Blood Count 10.2 X10*3/uL (4.8-10.8)
[2025-05-24 03:38] LABS: Alanine Aminotransferase 17 U/L (0-31); Albumin Level 3.9 g/dL (3.5-5.0); Alkaline Phosphatase 68 U/L (39-117); Anion Gap 11 (12-20); Aspartate Amino Transferase 15 U/L (5-31); Blood Urea Nitrogen 15 mg/dL (9-16); Calcium 8.7 mg/dL (8.4-10.2); Carbon Dioxide 22 mmol/L (22-29); Chloride 113 mmol/L (96-108); Creatinine Clr Calc Pharmacy 107.4; Estimated Glomerular Filt Rate > 60; Potassium 3.7 mmol/L (3.3-5.1); Sodium 142 mmol/L (135-145); Total Protein 6.5 g/dL (6.5-8.0)
[2025-05-24 03:47] LABS: Troponin-I High Sensitivity < 2.7 ng/L (<3.5-17.0)
--- OUTSIDE RECORDS SUMMARY | 2025-05-24 07:46 | XMS_ITS | Clinical Summary ---
Author Organization [facility] Address [address] [place] [address] Phone Care Team Providers Care Medical Housekeeper Name Role Phone Physician, No Pcp Primary Care Provider Unavaila ble Encounters Date Type Department Care Team Description 04/27/2025 2:03 PM EDT - 04/27/2025 11:59 PM EDT Hospital Encounter [facility] Xray [address] [place] [address] Dizziness and giddiness Discharge Disposition: Home or Self Care from Last 3 Months Social History Tobacco Use Types Packs/Day Years Used Date Smoking Tobacco: Never Assessed Comments Unknown Sex and Gender Information Value Date Recorded Sex Assigned at Not on file Legal Sex Female 12:18 AM EST Gender Identity Not on file Sexual Orientation Not on file Plan of Treatment Health Maintenance Due Date Last Done Comments Pneumococcal Vaccine: Pediatrics (0 to 5 Years) and At-Risk Patients (6 to 49 Years) (1 of 2 - PCV) 2015 Cervical Cancer Screening: Pap Smear 2017 COVID-19 Vaccine ( season) 2024 05/27/2021, 04/29/2021 Depression Screening 10/14/2024 Hepatitis C Screening 03/05/2025 Social Influencers of Health Screening 03/05/2025 Influenza Vaccine (#1) 2025 08/25/2018, 2015 DTaP,Tdap,and Td Vaccines (8 - Td or Tdap) 09/24/2026 09/24/2016, 12/10/2007, 03/13/2001, Additional history exists Cholesterol Screening (Lipid Panel) 09/16/2028 09/16/2023 Hepatitis B Vaccines Completed 01/15/1997, 1996, 1996 HIB Vaccines Completed 12/01/1997, 09/15, 1996, Additional history exists IPV Vaccines Completed 03/13/2001, 09/15, 1996, Additional history exists MMR Vaccines Completed 03/13/2001, 12/01/1997 HPV Vaccines Completed 07/06/2008, 0502/2008, 12/10/2007 Meningococcal ACWY Vaccine Completed 04/05, 04/05/2014, 12/10/2007, Additional history exists Varicella Vaccines Completed 06/23/2015, 0 05/23/2015, 02/01/1999 HIV Screening Completed 08/03/2024 Hepatitis A Vaccines Aged Out No long er eligible based on patient's age to complete this topic Meningococcal B Vaccine Aged Out No l onger eligible based on patient's age to complete this topic RSV Immunization Patients Under 20 months Aged Out No longer eligible based on patient's age to complete this topic Procedures Procedure Name Priority Date/Time Associated Diagnosis Comments TILT TABLE Routine 04/27/2025 2:33 PM EDT Dizziness and giddiness from Last 3 Months Results * Tilt table (04/27/2025 2:33 PM EDT) Anatomical Region Laterality Modality Radiographic Vero ging Narrative 04/27/2025 3:16 PM EDT Pt felt very unwell for the duration of the exam but did not feel she would become syncopal. She is unsure how much her anxiety is contributing to her symptoms today. She had one PVC today that she was symptomatic with. Tilt Table The patient was brought to lab in fasting state. Patient lied supine for 5 minutes for equilibrium. Baseline ECG showed normal sinus rhythm. Baseline supine minimum BP: 128/65 mmHg Baseline supine minimum HR: 71 bpm Patient tilted to 70 degrees. Tilt maintained for 15 minutes. Minimum BP during tilt: 121/77 mmHg Maximum BP during tilt: 135/82 mmHg Minimum heart rate during tilt: 71 bpm Maximum heart rate during tilt: 100 bpm Rhythm during tilt: normal sinus rhythm Patient experienced an exaggerated HR increase with tilt. felt palpitations and dizzines with increase in hr from 70 to 95. BP stable Conclusion: Negative tilt test. Tod Bhakta MD [facility] PROCEDURES F inal Result from Last 3 Months Insurance * Guarantor: Milka Guthrie Account Type Relation to Patient Date of Phone Billing Address Personal/Family Self 1995 [address] [place] [address] [employer] Care Teams Medical Housekeeper Relationship Specialty Start Date End Date Physician, No Pcp PCP - General 04/27/25
--- OUTSIDE RECORDS SUMMARY | 2025-05-24 07:46 | XMS_ITS | Clinical Summary ---
Author Organization [facility] Address [address] [place] [phone] Phone Care Team Providers Care Lead Teacher Name Role Phone Unavailable Primary Care Provider [...] 76 05/11/2015 12:00 AM EDT Temperature 36.7 C (98.1 F) 09/20/2015 12:00 AM EST Respiratory Rate - - Oxygen Saturation - [...] 12/10/2017 12/10/2007, 03/13/2001, 12/01/1997, Additional history exists COVID-19 Vaccine ( season) 2024 Influenza Vaccines (#1) 2025 Hepatitis B Vaccines Completed 01/15/1997, 1996, 1996 [...] complete this topic Procedures * Due to [facility] law, this organization might not be sharing sensitive test results. Procedure Name Priority Date/Time Associated Diagnosis Comments CHLAMYDIA DNA PROBE, DIRECT Routine 05/13/2015 12:00 AM EDT from Last 3 Months or Most Recently Relevant to Health Maintenance Results * Due to [place] [employer] law, this organization might not be sharing sensitive test results. * Chlamydia DNA probe, direct (05/13/2015 12:00 AM EDT) Chlamydia trachomatis amplified RNA(Conversion) Negative [facility]VERT[facility] LABS Comment: Edilma Sepulveda 05/13/2015 05:10:08 PM > Negative Reason: Received -[facility] Lab Order Him Clerk CHLAMYDIA SOURCE URINE CON VERTED LABS Comment: Edilma Sepulveda 05/13/2015 05:10:08 PM > Negative Reason: Received -[facility] Lab Order Him Clerk CHLAMYDIA TRACHOMATIS AMPLIFIED RNA Negative CONVERTED LABS Comment: Edilma Sepulveda 05/13/2015 05:10:08 PM > Negative Reason: Received -[facility] Lab Order Him Clerk 05/13/2015 Narrative CONVERTED LABS - 05/13/2015 12:00 AM EDT Chlamydia DNA Probe us Edilma Sepulveda CERTIFIED SURGICAL TECHNOLOGIST LAB MICROBIOLOGY - GENERAL ORD ERABLES Final Result CONVERTED LABS from Last 3 Months or Most Recently Relevant to Health Maintenance
--- OUTSIDE RECORDS SUMMARY | 2025-05-24 07:46 | XMS_ITS | Clinical Summary ---
Author Organization [employer] Address [address] [facility] [address] [place] [address] Care Team Providers Care [employer] Name Role Phone Janet Pierson MD Primary Care Provider [phone] Allergies Active Allergy Reactions Criticality Noted Date [...] every 3 (three) months. 1 mL 3 024 2024 Active ondansetron ODT (Zofran-ODT) 4 MG disintegrating tablet TAKE 1 TABLET ORALLY EVERY 8 HOURS NEEDED FOR NAUSEA AND VOMITING (*INS LIMITS 9 TABS/30 DAYS) 024 Active albuterol (Ventolin HFA) 108 (90 Base) MCG/ACT inhaler INHALE 2 PUFFS BY MOUTH EVERY 6 HOURS NEEDED FOR SHORTNESS OF BREATH OR WHEEZING OR COUGH 18 g 3 025 Active nystatin (Nystop) 447388 UNIT/GM powderIndications :Candidal intertrigo Apply topically 2 times daily. 60 g 3 025 2025 Active propranolol (Inderal) 10 MG tabletIndications :Generalized anxiety disorder Take 1 tablet (10 mg) by mouth if needed in the morning and at bedtime (Anxiety). 60 tablet 1 025 Active ARIPiprazole (Abilify) 10 MG tabletIndications :Mood disorder (CMS/HCC) Take 1 tablet (10 mg) by mouth Once per day. 30 tablet 1 025 Active dilTIAZem SR (Cardizem SR) 60 MG 12 hr capsule Take 1 capsule by mouth 2 times daily. Active Nurtec 75 MG tablet dispersible DISSOLVE 1 TABLET ON THE TONGUE ONCE A DAY NEEDED Active phentermine 37.5 MG capsule Take 1 capsule (37.5 mg) by mouth before breakfast. 28 capsule 2 025 Active eszopiclone (Lunesta) 2 MG tablet Take 1 tablet (2 mg) by mouth at bedtime. Take immediately before bedtime 28 tablet 1 025 Active escitalopram (Lexapro) 5 MG tabletIndications :Generalized anxiety disorder TAKE 1 TABLET BY MOUTH EVERY MORNING 30 tablet 1 025 Active topiramate 50 MG tablet TAKE 1 TABLET BY MOUTH AT BEDTIME 90 tablet 025 Active topiramate (Topamax) 50 MG tablet Take 1 tablet (50 mg) by mouth Once per day. 9 tablet 025 2024 Discontinued Active Problems Problem Noted Date Diagnosed Date Sleep apnea 03/31/2025 Assessment & Plan (03/31/2025 1:27 PM EDT): STOP BANG 4 Patient reports history of snoring, especially when tired or ill. Occasionally experiences morning headaches. Risk factors include obesity and reported daytime fatigue. No recent observations of apneic episodes due to sleeping alone. Given these symptoms and risk factors, further evaluation for sleep apnea is warranted. Plan: - Order home sleep study to evaluate for obstructive sleep apnea - Instruct patient to take prescribed sleep medication on the night of the sleep study to ensure adequate sleep for accurate results - Await sleep study results for further management Mood disorder 02/08/2025 Idiopathic or primary livedo reticularis 024 Assessment & Plan (09/21/2024 3:30 PM EST): Ordering lab work and referring to Dermatology for further evaluation. Discussed medications and refills as needed. Abnormal uterine bleeding 05/08/2024 PTSD (post-traumatic stress disorder) 09/19/2023 ADHD (attention deficit hyperactivity disorder) 07/31/2023 07/31/2023 Alpha thalassemia 07/31/2023 07/31/2023 Asthma, mild intermittent 07/31/20232022 Moderate episode of recurrent major depressive d isorder 07/31/2023 07/31/2023 Fatigue 07/31/2023 07/31/2023 GERD (gastroesophageal reflux disease) 07/31/2023 Hemorrhoids, internal 07/31/2023 07/31/2023 Insomnia 07/31/2023 07/31/2023 Assessment & Plan (03/31/2025 1:25 PM EDT): Patient reports difficulty staying asleep, waking up at 1 AM after falling asleep at 9-10 PM. Previously tried doxepin and trazodone, which were discontinued due to side effects. Patient is experiencing daytime fatigue due to poor sleep quality. Given the patient's history and failed trials with other sleep medications, a different approach is warranted. Plan: - Prescribe Lunesta (eszopiclone) for sleep - Follow up via phone to assess efficacy and potential dose adjustment - Educate patient on controlled substance regulations and refill process Migraine 07/31/2023 07/31/2023 Assessment & Plan (08/03/2024 [...] Severe obesity 07/31/2023 07/31/2023 Assessment & Plan (03/31/2025 1:26 PM EDT): Patient has a history of weight loss with phentermine and topiramate, losing 33 pounds at the lowest recorded weight of 183 lbs. Current weight is 201 lbs 3 oz, indicating recent weight gain. Previous effective dose was half of a 37.5 mg tablet of phentermine. No reported palpitations or adverse effects with this dosage. Plan: - Restart phentermine 37.5 mg - Submit prescription to in-house pharmacy due to insurance coverage issues - Follow up in 6 weeks to assess efficacy and tolerability of higher dose - Encourage resumption of exercise regimen, as patient reports feeling inactive Assessment & Plan (06/16/2024 6:47 PM EDT): Discussed calorie deficit, recommended reduction of 20-30% of maintenance calories; law instructor referral offered. Recommended to decrease soda and [...] recommended reduction of 20-30% of maintenance calories; law instructor referral offered. Recommended to decrease soda and sugary beverage consumption. Recommended at least 20 g per meal of protein to assist with satiety. Recommended at least 150 min/week of moderate intensity exercise. Assessment & Plan (09/13/2023 2:05 PM EST): Discussed calorie deficit, recommended reduction of 20-30% of maintenance calories; law instructor referral offered. Recommended to decrease soda and [...] provided c. Take medication as prescribed. d. [facility] contact number for support Assessment [...] her gynecology consultation. A referral to a manager golf is made for further evaluation and discussion of permanent options. Assessment & Plan (07/31/2023 10:53 AM EDT): Pt in need of family planning. One week late depo. Still within therapeutic window. Urine HCG negative. -depo shot today -placed on list for new PCP Resolved Problems Problem Noted Date Diagnosed Date Resolved Date Concern about unplanned preg dejon without diagnosis 05/08/2024 03/31/2025 Abnormal ultrasound of endometrium 05/08/2024 03/31/2025 Skin tag 01/16/2024 03/31/2025 Assessment & Plan (01/17/2024 2:37 AM EDT): The patient reports darkening and irritation under the arms, which is suspected to be related to insulin resistance. A referral to dermatology is made for evaluation and potential removal of skin tags. The patient is advised on potential causes and management strategies for her skin condition. Mass of upper inner quadrant of left breast 11/14/2023 03/31/2025 Assessment & Plan (11/14/2023 10:41 AM EST): Was noticed that patient had a mass on L breast, therefore, patient will be sent for an ultrasound for further evaluation. Will follow up with results. 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 FU PAP results. Consider PAP smear in the next four years if today's normal. Routine PAP. FU results. No concerns for domestic violence. Left otitis media 09/13/2023 03/31/2025 Encounters * This document contains information received from the source organization and may not represent a complete record from that organization. Date Type Department Care Team Description 05/24/2025 Orders Only GENERIC EXTERNAL DATA DEPARTMENT Provider, Generic External Data 05/22/2025 Refill [facility] [address] [place] [address] Janet Pierson MD Generalized anxiety disorder 04/27/2025 Refill [facility] [address] [place] [address] Janet Pierson MD 04/23/2025 Refill [facility] [address] [place] [address] Janet Pierson MD Generalized anxiety disorder 04/08/2025 11:30 AM EDT Office Visit [facility] [address] [place] [address] Janet Pierson MD Primary insomnia (Primary Dx) 04/08/2025 Travel 04/06/2025 Telephone [facility] [address] [place] [address] Janet Pierson MD chart prep 04/02/2025 Patient Outreach [facility] [address] [place] [address] Janet Pierson MD Pre-visit Planning (SDOH screening completed on 03/31/25 ) 03/31/2025 9:45 AM EDT Office Visit [facility] [address] [place] [address] Janet Pierson MD Attention deficit hyperactivity disorder (ADHD), unspecified ADHD type (Primary Dx); Moderate episode of recurrent major depressive disorder (CMS/HCC); Primary insomnia; Sleep apnea, unspecified type; Severe obesity (CMS/HCC) 03/31/2025 Travel 03/30/2025 Travel 03/30/2025 Telephone [facility] [address] [place] [address] Janet Pierson MD chart prep 03/25/2025 1:00 PM EDT Clinical Support [facility] [address] [place] [address] 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, 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 planning [Z30.09] (Primary Dx) 03/25/2025 Travel 2025 Travel 03/15/2025 Telephone [facility] [address] [place] [address] Janet Pierson MD 03/12/2025 Telephone [facility] [address] [place] [address] Janet Pierson MD Appointment Request 03/11/2025 Refill [facility] [address] [place] [address] Jan Briseno MD 02/22/2025 Travel from Last 3 Months Immunizations Immunization Administration [...] Answer Date Recorded Patient Health Questionnaire-9 Score 12 03/31/2025 Patient Health Questionnaire-9 Score 12 03/31/2025 Last PHQ-9: Questionnaire Data Not on file 0 03/31/2025 Housing Stability Answer Date Recorded What is your housing situation today? I have mario ablerto mccollum 09/03/[address] you [...] Date Recorded Patient Health Questionnaire-2 Score 2 03/31/2025 Internet Access Answer Date Recorded Internet Access Q1 Yes 03/31/2025 Internet Access Q2 Not on file 03/31/2025 Comments Unknown Sex and Gender Information Value Date Recorded Sex Assigned at Female 07/31/2023 9:03 AM EDT Legal Sex Female 9:00 AM EDT Gender Identity Female 07/31/2023 9:03 AM EDT Sexual Orientation Straight 07/31/2023 9: 03 AM EDT Last Filed Vital Signs Vital Sign Reading Time Taken Comments Blood Pressure 134/84 04/08/2025 11:31 AM EDT Pulse 84 04/08/2025 11:31 AM EDT Temperature 36.2 C (97.2 F) 04/08/2025 11:31 AM EDT Respiratory Rate 20 04/08/2025 11:31 AM EDT Oxygen Saturation 98% 04/08/2025 11:31 AM EDT Inhaled Oxygen Concentration - - Weight 90.1 kg (198 lb 9.6 oz) 04/08/2025 11:31 AM EDT Height 149.9 cm (4' 11 ) 04/08/2025 11:31 AM EDT Body Mass Index 40.11 04/08/2025 11:31 AM EDT Plan of Treatment Upcoming Encounters Date Type Department Care Team (Late st Contact Info) Description 06/17/2025 1:00 PM EDT Clinical Support [facility] [address] [place] [address] Health Maintenance Due Date Last Done Comments Pneumococcal Vaccine: Pediatrics (0 to 5 Years) and At-Risk Patients (6 to 49) Years (1 of 2 - PCV) 2015 COVID-19 Vaccine ( season) 2024 05/27/2021, 04/29/2021 Influenza Vaccine (#1) 2025 08/25/2018, 2015 Family Planning (PISQ) 07/03/2025 07/03/2024 Depression Monitoring 09/30/2025 03/31/2025, 025 Disability Screening 12/03/2025 12/03/2024 Alcohol/Substance Use Screening 03/31/2026 03/31/2025 SDOH Screening 03/31/2026 03/31/2025 Tobacco Screening 04/08/2026 04/08/2025 DTaP/Tdap/Td Vaccines (9 - Td or Tdap) [...] Procedure Name Priority Date/Time Associated Diagnosis Comments HIGH SENSITIVITY TROPONIN I Routine 05/24/2025 3:18 AM EDT COMPREHENSIVE METABOLIC PANEL Routine 05/24/2025 3:18 AM EDT CBC WITH AUTO DIFFERENTIAL Routine 05/24/2025 3:18 AM EDT HIV 1/2 ANTIGEN/ANTIBODY, FOURTH GENERATION W/RFL Routine [...] Recently Relevant to Health Maintenance Results * High Sensitivity Troponin I (05/24/2025 3:18 AM EDT) TROPONIN I HIGH SENSITIVITY <2.7 <3.5 - 17.0 ng/L [facility] Comment:The Grimaldo high sens itivity Troponin-I results should beused in conjunction with other diagnostic information suchas ECG, clinical observations and information, and patientsymptoms to aid in the diagnosis of CO. 05/24/2025 3:18 AM EDT 05/24/2025 3:22 AM EDT us Generic External Data Provider LAB BLOOD ORDERAB LES Final Result [facility] [address] [place] [phone] [phone] * (ABNORMAL) CBC auto differential (05/24/2025 3:18 AM EDT) White Blood Count 10.2 4.8 - 10.8 X10*3/uL [facility] Red Blood Count 4.98 4.20 - 5.50 X10*6/uL [facility] Hemoglobin 12.9 12.0 - 16.0 g/dl [facility] Hematocrit 38.7 37.0 - 47.0 % [facility] Mean Corpuscular Volume 77.7(L) 80.0 - 98.0 fL [facility] Mean Corpuscular Hemoglobin 25.9(L) 27.0 - 33.0 pg [facility] Mean Corpuscular HGB Conc 33.3 31.0 - 35.0 g/dl [facility] Red Cell Distribution Width 13.9 11.0 - 16.0 % [facility] Platelet Count 335 160 - 400 X10*3/uL [facility] Mean Platelet Volume 9.9 9.4 - 12.3 fL [facility] Neutrophils Percent Auto 55.1 45 - 73 % [facility] Imm Gran Pct Auto 0.3 0.0 - 0.4 % [facility] Lymphocytes Percent Auto 35.2 20 - 40 % [facility] Monocytes Percent Auto 5.5 2 - 11 % [facility] Eosinophils Percent Auto 3.1 0 - 4 % [facility] Basophils Percent Auto 0.8 0 - 2 % [facility] NRBC Pct Auto 0.0 0.0 - 0.2 /100WBC [facility] Neutrophils Absolute Auto 5.6 2.0 - 8.3 x10*3/uL [facility] Imm Gran Abs Auto 0.03 0.00 - 0.03 X10*3/uL [facility] Lymphocytes Absolute Auto 3.6 1.2 - 4.9 X10*3/uL [facility] Monocytes Absolute Auto 0.6 0.1 - 1.2 X10*3/uL [facility] Eosinophils Absolute Auto 0.3 0.0 - 0.4 X10*3/uL [facility] Basophils Absolute Auto 0.1 0.0 - 0.2 X10*3/uL [facility] NRBC Abs Auto 0.000 0.0 - 0.012 X10*3/uL [facility] 05/24/2025 3:18 AM EDT 05/24/2025 3:22 AM EDT us Generic External Data Provider LAB BLOOD ORDERAB LES Final Result [facility] [address] [place] [address] [phone] * (ABNORMAL) Comprehensive Metabolic Panel (05/24/2025 3:18 AM EDT) Sodium 142 135 - 145 mmol/L [facility] Potassium 3.7 3.3 - 5.1 mmol/L [facility] Chloride 113(H) 96 - 108 mmol/L [facility] Carbon Dioxide 22 22 - 29 mmol/L [facility] Anion Gap 11(L) 12 - 20 [facility] Urea Nitrogen (BUN) 15 9 - 16 mg/dL [facility] Creatinine, Serum 0.77 0.5 - 1.4 mg/dL [facility] Creatinine Clr Calc Pharmacy 107.4 [facility] Comment:Provided height and weight: 149.86 cm,93 kg.eGFR (calculated from the MDRD study equation) and eCrCl(calculated from the Cockcroft-Gault equation) are based ondifferent parameters and may not yield comparable results.If eCrCl result is absurd, please check patient'sheight/weight. Estimated Glomerular Filt Rate >60 [facility] Comment:Chronic Kidney Disea se: Estimated GFR < 60 mL/min/1.79s2Vyiftx Kidney Disease: Estimated GFR < 15 mL/min/1.73m2 Glucose 105 60 - 115 mg/dL [facility] Calcium 8.7 8.4 - 10.2 mg/dL [facility] Bilirubin, Total 0.2 0.0 - 1.0 mg/dL [facility] Aspartate Amino Transferase 15 5 - 31 U/L [facility] Alanine Aminotransferase 17 0 - 31 U/L [facility] Total Protein 6.5 6.5 - 8.0 g/dL [facility] Albumin Level 3.9 3.5 - 5.0 g/dL [facility] Alkaline Phosphatase 68 39 - 117 U/L [facility] 05/24/2025 3:18 AM EDT 05/24/2025 3:22 AM EDT us Generic External Data Provider LAB BLOOD ORDERAB LES Final Result [facility] [address] [place] [phone] * HIV-1/2 Antigen and Antibodies, Fourth Generation, with Reflexes (08/03/2024 4:02 PM EDT) HIV AB/AG Nonreactive Nonreactive [facility] Comment:HIV-1 p24 Ag and/or HIV-1/HIV-2 Ab not detected.A test result that is nonreactive does not exclude thepossibility of exposure to or infection with HIV-1 and/orHIV-2. Nonreactive results in this assay for individualswith prior exposure to HIV-1 and/or HIV-2 may be due toantigen and antibody levels that are below the limit ofdetection of this assay.The Stromedix HIV Ag/Ab Combo assay result andsupplemental assay results should be interpreted inconjunction with the patient's clinical presentation,history and other laboratory results. If the results areinconsistent with clinical evidence, additional testing issuggested to confirm the result. Blood Venous blood specimen / Unknown 08/03/2024 4:02 PM EDT 08/03/2024 5:21 PM EDT Janet Pierson MD LAB BLOOD ORDERABLES Final Re sult Performing Organization Address [facility] Co de Phone Number [facility] [address] [place] [address] [phone] * Image-Guided Pap with Age-Based Screening??with CT/NG,??Trichomonas (11/14/2023 10:42 AM EST) Pathologist [facility] Trichomonas (NAAT) NOT DETECTED NOT DETECTED [facility] Comment:The analytical perfo rmance characteristics of thisassay have been determined by [employer]. Themodifications have not been cleared or approved bythe FDA. This assay has been validated pursuant to theIA regulations and is used for clinical purposes.For additional information, please refer tohttp://education.INBEP/faq/Trichomonastma(This link is being provided for information/educational purposes only.)THIS TEST WAS PERFORMED AT:[facility] [place] [phone] CRAMER MD CTNG Ref Lab NOT DETECTED NOT DETECTED [facility] NG Ref Lab NOT DETECTED NOT DETECTED [facility] Cervix 11/14/2023 10:4 2 AM EST 11/15/2023 9:40 AM EST Janet Pierson MD LAB CYTOLOGY ORDERABLES Final Result Performing Organization Address [facility] Co de Phone Number [facility] [address] [place] [address] [phone] * Hepatitis C Ab (09/16/2023 8:46 AM EST) Hepatitis C Antibody Nonreactive Nonreactive [facility] Comment:Antibodies to HCV no t detected; does not exclude early acuteHCV infection. Blood Venous blood specimen / Unknown 09/16/2023 8:46 AM EST 09/16/2023 2:37 PM EST us Janet Pierson MD LAB BLOOD ORDERABLES Final Re sult Performing Organization Address [facility] Co de Phone Number [facility] [address] [place] [phone] * (ABNORMAL) Lipid Panel, Standard (09/16/2023 8:46 AM EST) Triglycerides 108 <150 mg/dL [facility] Comment:Desirable Triglyceri de: less than 150 mg/dLBorderline High Triglyceride 150-199 mg/dLHigh Triglyceride: 200-499 mg/dLVery High Triglyceride: greater than or equal to 5OO mg/dL Cholesterol 171 <200 mg/dL [facility] Comment:Desirable Cholestero l: less than 200 mg/dLBorderline High Cholesterol: 200-239 mg/dLHigh Cholesterol: greater than 239 mg/dL LDL Cholesterol Calculated 118(H) <100 mg/dL [facility] Comment:Desirable LDL: less than 100 mg/dLNear Optimal/Above Optimal LDL: 110- 129 mg/dLBorderline High LDL: 130-159 mg/dLHigh LDL: 160-189 mg/dLVery High LDL: greater than or equal to 190 mg/dL HDL Cholesterol 32(L) >40 mg/dL [facility] Comment:Desirable HDL: great er than 40 mg/dL Note: This HDL assay may give artificially low results in patients with liver disease. Blood Venous blood specimen / Unknown 09/16/2023 8:46 AM EST 09/16/2023 2:37 PM EST us Janet Pierson MD LAB BLOOD ORDERABLES Final Re sult Performing Organization Address City/[facility]/ZIP Co de Phone Number [facility] [address] [place] [phone] from Last 3 Months or Most Recently Relevant to Health Maintenance Insurance * Guarantor: Milka Guthrie Account Type Relation to Patient Date of Phone Billing Address Personal/Family Self 1995 [address] [place] [address] [facility] 2 Care Teams [employer] Relationship Specialty Start Date End Date Janet Pierson MD [address] [place] [address] PCP - General Family Medicine 09/13/23 Yumiko Sams Consulting Physician Neurology 03/31/25 Dillon Montgomery NP Nurse Practitioner Cardiology 03/31/25
--- OUTSIDE RECORDS SUMMARY | 2025-05-24 07:46 | XMS_ITS | Clinical Summary ---
Author Organization [facility] Address [address] [place] [id number] Phone Care Team Providers Care Psychological Operations Officer Name Role Phone Pcp, Unknown Primary Care Provider Unavailabl e Allergies No known active allergies Medications sertraline (ZOLOFT) 50 MG tablet Take 50 mg by mouth daily. Active Medication-Free TextIndications: Zyrtec Indications : Zyrtec Active pantoprazole (PROTONIX) 40 MG tablet Take 40 mg by mouth daily. Active dextroamphetamin e-amphetamine (ADDERALL) 10 mg Tab tablet Take 10 mg by mouth daily. Active albuterol 90 mcg/actuation inhaler Inhale 2 puffs into the lungs every 6 (six) hours as needed for wheezing. Active fluticasone (FLOVENT DISKUS) 100 mcg/actuation DsDv Inhale 100 mcg into the lungs 2 (two) times a day. Active Social History Tobacco Use Types Packs/Day Years Used Date Smoking Tobacco: Every Day Cigarettes Smokeless Tobacco: Never Comments:4 cigarettes/ day Alcohol Use Standard Drinks/Week Comments Yes 0 (1 standard drink = 0.6 oz pur e alcohol) occas Education Answer Date Recorded Are you interested in more education? Not on melba e 02/08/2023 Are you concerned about learning? Not on file 02/08/2023 No 02/08/2023 No 02/08/2023 Digital Access Answer Date Recorded No 03/08/2023 No 03/08/2023 No 03/08/2023 Reliable internet access at home? Not on file 03/08/2023 Device with a working camera? Not on file Comments Unknown Sex and Gender Information Value Date Recorded Sex Assigned at Not on file Legal Sex Female 8:51 PM EDT Gender Identity Not on file Sexual Orientation Not on file Last Filed Vital Signs Vital Sign Reading Time Taken Comments Blood Pressure 105/64 02/24/2018 12:50 PM EDT Pulse 62 02/24/2018 11:43 AM EDT Temperature 36.2 C (97.2 F) 02/24/2018 12:31 PM EDT Respiratory Rate 16 02/24/2018 11:43 AM EDT Oxygen Saturation 100% 02/24/2018 12:50 PM EDT Inhaled Oxygen Concentration - - Weight 78.5 kg (173 lb) 02/24/2018 11:43 AM EDT Height 149.9 cm (4' 11 ) 02/24/2018 11:43 AM EDT Body Mass Index 34.94 02/24/2018 11:43 AM EDT Plan of Treatment Health Maintenance Due Date Last Done Comments Adult Td,Tdap Booster 1996 DEPRESSION SCREENING 2008 SMOKING Hx and SMOKELESS TOB ACCO SCREENING 2009 HEPATITIS C SCREENING 2014 HIV ONE-TIME SCREENING (18-6 5 YEARS) 2014 PNEUMOCOCCAL VACCINES (0-49 years) (1 of 2 - PCV) 2015 PAP SMEAR 2017 COVID-19 VACCINE ( - 2023-2 5 season) 2024 HEPATITIS A VACCINES Aged Out No long er eligible based on patient's age to complete this topic HIB VACCINES Aged Out No longer eligi ble based on patient's age to complete this topic MENINGOCOCCAL VACCINES (ACWY) Aged Out No longer eligible based on patient's age to complete this topic MENINGOCOCCAL VACCINES (B) Aged Out N o longer eligible based on patient's age to complete this topic Medical Devices Not on file Insurance [facility] [employer] FAMILY EMPLOYEES FAMILY EMPLOYEES [place] [address] [place] [address] EMPLOYEES FAMILY EMPLOYEES FAMILY [facility] [employer] FAMILY EMPLOYEES FAMILY EMPLOYEES FAMILY EMPLOYEES FAMILY Care Teams Psychological Operations Officer Relationship Specialty Start Date End Date Pcp, Unknown PCP - General 05/13/22 Additional Source Comments The information contained in this document represents components of the legal health record. It is not the complete legal health record.[facility]
--- NOTE | 2025-05-24 08:11 | ED.SOB ---
HPI - SOB/Dyspnea General Chief Complaint: Arrhythmia/Palpitations Stated Complaint: chest tightness Time Seen by Provider: 05/24/25 08:06 Source: patient Mode of arrival: ambulatory Limitations: no limitations History of Present Illness ED Provider: Dione Perry PA-C HPI Narrative: 30 yo female with history of heart palpitations due to sinus tachycardia who presents to the ER for evaluation of worsening episodes of heart palpitations along with shortness of breath and chest tightness. She reports she is being followed with Cardiology, recently had a Holter monitor and echocardiogram. Her echocardiogram was normal and her Holter monitor showed sinus tachycardia up to 30% of the time. She states she has been on Cardizem 60 mg 2 times a day and propranolol as needed for anxiety. 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 She states she feels chest tightness and shortness of breath for the last 1 week after being exposed to fire extinguisher fumes at her job. She is not coughing, having fevers, or any chest pains. She does have asthma but has not been wheezing. She is due to see the risk management manager at the end of this month for follow-up of her tilt table test. MD elicited complaint: shortness of breath and chest pain Pertinent past history: asthma Onset (ago): week(s) Context: smoke/fume exposure and anxiety Timing: intermittent Severity: moderate Exacerbating factors: nothing Relieving factors: nothing Associated symptoms: palpitations Treatment prior to arrival: none Related Data Home oxygen amount: none Home Medications ?Medication ?Instructions ?Recorded ?Confirmed medroxyprogesterone 150 mg/mL 150 mg IM [id number] 04/22/24 03/03/25 intramuscular suspension (Depo-Provera) meloxicam 7.5 mg tablet 7.5 mg PO DAILY PRN 12/22/24 03/03/25 aripiprazole 10 mg tablet 10 mg PO DAILY 03/03/25 03/03/25 escitalopram oxalate 5 mg tablet 5 mg PO DAILY 03/03/25 03/03/25 propranolol 10 mg tablet 10 mg PO BID 03/03/25 03/03/25 topiramate 50 mg tablet 50 mg PO DAILY 03/03/25 03/03/25 Previous Rx's ?Medication ?Instructions ?Recorded ondansetron 4 mg disintegrating 4 mg PO Q8H PRN nausea and 09/05/24 tablet vomiting #20 tabs diltiazem HCl 60 mg 60 mg PO BID #120 caps 03/03/25 capsule,extended release 12 hr Allergies Allergy/AdvReac Type Severity Reaction Status Date / Time copper (COPPER) Allergy Unknown RASH/HIVES Verified 05/24/25 03:03 nickel (NICKEL) Allergy Unknown RASH/HIVES Verified 05/24/25 03:03 acetaminophen (From Tylenol) AdvReac Gastrointestinal Verified 05/24/25 03:03 Upset sumatriptan AdvReac Nausea and Verified 05/24/25 03:03 Vomiting Review of Systems Review of Systems: Yes all other systems are reviewed and are negative [facility] Past Medical History Medical History Asthma Surgical History Hx of colonoscopy History of esophagogastroduodenoscopy (EGD) Hx of tonsillectomy Family History Family History Mother No problems noted. 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 Oriented X3. No acute distress. Head: normocephalic, atraumatic. Eyes: Pupils equal, round and reactive to light. ENT: Pharynx normal. No tonsillar swelling or exudate. Neck: Normal inspection. Neck supple. CVS: Normal heart rate and rhythm. Pulses normal. Respiratory: No respiratory distress. Breath sounds normal. Abdomen: Soft and nontender. +BS x4 Skin: Skin warm and dry. Normal skin color. Normal skin turgor. No rashes. Extremities: No lower extremity edema. No joint swelling. No calf tenderness Neuro/psych: Oriented X 3. No motor deficit. No sensory deficit. CN II-XII intact. Normal speech and cognition. Vital Signs: Vital Signs: Last Vital Signs Temp 98.1 F 05/24/25 03:00 Pulse 86 05/24/25 08:40 Resp 16 05/24/25 07:46 BP 118/64 05/24/25 08:40 Pulse Ox 100 05/24/25 07:46 O2 Del Method Room Air 05/24/25 07:46 BMI result Body Mass Index 41.4 Medical Decision Making Medical Decision Making [facility] Narrative: 30-year-old female with a history of palpitations, thought to be due to sinus tachycardia who presents to the ER for evaluation of worsening episodes of tachycardia associated with chest tightness and shortness of breath. These episodes increase in frequency from her baseline after exposure to fire extinguisher fumes at work 1 week ago. On arrival to the ER her vital signs are stable. She appears well in her physical exam is unremarkable. No murmur or arrhythmia noted. EKG is normal. Electrolytes and lab workup is normal. Chest x-ray is normal. Orthostatic vital signs are negative. She does have some sinus tachycardia with minimal exertion, up to the low 100s. She has an Apple watch and has been watching her heart rates, she states the randomly can go up to 150 beats per minute when she is sitting at her computer. She is on Cardizem 60 b.i.d. and propranolol as needed for anxiety. She does not use her propranolol as needed for palpitations. She has a follow-up with Cardiology at the end of this month. She previously had a Holter test showing sinus tachycardia 30% of the time. She also had a tilt test and is due to follow-up with them about that. Recommend starting propranolol for palpitations as needed rather than just anxiety. She does not require medical admission to the hospital at this time and can be safely discharged home with cardiology follow-up. All questions were answered and patient agrees with plan. Differential Diagnosis Differential Diagnoses: The differential diagnosis associated with the presentation includes Sinus tachycardia, SVT, PVCs, ACS, PE less likely as this is intermittent and chronic Admission/Observation Consideration of admission/observation: Escalation of care including admission/observation considered Lab Data [facility] Lab Attestation statement: I reviewed the patient's lab results. No anemia, no significant metabolic derangement or major electrolyte abnormality 05/24/25 03:18 05/24/25 03:18 Labs: Lab Results 05/24/25 Range/Units 03:18 WBC 10.2 (4.8-10.8) X10*3/uL RBC 4.98 (4.20-5.50) X10*6/uL Hgb 12.9 (12.0-16.0) g/dl Hct 38.7 (37.0-47.0) % MCV 77.7 L (80.0-98.0) fL MCH 25.9 L (27.0-33.0) pg MCHC 33.3 (31.0-35.0) g/dl RDW 13.9 (11.0-16.0) % Plt Count 335 (160-400) X10*3/uL MPV 9.9 (9.4-12.3) fL Immature Gran % (Auto) 0.3 (0.0-0.4) % Neut % (Auto) 55.1 (45-73) % Lymph % (Auto) 35.2 (20-40) % [place] % (Auto) 5.5 (2-11) % Eos % (Auto) 3.1 (0-4) % Baso % (Auto) 0.8 (0-2) % Lymph # (Auto) 3.6 (1.2-4.9) X10*3/uL [place] # (Auto) 0.6 (0.1-1.2) X10*3/uL Eos # (Auto) 0.3 (0.0-0.4) X10*3/uL Baso # (Auto) 0.1 (0.0-0.2) X10*3/uL Abs Immat Gran (auto) 0.03 (0.00-0.03) X10*3/uL Absolute Neuts (auto) 5.6 (2.0-8.3) x10*3/uL Absolute Nucleated RBC 0.000 (0.0-0.012) X10*3/uL Nucleated RBC % (auto) 0.0 (0.0-0.2) /100WBC Sodium 142 (135-145) mmol/L Potassium 3.7 (3.3-5.1) mmol/L Chloride 113 H (96-108) mmol/L Carbon Dioxide 22 (22-29) mmol/L Anion Gap 11 L (12-20) BUN 15 (9-16) mg/dL Creatinine 0.77 (0.5-1.4) mg/dL Estim Creat Clear Calc 107.4 Estimated GFR > 60 Random Glucose 105 (60-115) mg/dL Calcium 8.7 (8.4-10.2) mg/dL Total Bilirubin 0.2 (0.0-1.0) mg/dL AST 15 (5-31) U/L ALT 17 (0-31) U/L Alkaline Phosphatase 68 (39-117) U/L Troponin I High Sens < 2.7 (<3.5-17.0) ng/L Total Protein 6.5 (6.5-8.0) g/dL Albumin 3.9 (3.5-5.0) g/dL Independent Interpretation I performed an independent interpretation of an: EKG Interpretation: ekg with normal sinus rhythm, NSR 86 bom, no st segment elevations or depressions, normal QTc CXR with clear lungs Radiology Impression Discussion of test interpretation with radiology: I have reviewed the radiologist's reading. Independent Historian Clinical information obtained from an independent historian. History obtained from or confirmed by: Spouse External Record Review External record reviewed: Office record, Outpatient record, Prior outpatient labs and Prior outpatient radiology Prescription Management I considered prescription management with: Other (BB, CCB) Chronic Conditions Patient?s care impacted by: Other (sinus tachycardia/palpitations) Discharge Plan Discharge Clinical Impression: Heart palpitations Patient Disposition: Home, Self-Care Instructions: Heart Palpitations (ED) Additional Instructions: Your chest x-ray, EKG, lab workup in the emergency room were all unremarkable. Recommend following up with Cardiology as scheduled. Recommend taking her propranolol when you're feeling heart palpitations, per review of the cardiology notes your symptoms seem to be coming mostly from sinus tachycardia. This is when your heart beat is going faster than normal 100 per minute but in a normal rhythm. Make sure you are staying hydrated. Avoid caffiene. If you develop new or worsening symptoms call 911 or come back to the ER for further evaluation. Prescriptions: No Action ondansetron 4 mg tablet,disintegrating 4 mg PO Q8H PRN (Reason: nausea and vomiting) Qty: 20 0RF medroxyprogesterone [Depo-Provera] 150 mg/mL suspension 150 mg IM [id number] propranolol 10 mg tablet 10 mg PO BID escitalopram oxalate 5 mg tablet 5 mg PO DAILY aripiprazole 10 mg tablet 10 mg PO DAILY topiramate 50 mg tablet 50 mg PO DAILY diltiazem HCl 60 mg capsule,extended release 12 hr 60 mg PO BID Qty: 120 3RF meloxicam 7.5 mg tablet 7.5 mg PO DAILY PRN Referrals: Janet Pierson MD [Primary Care Provider, Medical] [facility] [Provider Group] Stand Alone Forms: Work/School Release Print Language: Montenegrin
--- NOTE | 2025-05-24 08:31 | PC.NURSE ---
Pt coming from waiting room with complaints of palpations starting over the last couple of nights. Pt reporting she did have some exposures to chemicals at work, and is unsure if that has been causing the issue. Pt does have history of this and has been well controlled with her Cardizem BID orders. PA at bedside, orthos being obtained now.
--- NOTE | 2025-05-24 10:00 | PC.NURSE ---
PT Dc in, this ED does not have her 60mg dose of Cardizem, pt aware and is going to go home and take her home dose.
== END 2025-05-24 10:02 | disposition home or self-care (01) ==
PROVIDERS: Emergency Provider Emergency Medicine; PCP Family Medicine
DX: R00.0 Tachycardia, unspecified (principal); R07.9 Chest pain, unspecified; E66.9 Obesity, unspecified; Z68.41 Body mass index [BMI] 40.0-44.9, adult; R00.2 Palpitations; Z79.899 Other long term (current) drug therapy
CPT/HCPCS: 36415; 71046; 80053; 84484; 85025; 93005; 99283; 99285

== ENCOUNTER → 2025-05-24 03:05 | Outpatient (BNV) | payer OTHER, SELFPAY | PROVIDERS: Emergency Provider Emergency Medicine; PCP Family Medicine; Visit Provider Internal Medicine Cardiovascular Disease | DX: R07.89 Other chest pain (principal); R06.02 Shortness of breath | CPT/HCPCS: 93010 ==

== ENCOUNTER → 2025-05-24 08:12 | Outpatient (BNV) | payer OTHER, SELFPAY | PROVIDERS: Emergency Provider Emergency Medicine; PCP Family Medicine; Visit Provider Radiology Diagnostic Radiology | DX: R06.02 Shortness of breath (principal) | CPT/HCPCS: 71046 ==

== ENCOUNTER 2025-06-03 13:03 | Outpatient (AMB) | payer OTHER, SELFPAY ==
[2025-06-03 13:06] VITALS: BP 110/66; PULSE 95; BMI 41.3
--- NOTE | 2025-06-03 13:06 | A.OFFVIS_ITS ---
Vital Signs 06/03/25 13:06 Height 4 ft 11 in Weight 204 lb 9.423 oz BMI 41.3 BP 110/66 Blood Pressure Location Lt brachial Position Sitting Pulse 95 Pulse Source Pulse Oximeter Intake Visit Reasons: f/up tilt [facility] 04/27/25 r/s 05-13-25 Intake Note: f/up-tilt Quality Control Operator Required: No Accompanied by: Self / Same As Patient Allergies copper (COPPER) Allergy (Unknown, Verified 05/24/25 03:03) RASH/HIVES nickel (NICKEL) Allergy (Unknown, Verified 05/24/25 03:03) RASH/HIVES acetaminophen (From Tylenol) Adverse Reaction (Verified 05/24/25 03:03) Gastrointestinal Upset sumatriptan Adverse Reaction (Verified 05/24/25 03:03) Nausea and Vomiting Medication List - Last Reconciled 06/03/25 by Dillon Montgomery NP aripiprazole 10 mg PO DAILY diltiazem HCl ER 60 mg PO BID escitalopram oxalate 5 mg PO DAILY medroxyprogesterone (Depo-Provera) 150 mg IM [id number] meloxicam 7.5 mg PO DAILY PRN ondansetron 4 mg PO Q8H PRN propranolol 10 mg PO BID topiramate 50 mg PO DAILY HPI Comments Details: This is a 30-year-old female patient coming in for a follow-up visit, accompanied by her mom. Patient was previously seen in the office for dizziness, shortness of breath, and palpitations and has undergone Holter, echo, and now a tilt-table test. Patient with a history of anxiety and obesity. Patient reports ongoing intermittent symptoms of palpitations mostly noted with stress. Patient states that her anxiety is not under control as she has not been able to find a new psychiatrist since her last Dr left the practice. Patient is otherwise denying any exertional chest pain, shortness of breath, orthopnea, PND, leg edema, presyncope, or syncope. Patient was trialed on diltiazem last time for rate control to see if that helps however patient states that it has not helped at all. [facility] Medical History Asthma Surgical History Hx of colonoscopy History of esophagogastroduodenoscopy (EGD) Hx of tonsillectomy Family History Mother No problems noted. 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 Sexual orientation: Straight/Heterosexual Gender identity: Female Review of Systems Const Denies chills, Denies fatigue, Denies fever(s), Denies frequent falls, Denies weakness, Denies weight gain and Denies weight loss ENT Denies dizziness Card Denies chest pain, Denies leg edema, Denies lightheadedness, Reports palpitations, Reports dyspnea and Denies dyspnea on exertion Resp Denies cough, Reports dyspnea and Denies dyspnea on exertion GI Denies hematochezia Musc Denies abnormal gait, Denies muscle weakness, Denies numbness, Denies radiating pain into limb and Denies tingling Neuro Denies abnormal gait, Denies dizziness, Denies frequent falls, Denies numbness, Denies tingling and Denies weakness Endo Denies fatigue and Reports palpitations Physical Exam Vital Signs: Last Vital Signs Pulse 95 06/03/25 13:06 BP 110/66 06/03/25 13:06 BMI result Body Mass Index 41.3 Const General: cooperative, healthy appearing, comfortable and no acute distress Orientation/consciousness: patient oriented x3 HEENT Head: Yes normal to inspection Neck Neck: Yes normal visual inspection, Yes trachea midline and Yes supple Chest Chest palpation & inspection: normal inspection of the chest Resp Effort & Inspection: normal respiratory effort Auscultation: clear to auscultation bilaterally, no crackles, no rales, no rhonchi and no wheezes Cardio Jugular venous distension: no JVD Palpation: normal PMI Rate: regular rate Rhythm: regular rhythm Heart sounds: S1 normal heart sound present, S2 normal heart sound present, no click, no gallops, no murmurs and no rubs Peripheral pulses: Peripheral pulses 2+ throughout GI Inspection: Yes normal to inspection Palpation (GI): Soft to palpation Auscultation: normal bowel sounds Skin General skin exam: no rashes or lesions noted Neuro General: patient oriented x3 Extrem General: Yes normal to inspection, No no pedal edema and No calf tenderness Psych Appearance: grossly normal Mental Status: mental status grossly normal Speech and movement: Normal speech and movement present Assessment & Plan Assessment & Plan (1) Heart palpitations: Code(s): R00.2 - Palpitations Category: Medical Plan: 01/14/2025-echo study showed a normal LV systolic function with an ejection fraction at 68%, without any wall motion abnormalities or valvular pathology. 01/14/2025-patient also underwent a Holter study that showed baseline normal sinus rhythm with average heart rate of 92 beats per minute with a frequent sinus tachycardia 30% of the time. 04/28/[id number] study was negative as well. Given above findings, reassurance provided to the patient. We will stop diltiazem therapy as it has not helped her symptoms at all. Most likely all of her symptoms related to anxiety. Emphasized on the need to address this with her PCP. Patient is also on propranolol for anxiety which can help with her heart rate. Advised heart healthy diet, regular exercise, losing weight, adequate hydration, avoiding stimulants like alcohol and caffeinated beverages, orthostatic precautions, and stress medication strategies. Patient will follow-up with us on an as-needed basis. In the interim, patient will call the office with any concerns or change in symptoms. This note was generated using voice recognition software. While every effort has been made to ensure accuracy and proper emergency room clinician, there may be occasional errors that could affect the content or meaning of the described symptoms. Medications: Discontinued diltiazem HCl ER Discontinued Reason: Doctor's Order 60 mg PO BID 120 caps 3RF Coding Level of Care Code Est Pt Level 3 (34102) Complex EM visit Add On G2211 Diagnoses Heart palpitations R00.2 Time Spent (min) 29 Comment Time spent in reviewing the chart, test results, assessment, counseling and documentation.
--- OUTSIDE RECORDS SUMMARY | 2025-06-03 13:17 | XMS_ITS | Clinical Summary ---
Author Organization [employer] Address [address] [facility] 7[address] [place] [address] Care Team Providers Care Antique Collector Name Role Phone Janet Pierson MD Primary Care Provider [phone] Allergies Active Allergy Reactions Criticality Noted Date [...] 18 g 3 025 Active nystatin (Nystop) 438120 UNIT/GM powderIndications :Candidal intertrigo Apply topically 2 [...] mouth Once per day. 30 tablet 1 Active dilTIAZem SR (Cardizem SR) 60 MG [...] Take immediately before bedtime 28 tablet 1 Active topiramate 50 MG tablet TAKE 1 TABLET BY MOUTH AT BEDTIME 90 tablet 025 Active escitalopram (Lexapro) 5 MG tabletIndications :Generalized anxiety disorder TAKE 1 TABLET BY MOUTH EVERY DAY IN THE MORNING 90 tablet 025 Active escitalopram (Lexapro) 5 MG tabletIndications :Generalized anxiety disorder TAKE 1 TABLET BY MOUTH EVERY MORNING 30 tablet 1 025 2024 Discontinued Active Problems Problem Noted [...] recommended reduction of 20-30% of maintenance calories; computer operations technician referral offered. Recommended to decrease soda and [...] recommended reduction of 20-30% of maintenance calories; computer operations technician referral offered. Recommended to decrease soda and sugary beverage consumption. Recommended at least 20 g per meal of protein to assist with satiety. Recommended at least 150 min/week of moderate intensity exercise. Assessment & Plan (09/13/2023 2:05 PM EST): Discussed calorie deficit, recommended reduction of 20-30% of maintenance calories; computer operations technician referral offered. Recommended to decrease soda and [...] treatment engagement. PLAN: 1. Follow up with [facility]: Recommended for follow-up: as needed 2. Patient goal is to engage in MH services 3. Behavioral Recommendations a. Ind. Therapy referral will be submitted b. Use of coping skills provided c. Take medication as prescribed. d. [facility] contact number for support Assessment & [...] her gynecology consultation. 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 FU PAP results. Consider [...] DEPARTMENT Provider, Generic External Data 05/22/2025 Refill [facility] [address] [place] [address] Janet Pierson MD Generalized anxiety disorder 04/27/2025 Refill [facility] [address] [place] [address] Janet Pierson MD 04/23/2025 Refill [facility] [address] [place] [address] Janet Pierson MD Generalized anxiety disorder 04/08/2025 11:30 AM EDT Office Visit [facility] [address] [place] [address] Janet Pierson MD Primary insomnia (Primary Dx) 04/08/2025 Travel 04/06/2025 Telephone [facility] [address] [place] [address] Janet Pierson MD chart prep 04/02/2025 Patient Outreach [facility] [address] [place] [address] Janet Pierson MD Pre-visit Planning (SDOH screening completed on 03/31/25 ) 03/31/2025 9:45 AM EDT Office Visit [facility] [address] [place] [address] Janet Pierson MD Attention deficit hyperactivity disorder (ADHD), unspecified ADHD type (Primary Dx); Moderate episode of recurrent major depressive disorder (CMS/HCC); Primary insomnia; Sleep apnea, unspecified type; Severe obesity (CMS/HCC) 03/31/2025 Travel 03/30/2025 Travel 03/30/2025 Telephone [facility] [address] [place] [address] Janet Pierson MD chart prep 03/25/2025 1:00 PM EDT Clinical Support [facility] [address] [place] [address] 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, personal injury litigation paralegal planning [Z30.09] (Primary Dx) 03/25/2025 Travel 2025 Travel 03/15/2025 Telephone [facility] [address] [place] [address] Janet Pierson MD 03/12/2025 Telephone [facility] [address] [place] [address] Janet Pierson MD Appointment Request 03/11/2025 Refill [facility] [address] [place] [address] Jan Briseno MD from Last 3 Months Immunizations Immunization Administration [...] Description 06/17/2025 1:00 PM EDT Clinical Support [facility] [address] [place] [address] Health Maintenance Due Date Last Done Comments [...] Procedure Name Priority Date/Time Associated Diagnosis Comments XR CHEST 2 VIEWS Routine 05/24/2025 7:47 AM EDT HIGH SENSITIVITY TROPONIN I Routine 05/24/2025 3:18 [...] Recently Relevant to Health Maintenance Results * XR Chest 2 Views (05/24/2025 7:47 AM EDT) Anatomical Region Laterality Modality Chest Radiographic Vero ging 05/24/2025 7:47 AM EDT Narrative 05/24/2025 8:52 AM EDT [address] [address] XRay Report Signed Patient: Milka Guthrie MR#: [id number] : 1995 Acct:[id number] Age/Sex: 30 / F ADM Date: 05/24/25 Loc: HO.ED Attending Dr: Ordering Physician: Brigette Perry Date of Service: 05/24/25 Procedure(s): XR chest 2V Accession Number(s): [id number] cc: Brigette Perry; Janet Pierson MD EXAMINATION: XR CHEST 2 VIEWS HISTORY: sob, chest tightness COMPARISON: Comparison is made with the prior examination dated 10/02/2023. FINDINGS: PA and lateral views of the chest are submitted. The lungs are expanded and clear. There is no pleural effusion, pneumothorax, or pulmonary vascular congestion. The heart is normal in size. The bones are intact. XR/XR chest 2V IMPRESSION: No acute cardiopulmonary abnormality. Electronically signed by: Linden Turner MD 05/24/2025 08:49 AM EDT RP Dictated By: Linden Turner MD Signed By: <Electronically signed by Linden Turner MD in OV> 05/24/25 0849 DD/ 0747 TD/TT: 05/24/25 0847 Fuel Pilot Engineer: Procedure Note Donotuseinterpreter, Image - 05/24/[address] [address] XRay Report Signed Patient: Marco GuthrieR#: [id number] : 1995Acct:[id number] Age/Sex: 30 / FADM Date: 05/24/25 Loc: .ED Attending Dr: Ordering Physician: Brigette Perry Date of Service: 05/24/25 Procedure(s): XR chest 2V Accession Number(s): [id number] cc: Brigette Perry; Janet Pierson MD EXAMINATION: XR CHEST 2 VIEWS HISTORY: sob, chest tightness COMPARISON: Comparison is made with the prior examination dated 10/02/2023. FINDINGS: PA and lateral views of the chest are submitted. The lungs are expanded and clear. There is no pleural effusion, pneumothorax, or pulmonary vascular congestion. The heart is normal in size. The bones are intact. XR/XR chest 2V IMPRESSION: No acute cardiopulmonary abnormality. Electronically signed by: Linden Turner MD 05/24/2025 08:49 AM EDT RP Dictated By: Linden Turner MD Signed By: <Electronically signed by Linden Turner MD in OV> 05/24/25 0849 DD/ TD/TT: 05/24/25846 Fuel Pilot Engineer: [facility] External Provider IMG XR PROCEDURES Final Result * High Sensitivity Troponin I (05/24/2025 3:18 AM EDT) [facility] TROPONIN I HIGH SENSITIVITY <2.7 <3.5 - 17.0 ng/L [facility] Comment:The Grimaldo high sens itivity Troponin-I results should beused in conjunction with other diagnostic information suchas ECG, clinical observations and information, and patientsymptoms to aid in the diagnosis of KS. 05/24/2025 3:18 AM EDT 05/24/2025 3:22 AM EDT Generic External Data Provider LAB BLOOD ORDERAB LES Final Result [facility] [address] [place] [phone] * (ABNORMAL) CBC auto differential (05/24/2025 3:18 AM EDT) [facility] White Blood Count 10.2 4.8 - 10.8 X10*3/uL [facility] Red Blood Count 4.98 4.20 - 5.50 X10*6/uL [facility] Hemoglobin 12.9 12.0 - 16.0 g/dl [facility] Hematocrit 38.7 37.0 - 47.0 % [facility] Mean Corpuscular Volume 77.7(L) 80.0 - 98.0 fL [facility] Mean Corpuscular Hemoglobin 25.9(L) 27.0 - 33.0 pg [facility] Mean Corpuscular HGB Conc 33.3 31.0 - 35.0 g/dl [facility] Red Cell Distribution Width 13.9 11.0 - 16.0 % [facility] Platelet Count 335 160 - 400 X10*3/uL [facility] Mean Platelet Volume 9.9 9.4 - 12.3 fL [facility] Neutrophils Percent Auto 55.1 45 - 73 % [facility] Imm Gran Pct Auto 0.3 0.0 - 0.4 % [facility] Lymphocytes Percent Auto 35.2 20 - 40 % [facility] Monocytes Percent Auto 5.5 2 - 11 % [facility] Eosinophils Percent Auto 3.1 0 - 4 % [facility] Basophils Percent Auto 0.8 0 - 2 % [facility] NRBC Pct Auto 0.0 0.0 - 0.2 /100WBC [facility] Neutrophils Absolute Auto 5.6 2.0 - 8.3 x10*3/uL [facility] Imm Gran Abs Auto 0.03 0.00 - 0.03 X10*3/uL [facility] Lymphocytes Absolute Auto 3.6 1.2 - 4.9 X10*3/uL [facility] Monocytes Absolute Auto 0.6 0.1 - 1.2 X10*3/uL [facility] Eosinophils Absolute Auto 0.3 0.0 - 0.4 X10*3/uL [facility] Basophils Absolute Auto 0.1 0.0 - 0.2 X10*3/uL [facility] NRBC Abs Auto 0.000 0.0 - 0.012 X10*3/uL [facility] 05/24/2025 3:18 AM EDT 05/24/2025 3:22 AM EDT us Generic External Data Provider LAB BLOOD ORDERAB LES Final Result [facility] [address] [place], [place] [phone] * (ABNORMAL) Comprehensive Metabolic Panel (05/24/2025 3:18 AM EDT) Sodium 142 135 - 145 mmol/L [facility] Potassium 3.7 3.3 - 5.1 mmol/L [facility] Chloride 113(H) 96 - 108 mmol/L [facility] Carbon Dioxide 22 22 - 29 mmol/L [facility] Anion Gap 11(L) 12 - 20 [facility] Urea Nitrogen (BUN) 15 9 - 16 mg/dL [facility] Creatinine, Serum 0.77 0.5 - 1.4 mg/dL [facility] Creatinine Clr Calc Pharmacy 107.4 [facility] Comment:Provided height and weight: 149.86 cm,93 kg.eGFR (calculated from the MDRD study equation) and eCrCl(calculated from the Cockcroft-Gault equation) are based ondifferent parameters and may not yield comparable results.If eCrCl result is absurd, please check patient'sheight/weight. Estimated Glomerular Filt Rate >60 [facility] Comment:Chronic Kidney Disea se: Estimated GFR < 60 mL/min/1.56l1Kbsowi Kidney Disease: Estimated GFR < 15 mL/min/1.73m2 Glucose 105 60 - 115 mg/dL [facility] Calcium 8.7 8.4 - 10.2 mg/dL [facility] Bilirubin, Total 0.2 0.0 - 1.0 mg/dL [facility] Aspartate Amino Transferase 15 5 - 31 U/L [facility] Alanine Aminotransferase 17 0 - 31 U/L [facility] Total Protein 6.5 6.5 - 8.0 g/dL [facility] Albumin Level 3.9 3.5 - 5.0 g/dL [facility] Alkaline Phosphatase 68 39 - 117 U/L [facility] 05/24/2025 3:18 AM EDT 05/24/2025 3:22 AM EDT us Generic External Data Provider LAB BLOOD ORDERAB LES Final Result Performing Organization Address [facility] Co de Phone Number [facility] [address] [place] [phone] * HIV-1/2 Antigen and Antibodies, Fourth Generation, with Reflexes (08/03/2024 4:02 PM EDT) HIV AB/AG Nonreactive Nonreactive [facility] Comment:HIV-1 p24 Ag and/or HIV-1/HIV-2 Ab not detected.A test result that is nonreactive does not exclude thepossibility of exposure to or infection with HIV-1 and/orHIV-2. Nonreactive results in this assay for individualswith prior exposure to HIV-1 and/or HIV-2 may be due toantigen and antibody levels that are below the limit ofdetection of this assay.The [employer] HIV Ag/Ab Combo assay result andsupplemental assay results should be interpreted inconjunction with the patient's clinical presentation,history and other laboratory results. If the results areinconsistent with clinical evidence, additional testing issuggested to confirm the result. Blood Venous blood specimen / Unknown 08/03/2024 4:02 PM EDT 08/03/2024 5:21 PM EDT us Janet Pierson MD LAB BLOOD ORDERABLES Final Re sult Performing Organization Address [facility]/ZIP Co de Phone Number [facility] [address] [place] [address] [phone] * Image-Guided Pap with Age-Based Screening??with CT/NG,??Trichomonas (11/14/2023 10:42 AM EST) Trichomonas (NAAT) NOT DETECTED NOT DETECTED [facility] Comment:The analytical perfo rmance characteristics of thisassay have been determined by [employer]. Themodifications have not been cleared or approved bythe FDA. This assay has been validated pursuant to theIA regulations and is used for clinical purposes.For additional information, please refer tohttp://education.Kymeta/faq/Trichomonastma(This link is being provided for information/educational purposes only.)THIS TEST WAS PERFORMED AT:[facility] [address] [phone] CRAMER MD CTNG Ref Lab NOT DETECTED NOT DETECTED [facility] NG Ref Lab NOT DETECTED NOT DETECTED [facility] Cervix 11/14/2023 10:4 2 AM EST 11/15/2023 9:40 AM EST Janet Pierson MD LAB CYTOLOGY ORDERABLES Final Result Performing Organization Address [facility] de Phone Number [facility] [address] [place] [phone] * Hepatitis C Ab (09/16/2023 8:46 AM EST) Hepatitis C Antibody Nonreactive Nonreactive [facility] Comment:Antibodies to HCV no t detected; does not exclude early acuteHCV infection. Blood Venous blood specimen / Unknown 09/16/2023 8:46 AM EST 09/16/2023 2:37 PM EST Janet Pierson MD LAB BLOOD ORDERABLES Final Re sult Performing Organization Address [facility] Co de Phone Number [facility] [address] [place] [phone] * (ABNORMAL) Lipid Panel, Standard (09/16/2023 8:46 AM EST) Triglycerides 108 <150 mg/dL [facility] Comment:Desirable Triglyceri de: less than 150 mg/dLBorderline High Triglyceride 150-199 mg/dLHigh Triglyceride: 200-499 mg/dLVery High Triglyceride: greater than or equal to 5OO mg/dL Cholesterol 171 <200 mg/dL [facility] Comment:Desirable Cholestero l: less than 200 mg/dLBorderline High Cholesterol: 200-239 mg/dLHigh Cholesterol: greater than 239 mg/dL LDL Cholesterol Calculated 118(H) <100 mg/dL [facility] Comment:Desirable LDL: less than 100 mg/dLNear Optimal/Above Optimal LDL: 110- 129 mg/dLBorderline High LDL: 130-159 mg/dLHigh LDL: 160-189 mg/dLVery High LDL: greater than or equal to 190 mg/dL HDL Cholesterol 32(L) >40 mg/dL [facility] Comment:Desirable HDL: great er than 40 mg/dL Note: This HDL assay may give artificially low results in patients with liver disease. Blood Venous blood specimen / Unknown 09/16/2023 8:46 AM EST 09/16/2023 2:37 PM EST us Janet Pierson MD LAB BLOOD ORDERABLES Final Re sult [facility] [address] [place] [phone] from Last 3 Months or Most Recently Relevant to Health Maintenance Insurance * Guarantor: Milka Guthrie Account Type Relation to Patient Date of Phone Billing Address Personal/Family Self [address] [place] [address] [facility] 2 Care Teams Antique Collector Relationship Specialty Start Date End Date Janet Pierson MD [address] [place] [address] PCP - General Family Medicine 09/13/23 Yumiko Sams Consulting Physician Neurology 03/31/25 Dillon Montgomery NP Nurse Practitioner Cardiology 03/31/25
--- OUTSIDE RECORDS SUMMARY | 2025-06-03 13:17 | XMS_ITS | Clinical Summary ---
Author Organization [facility] Address [address] [address] Phone Care Team Providers Care Worm Sorter Name Role Phone Pcp, Unknown Primary Care [...] topic Medical Devices Not on file Insurance [facility] EMPLOYEES FAMILY EMPLOYEES FAMILY EMPLOYEES FAMILY EMPLOYEES FAMILY [facility] EMPLOYEES FAMILY [facility] EMPLOYEES [place] [address] EMPLOYEES FAMILY EMPLOYEES FAMILY EMPLOYEES FAMILY Care Teams Worm Sorter Relationship Specialty Start Date End Date Pcp, Unknown PCP - General 05/13/22 Additional Source Comments The information contained in this document represents components of the legal health record. It is not the complete legal health record.[facility]
--- OUTSIDE RECORDS SUMMARY | 2025-06-03 13:18 | XMS_ITS | Clinical Summary ---
Author Organization [facility] Address [address] [place] [address] Phone Care Team Providers Care Ropeman Name Role Phone Physician, No Pcp Primary Care Provider Unavaila ble Encounters Date Type Department Care Team Description 04/27/2025 2:03 PM EDT - 04/27/2025 11:59 PM EDT Hospital Encounter [facility] Xray [address] [place] [address] Dizziness and giddiness Discharge Disposition: [...] BP stable Conclusion: Negative tilt test. Tod Bhatka MD [facility] PROCEDURES F inal Result from Last 3 Months Insurance * Guarantor: Milka Guthrie Account Type Relation to Patient Date of Phone Billing Address Personal/Family Self 1995 [address] [place] [address] [facility] PL[facility] Care Teams Ropeman Relationship Specialty Start Date End Date Physician, No Pcp PCP - General 04/27/25
--- OUTSIDE RECORDS SUMMARY | 2025-06-03 13:18 | XMS_ITS | Clinical Summary ---
Author Organization [facility] Address [address] [place] [phone] Phone Care Team Providers Care Combiner Operator Name Role Phone Unavailable Primary Care [...] complete this topic Procedures * Due to [facility] law, this organization might not be sharing sensitive test results. Procedure Name Priority Date/Time Associated Diagnosis Comments CHLAMYDIA DNA PROBE, DIRECT Routine 05/13/2015 12:00 AM EDT from Last 3 Months or Most Recently Relevant to Health Maintenance Results * Due to [place] [employer] law, this organization might not be sharing sensitive test results. * Chlamydia DNA probe, direct (05/13/2015 12:00 AM EDT) Chlamydia trachomatis amplified RNA(Conversion) Negative CONVERTED LABS Comment: Edilma Sepulveda 05/13/2015 05:10:08 PM > Negative Reason: Received -[facility] Lab Order Recovery Coach CHLAMYDIA SOURCE URINE CON VERTED LABS Comment: Edilma Sepulveda 05/13/2015 05:10:08 PM > Negative Reason: Received -[facility] Lab Order Recovery Coach CHLAMYDIA TRACHOMATIS AMPLIFIED RNA Negative CONVERTED LABS Comment: Edilma Sepulveda 05/13/2015 05:10:08 PM > Negative Reason: Received -[facility] Lab Order Recovery Coach 05/13/2015 Narrative CON[facility] LABS - 05/13/2015 12:00 AM EDT Chlamydia DNA Probe us Edilma Sepulveda [facility] MICROBIOLOGY - GENERAL ORD ERABLES Final Result [facility] from Last 3 Months or Most Recently Relevant to Health Maintenance
== END 2025-06-03 13:24 | disposition home or self-care (01) ==
LOC: HO.HCS 13:03
PROVIDERS: PCP Family Medicine
DX: R00.2 Palpitations (principal)
CPT/HCPCS: 99213

== ENCOUNTER → 2025-06-03 13:03 | Outpatient (BNVA) | payer OTHER, SELFPAY | PROVIDERS: PCP Family Medicine | DX: Z71.2 Person consulting for explanation of examination or test findings (principal); R00.2 Palpitations | CPT/HCPCS: 99212 ==

== ENCOUNTER → 2025-06-16 08:10 | Outpatient (REF) | payer OTHER, SELFPAY ==
--- OUTSIDE RECORDS SUMMARY | 2025-06-16 08:40 | XMS_ITS | Clinical Summary ---
Author Organization [facility] Address [address] [address] Phone Care Team Providers Care Chip Tester Name Role Phone Pcp, Unknown Primary Care [...] 2 - PCV) 2015 PAP SMEAR 2017 INFLUENZA VACCINE (#1) 2025 COVID-19 VACCINE (1 - 2023-2 5 season) 2025 HEPATITIS A VACCINES Aged Out No long [...] topic Medical Devices Not on file Insurance [facility] EMPLOYEES FAMILY EMPLOYEES [place] [address] [address] [place] [address] EMPLOYEES FAMILY EMPLOYEES FAMILY EMPLOYEES FAMILY EMPLOYEES FAMILY [facility] EMPL[employer] [address] [address] EMPLOYEES FAMILY [facility] EM[employer]OYEES FAMILY Care Teams Chip Tester Relationship Specialty Start Date End Date Pcp, Unknown PCP - General 05/13/22 Additional Source Comments The information contained in this document represents components of the legal health record. It is not the complete legal health record.[facility]
--- OUTSIDE RECORDS SUMMARY | 2025-06-16 08:40 | XMS_ITS | Encounter Summary ---
Author Organization [facility] Address [address] [place] [address] Phone Care Team Providers Care Commander Internal Affairs Name Role Phone Montse Olivier NP Primary Care Provider [phone] Encounter Details Date Type Department Care Team (Late st Contact Info) Description 05/22/2017 Conversion Encounter [facility] - [address], [address] [place] [address] Montse Olivier NP [address] [place] [address] Social History Tobacco Use Types Packs/Day Years [...] on filedocumented in this encounter Care Teams Commander Internal Affairs Relationship Specialty Start Date End Date Montse Olivier NP [address] [place] [phone] PCP - General 12/04/16 01/21/24 documented as of this encounter
--- OUTSIDE RECORDS SUMMARY | 2025-06-16 08:40 | XMS_ITS | Encounter Summary ---
Author Organization [employer] Address [address] [facility] 7 [place] [address] Care Team Providers Care Drop Man Name Role Phone Janet Pierson MD Primary Care Provider Reason for Visit * Reason Comments Med Change Request Encounter Details Date Type Department Care Team ([facility] Contact Info) Description 01/07/2025 Refill [facility] [address] [place], [place] [phone] Rosa Joy MD [address] [place], [place] [phone] Generalized anxiety disorder Social History Tobacco Use [...] Description 06/17/2025 1:00 PM EDT Clinical Support [facility] [address] [place] [address] documented as of this encounter Visit Diagnoses Diagnosis Generalized anxiety disorder documented in this encounter Additional Health Concerns Assessment Noted Time PHQ-9 Depression Total Score: 7 05/08/20 24 9:13 AM EDT documented as of this encounter Care Teams Drop Man Relationship Specialty Start Date End Date Janet Pierson MD [address] [place] [address] PCP - General Family Medicine 09/13/23 Yumiko Sams Consulting Physician Neurology 03/31/25 Dillon Montgomery NP Nurse Practitioner Cardiology 03/31/25 documented as of this encounter
--- OUTSIDE RECORDS SUMMARY | 2025-06-16 08:40 | XMS_ITS | Encounter Summary ---
Author Organization [facility] Address [address] [place] [address] Phone Care Team Providers Care Abstract Manager Name Role Phone Opal Cheek TELECOMMUNICATION OPERATOR Primary Care Provider [phone] Renetta Jhaveri Primary Care Provider [phone] Pcp, Unknown Primary Care Provider Unavailabl e Encounter Details Date Type Department Care Team (Late st Contact Info) Description 02/24/2018 Procedure Pass [facility] Endoscopy Admitting Dept Virtual Department [address] [place] [address] Social History Tobacco Use Types Packs/Day Years Used Date Smoking Tobacco: Every Day Cigarettes Smokeless Tobacco: Never Comments:4 cigarettes/ day Alcohol Use Standard Drinks/Week Comments Yes 0 (1 standard drink = 0.6 oz pur e alcohol) occas Comments Unknown Sex and Gender Information Value Date Recorded Sex Assigned at Not on file Legal Sex Female 8:51 PM EDT Gender Identity Not on file Sexual Orientation Not on file documented as of this encounter Plan of Treatment Not on file documented as of this encounter Visit Diagnoses Not on filedocumented in this encounter Care Teams Abstract Manager Relationship Specialty Start Date End Date Opal Cheek NP [address] [place] [address] PCP - General Family Medicine 02/24/18 12/16/18 Renetta Jhaveri FNP [address] [place] [address] [address] [place], [place] [phone] [email or web address] PCP - General Family Medicine 12/17/18 05/12/22 Pcp, Unknown PCP - General 05/13/22 documented as of this encounter Additional Source Comments The information contained in this document represents components of the legal health record. It is not the complete legal health record.[facility]
--- OUTSIDE RECORDS SUMMARY | 2025-06-16 08:40 | XMS_ITS | Clinical Summary ---
Author Organization [employer] Address [address] [facility] 7t [place] [address] Care Team Providers Care Sales Porter Name Role Phone Janet Pierson MD Primary Care Provider [phone] Allergies Active Allergy Reactions Criticality Noted Date [...] 18 g 3 025 Active nystatin (Nystop) 116545 UNIT/GM powderIndications :Candidal intertrigo Apply topically 2 [...] reduction of 20-30% of maintenance calories; data processing systems project planner referral offered. Recommended to decrease soda and [...] reduction of 20-30% of maintenance calories; data processing systems project planner referral offered. Recommended to decrease soda and sugary beverage consumption. Recommended at least 20 g per meal of protein to assist with satiety. Recommended at least 150 min/week of moderate intensity exercise. Assessment & Plan (09/13/2023 2:05 PM EST): Discussed calorie deficit, recommended reduction of 20-30% of maintenance calories; data processing systems project planner referral offered. Recommended to decrease soda and [...] PLAN: 1. Follow up with [facility]: Recommended for follow-up: as needed 2. Patient goal is to engage in MH services 3. Behavioral Recommendations a. Ind. Therapy referral will be submitted b. Use of coping skills provided c. Take medication as prescribed. d. [facility] contact number for support Assessment & [...] her gynecology consultation. A referral to a glass wool blanket machine feeder is made for further evaluation and discussion [...] (11/14/2023 10:43 AM EST): Adult female for DIRECTOR REGULATORY COMPLIANCE physical: Normal Exam. FU PAP results. Consider PAP smear in the next four years if today's normal. Routine PAP. FU results. No concerns for domestic violence. Left otitis media 09/13/2023 03/31/2025 Encounters * This document contains information received from the source organization and may not represent a complete record from that organization. Date Type Department Care Team Description 06/10/2025 Travel 05/24/2025 Orders Only GENERIC EXTERNAL DATA DEPARTMENT Provider, Generic External Data 05/22/2025 Refill [facility] [address] [place] [address] Janet Pierson MD Generalized anxiety disorder 04/27/2025 Refill [facility] [address] [place] [address] Janet Pierson MD 04/23/2025 Refill [facility] [address] [place] [address] Janet Pierson MD Generalized anxiety disorder 04/08/2025 11:30 AM EDT Office Visit [facility] [address] [place] [address] Janet Pierson MD Primary insomnia (Primary Dx) 04/08/2025 Travel 04/06/2025 Telephone [facility] [address] [place] [address] Janet Pierson MD chart prep 04/02/2025 Patient Outreach [facility] [address] [place] [address] Janet Pierson MD Pre-visit Planning (SDOH screening completed on 03/31/25 ) 03/31/2025 9:45 AM EDT Office Visit [facility] [address] [place] [address] Janet Pierson MD Attention deficit hyperactivity disorder (ADHD), unspecified ADHD type (Primary Dx); Moderate episode of recurrent major depressive disorder (CMS/HCC); Primary insomnia; Sleep apnea, unspecified type; Severe obesity (CMS/HCC) 03/31/2025 Travel 03/30/2025 Travel 03/30/2025 Telephone [facility] [address] [place] [address] Janet Pierson MD chart prep 03/25/2025 1:00 PM EDT Clinical Support [facility] [address] [place] [address] 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, armature straightener planning [Z30.09] (Primary Dx) 03/25/2025 Travel 2025 Travel from Last 3 Months Immunizations Immunization [...] Description 06/17/2025 1:00 PM EDT Clinical Support [facility] [address] [place] [address] Health Maintenance Due Date Last Done Comments Pneumococcal Vaccine: Pediatrics (0 to 5 Years) and At-Risk Patients (6 to 49) Years (1 of 2 - PCV) 2015 COVID-19 Vaccine (3 - season) 2024 05/27/2021, 04/29/2021 Influenza Vaccine (#1) [...] AM EDT Narrative 05/24/2025 8:52 AM EDT [address] [address] XRay Report Signed Patient: Milka Guthrie MR#: [id number] : 1995 Acct:[id number] Age/Sex: 30 / F ADM Date: 05/24/25 Loc: HO.ED Attending Dr: Ordering Physician: Brigette Perry Date of Service: 05/24/25 Procedure(s): XR chest 2V Accession Number(s): [id number] cc: Brigette Perry; Janet Pierson MD EXAMINATION: [...] 05/24/25 0849 DD/ 0747 TD/TT: 05/24/25 0847 Manager Fleet: Procedure Note Donotuseinterpreter, Image - 05/24/[address] [address] XRay Report Signed Patient: Nadeem Guthrie#: M [id number] : 1995Acct:[id number] Age/Sex: 30 / FADM Date: 05/24/25 Loc: .ED Attending Dr: Ordering Physician: Brigette Perry Date of Service: 05/24/25 Procedure(s): XR chest 2V Accession Number(s): [id number] cc: Brigette Perry; Janet Pierson MD EXAMINATION: [...] signed by Linden Turner MD in OV> 05/24/2549 DD/ 6 TD/TT: 05/24/25846 Manager Fleet: [facility] External Provider IMG XR PROCEDURES Final Result * High Sensitivity Troponin I (05/24/2025 3:18 AM EDT) [facility] TROPONIN I HIGH SENSITIVITY <2.7 <3.5 - 17.0 ng/L [facility] Comment:The Grimaldo high sens itivity Troponin-I results should beused in conjunction with other diagnostic information suchas ECG, clinical observations and information, and patientsymptoms to aid in the diagnosis of AL. 05/24/2025 3:18 AM EDT 05/24/2025 3:22 AM EDT Generic External Data Provider LAB BLOOD ORDERAB LES Final Result [facility] [address] [place] [address] [phone] * (ABNORMAL) CBC auto differential (05/24/2025 3:18 AM EDT) [facility] White Blood Count 10.2 4.8 - 10.8 X10*3/uL [facility] Red Blood Count 4.98 4.20 - 5.50 X10*6/uL [facility] Hemoglobin 12.9 12.0 - 16.0 g/dl [facility] Hematocrit 38.7 37.0 - 47.0 % [facility] Mean Corpuscular Volume 77.7(L) 80.0 - 98.0 fL [facility] Mean Corpuscular Hemoglobin 25.9(L) 27.0 - 33.0 pg [facility] Mean Corpuscular HGB Conc 33.3 31.0 - 35.0 g/dl [facility] Red Cell Distribution Width 13.9 11.0 - 16.0 % [facility] Platelet Count 335 160 - 400 X10*3/uL [facility] Mean Platelet Volume 9.9 9.4 - 12.3 fL [facility] Neutrophils Percent Auto 55.1 45 - 73 % [facility] Imm Gran Pct Auto 0.3 0.0 - 0.4 % [facility] Lymphocytes Percent Auto 35.2 20 - 40 % [facility] Monocytes Percent Auto 5.5 2 - 11 % [facility] Eosinophils Percent Auto 3.1 0 - 4 % [facility] Basophils Percent Auto 0.8 0 - 2 % [facility] NRBC Pct Auto 0.0 0.0 - 0.2 /100WBC [facility] Neutrophils Absolute Auto 5.6 2.0 - 8.3 x10*3/uL [facility] Imm Gran Abs Auto 0.03 0.00 - 0.03 X10*3/uL [facility] Lymphocytes Absolute Auto 3.6 1.2 - 4.9 X10*3/uL [facility] Monocytes Absolute Auto 0.6 0.1 - 1.2 X10*3/uL [facility] Eosinophils Absolute Auto 0.3 0.0 - 0.4 X10*3/uL [facility] Basophils Absolute Auto 0.1 0.0 - 0.2 X10*3/uL [facility] NRBC Abs Auto 0.000 0.0 - 0.012 X10*3/uL [facility] 05/24/2025 3:18 AM EDT 05/24/2025 3:22 AM EDT us Generic External Data Provider LAB BLOOD ORDERAB LES Final Result [facility] [address] [place] [phone] * (ABNORMAL) Comprehensive Metabolic Panel (05/24/2025 3:18 AM EDT) Sodium 142 135 - 145 mmol/L [facility] Potassium 3.7 3.3 - 5.1 mmol/L [facility] Chloride 113(H) 96 - 108 mmol/L [facility] Carbon Dioxide 22 22 - 29 mmol/L [facility] Anion Gap 11(L) 12 - 20 [facility] Urea Nitrogen (BUN) 15 9 - 16 mg/dL [facility] Creatinine, Serum 0.77 0.5 - 1.4 mg/dL [facility] Creatinine Clr Calc Pharmacy 107.4 [facility] Comment:Provided height and weight: 149.86 cm,93 kg.eGFR (calculated from the MDRD study equation) and eCrCl(calculated from the Cockcroft-Gault equation) are based ondifferent parameters and may not yield comparable results.If eCrCl result is absurd, please check patient'sheight/weight. Estimated Glomerular Filt Rate >60 [facility] Comment:Chronic Kidney Disea se: Estimated GFR < 60 mL/min/1.95n6Asljoi Kidney Disease: Estimated GFR < 15 mL/min/1.73m2 Glucose 105 60 - 115 mg/dL [facility] Calcium 8.7 8.4 - 10.2 mg/dL [facility] Bilirubin, Total 0.2 0.0 - 1.0 mg/dL [facility] Aspartate Amino Transferase 15 5 - 31 U/L [facility] Alanine Aminotransferase 17 0 - 31 U/L [facility] Total Protein 6.5 6.5 - 8.0 g/dL [facility] Albumin Level 3.9 3.5 - 5.0 g/dL [facility] Alkaline Phosphatase 68 39 - 117 U/L [facility] 05/24/2025 3:18 AM EDT 05/24/2025 3:22 AM EDT us Generic External Data Provider LAB BLOOD ORDERAB LES Final Result [facility] [address] [place] [phone] * HIV-1/2 Antigen and Antibodies, Fourth Generation, with Reflexes (08/03/2024 4:02 PM EDT) HIV AB/AG Nonreactive Nonreactive [facility] Comment:HIV-1 p24 Ag and/or HIV-1/HIV-2 Ab not detected.A test result that is nonreactive does not exclude thepossibility of exposure to or infection with HIV-1 and/orHIV-2. Nonreactive results in this assay for individualswith prior exposure to HIV-1 and/or HIV-2 may be due toantigen and antibody levels that are below the limit ofdetection of this assay.The [employer] HIV Ag/Ab Combo assay result andsupplemental assay results should be interpreted inconjunction with the patient's clinical presentation,history and other laboratory results. If the results areinconsistent with clinical evidence, additional testing issuggested to confirm the result. Blood Venous blood specimen / Unknown 08/03/2024 4:02 PM EDT 08/03/2024 5:21 PM EDT us Janet Pierson MD LAB BLOOD ORDERABLES Final Re sult [facility] [address] [place], [place] [phone] * Image-Guided Pap with Age-Based Screening??with CT/NG,??Trichomonas (11/14/2023 10:42 AM EST) Trichomonas (NAAT) NOT DETECTED NOT DETECTED [facility] Comment:The analytical perfo rmance characteristics of thisassay have been determined by [employer]. Themodifications have not been cleared or approved bythe FDA. This assay has been validated pursuant to theCLIA regulations and is used for clinical purposes.For additional information, please refer tohttp://education.[employer]/faq/Trichomonastma(This link is being provided for information/educational purposes only.)THIS TEST WAS PERFORMED AT:[facility] [place] [phone] CRAMER MD CTNG Ref Lab NOT DETECTED NOT DETECTED [facility] NG Ref Lab NOT DETECTED NOT DETECTED [facility] C[employer]ix 11/14/2023 10:4 2 AM EST 11/15/2023 9:40 AM EST us Janet Pierson MD LAB CYTOLOGY ORDERABLES Final Result Performing Organization Address [facility]/ZIP Co de Phone Number [facility] [address] [place] [phone] * Hepatitis C Ab (09/16/2023 8:46 AM EST) Hepatitis C Antibody Nonreactive Nonreactive [facility] Comment:Antibodies to HCV no t detected; does not exclude early acuteHCV infection. Blood Venous blood specimen / Unknown 09/16/2023 8:46 AM EST 09/16/2023 2:37 PM EST us Janet Pierson MD LAB BLOOD ORDERABLES Final Re sult Performing Organization Address City[facility] Co de Phone Number [facility] [address] [place] [phone] * (ABNORMAL) Lipid Panel, Standard (09/16/2023 8:46 AM EST) Triglycerides 108 <150 mg/dL [facility] Comment:Desirable Triglyceri de: less than 150 mg/dLBorderline High Triglyceride 150-199 mg/dLHigh Triglyceride: 200-499 mg/dLVery High Triglyceride: greater than or equal to 5OO mg/dL Cholesterol 171 <200 mg/dL [facility] Comment:Desirable Cholestero l: less than 200 mg/dLBorderline High Cholesterol: 200-239 mg/dLHigh Cholesterol: greater than 239 mg/dL LDL Cholesterol Calculated 118(H) <100 mg/dL [facility] Comment:Desirable LDL: less than 100 mg/dLNear Optimal/Above Optimal LDL: 110- 129 mg/dLBorderline High LDL: 130-159 mg/dLHigh LDL: 160-189 mg/dLVery High LDL: greater than or equal to 190 mg/dL HDL Cholesterol 32(L) >40 mg/dL [facility] Comment:Desirable HDL: great er than 40 mg/dL Note: This HDL assay may give artificially low results in patients with liver disease. Blood Venous blood specimen / Unknown 09/16/2023 8:46 AM EST 09/16/2023 2:37 PM EST us Janet Pierson MD LAB BLOOD ORDERABLES Final Re sult [facility] [address] [place] [address] [phone] from Last 3 Months or Most Recently Relevant to Health Maintenance Insurance * Guarantor: Milka Guthrie Account Type Relation to Patient Date of Phone Billing Address Personal/Family Self [address] [place] [address] [facility] 2 Care Teams Sales Porter Relationship Specialty Start Date End Date Janet Pierson MD [address] [place] [address] PCP - General Family Medicine 09/13/23 Yumiko Sams Consulting Physician Neurology 03/31/25 Dillon Montgomery NP Nurse Practitioner Cardiology 03/31/25
--- OUTSIDE RECORDS SUMMARY | 2025-06-16 08:40 | XMS_ITS | Clinical Summary ---
Author Organization [facility] Address [address] [place] [address] Phone Care Team Providers Care Recovery Advocate Name Role Phone Unavailable Primary Care Provider [...] this topic Procedures * Due to [facility] law, this organization might not be sharing sensitive test results. Procedure Name Priority Date/Time Associated Diagnosis Comments CHLAMYDIA DNA PROBE, DIRECT Routine 05/13/2015 12:00 AM EDT from Last 3 Months or Most Recently Relevant to Health Maintenance Results * Due to [facility] law, this organization might not be sharing sensitive test results. * Chlamydia DNA probe, direct (05/13/2015 12:00 AM EDT) Chlamydia trachomatis amplified RNA(Conversion) Negative [facility] Comment: Edilma Sepulveda 05/13/2015 05:10:08 PM > Negative Reason: Received -[facility] Lab Order Steam Tank Operator CHLAMYDIA SOURCE URINE CON VERTED LABS Comment: Edilma Sepulveda 05/13/2015 05:10:08 PM > Negative Reason: Received -[facility] Lab Order Steam Tank Operator CHLAMYDIA TRACHOMATIS AMPLIFIED RNA Negative [facility] Comment: Edilma Sepulveda 05/13/2015 05:10:08 PM > Negative Reason: Received -[facility] Lab Order Steam Tank Operator 05/13/2015 Narrative [facility] - 05/13/2015 12:00 AM EDT Chlamydia DNA Probe us Edilma Sepulveda EMS INSTRUCTOR LAB MICROBIOLOGY - GENERAL ORD ERABLES Final Result [facility] from Last 3 Months or Most Recently Relevant to Health Maintenance
--- OUTSIDE RECORDS SUMMARY | 2025-06-16 08:40 | XMS_ITS | Encounter Summary ---
Author Organization [employer] Address [address] 7[address] [place] [address] Care Team Providers Care Geographic Information System Surveyor Name Role Phone Janet Pierson MD Primary Care Provider [phone] Reason for Visit * Reason Onset Date Comments Appointment Request 12/16/2024 Encounter Details Date Type Department Care Team ([facility] st Contact Info) Description 12/16/2024 Telephone [facility] [address] [place] [address] Janet Pierson MD [address] [place], [place] [phone] Appointment Request Social History Tobacco Use Types [...] Description 06/17/2025 1:00 PM EDT Clinical Support [facility] [address] [place] [address] documented as of this encounter Visit Diagnoses Not on filedocumented in this encounter Additional Health Concerns Assessment Noted Time PHQ-9 Depression Total Score: 7 05/08/20 24 9:13 AM EDT documented as of this encounter Care Teams Geographic Information System Surveyor Relationship Specialty Start Date End Date Janet Pierson MD [address] [place] [phone] PCP - General Family Medicine 09/13/23 Yumiko Sams Consulting Physician Neurology 03/31/25 Dillon Montgomery NP Nurse Practitioner Cardiology 03/31/25 documented as of this encounter
--- OUTSIDE RECORDS SUMMARY | 2025-06-16 08:41 | XMS_ITS | Encounter Summary ---
Author Organization [employer] Address [address] [facility] [address] [place] [address] Care Team Providers Care Mining And Quarrying Machinery Repairer Name Role Phone Janet Pierson MD Primary Care Provider [phone] Reason for Visit * Reason Onset Date Comments Nurse Triage 12/03/2024 Encounter Details Date Type Department Care Team ([facility] st Contact Info) Description 12/03/2024 Telephone [facility] [address] [place], [place] [phone] Janet Pierson MD [address] [place], [place] [phone] Nurse Triage Social History Tobacco Use Types [...] Please assist with obtaining discharge summary for [facility] ED visit on 12/02/2024 for provider review prior to upcoming appointment. Future Appointments Date Time Provider Department Center 12/03/2024 2:00 PM [facility] 01/12/2025 9:15 AM Rosa Joy MD [facility] * Telephone Encounter - Columba Meyers RN - 12/03/2024 11:10 AM EST Call returned to Milka Ambrose to triage below. No [facility] ED notes available in chart. Per pt was instructed to follow up with [facility] Cardiology, Dr Francisco. Pt did call today and was directedto have PCP follow up with PCP first. Pt also tx for migraine headache. Pt denies any CP or palpitations today. Pt needing PCP referral for Cardiology follow up. Pt has [facility] notes given at discharge. Denies any Rx at discharge. Pt agrees to sick on site today with [facility] provider. Protocol Used: Recent Medical Visit for Illness Follow-up Call (Adult) Protocol-Based Disposition: See in Office or Video Visit Today or Tomorrow Future Appointments Date Time Provider Department Center 12/03/2024 2:00 PM [facility] SAME DAY CARE [facility] 01/12/2025 [...] ED visit on : Date: 12/02/24 Hospital: [facility] Seen for: chest pain and fast heart rate Symptomatic Yes *if yes message should go to Triage Patient advised will forward to team nurse for follow up documented in this encounter Plan of Treatment Upcoming Encounters Date Type Department Care Team (Late st Contact Info) Description 06/17/2025 1:00 PM EDT Clinical Support [facility] [address] [place] [address] documented as of this encounter Visit Diagnoses Not on filedocumented in this encounter Additional Health Concerns Assessment Noted Time PHQ-9 Depression Total Score: 7 05/08/20 24 9:13 AM EDT documented as of this encounter Care Teams Mining And Quarrying Machinery Repairer Relationship Specialty Start Date End Date Janet Pierson MD [address] [place] [phone] PCP - General Family Medicine 09/13/23 Yumiko Sams Consulting Physician Neurology 03/31/25 Dillon Montgomery NP Nurse Practitioner Cardiology 03/31/25 documented as of this encounter
--- OUTSIDE RECORDS SUMMARY | 2025-06-16 08:41 | XMS_ITS | Clinical Summary ---
Author Organization [facility] Address [address] [place] [address] Phone Care Team Providers Care Project Officer Name Role Phone Physician, No Pcp Primary Care Provider Unavaila ble Encounters Date Type Department Care Team Description 04/27/2025 2:03 PM EDT - 04/27/2025 11:59 PM EDT Hospital Encounter [facility] Xray [address] [place] [address] Dizziness and giddiness Discharge Disposition: [...] 2015 Cervical Cancer Screening: Pap Smear 2017 Depression Screening 10/14/2024 Hepatitis C Screening 03/05/2025 Social Influencers of Health Screening 03/05/2025 COVID-19 Vaccine ( season) 2025 05/27/2021, 04/29/2021 Influenza Vaccine (#1) 2025 08/25/2018, 2015 DTaP,Tdap,and [...] Self 1995 [address] [place] [address] [facility] Care Teams Project Officer Relationship Specialty Start Date End Date Physician, No Pcp PCP - General 04/27/25
== END ==
LOC: HO.SL 08:10
PROVIDERS: PCP Family Medicine; Visit Provider Family Medicine
DX: Z13.89 Encounter for screening for other disorder (principal)

== ENCOUNTER → 2025-06-16 21:00 | Outpatient (BNV) | payer OTHER, SELFPAY | PROVIDERS: PCP Family Medicine; Visit Provider Internal Medicine | DX: R06.83 Snoring (principal) | CPT/HCPCS: 95806 ==

== ENCOUNTER 2025-08-05 08:26 | Outpatient (AMB) | payer OTHER, SELFPAY ==
--- NOTE | 2025-08-05 08:34 | MHC.OFFVIS ---
Vital Signs 08/05/25 08:40 Height 4 ft 11 in Weight 190 lb BMI 38.4 BP 132/78 Blood Pressure Location Lt radial Position Sitting Respiration 16 Pulse 75 Pulse Oximetry (%) 99 Oxygen Delivery Method Room Air Intake Visit Reasons: Follow up In Store Representative Required: No Allergies copper (COPPER) Allergy (Unknown, Verified 08/05/25 08:39) RASH/HIVES nickel (NICKEL) Allergy (Unknown, Verified 08/05/25 08:39) RASH/HIVES acetaminophen (From Tylenol) Adverse Reaction (Verified 08/05/25 08:39) Gastrointestinal Upset sumatriptan Adverse Reaction (Verified 08/05/25 08:39) Nausea and Vomiting HPI Comments Details: Milka is a 30-year-old female patient with a past medical history of anxiety, depression, insomnia, and obesity who is being followed in the clinic for chronic migraine without aura. She was previously seeing Dr. Sams and has been trialed on several first-line agents for migraine prevention. At their most recent visit together in January of 2025, she was started on Nurtec as needed for acute migraine episodes. She is not currently on any preventive agents. She tells me that since starting in the Nurtec, she has had excellent relief of her headaches from an acute standpoint. She takes the Nurtec as needed for her more severe migraines. She has near complete relief of her migraines within an hour of taking the medication and her relief lasts nearly for a full day. Unfortunately, her migraines generally will return the following day and she has been getting daily migraine headaches. Her pain is primarily to the occipital and retro-orbital areas felt that the stabbing and throbbing pain. She does have associated light sensitivity, smell sensitivity, and nausea. She tells me that her sleep has always been difficult. She is currently on Lunesta which helps her to fall asleep though unfortunately she still has difficulty maintaining sleep and does wake up frequently throughout the night. She had a sleep study on 06/21/2025 at home which was a normal study. Past medication trials include: Amitriptyline-no significant benefit Topiramate-no significant benefit Verapamil-no significant benefit Depakote-no significant benefit (Propranolol not tried due to history of asthma) Sumatriptan-no significant benefit Rizatriptan-no significant benefit PFSH Medical History (Updated 08/05/25 @ 09:14 by Cherrie Schreiber CNP) Migraine without aura Asthma Surgical History Hx of colonoscopy History of esophagogastroduodenoscopy (EGD) Hx of tonsillectomy Family History Mother No problems noted. 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 Sexual orientation: Straight/Heterosexual Gender identity: Female Review of Systems Const All systems reviewed & are unremarkable except as noted in HPI and below Physical Exam Vital Signs: Last Vital Signs Pulse 75 08/05/25 08:40 Resp 16 08/05/25 08:40 BP 132/78 08/05/25 08:40 Pulse Ox 99 08/05/25 08:40 Oxygen Delivery Method Room Air 08/05/25 08:40 BMI result Body Mass Index 38.4 Const General: cooperative, healthy appearing, comfortable and no acute distress Nutritional Appearance: well nourished Orientation/consciousness: patient oriented x3 Limitations: no limitations HEENT Head: Yes normal to inspection and Yes normocephalic Eyes General: appearance normal, both eyes and all related structures Visual Franklin: normal visual franklin by confrontation Alignment and Position: alignment normal Periorbital: periorbital findings normal Eyelids: Yes eyelids normal Conjunctivae: conjunctivae normal Sclerae: sclerae normal Neuro General: patient oriented x3 and deep tendon reflexes 2+ bilaterally Cranial nerves: Yes CN's II-XII intact bilaterally and Yes Facial sensation intact/muscles of mastication intact Cognition (Neuro): normal cognition Gait exam (Neuro): Normal gait present Motor exam (neuro): 5/5 motor strength present throughout and no tremor noted Sensory Exam: double simultaneous stimulation for sensation normal Romberg Test: Negative Pupils: Normal pupillary reactivity/response: bilateral Psych Appearance: grossly normal Mental Status: mental status grossly normal Speech and movement: Normal speech and movement present and Clear speech present Affect: normal affect Attitude: cooperative Thought process: Normal thought process present Thought content: Normal thought content present Insight: Good insight present (Psych) Judgement: Good judgement present (Psych) Assessment & Plan Assessment & Plan (1) Chronic migraine without aura without status migrainosus, not intractable: Code(s): G43.709 - Chronic migraine without aura, not intractable, without status migrainosus Category: Medical (2) Muscle pain, myofascial: Code(s): M79.18 - Myalgia, other site Category: Medical (3) Occipital neuralgia: Code(s): M54.81 - Occipital neuralgia Category: Medical Plan Milka is a 30-year-old female patient with a past medical history of anxiety, depression, insomnia, and obesity who is being followed in the clinic for chronic migraine without aura. She is currently experiencing daily headaches with migrainous features though she does have some pain to the occipital notch areas bilaterally. There was likely some element of tension-type headache which has precipitated some occipital neuralgia. She has tried several agents for prevention in the past as outlined in HPI above. She is currently experiencing excellent relief with the Nurtec but this is from an acute therapy standpoint. I would like to try her on a once monthly injectable therapy for prevention of migraine and continue her on the Nurtec for as-needed/acute therapy. We could in the future consider occipital nerve blocks and trigger point injections for adjunct therapy if needed. -start Emgality 240 mg loading dose and 120 mg once monthly -continue Nurtec 75 mg as needed for migraine acute therapy -follow up in 3 months or sooner if needed Coding Level of Care Code Est Pt Level 4 (54342) Diagnoses Chronic migraine without aura without status migrainosus, not intractable G43.709 Muscle pain, myofascial M79.18 Occipital neuralgia M54.81
[2025-08-05 08:40] VITALS: BP 132/78; PULSE 75; RESP 16; O2SAT 99; BMI 38.4
--- OUTSIDE RECORDS SUMMARY | 2025-08-05 08:50 | XMS_ITS | Encounter Summary ---
Author Organization [employer] Address [address] [place] [address] Care Team Providers Care Auto Radio Mechanic Name Role Phone Janet Pierson MD Primary Care Provider [phone] Reason for Visit * Reason Comments Med Change Request Encounter Details Date Type Department Care Team ([facility] Contact Info) Description 01/07/2025 Refill [facility] [address] [place], [place] [phone] Rosa Joy MD [address] [place], [place] [phone] Generalized anxiety disorder Social History Tobacco Use [...] Care Team (Late st Contact Info) Description 09/16/2025 1:00 PM EST Clinical Support [facility] MED & PEDS [address] [place] [address] documented as of this encounter Visit Diagnoses Diagnosis Generalized anxiety disorder documented in this encounter Additional Health Concerns Assessment Noted Time PHQ-9 Depression Total Score: 7 05/08/20 24 9:13 AM EDT documented as of this encounter Care Teams Auto Radio Mechanic Relationship Specialty Start Date End Date aJnet Pierson MD [address] [place] [id number] PCP - General Family Medicine 09/13/23 Yumiko Sams Consulting Physician Neurology 03/31/25 Dillon Montgomery NP Nurse Practitioner Cardiology 03/31/25 documented as of this encounter
--- OUTSIDE RECORDS SUMMARY | 2025-08-05 08:50 | XMS_ITS | Encounter Summary ---
Author Organization [facility] Address [address] [facility] [address] [place] [address] Phone Care Team Providers Care Book Salesman Name Role Phone Opal Cheek FAMILY PARTNER Primary Care Provider [phone] Renetta Jhaveri Primary Care Provider [phone] Pcp, Unknown Primary Care Provider Unavailabl e Encounter Details Date Type Department Care Team (Late st Contact Info) Description 02/24/2018 Procedure Pass [facility] Endoscopy Admitting Dept Virtual Department [address] [place] [address] Social History Tobacco Use Types Packs/Day Years [...] on filedocumented in this encounter Care Teams Book Salesman Relationship Specialty Start Date End Date Opal Cheek NP [address] [place] [address] PCP - General Family Medicine 02/24/18 12/16/18 Renetta Jhaveri FNP [address] [place] [address] [address] [place], [place] [phone] [email or web address] PCP - General Family Medicine 12/17/18 05/12/22 Pcp, Unknown PCP - General 05/13/22 documented as of this encounter Additional Source Comments The information contained in this document represents components of the legal health record. It is not the complete legal health record.[facility]
--- OUTSIDE RECORDS SUMMARY | 2025-08-05 08:50 | XMS_ITS | Clinical Summary ---
Author Organization [facility] Address [address] [place] [phone] Phone Care Team Providers Care Keg Washer Name Role Phone Unavailable Primary Care Provider [...] 12/01/1997, Additional history exists Influenza Vaccines (#1) 2025 COVID-19 Vaccine ( season) 2025 Hepatitis B Vaccines Completed 01/15/1997, 1996, [...] complete this topic Procedures * Due to [facility] law, this organization might not be sharing sensitive test results. Procedure Name Priority Date/Time Associated Diagnosis Comments CHLAMYDIA DNA PROBE, DIRECT Routine 05/13/2015 12:00 AM EDT from Last 3 Months or Most Recently Relevant to Health Maintenance Results * Due to [employer] law, this organization might not be sharing sensitive test results. * Chlamydia DNA probe, direct (05/13/2015 12:00 AM EDT) Chlamydia trachomatis amplified RNA(Conversion) Negative CONVERTED LABS Comment: Edilma Sepulveda 05/13/2015 05:10:08 PM > Negative Reason: Received -[facility] Lab Order Rim Fire Priming Operator CHLAMYDIA SOURCE URINE CON VERTED LABS Comment: Edilma Sepulveda 05/13/2015 05:10:08 PM > Negative Reason: Received -[facility] Lab Order [employer] Priming Operator CHLAMYDIA TRACHOMATIS AMPLIFIED RNA Negative CONVERTED LABS Comment: Edilma Sepulveda 05/13/2015 05:10:08 PM > Negative Reason: Received -[facility] Lab Order Rim Fire Priming Operator 05/13/2015 Narrative CONVERTED LABS - 05/13/2015 12:00 AM EDT Chlamydia DNA Probe us Edilma Sepulveda [employer] LAB MICROBIOLOGY - GENERAL ORD ERABLES Final Result CONVERTED LABS from Last 3 Months or Most Recently Relevant to Health Maintenance
--- OUTSIDE RECORDS SUMMARY | 2025-08-05 08:50 | XMS_ITS | Encounter Summary ---
Author Organization [employer] Address [address] [facility] 7 [place] [address] Care Team Providers Care Bread Wrapping Machine Feeder Name Role Phone Janet Pierson MD Primary Care Provider [phone] Reason for Visit * Reason Onset Date Comments Nurse Triage 12/03/2024 Encounter Details Date Type Department Care Team ([facility] st Contact Info) Description 12/03/2024 Telephone [facility] [address] [place], [place] [phone] Janet Pierson MD [address] [place], [place] [phone] Nurse Triage Social History Tobacco Use Types [...] Please assist with obtaining discharge summary for [facility] ED visit on 12/02/2024 for provider review prior to upcoming appointment. Future Appointments Date Time Provider Department Center 12/03/2024 2:00 PM [facility] 01/12/2025 9:15 AM Rosa Joy MD [facility] * Telephone Encounter - Columba Meyers RN - 12/03/2024 11:10 AM EST Call returned to Milka Ambrose to triage below. No [facility] ED notes available in chart. Per pt was instructed to follow up with [facility] Cardiology, Dr Francisco. Pt did call today and was directedto have PCP follow up with PCP first. Pt also tx for migraine headache. Pt denies any CP or palpitations today. Pt needing PCP referral for Cardiology follow up. Pt has [facility] notes given at discharge. Denies any Rx at discharge. Pt agrees to sick on site today with [facility] provider. Protocol Used: Recent Medical Visit for Illness Follow-up Call (Adult) Protocol-Based Disposition: See in Office or Video Visit Today or Tomorrow Future Appointments Date Time Provider Department Center 12/03/2024 2:00 PM [facility] 01/12/2025 9:15 AM Rosa Joy MD [facility] Insurance verified as active per Real [...] ED visit on : Date: 12/02/24 Hospital: [facility] Seen for: chest pain and fast heart rate Symptomatic Yes *if yes message should go to Triage Patient advised will forward to team nurse for follow up documented in this encounter Plan of Treatment Upcoming Encounters Date Type Department Care Team (Late st Contact Info) Description 09/16/2025 1:00 PM EST Clinical Support [facility] MED & PEDS [address] [place] [address] documented as of this encounter Visit Diagnoses Not on filedocumented in this encounter Additional Health Concerns Assessment Noted Time PHQ-9 Depression Total Score: 7 05/08/20 24 9:13 AM EDT documented as of this encounter Care Teams Bread Wrapping Machine Feeder Relationship Specialty Start Date End Date Janet Pierson MD [address] [place] [phone] PCP - General Family Medicine 09/13/23 Yumiko Sams Consulting Physician Neurology 03/31/25 Dillon Montgomery NP Nurse Practitioner Cardiology 03/31/25 documented as of this encounter
--- OUTSIDE RECORDS SUMMARY | 2025-08-05 08:50 | XMS_ITS | Encounter Summary ---
Author Organization [facility] Address [address] [place] [address] Phone Care Team Providers Care Data Processing Systems Consultant Name Role Phone Montse Olivier NP Primary Care Provider Encounter Details Date Type Department Care Team (Late st Contact Info) Description 05/22/2017 Conversion Encounter [facility] Pediatrics - [address], [address] [place] [address] Montse Olivier NP [address] [place] [address] Social History Tobacco Use Types Packs/Day Years [...] on filedocumented in this encounter Care Teams Data Processing Systems Consultant Relationship Specialty Start Date End Date Montse Olivier NP [address] [place] [phone] PCP - General 12/04/16 01/21/24 documented as of this encounter
--- OUTSIDE RECORDS SUMMARY | 2025-08-05 08:50 | XMS_ITS | Clinical Summary ---
Author Organization [employer] Address [address] [facility] 7[address] [place] [address] Care Team Providers Care Drop Worker Name Role Phone Janet Pierson MD Primary Care Provider [phone] Allergies Active Allergy Reactions Criticality Noted Date Comments Acetaminophen 09/13/2023 Other reaction(s): Stomach upset Copper 07/31/2023 Nickel 07/31/2023 Other reaction(s): Copper Sumatriptan 01/16/2024 Medications * This document contains information received from the source organization and may not represent a complete record from that organization. ondansetron ODT (Zofran-ODT) 4 MG disintegrating tablet TAKE 1 TABLET ORALLY EVERY 8 HOURS NEEDED FOR NAUSEA AND VOMITING (*INS LIMITS 9 TABS/30 DAYS) 09/05/20 24 Active albuterol (Ventolin HFA) 108 (90 Base) MCG/ACT inhaler INHALE 2 PUFFS BY MOUTH EVERY 6 HOURS NEEDED FOR SHORTNESS OF BREATH OR WHEEZING OR COUGH 18 g 3 01/13/20 25 Active nystatin (Nystop) 853522 UNIT/GM powderIndications: Candidal intertrigo Apply topically 2 times daily. 60 g 3 02/19/20 25 026 Active propranolol (Inderal) 10 MG tabletIndications: Generalized anxiety disorder Take 1 tablet (10 mg) by mouth if needed in the morning and at bedtime (Anxiety). 60 tablet 1 02/26/20 25 Active ARIPiprazole (Abilify) 10 MG tabletIndications: Mood disorder (CMS/HCC) Take 1 tablet (10 mg) by mouth Once per day. 30 tablet 1 02/26/20 25 Active dilTIAZem SR (Cardizem SR) 60 MG 12 hr capsule Take 1 capsule by mouth 2 times daily. 03/27/20 25 Active Nurtec 75 MG tablet dispersible DISSOLVE 1 TABLET ON THE TONGUE ONCE A DAY NEEDED 03/03/20 25 Active phentermine 37.5 MG capsule Take 1 capsule (37.5 mg) by mouth before breakfast. 28 capsule 2 03/31/20 25 Active eszopiclone (Lunesta) 2 MG tablet Take 1 tablet (2 mg) by mouth at bedtime. Take immediately before bedtime 28 tablet 1 04/08/20 25 Active topiramate 50 MG tablet TAKE 1 TABLET BY MOUTH AT BEDTIME 90 tablet 04/27/20 25 Active escitalopram (Lexapro) 5 MG tabletIndications: Generalized anxiety disorder TAKE 1 TABLET BY MOUTH EVERY DAY IN THE MORNING 90 tablet 05/24/20 25 Active medroxyPROGESTERon e (Depo-Provera) 150 MG/ML injection Inject 1 mL (150 mg) into the muscle every 3 (three) months. 1 mL 3 06/16/20 25 026 Active Active Problems Problem Noted Date Diagnosed [...] Asthma, mild intermittent 07/31/20232022 Moderate episode of recurren t major depressive disorder (CMS/HCC) 07/31/2023 07/31/2023 Fatigue 07/31/2023 07/31/2023 GERD (gastroesophageal [...] hot sensation, malaise and fatigue. Severe obesity (CMS/HCC) 07/31/2023 023 Assessment & Plan (03/31/2025 1:26 PM EDT): [...] reduction of 20-30% of maintenance calories; rn admission referral offered. Recommended to decrease soda and [...] reduction of 20-30% of maintenance calories; rn admission referral offered. Recommended to decrease soda and sugary beverage consumption. Recommended at least 20 g per meal of protein to assist with satiety. Recommended at least 150 min/week of moderate intensity exercise. Assessment & Plan (09/13/2023 2:05 PM EST): Discussed calorie deficit, recommended reduction of 20-30% of maintenance calories; rn admission referral offered. Recommended to decrease soda and [...] engagement. PLAN: 1. Follow up with [facility]: Recommended for follow-up: as needed 2. Patient goal is to engage in MH services 3. Behavioral Recommendations a. Ind. Therapy referral will be submitted b. Use of coping skills provided c. Take medication as prescribed. d. [facility] contact number for support Assessment & Plan [...] her gynecology consultation. A referral to a firearms expert is made for further evaluation and discussion [...] (11/14/2023 10:43 AM EST): Adult female for [employer] physical: Normal Exam. FU PAP results. Consider PAP smear in the next four years if today's normal. Routine PAP. FU results. No concerns for domestic violence. Left otitis media 09/13/2023 03/31/2025 Encounters Date Type Department Care Team Description 06/17/2025 1:00 PM EDT Clinical Support [facility] [address] [place] [address] Leslye Holder RN Encounter for health-related screening 06/17/2025 Travel 06/16/2025 Refill [facility] [address] [place] [address] Janet Pierson MD 06/10/2025 Travel 05/24/2025 Orders Only GENERIC EXTERNAL DATA DEPARTMENT Provider, Generic External Data 05/22/2025 Refill [facility] [address] [place] [address] Janet Pierson MD Generalized anxiety disorder from Last 3 Months Immunizations Immunization Administration [...] Description 09/16/2025 1:00 PM EST Clinical Support [facility] [address] [place] [address] Health Maintenance Due Date Last Done Comments Family Planning (PISQ) 2011 Pneumococcal Vaccine: Pediatrics (0 to 5 Years) and At-Risk Patients (6 to 49) Years (1 of 2 - PCV) 2015 COVID-19 Vaccine (3 - season) 2025 05/27/2021, 04/29/2021 Influenza Vaccine (#1) 2025 08/25/2018, 2015 Depression Monitoring 09/30/2025 03/31/2025, 025 Disability Screening [...] AM EDT Narrative 05/24/2025 8:52 AM EDT [address] [place] [address] XRay Report Signed Patient: Milka Guthrie MR#: [id number] : 1995 Acct:[id number] Age/Sex: 30 / F ADM Date: 05/24/25 Loc: .ED Attending Dr: Ordering Physician: Brigette Perry Date of Service: 05/24/25 Procedure(s): XR chest 2V Accession Number(s): [id number] cc: Brigette Perry; Janet Pierson MD EXAMINATION: [...] Linden Turner MD 05/24/2025 08:49 AM EDT Dictated By: Linden Turner MD Signed By: <Electronically signed by Linden Turner MD in OV> 05/24/25 0849 DD/ 0747 TD/TT: 05/24/25 0847 Cigarette Maker: Procedure Note Donotuseinterpreter, Image - 05/24/[address] [address] XRay Report Signed Patient: Marco GuthrieR#: Christal [id number] : 1995Acct:[id number] Age/Sex: 30 / FADM Date: 05/24/25 Loc: .ED Attending Dr: Ordering Physician: Brigette Perry Date of Service: 05/24/25 Procedure(s): XR chest 2V Accession Number(s): [id number] cc: Brigette Perry; Janet Pierson MD EXAMINATION: [...] MD in OV> 05/24/25 0849 DD/ TD/TT: 05/24/2547 Cigarette Maker: [facility] External Provider IMG XR PROCEDURES Final Result * High Sensitivity Troponin I (05/24/2025 3:18 AM EDT) Pathologist [facility] TROPONIN I HIGH SENSITIVITY <2.7 <3.5 - 17.0 ng/L [facility] Comment:The Grimaldo high sens itivity Troponin-I results should beused in conjunction with other diagnostic information suchas ECG, clinical observations and information, and patientsymptoms to aid in the diagnosis of DE. 05/24/2025 3:18 AM EDT 05/24/2025 3:22 AM EDT Generic External Data Provider LAB BLOOD ORDERAB LES Final Result [facility] [address] [place] [phone] * (ABNORMAL) CBC auto differential (05/24/2025 3:18 AM EDT) Pathologist [facility] White Blood Count 10.2 4.8 - 10.8 X10*3/uL [facility] Red Blood Count 4.98 4.20 - 5.50 X10*6/uL [facility] Hemoglobin 12.9 12.0 - 16.0 g/dl [facility] Hematocrit 38.7 37.0 - 47.0 % [facility] Mean Corpuscular Volume 77.7(L) 80.0 - 98.0 fL [facility] Mean Corpuscular Hemoglobin 25.9(L) 27.0 - 33.0 pg [facility] Mean Corpuscular HGB Conc 33.3 31.0 - 35.0 g/dl [facility] Red Cell Distribution Width 13.9 11.0 - 16.0 % [facility] Platelet Count 335 160 - 400 X10*3/uL [facility] Mean Platelet Volume 9.9 9.4 - 12.3 fL [facility] Neutrophils Percent Auto 55.1 45 - 73 % [facility] Imm Gran Pct Auto 0.3 0.0 - 0.4 % [facility] Lymphocytes Percent Auto 35.2 20 - 40 % [facility] Monocytes Percent Auto 5.5 2 - 11 % [facility] Eosinophils Percent Auto 3.1 0 - 4 % [facility] Basophils Percent Auto 0.8 0 - 2 % [facility] NRBC Pct Auto 0.0 0.0 - 0.2 /100WBC [facility] Neutrophils Absolute Auto 5.6 2.0 - 8.3 x10*3/uL [facility] Imm Gran Abs Auto 0.03 0.00 - 0.03 X10*3/uL [facility] Lymphocytes Absolute Auto 3.6 1.2 - 4.9 X10*3/uL [facility] Monocytes Absolute Auto 0.6 0.1 - 1.2 X10*3/uL [facility] Eosinophils Absolute Auto 0.3 0.0 - 0.4 X10*3/uL [facility] Basophils Absolute Auto 0.1 0.0 - 0.2 X10*3/uL [facility] NRBC Abs Auto 0.000 0.0 - 0.012 X10*3/uL [facility] 05/24/2025 3:18 AM EDT 05/24/2025 3:22 AM EDT us Generic External Data Provider LAB BLOOD ORDERAB LES Final Result [facility] [address] [place] [phone] * (ABNORMAL) Comprehensive Metabolic Panel (05/24/2025 3:18 AM EDT) Sodium 142 135 - 145 mmol/L [facility] Potassium 3.7 3.3 - 5.1 mmol/L [facility] Chloride 113(H) 96 - 108 mmol/L [facility] Carbon Dioxide 22 22 - 29 mmol/L [facility] Anion Gap 11(L) 12 - 20 [facility] Urea Nitrogen (BUN) 15 9 - 16 mg/dL [facility] Creatinine, Serum 0.77 0.5 - 1.4 mg/dL [facility] Creatinine Clr Calc Pharmacy 107.4 [facility] Comment:Provided height and weight: 149.86 cm,93 kg.eGFR (calculated from the MDRD study equation) and eCrCl(calculated from the Cockcroft-Gault equation) are based ondifferent parameters and may not yield comparable results.If eCrCl result is absurd, please check patient'sheight/weight. Estimated Glomerular Filt Rate >60 [facility] Comment:Chronic Kidney Disea se: Estimated GFR < 60 mL/min/1.67o6Swzyfv Kidney Disease: Estimated GFR < 15 mL/min/1.73m2 Glucose 105 60 - 115 mg/dL [facility] Calcium 8.7 8.4 - 10.2 mg/dL [facility] Bilirubin, Total 0.2 0.0 - 1.0 mg/dL [facility] Aspartate Amino Transferase 15 5 - 31 U/L [facility] Alanine Aminotransferase 17 0 - 31 U/L [facility] Total Protein 6.5 6.5 - 8.0 g/dL [facility] Albumin Level 3.9 3.5 - 5.0 g/dL [facility] Alkaline Phosphatase 68 39 - 117 U/L [facility] 05/24/2025 3:18 AM EDT 05/24/2025 3:22 AM EDT us Generic External Data Provider LAB BLOOD ORDERAB LES Final Result Performing Organization Address [facility] Co de Phone Number [facility] [address] [place] [phone] * HIV-1/2 Antigen and Antibodies, Fourth Generation, with Reflexes (08/03/2024 4:02 PM EDT) HIV AB/AG Nonreactive Nonreactive [facility] Comment:HIV-1 p24 Ag and/or HIV-1/HIV-2 Ab not detected.A test result that is nonreactive does not exclude thepossibility of exposure to or infection with HIV-1 and/orHIV-2. Nonreactive results in this assay for individualswith prior exposure to HIV-1 and/or HIV-2 may be due toantigen and antibody levels that are below the limit ofdetection of this assay.[employer] HIV Ag/Ab Combo assay result andsupplemental assay results should be interpreted inconjunction with the patient's clinical presentation,history and other laboratory results. If the results areinconsistent with clinical evidence, additional testing issuggested to confirm the result. Blood Venous blood specimen / Unknown 08/03/2024 4:02 PM EDT 08/03/2024 5:21 PM EDT us Janet Pierson MD LAB BLOOD ORDERABLES Final Re sult Performing Organization Address [facility] Co de Phone Number [facility] [address] [place] [phone] * Image-Guided Pap with Age-Based Screening??with CT/NG,??Trichomonas (11/14/2023 10:42 AM EST) Pathologist [facility] Trichomonas (NAAT) NOT DETECTED NOT DETECTED [facility] Comment:The analytical perfo rmance characteristics of thisassay have been determined by [employer]. Themodifications have not been cleared or approved bythe FDA. This assay has been validated pursuant to theCLIA regulations and is used for clinical purposes.For additional information, please refer tohttp://education.[employer]/faq/Trichomonastma(This link is being provided for information/educational purposes only.)THIS TEST WAS PERFORMED AT:[employer] [place] [phone] CRAMER MD CTNG Ref Lab NOT DETECTED NOT DETECTED [facility] NG Ref Lab NOT DETECTED NOT DETECTED [facility] Cervix 11/14/2023 10:4 2 AM EST 11/15/2023 9:40 AM EST Janet Pierson MD LAB CYTOLOGY ORDERABLES Final Result Performing Organization Address [facility] Co de Phone Number [facility] [address] [place] [phone] * Hepatitis C Ab (09/16/2023 8:46 AM EST) Hepatitis C Antibody Nonreactive Nonreactive [facility] Comment:Antibodies to HCV no t detected; does not exclude early acuteHCV infection. Blood Venous blood specimen / Unknown 09/16/2023 8:46 AM EST 09/16/2023 2:37 PM EST Janet Pierson MD LAB BLOOD ORDERABLES Final Re sult Performing Organization Address [facility] Co de Phone Number [facility] [address] [place] [phone] * (ABNORMAL) Lipid Panel, Standard (09/16/2023 8:46 AM EST) Triglycerides 108 <150 mg/dL [facility] Comment:Desirable Triglyceri de: less than 150 mg/dLBorderline High Triglyceride 150-199 mg/dLHigh Triglyceride: 200-499 mg/dLVery High Triglyceride: greater than or equal to 5OO mg/dL Cholesterol 171 <200 mg/dL [facility] Comment:Desirable Cholestero l: less than 200 mg/dLBorderline High Cholesterol: 200-239 mg/dLHigh Cholesterol: greater than 239 mg/dL LDL Cholesterol Calculated 118(H) <100 mg/dL [facility] Comment:Desirable LDL: less than 100 [...] MD LAB BLOOD ORDERABLES Final Re sult [facility] [address] [place] [phone] from Last 3 Months or Most Recently Relevant to Health Maintenance Insurance [facility] 2 Care Teams Drop Worker Relationship Specialty Start Date End Date Janet Pierson MD [address] [place] [phone] PCP - General Family Medicine 09/13/23 Yumiko Sams Consulting Physician Neurology 03/31/25 Dillon Montgomery NP Nurse Practitioner Cardiology 03/31/25
--- OUTSIDE RECORDS SUMMARY | 2025-08-05 08:50 | XMS_ITS | Encounter Summary ---
Author Organization [employer] Address [address] [facility] [address] [place] [address] Care Team Providers Care Client Account Specialist Name Role Phone Janet Pierson MD Primary Care Provider [phone] Reason for Visit * Reason Onset Date Comments Appointment Request 12/16/2024 Encounter Details Date Type Department Care Team ([facility] st Contact Info) Description 12/16/2024 Telephone [facility] [address] [place] [address] Janet Pierson MD [address] [place], [place] [phone] Appointment Request Social History Tobacco Use Types [...] Description 09/16/2025 1:00 PM EST Clinical Support [facility] [address] [place] [address] documented as of this encounter Visit Diagnoses Not on filedocumented in this encounter Additional Health Concerns Assessment Noted Time PHQ-9 Depression Total Score: 7 05/08/20 24 9:13 AM EDT documented as of this encounter Care Teams Client Account Specialist Relationship Specialty Start Date End Date Janet Pierson MD [address] [place] [phone] PCP - General Family Medicine 09/13/23 Yumiko Sams Consulting Physician Neurology 03/31/25 Dillon Montgomery NP Nurse Practitioner Cardiology 03/31/25 documented as of this encounter
--- OUTSIDE RECORDS SUMMARY | 2025-08-05 08:50 | XMS_ITS | Clinical Summary ---
Author Organization [facility] Address [address] [place] [phone] Phone Care Team Providers Care Microscopist Name Role Phone Physician, No Pcp Primary Care Provider Unavaila ble Social History Tobacco Use Types Packs/Day Years [...] exists Cholesterol Screening (Lipid Panel) 09/16/2028 09/16/2023 RSV Immunization Adult Patients (1 - 1-dose 75+ series) 2071 Hepatitis B Vaccines Completed 01/15/1997, 1995, 1995 HIB Vaccines Completed 12/01/1997, 09/15, 1996, Additional history exists IPV Vaccines Completed 03/13/2001, 09/15, 1996, Additional history exists MMR Vaccines Completed 03/13/2001, 12/01/1997 HPV Vaccines Completed 07/06/2008, 02/2008, 12/10/2007 Meningococcal ACWY Vaccine Completed 04/05, 04/05/2014, [...] on patient's age to complete this topic Insurance * Guarantor: Milka Guthrie Account Type Relation to Patient Date of Phone Billing Address Personal/Family Self 1995 [address] [place] [address] [facility] Care Teams Microscopist Relationship Specialty Start Date End Date Physician, No Pcp PCP - General 04/27/25
--- OUTSIDE RECORDS SUMMARY | 2025-08-05 08:50 | XMS_ITS | Clinical Summary ---
Author Organization [facility] Address [address] [address] Phone Care Team Providers Care Yardage Control Clerk Name Role Phone Pcp, Unknown Primary Care [...] VACCINE (#1) 2025 COVID-19 VACCINE (1 - 2024-2 6 season) 2025 HEPATITIS A VACCINES Aged Out [...] topic Medical Devices Not on file Insurance [employer] FAMILY EMPLOYEES [place] [address] [address] [place] [address] EMPLOYEES FAMILY EM[employer]OYEES FAMILY EM[employer]YEES FAMILY EM[employer]OYEES FAMILY [employer] [place] [address] EMPLOYEES FAMILY [employer]ES FAMILY Care Teams Yardage Control Clerk Relationship Specialty Start Date End Date Pcp, Unknown PCP - General 05/13/22 Additional Source Comments The information contained in this document represents components of the legal health record. It is not the complete legal health record.[facility]
== END 2025-08-05 09:08 | disposition home or self-care (01) ==
LOC: HO.HSM 08:27
PROVIDERS: PCP Family Medicine; Visit Provider Nurse Practitioner
DX: G43.709 Chronic migraine without aura, not intractable, without status migrainosus (principal); M79.18 Myalgia, other site; M54.81 Occipital neuralgia
CPT/HCPCS: 99214

== ENCOUNTER → 2025-08-05 08:26 | Outpatient (BNVA) | payer OTHER, SELFPAY | PROVIDERS: PCP Family Medicine; Visit Provider Nurse Practitioner | DX: G43.709 Chronic migraine without aura, not intractable, without status migrainosus (principal); M79.18 Myalgia, other site; M54.81 Occipital neuralgia | CPT/HCPCS: 99212 ==